=== PATIENT | female | born 1950 | race African-American/Black ===

== ENCOUNTER → 2017-03-08 | Outpatient (CLI) | payer MEDICARE, OTHER ==
[~2017-03-08] MED LIST: ACETAMINOP160 MG/54 ORAL; ACETAMINOPHEN-1 EAC1 ORAL; ASPIRIN81 MG ORAL; CATAPRES0.1 MG ORAL; CRESTOR10 M2 ORAL; FUROSEMIDE40 MG ORAL; METFORMIN HCL500 M1 ORAL; NORCO 10/3251 EA ORAL; NORVASC5 MG ORAL; POTASSIUM CHLO20 ME1 ORAL; SIMVASTATIN40 MG ORAL
[2017-03-08 11:57] LABS: KETONES,URINE NEGATIVE (NEGATIVE); LEUKOCYTE ESTERASE ,URINE NEGATIVE (NEGATIVE); NITRITE,URINE NEGATIVE (NEGATIVE); PH,URINE 5 (4.5-8.0); PROTEIN,URINE NEGATIVE (NEGATIVE); UROBILINOGEN,URINE 1 MG/DL (0.0-1.0)
[2017-03-08 11:58] LABS: APPEARANCE,URINE SLIGHTLY CLOUDY
[2017-03-08 12:00] LABS: LYMPHOCYTES % (AUTO) 30.2 % (20.0-45.0); MEAN CORPUSCULAR HEMOGLOBIN 26.2 PG (27.0-31.0); MEAN CORPUSCULAR HGB CONC 31.1 G/DL (32.0-36.0); MEAN CORPUSCULAR VOLUME 84 FL (80-99); MEAN PLATELET VOLUME 8.9 FL (6.5-10.1); MONOCYTES % (AUTO) 8.3 % (1.0-10.0); NEUTROPHILS % (AUTO) 57.4 % (45.0-75.0); PLATELET COUNT 220 K/UL (150-450); RED BLOOD COUNT 3.94 M/UL (4.20-5.40); RED CELL DISTRIBUTION WIDTH 17.8 % (11.6-14.8); WHITE BLOOD COUNT 5.4 K/UL (4.8-10.8)
[2017-03-08 12:12] LABS: HEMOGLOBIN A1C 5.8 % (< 6.0)
[2017-03-08 12:25] LABS: ALBUMIN/GLOBULIN RATIO 1.2 (1.0-2.7); CALCIUM 10.7 mg/dL (8.6-10.2); CHOLESTEROL/HDL RATIO 3.7 (3.3-4.4); CREATININE 1.1 mg/dL (0.5-0.9); GLOMERULAR FILTRATION RATE 59.9 mL/min (>60); POTASSIUM 3.9 mEQ/L (3.4-4.9); TOTAL PROTEIN 7.4 g/dL (6.6-8.7)
[2017-03-08 12:35] LABS: THYROID STIMULATING HORMONE 0.631 uIU/mL (0.300-4.500)
[2017-03-08 12:39] LABS: BACTERIA,URINE FEW /HPF; RBC,URINE 0-2 /HPF (0 - 2); SQUAMOUS EPITHELIAL CELL,UR MODERATE /LPF (NONE/OCC); WBC,URINE 0-2 /HPF (0 - 2)
== END | disposition home or self-care (01) ==
LOC: LAB 11:28
DX: I10 Essential (primary) hypertension (principal); E11.9 Type 2 diabetes mellitus without complications; I42.1 Obstructive hypertrophic cardiomyopathy
CPT/HCPCS: 36415; 80053; 80061; 81001; 83036; 84443; 85025

== ENCOUNTER 2017-09-06 11:39 | Outpatient (CLI) | payer MEDICARE, OTHER ==
[2017-09-06 11:57] LABS: APPEARANCE,URINE CLEAR; KETONES,URINE NEGATIVE (NEGATIVE); LEUKOCYTE ESTERASE ,URINE NEGATIVE (NEGATIVE); NITRITE,URINE NEGATIVE (NEGATIVE); PH,URINE 5 (4.5-8.0); PROTEIN,URINE NEGATIVE (NEGATIVE); UROBILINOGEN,URINE NORMAL MG/DL (0.0-1.0)
[2017-09-06 12:19] LABS: EOSINOPHILS % (AUTO) 3.5 % (0.0-3.0); LYMPHOCYTES % (AUTO) 19.9 % (20.0-45.0); MEAN CORPUSCULAR HEMOGLOBIN 26.8 PG (27.0-31.0); MEAN CORPUSCULAR HGB CONC 31.3 G/DL (32.0-36.0); MEAN CORPUSCULAR VOLUME 86 FL (80-99); MEAN PLATELET VOLUME 7.9 FL (6.5-10.1); MONOCYTES % (AUTO) 11.9 % (1.0-10.0); NEUTROPHILS % (AUTO) 62.6 % (45.0-75.0); PLATELET COUNT 240 K/UL (150-450); RED BLOOD COUNT 3.72 M/UL (4.20-5.40); RED CELL DISTRIBUTION WIDTH 16.3 % (11.6-14.8); WHITE BLOOD COUNT 5.1 K/UL (4.8-10.8)
[2017-09-06 12:25] LABS: BACTERIA,URINE OCCASIONAL /HPF; RBC,URINE 0-2 /HPF (0 - 2); SQUAMOUS EPITHELIAL CELL,UR OCCASIONAL /LPF (NONE/OCC); WBC,URINE 0-2 /HPF (0 - 2)
[2017-09-06 12:38] LABS: ALANINE AMINOTRANSFERASE 13 U/L (12-78); ALBUMIN/GLOBULIN RATIO 0.7 (1.0-2.7); ANION GAP 10 (5-15); ASPARTATE AMINO TRANSFERASE 15 U/L (15-37); CALCIUM 10.9 MG/DL (8.5-10.1); CARBON DIOXIDE 26 MMOL/L (21-32); CHLORIDE 102 MMOL/L (98-107); CHOLESTEROL 162 MG/DL (< 200); CHOLESTEROL/HDL RATIO 3.2 (3.3-4.4); CREATININE 1.5 MG/DL (0.55-1.30); GLOMERULAR FILTRATION RATE 41.7 mL/min (>60); POTASSIUM 3.9 MMOL/L (3.5-5.1); SODIUM 137 MMOL/L (136-145); TOTAL PROTEIN 8.2 G/DL (6.4-8.2)
== END 2017-09-06 13:39 | disposition home or self-care (01) ==
LOC: LAB 11:39
DX: I11.9 Hypertensive heart disease without heart failure (principal); M19.90 Unspecified osteoarthritis, unspecified site
CPT/HCPCS: 36415; 80053; 80061; 81001; 85025

== ENCOUNTER 2017-11-28 16:16 | Inpatient (IN) | payer MEDICARE, OTHER ==
[~2017-11-28] VITALS: Ht 162.6 cm; Wt 115.2 kg
--- NOTE | 2017-11-28 16:49 | Emergency Room Report ---
History of Present Illness General Source: Patient, EMS Present Illness HPI 67-year-old female with pmhx of hypertension, diabetes, pacemaker p/w syncopal episode. An abdominal pain nausea vomiting diarrhea Patient was at a restaurant, after finishing food, had a witnessed Syncopal episode occurred. no head trauma, +LOC for 2 min. Pt states feeling lightheadedness/nauseous before event. Denies sob, palpitations, or chest pain before event. There was no seizure like activity, tongue biting, urinary incontinence, blurry vision, or ALEXIS. Since after patient woke up she had severe nausea vomiting and diarrhea, abdominal pain. More than 10 episodes of nonbilious nonbloody vomiting Allergies: Coded Allergies: No Known Allergies (Unverified , 02/22/16) Patient History Past Medical History: see triage record Past Surgical History: none Pertinent Family History: none Reviewed Nursing Documentation: PMH: Agreed, PSxH: Agreed Nursing Documentation-PMH Hx Cardiac Problems: Yes - icd Hx Hypertension: Yes Hx Pacemaker: No Hx Asthma: No Hx COPD: No Hx Diabetes: Yes Hx Cancer: No Hx Gastrointestinal Problems: No Hx Dialysis: No Hx Neurological Problems: No Hx Cerebrovascular Accident: No Hx Seizures: No Review of Systems All Other Systems: negative except mentioned in HPI Physical Exam Sp02 EP Interpretation: reviewed, normal General Appearance: alert, moderate distress, other - diaphoretic nauseous female Head: normocephalic, atraumatic Eyes: bilateral eye normal inspection, bilateral eye PERRL, bilateral eye EOMI ENT: normal ENT inspection, normal pharynx, normal voice, moist mucus membranes Neck: normal inspection, full range of motion, supple Respiratory: normal inspection, lungs clear, normal breath sounds, no respiratory distress, no retraction, no wheezing, speaking full sentences, chest symmetrical Cardiovascular #1: normal inspection, regular rate, rhythm, normal capillary refill Cardiovascular #2: 2+ radial (R), 2+ radial (L) Gastrointestinal: soft, non-distended, no guarding, other - b/l lower abd tenderness. no guarding Musculoskeletal: normal inspection, back normal, normal range of motion, non- tender Neurologic: normal inspection, alert, oriented x3, responsive, cognos consultant III-XII nml as tested, motor strength/tone normal, sensory intact, speech normal Psychiatric: normal inspection, judgement/insight normal, memory normal Skin: normal inspection, normal color, no rash, warm/dry, well hydrated, normal turgor Medical Decision Making Diagnostic Impression: Primary Impression: Syncope Additional Impression: Nausea vomiting and diarrhea ER Course 67-year-old female with syncopal episode, nausea vomiting abdominal pain DDX: Vasovagal vs. orthostatic / hypovolemic/dehydration vs. cardiac arrhythmia (SVT , Afib) vs. cardiac (, ACS) vs. PE vs. metabolic (hypoglycemia, hypoxia), vs neuro (seizure, CVA, intracranial bleed) Abdominal pain: Gastritis, gastroenteritis, intra-abdominal pathology such as appendicitis, diverticulitis, UTI/Alexei Plan: bgm, cbc, bmp, ekg, cxr Zofran, IVF CT abdomen and pelvis ER course: Patient received IV fluids Feels much better leukocytosis likely 2/2 to vomiting, no signs of infection at this time Disposition: Patient requires admission to telemetry. Patient requires further workup of syncopal episode, further lab testing, serial troponins, cardiac monitoring D/W hospitalist Renata Please note that this Emergency Department Report was dictated using [employer] officer technology software, occasionally this can lead to erroneous entry secondary to interpretation by the dictation equipment EKG Diagnostic Results EP Interpretation: Yes Rate: normal Rhythm: V paced ST Segments: No acute changes+PVC ASA given to patient: No Rhythm Strip EP Interpretation: Yes Rate: 82 Rhythm: V paced, +PVCs Chest X-ray CXR: Ordered: Yes 1 view Indication: Syncope EP interpretation: Yes Interpretation: PPM noted, possible developing R sided infilrate Impression:possible R sided infiltrate Electronically signed by Glendy Wright MD Laboratory Tests Test 11/28/17 18:50 White Blood Count 17.5 K/UL (4.8-10.8) H Red Blood Count 4.57 M/UL (4.20-5.40) Hemoglobin 10.9 G/DL (12.0-16.0) L Hematocrit 37.4 % (37.0-47.0) Mean Corpuscular Volume 82 FL (80-99) Mean Corpuscular Hemoglobin 23.9 PG (27.0-31.0) L Mean Corpuscular Hemoglobin Concent 29.2 G/DL (32.0-36.0) L Red Cell Distribution Width 16.6 % (11.6-14.8) H Platelet Count 316 K/UL (150-450) Mean Platelet Volume 7.4 FL (6.5-10.1) Neutrophils (%) (Auto) 87.2 % (45.0-75.0) H Lymphocytes (%) (Auto) 8.9 % (20.0-45.0) L Monocytes (%) (Auto) 2.2 % (1.0-10.0) Eosinophils (%) (Auto) 0.7 % (0.0-3.0) Basophils (%) (Auto) 1.1 % (0.0-2.0) Sodium Level 140 MMOL/L (136-145) Potassium Level 3.5 MMOL/L (3.5-5.1) Chloride Level 104 MMOL/L (98-107) Carbon Dioxide Level 16 MMOL/L (21-32) L Anion Gap 20 mmol/L (5-15) H Blood Urea Nitrogen 104 mg/dL (7-18) H Creatinine 3.8 MG/DL (0.55-1.30) H Estimate Glomerular Filtration Rate 14.3 mL/min (>60) Glucose Level 149 MG/DL (74-106) H Calcium Level 8.7 MG/DL (8.5-10.1) Total Bilirubin 1.1 MG/DL (0.2-1.0) H Direct Bilirubin 0.1 MG/DL (0.0-0.3) Aspartate Amino Transferase (AST) 23 U/L (15-37) Alanine Aminotransferase (ALT) 9 U/L (12-78) L Alkaline Phosphatase 111 U/L (46-116) Troponin I 0.014 ng/mL (0.000-0.056) Total Protein 7.8 G/DL (6.4-8.2) Albumin 3.4 G/DL (3.4-5.0) Globulin 4.4 g/dL Albumin/Globulin Ratio 0.8 (1.0-2.7) L Lipase 236 U/L (73-393) Disposition: ADMITTED INPATIENT Condition: Glendy Reynoso M.D. Nov 28, 2017 16:49
[2017-11-28 18:55] VITALS: BP 78/42
[2017-11-28 19:01] LABS: HEMATOCRIT 37.4 % (37.0-47.0); HEMOGLOBIN 10.9 G/DL (12.0-16.0); MEAN CORPUSCULAR VOLUME 82 FL (80-99); PLATELET COUNT 316 K/UL (150-450); RED BLOOD COUNT 4.57 M/UL (4.20-5.40); RED CELL DISTRIBUTION WIDTH 16.6 % (11.6-14.8); WHITE BLOOD COUNT 17.5 K/UL (4.8-10.8)
[2017-11-28 19:02] LABS: EOSINOPHILS % (AUTO) 0.7 % (0.0-3.0); LYMPHOCYTES % (AUTO) 8.9 % (20.0-45.0); MONOCYTES % (AUTO) 2.2 % (1.0-10.0); NEUTROPHILS % (AUTO) 87.2 % (45.0-75.0)
[2017-11-28 19:03] LABS: BASOPHILS % (AUTO) 1.1 % (0.0-2.0)
[2017-11-28 19:13] LABS: ANION GAP 20 mmol/L (5-15); BLOOD UREA NITROGEN 104 mg/dL (7-18); CALCIUM 8.7 MG/DL (8.5-10.1); CARBON DIOXIDE 16 MMOL/L (21-32); CHLORIDE 104 MMOL/L (98-107); CREATININE 3.8 MG/DL (0.55-1.30); POTASSIUM 3.5 MMOL/L (3.5-5.1); SODIUM 140 MMOL/L (136-145)
[2017-11-28] MEDS ORDERED: BENAZEPRIL HCL20 MG ORAL (19:16)
[2017-11-28] MEDS ORDERED: HYDROCHLOROTHIA25 MG ORAL (19:16)
[2017-11-28] MEDS ORDERED: CATAPRES0.2 MG ORAL (19:16)
[2017-11-28] MEDS ORDERED: SIMVASTATIN40 MG ORAL (19:16)
[2017-11-28 19:25] LABS: ALANINE AMINOTRANSFERASE 9 U/L (12-78); ALBUMIN 3.4 G/DL (3.4-5.0); ALBUMIN/GLOBULIN RATIO 0.8 (1.0-2.7); ALKALINE PHOSPHATASE 111 U/L (46-116); ASPARTATE AMINO TRANSFERASE 23 U/L (15-37); BILIRUBIN,TOTAL 1.1 MG/DL (0.2-1.0)
[2017-11-28 19:30] VITALS: BP 100/60
[2017-11-28 19:38] LABS: BILIRUBIN,DIRECT 0.1 MG/DL (0.0-0.3)
[2017-11-28 20:30] VITALS: BP 106/53
[2017-11-28 21:30] VITALS: BP 91/59
[2017-11-28] MEDS: cloNIDine 0.2mg Tab ORAL SCH ×2 (22:00→23:03)
[2017-11-28 22:30] VITALS: BP 123/58
[2017-11-28] MEDS: Morphine Sulfate 4mg/ml Inj IVP PRN (23:02)
[2017-11-28 23:30] VITALS: BP 121/60
[2017-11-29] VITALS: BP 118/57
[2017-11-29 04:00] VITALS: BP 128/59
[2017-11-29] MEDS: Morphine Sulfate 4mg/ml Inj IVP PRN (04:09)
[2017-11-29] MEDS: cloNIDine 0.2mg Tab ORAL SCH ×3 (06:00→22:00)
[2017-11-29 08:00] VITALS: BP 114/95
[2017-11-29 08:28] LABS: ANION GAP 17 mmol/L (5-15); BLOOD UREA NITROGEN 101 mg/dL (7-18); CARBON DIOXIDE 19 MMOL/L (21-32); CHLORIDE 106 MMOL/L (98-107); CHOLESTEROL 101 MG/DL (< 200); CREATININE 3.8 MG/DL (0.55-1.30); HDL CHOLESTEROL 32 MG/DL (40-60); POTASSIUM 4.5 MMOL/L (3.5-5.1); SODIUM 142 MMOL/L (136-145); TRIGLYCERIDES 103 MG/DL (30-150)
[2017-11-29] MEDS: Aspirin Baby 81mg ORAL SCH (09:02)
[2017-11-29] MEDS: Pantoprazole Inj IV SCH (09:02)
--- NOTE | 2017-11-29 09:05 | Diagnostic Imaging Report ---
Indication: Reason For Exam: SOB Technique: One view of the chest Comparison: 05/11/2016 Findings: The heart is enlarged. There is mild interstitial edema bilaterally. No focal airspace consolidation. Pleural spaces are grossly clear, although the left hemidiaphragm is obscured by overlying soft tissue There is a left subclavian bifocal AICD Impression: Cardiomegaly with mild bilateral interstitial edema
[2017-11-29 09:13] LABS: HEMATOCRIT 31.5 % (37.0-47.0); HEMOGLOBIN 9.5 G/DL (12.0-16.0); MEAN CORPUSCULAR VOLUME 81 FL (80-99); PLATELET COUNT 285 K/UL (150-450); RED BLOOD COUNT 3.91 M/UL (4.20-5.40); RED CELL DISTRIBUTION WIDTH 16.4 % (11.6-14.8); WHITE BLOOD COUNT 18.5 K/UL (4.8-10.8)
[2017-11-29] MEDS: Morphine Sulfate 2mg/ml Inj IVP PRN ×3 (10:15→17:21)
--- NOTE | 2017-11-29 11:40 | History & Physical ---
History and Physical History & Physicial dictated [id number] JORDEN DEL CASTILLO Nov 29, 2017 11:40
[2017-11-29 12:00] VITALS: BP 127/67
[2017-11-29] MEDS: metroNIDAZOLE 500mg tab ORAL SCH ×2 (14:55→22:18)
--- NOTE | 2017-11-29 15:29 | Cardiology Progress Note ---
Assessment/Plan Assessment/Plan iv hydration echo icd interrogation urine anlaysis ? encephalopathy serial ezyme [id number] Objective Last 24 Hour Vital Signs Date Time Temp Pulse Resp B/P (MAP) Pulse Ox O2 Delivery O2 Flow Rate FiO2 11/29/17 14:00 116/55 11/29/17 12:00 97.5 70 18 127/67 96 Room Air 11/29/17 12:00 88 11/29/17 09:00 83 114/95 11/29/17 08:00 96.4 83 19 114/95 95 Room Air 11/29/17 08:00 95 11/29/17 06:00 115/73 11/29/17 04:00 94 11/29/17 04:00 97.7 103 20 128/59 95 11/29/17 00:12 80 11/29/17 00:00 97.2 84 18 118/57 99 11/29/17 00:00 97.2 80 18 118/57 99 11/29/17 00:00 97.2 84 18 118/57 99 Room Air 11/28/17 23:38 98.6 11/28/17 23:30 72 12 121/60 100 Room Air 11/28/17 22:30 80 17 123/58 99 Room Air 11/28/17 22:00 138/52 11/28/17 21:30 81 20 91/59 100 Room Air 11/28/17 20:30 68 18 106/53 99 Room Air 11/28/17 19:30 74 21 100/60 99 Room Air 11/28/17 18:55 98.4 67 21 78/42 100 Room Air 11/28/17 16:45 98.4 72 18 115/91 100 Room Air Intake and Output 11/28/17 11/29/17 19:00 07:00 Intake Total 525 ml Balance 525 ml Intake Oral 0 ml IV Total 525 ml # Voids 1 # Bowel Movements 3 Laboratory Tests Test 11/28/17 18:50 11/29/17 05:45 White Blood Count 17.5 K/UL (4.8-10.8) H 18.5 K/UL (4.8-10.8) H Red Blood Count 4.57 M/UL (4.20-5.40) 3.91 M/UL (4.20-5.40) L Hemoglobin 10.9 G/DL (12.0-16.0) L 9.5 G/DL (12.0-16.0) L Hematocrit 37.4 % (37.0-47.0) 31.5 % (37.0-47.0) L Mean Corpuscular Volume 82 FL (80-99) 81 FL (80-99) Mean Corpuscular Hemoglobin 23.9 PG (27.0-31.0) L 24.4 PG (27.0-31.0) L Mean Corpuscular Hemoglobin Concent 29.2 G/DL (32.0-36.0) L 30.3 G/DL (32.0-36.0) L Red Cell Distribution Width 16.6 % (11.6-14.8) H 16.4 % (11.6-14.8) H Platelet Count 316 K/UL (150-450) 285 K/UL (150-450) Mean Platelet Volume 7.4 FL (6.5-10.1) 7.1 FL (6.5-10.1) Neutrophils (%) (Auto) 87.2 % (45.0-75.0) H % (45.0-75.0) Lymphocytes (%) (Auto) 8.9 % (20.0-45.0) L % (20.0-45.0) Monocytes (%) (Auto) 2.2 % (1.0-10.0) % (1.0-10.0) Eosinophils (%) (Auto) 0.7 % (0.0-3.0) % (0.0-3.0) Basophils (%) (Auto) 1.1 % (0.0-2.0) % (0.0-2.0) Sodium Level 140 MMOL/L (136-145) 142 MMOL/L (136-145) Potassium Level 3.5 MMOL/L (3.5-5.1) 4.5 MMOL/L (3.5-5.1) Chloride Level 104 MMOL/L (98-107) 106 MMOL/L (98-107) Carbon Dioxide Level 16 MMOL/L (21-32) L 19 MMOL/L (21-32) L Anion Gap 20 mmol/L (5-15) H 17 mmol/L (5-15) H Blood Urea Nitrogen 104 mg/dL (7-18) H 101 mg/dL (7-18) H Creatinine 3.8 MG/DL (0.55-1.30) H 3.8 MG/DL (0.55-1.30) H Estimat Glomerular Filtration Rate 14.3 mL/min (>60) 14.3 mL/min (>60) Glucose Level 149 MG/DL (74-106) H 101 MG/DL (74-106) Calcium Level 8.7 MG/DL (8.5-10.1) 8.0 MG/DL (8.5-10.1) L Total Bilirubin 1.1 MG/DL (0.2-1.0) H Direct Bilirubin 0.1 MG/DL (0.0-0.3) Aspartate Amino Transf (AST/SGOT) 23 U/L (15-37) Alanine Aminotransferase (ALT/SGPT) 9 U/L (12-78) L Alkaline Phosphatase 111 U/L (46-116) Troponin I 0.014 ng/mL (0.000-0.056) 0.032 ng/mL (0.000-0.056) Total Protein 7.8 G/DL (6.4-8.2) Albumin 3.4 G/DL (3.4-5.0) Globulin 4.4 g/dL Albumin/Globulin Ratio 0.8 (1.0-2.7) L Lipase 236 U/L (73-393) Differential Total Cells Counted 100 Neutrophils % (Manual) 87 % (45-75) H Lymphocytes % (Manual) 9 % (20-45) L Monocytes % (Manual) 3 % (1-10) Eosinophils % (Manual) 0 % (0-3) Basophils % (Manual) 0 % (0-2) Band Neutrophils 1 % (0-8) Platelet Estimate Adequate Platelet Morphology Normal Hypochromasia 1+ Anisocytosis 1+ Hemoglobin A1c 6.2 % (4.3-6.0) H Magnesium Level 2.2 MG/DL (1.8-2.4) Triglycerides Level 103 MG/DL (30-150) Cholesterol Level 101 MG/DL (< 200) LDL Cholesterol 62 mg/dL (<100) HDL Cholesterol 32 MG/DL (40-60) L Cholesterol/HDL Ratio 3.2 (3.3-4.4) L HECTOR,NATE Nov 29, 2017 15:29
[2017-11-29 16:00] VITALS: BP 107/59
[2017-11-29 18:14] LABS: BILIRUBIN, URINE NEGATIVE (NEGATIVE); GLUCOSE, URINE (UA) NEGATIVE (NEGATIVE); KETONES,URINE 1+ (NEGATIVE); LEUKOCYTE ESTERASE ,URINE 1+ (NEGATIVE); NITRITE,URINE NEGATIVE (NEGATIVE); PH,URINE 6 (4.5-8.0); PROTEIN,URINE NEGATIVE (NEGATIVE); UROBILINOGEN,URINE NORMAL MG/DL (0.0-1.0)
[2017-11-29 18:15] LABS: APPEARANCE,URINE SLIGHTLY CLOUDY; COLOR,URINE YELLOW
[2017-11-29 20:00] VITALS: BP 114/93
--- NOTE | 2017-11-29 21:15 | Consultation ---
DATE OF CONSULTATION: 11/29/2017 CARDIOLOGY CONSULTATION CONSULTING PHYSICIAN: Vernon Darden M.D. REFERRING PHYSICIAN: Oliverio Yanez M.D. REASON FOR REFERRAL: Syncope. HISTORY OF PRESENT ILLNESS: This is an elderly female, who is known to me from prior evaluation and hospitalization here at 2016. The patient was brought in by paramedics. She is a very poor historian at the present time. She does not recall what happened to her and the upsetter helper run sheet is missing. Emergency room physician's notation indicate that the patient was apparently in a restaurant after finishing food had a syncopal episode that was witnessed. No head trauma was noted. There was loss of consciousness for approximately two minutes apparently lightheaded and nausea before that event that is what she told the emergency room physician but she denied any such symptoms to me. Apparently, no seizure activity, tongue biting, or urinary incontinence. No blurred vision or headaches are noted. After the patient woke up with severe nausea, vomiting, diarrhea and abdominal pain and apparently 10 episodes of nonbilious, nonbloody vomiting occurred as per the emergency room physician's notation. The patient herself denies any nausea or vomiting. She actually denies any chest pain or shortness of breath. No PND. No orthopnea. She uses two pillows to watch TV. No heart pounding or palpitation. Denies any dizziness or lightheadedness on standing. PAST MEDICAL HISTORY: She has had a history of chest pain, history of essential hypertension, and history of hyperlipidemia. She has had a history of cardiac defibrillator implantation number years ago, reported history of hypertrophic cardiomyopathy but no obstructive lesion, history of nonsustained ventricular tachycardia with the family history of sudden cardiac requiring intracardiac defibrillator placement, history of abnormal perfusion study with normal cardiac catheterization before, and history of hypercalcemia. ALLERGIES: She denies any allergies to medications. FAMILY HISTORY: Mother had cardiomyopathy, of lung cancer and was a smoker. SOCIAL HISTORY: She does not smoke or drink. She used to use crack cocaine sometime ago. She lives with her granddaughter. REVIEW OF SYSTEMS: GASTROINTESTINAL: She denies. GENITOURINARY: She denies. PULMONARY: She denies. NEUROLOGIC: She denies. CONSTITUTIONAL: She denies. PHYSICAL EXAMINATION: GENERAL: Shows to be obese female, in no respiratory distress. The patient is confused. She does know that she is at [facility]. Does not know the date. NECK: Supple. No jugular venous distention. LUNGS: Clear to auscultation and percussion. CARDIAC EXAMINATION: S1 is normal. S2 is normal. Regular rate and rhythm. Systolic ejection murmur is noted. ABDOMEN: Soft and obese. Positive bowel sounds. Nontender. EXTREMITIES: There is no clubbing, cyanosis, nor is there any edema. NEUROLOGICAL: She is awake, alert, and responsive, in no respiratory distress. LABORATORY AND DIAGNOSTIC DATA: White count of 18.5, hemoglobin 9.5, and platelet count of 285. Sodium is 142, potassium 4.5, chloride 106, bicarbonate 19, BUN of 101, creatinine of 3.8, and glucose of 101. A1c of 6.2. Calcium is 8.0 was 10.9 on prior occasions. Magnesium is 2.2. Two sets of cardiac enzymes are negative so far. Total cholesterol 101 with a LDL of 62 and HDL of 32. No urinalysis is performed. A chest x-ray was performed in the emergency room showed cardiomegaly, bilateral interstitial edema. There is atrial activity on subsequent EKGs that show atrial sensing and pacing and ventricular sensing and pacing as well. ASSESSMENT: 1. Syncopal episode. 2. Reported recurrent episodes of nausea, vomiting, and diarrhea prior to admission. 3. History of hypertrophic nonobstructive cardiomyopathy. 4. Family history of sudden cardiac . 5. History of intracardiac defibrillator implantation, [employer] device previously. 6. Obesity. 7. Abnormal perfusion with normal cardiac catheterization previously. 8. Hypercalcemia. 9. Alteration of mentation. 10. Azotemia. PLAN: Dr. Yanez, this patient was seen in cardiac consultation. The patient's syncopal episode may be suggestive of vasovagal episode especially in light of the fact that she has some hypertrophic cardiomyopathy and has had recurrent nausea and vomiting, probably multifactorial. She requires defibrillator interrogation to see if she has had any ICD discharges and/or arrhythmias that are cause of her syncopal episode. She will require orthostatic vitals to be checked. IV fluid has been administered. The patient is quite azotemic, may be even volume depleted previous to this episode, not clear to me. She will have an echocardiogram for evaluation of systolic function. Cardiac enzymes so far has been negative and her white count is elevated. Urinalysis should be performed to exclude the possibility of an underlying infection as well. I will follow the patient along with you. Vernon Darden M.D. DR: GUS JOB#: [id number] CC:
--- NOTE | 2017-11-29 22:00 | History and Physical Report ---
DATE OF ADMISSION: 11/28/2017 CHIEF COMPLAINT: The patient had [place] food, started to vomit, and then passed out. HISTORY OF PRESENT ILLNESS: This is a 67-year-old female with history of hypertension, diabetes, and pacemaker. The patient has hypertrophic cardiomyopathy. She was in a [place] restaurant yesterday and half an hour after she finished her food, she started vomiting and then she had a syncopal episode. She does not know how long she was out. There was no reported seizure activity, tongue biting, urinary incontinence, or blurry vision. In the emergency room, she was found to have acute renal failure with elevation of BUN and creatinine to 104 and 3.8. PAST MEDICAL HISTORY: As above. MEDICATIONS: Reviewed in the EMR. SOCIAL HISTORY: The patient lives at home and has very supportive family. No history of smoking or alcohol abuse. REVIEW OF SYSTEMS: Noncontributory. PHYSICAL EXAMINATION: GENERAL: The patient is an obese female, in no acute distress. VITAL SIGNS: Blood pressure 114/95, pulse 83, temperature 96.4, and respirations 19. HEENT: Somewhat pale conjunctivae. Anicteric sclerae. NECK: Supple. LUNGS: Clear to auscultation. HEART: S1, S2 without murmurs or rubs. ABDOMEN: Soft, nontender. EXTREMITIES: No cyanosis or edema. LABORATORY FINDINGS: The CBC as of today shows WBC of 18.5, hematocrit 31.5, hemoglobin 9.5, and platelets 285,000. Chemistry panel shows serum sodium of 142, potassium 4.5, chloride 106, CO2 19, BUN 101, and creatinine 3.8. ASSESSMENT: This is a 67-year-old female, who was admitted with what appears to be reaction to food. It is unclear why the patient had a syncopal episode, but she may have been very dehydrated that it might have affected. She has acute renal failure and so she may have been volume depleted. PLAN: The patient will be hydrated with IV fluid. Diet will be advanced as tolerated. She is going to be on antiemetics. I will ask polyethylene combiner to see the patient. Laboratories will be followed and further adjustment will be made in the patient's regimen. Oliverio Yanez M.D. DR: JAGDISH JOB#: [id number] CC:
--- NOTE | 2017-11-30 03:30 | Consultation ---
DATE OF CONSULTATION: 11/29/2017 INFECTIOUS DISEASES CONSULTATION REFERRING PHYSICIAN: Oliverio Yanez M.D. This consultation has been done on behalf of Dr. Julien Yanez. REASON FOR CONSULTATION: Possible pneumonia. HISTORY OF PRESENTING ILLNESS: This is a 67-year-old lady with a history of diabetes, hypertension, and pacemaker placement, who comes in with syncope. She was at a restaurant and she was finishing food and she did not have any head trauma, headaches, or seizures. She woke up and then she had nausea, vomiting, abdominal pain, and diarrhea. An Infectious Diseases consultation has been obtained for antibiotics. PAST MEDICAL HISTORY: 1. History of hypertension. 2. Status post pacemaker placement. 3. History of diabetes. 4. History of hypertension. MEDICATIONS: As an inpatient, she is on amlodipine, aspirin, Protonix, clonidine, morphine, and Zofran. ALLERGIES: To sulfa noted. SOCIAL HISTORY: Unknown. FAMILY HISTORY: Unknown. REVIEW OF SYSTEMS: Unable to obtain currently. PHYSICAL EXAMINATION: VITAL SIGNS: Temperature of 96.4, T-max of 98.4, pulse of 68, respiratory rate of 18, blood pressure 106/53, and O2 saturation of 99%. HEENT: Pupils equally reactive to light and accommodation. Mouth appears clean without thrush. NECK: Supple. No adenopathy. No JVD. CARDIOVASCULAR: Regular rate and rhythm. No murmurs. LUNGS: Clear to auscultation bilaterally. No crackles. No wheezes. ABDOMEN: Soft and nontender. No organomegaly. EXTREMITIES: No cyanosis, no clubbing, no edema. LABORATORY AND DIAGNOSTIC DATA: White count 18.5, hemoglobin 9.5, hematocrit 31.5, MCV 81, and platelet count of 285,000 with neutrophils of 87%. Sodium 142, potassium 4.5, chloride 106, bicarbonate 19, BUN 101, creatinine 3.8, glucose 101, and calcium 8. Total bilirubin yesterday 1.1. Direct bilirubin 0.1. AST 23, ALT 9, and alkaline phosphatase 111. Troponin 0.032. Total protein 7.8. Albumin 3.4. Chest x-ray showing cardiomegaly with mild interstitial edema. ASSESSMENT: 1. This is a 67-year-old lady with a history of diabetes and hypertension, status post pacemaker placement, who had syncope, nausea, vomiting, abdominal pain, and diarrhea after eating at a restaurant, would be concerned regarding possible gastroenteritis. 2. Syncope. 3. Diabetes. 4. Hypertension. PLAN: 1. We will order stool cultures. 2. We will order stool for C. difficile colitis. 3. We will start the patient on cefepime and Flagyl. 4. We will follow up cultures. 5. We will order urinalysis and urine culture. I would like to thank Dr. Yanez for this consultation. Brandon Tian M.D. DR: Sole JOB#: [id number] CC: Oliverio Yanez M.D.; Fax#: [phone]
[2017-11-30 06:00] VITALS: BP 111/62
[2017-11-30] MEDS: metroNIDAZOLE 500mg tab ORAL SCH ×3 (06:31→22:02)
[2017-11-30] MEDS: cloNIDine 0.2mg Tab ORAL SCH ×3 (06:31→22:16)
[2017-11-30 08:00] VITALS: BP 133/65
[2017-11-30] MEDS: Pantoprazole Inj IV SCH (08:38)
[2017-11-30] MEDS: Aspirin Baby 81mg ORAL SCH (08:39)
[2017-11-30 08:58] LABS: ALANINE AMINOTRANSFERASE 14 U/L (12-78); ALBUMIN 3.2 G/DL (3.4-5.0); ALBUMIN/GLOBULIN RATIO 0.7 (1.0-2.7); ALKALINE PHOSPHATASE 96 U/L (46-116); ANION GAP 18 mmol/L (5-15); ASPARTATE AMINO TRANSFERASE 19 U/L (15-37); BILIRUBIN,TOTAL 0.6 MG/DL (0.2-1.0); BLOOD UREA NITROGEN 103 mg/dL (7-18); CALCIUM 8.9 MG/DL (8.5-10.1); CARBON DIOXIDE 17 MMOL/L (21-32); CHLORIDE 103 MMOL/L (98-107); CREATINE KINASE 70 U/L (26-308); CREATININE 3.7 MG/DL (0.55-1.30); POTASSIUM 3.9 MMOL/L (3.5-5.1); SODIUM 138 MMOL/L (136-145)
--- NOTE | 2017-11-30 10:53 | Infectious Diseases Prog Note ---
Assessment/Plan Assessment/Plan A; Gastroenteritis, food allergy versus food poisoning Syncope Acute renal failure Obesity DM HPN P; Continue Flagyl & Cefepime will f/u cultures case was D/W PCP Subjective ROS Limited/Unobtainable: No Constitutional: Reports: no symptoms Respiratory: Reports: no symptoms Gastrointestinal/Abdominal: Reports: no symptoms Genitourinary: Reports: no symptoms Musculoskeletal: Reports: no symptoms Allergies: Coded Allergies: SULFA (SULFONAMIDE ANTIBIOTICS) (Verified Allergy, Unknown, 11/28/17) Pt states she is allergic to sulfa Objective Vital Signs Last 24 Hour Vital Signs Date Time Temp Pulse Resp B/P (MAP) Pulse Ox O2 Delivery O2 Flow Rate FiO2 11/30/17 08:39 104 133/65 11/30/17 06:31 111/62 11/30/17 06:00 97.2 103 18 111/62 100 11/30/17 04:00 114 11/30/17 00:00 106 11/29/17 22:00 101/69 11/29/17 22:00 101 116 11/29/17 20:00 97.0 107 20 114/93 97 11/29/17 20:00 100 11/29/17 16:00 98.1 94 18 107/59 98 Room Air 11/29/17 16:00 97 11/29/17 14:00 116/55 11/29/17 12:00 97.5 70 18 127/67 96 Room Air 11/29/17 12:00 88 Height (Feet): 5 Height (Inches): 4.00 Weight (Pounds): 280 General Appearance: no acute distress HEENT: mucous membranes moist Respiratory/Chest: lungs clear Cardiovascular: tachycardia, pacemaker/AICD Abdomen: soft, non tender Extremities: no edema Neurologic/Psychiatric: alert, oriented x 3, responsive Microbiology Date/Time Source Procedure Growth Status 11/29/17 17:30 Urine,Clean Catch Urine Culture - Preliminary NO GROWTH Resulted Laboratory Tests Test 11/29/17 17:30 11/29/17 21:34 11/30/17 05:30 Urine Color Yellow Urine Appearance Slightly cloudy Urine pH 6 (4.5-8.0) Urine Specific [place] 1.010 (1.005-1.035) Urine Protein Negative (NEGATIVE) Urine Glucose (UA) Negative (NEGATIVE) Urine Ketones 1+ (NEGATIVE) H Urine Occult Blood 2+ (NEGATIVE) H Urine Nitrite Negative (NEGATIVE) Urine Bilirubin Negative (NEGATIVE) Urine Urobilinogen Normal MG/DL (0.0-1.0) Urine Leukocyte Esterase 1+ (NEGATIVE) H Urine RBC 0-2 /HPF (0 - 2) Urine WBC 0-2 /HPF (0 - 2) Urine Squamous Epithelial Cells Few /LPF (NONE/OCC) Urine Bacteria Few /HPF (NONE) Troponin I 0.011 ng/mL (0.000-0.056) 0.006 ng/mL (0.000-0.056) Sodium Level 138 MMOL/L (136-145) Potassium Level 3.9 MMOL/L (3.5-5.1) Chloride Level 103 MMOL/L (98-107) Carbon Dioxide Level 17 MMOL/L (21-32) L Anion Gap 18 mmol/L (5-15) H Blood Urea Nitrogen 103 mg/dL (7-18) H Creatinine 3.7 MG/DL (0.55-1.30) H Estimat Glomerular Filtration Rate 14.8 mL/min (>60) Glucose Level 99 MG/DL (74-106) Calcium Level 8.9 MG/DL (8.5-10.1) Magnesium Level 1.9 MG/DL (1.8-2.4) Total Bilirubin 0.6 MG/DL (0.2-1.0) Aspartate Amino Transf (AST/SGOT) 19 U/L (15-37) Alanine Aminotransferase (ALT/SGPT) 14 U/L (12-78) Alkaline Phosphatase 96 U/L (46-116) Total Creatine Kinase 70 U/L (26-308) Pro-B-Type Natriuretic Peptide 609 pg/mL (0-125) H Total Protein 7.7 G/DL (6.4-8.2) Albumin 3.2 G/DL (3.4-5.0) L Globulin 4.5 g/dL Albumin/Globulin Ratio 0.7 (1.0-2.7) L Current Medications Medications (Trade) Dose Ordered Sig/Barrett Route PRN Reason Start Time Stop Time Status Last Admin Dose Admin Amlodipine Besylate (Norvasc) 5 mg DAILY ORAL 11/29/17 09:00 12/29/17 08:59 11/30/17 08:39 Aspirin (ASA) 81 mg DAILY ORAL 11/29/17 09:00 12/29/17 08:59 11/30/17 08:39 Cefepime HCl 1 gm/ Dextrose 50 ml @ 100 mls/hr DAILY IVPB 11/29/17 15:00 12/06/17 14:59 11/30/17 09:30 Clonidine HCl (Catapres) 0.2 mg Q8HR ORAL 11/28/17 22:00 12/28/17 21:59 Dextrose (Dextrose 50%) STAT PRN IV Hypoglycemia 11/28/17 22:00 12/28/17 21:59 Metronidazole (Flagyl) 500 mg EVERY 8 HOURS ORAL 11/29/17 14:00 12/06/17 13:59 11/30/17 06:31 Morphine Sulfate (Morphine Sulfate) 2 mg EVERY 3 HOURS PRN IVP Moderate Pain (Pain Scale 4-6) 11/28/17 22:00 12/05/17 21:59 11/29/17 17:21 Morphine Sulfate (Morphine Sulfate) 4 mg EVERY 3 HOURS PRN IVP Severe Pain (Pain Scale 7-10) 11/28/17 22:00 12/05/17 21:59 11/29/17 04:09 Ondansetron HCl (Zofran) 4 mg EVERY 4 HOURS PRN IVP Nausea & Vomiting 11/28/17 22:00 12/28/17 21:59 11/29/17 10:15 Pantoprazole (Protonix) 40 mg DAILY IV 11/29/17 09:00 12/29/17 08:59 11/30/17 08:38 Sodium Chloride 1,000 ml @ 75 mls/hr [id number] IV 11/28/17 22:57 12/28/17 22:56 11/30/17 02:24 LEONELA DEL CASTILLO Nov 30, 2017 10:53
--- NOTE | 2017-11-30 11:19 | General Progress Note ---
Assessment/Plan Problem List: (1) ARF (acute renal failure) ICD Codes: N17.9 - Acute kidney failure, unspecified SNOMED: 71402016 (2) Hypertrophic cardiomyopathy ICD Codes: I42.2 - Other hypertrophic cardiomyopathy SNOMED: 416205415 (3) HTN (hypertension) ICD Codes: I10 - Essential (primary) hypertension SNOMED: 85760595 (4) DM (diabetes mellitus) ICD Codes: E11.9 - Type 2 diabetes mellitus without complications SNOMED: 16492014 Qualifiers: Assessment/Plan DC IVF abxs Discussed with ID PT Subjective Allergies: Coded Allergies: SULFA (SULFONAMIDE ANTIBIOTICS) (Verified Allergy, Unknown, 11/28/17) Pt states she is allergic to sulfa Subjective wants to get up Objective Last 24 Hour Vital Signs Date Time Temp Pulse Resp B/P (MAP) Pulse Ox O2 Delivery O2 Flow Rate FiO2 11/30/17 08:39 104 133/65 11/30/17 06:31 111/62 11/30/17 06:00 97.2 103 18 111/62 100 11/30/17 04:00 114 11/30/17 00:00 106 11/29/17 22:00 101/69 11/29/17 22:00 101 116 11/29/17 20:00 97.0 107 20 114/93 97 11/29/17 20:00 100 11/29/17 16:00 98.1 94 18 107/59 98 Room Air 11/29/17 16:00 97 11/29/17 14:00 116/55 11/29/17 12:00 97.5 70 18 127/67 96 Room Air 11/29/17 12:00 88 Intake and Output 11/29/17 11/30/17 19:00 07:00 Intake Total 1446 ml 900 ml Balance 1446 ml 900 ml Intake Oral 476 ml IV Total 970 ml 900 ml # Voids 1 Laboratory Tests 11/29/17 17:30: Urine Color Yellow, Urine Appearance Slightly cloudy, Urine pH 6, Urine Specific [place] 1.010, Urine Protein Negative, Urine Glucose (UA) Negative, Urine Ketones 1+H, Urine Occult Blood 2+H, Urine Nitrite Negative, Urine Bilirubin Negative, Urine Urobilinogen Normal, Urine Leukocyte Esterase 1+H, Urine RBC 0-2, Urine WBC 0-2, Urine Squamous Epithelial Cells Few, Urine Bacteria Few 1/4/18 21:34: Troponin I 0.011 11/30/17 05:30: Troponin I 0.006, Sodium Level 138, Potassium Level 3.9, Chloride Level 103, Carbon Dioxide Level 17L, Anion Gap 18H, Blood Urea Nitrogen 103H, Creatinine 3.7H, Estimat Glomerular Filtration Rate 14.8, Glucose Level 99, Calcium Level 8.9, Magnesium Level 1.9, Total Bilirubin 0.6, Aspartate Amino Transf (AST/SGOT ) 19, Alanine Aminotransferase (ALT/SGPT) 14, Alkaline Phosphatase 96, Total Creatine Kinase 70, Pro-B-Type Natriuretic Peptide 609H, Total Protein 7.7, Albumin 3.2L, Globulin 4.5, Albumin/Globulin Ratio 0.7L Height (Feet): 5 Height (Inches): 4.00 Weight (Pounds): 280 Cardiovascular: normal rate Respiratory/Chest: lungs clear Edema: 1+ Generalized JORDEN DEL CASTILLO Nov 30, 2017 11:19
[2017-11-30 12:00] VITALS: BP 143/69
[2017-11-30 16:00] VITALS: BP 139/68
[2017-11-30] MEDS: Morphine Sulfate 2mg/ml Inj IVP PRN (16:52)
--- NOTE | 2017-11-30 18:01 | Cardiology Progress Note ---
Assessment/Plan Assessment/Plan 1. Syncopal episode. 2. Reported recurrent episodes of nausea, vomiting, and diarrhea prior to admission. 3. History of hypertrophic nonobstructive cardiomyopathy. 4. Family history of sudden cardiac . 5. History of intracardiac defibrillator implantation, [employer] device previously. 6. Obesity. 7. Abnormal perfusion with normal cardiac catheterization previously. 8. Hypercalcemia. 9. Alteration of mentation. 10. Azotemia 11. afib icd interrogated yest not sig event noted tele however showes afib with v pacing will need to consider anticoagulation for stroke prevention all trop neg tel noted echo pending Subjective Cardiovascular: Denies: chest pain, irregular heart rate, lightheadedness, palpitations Respiratory: Denies: shortness of breath Gastrointestinal/Abdominal: Denies: abdominal pain Genitourinary: Denies: burning Objective Last 24 Hour Vital Signs Date Time Temp Pulse Resp B/P (MAP) Pulse Ox O2 Delivery O2 Flow Rate FiO2 11/30/17 16:00 115 11/30/17 14:28 128/65 11/30/17 12:00 103 11/30/17 12:00 98.2 109 18 143/69 97 Room Air 11/30/17 08:39 104 133/65 11/30/17 08:00 96.6 104 18 133/65 96 Room Air 11/30/17 08:00 105 11/30/17 06:31 111/62 11/30/17 06:00 97.2 103 18 111/62 100 11/30/17 04:00 114 11/30/17 00:00 106 11/29/17 22:00 101/69 11/29/17 22:00 101 116 11/29/17 20:00 97.0 107 20 114/93 97 11/29/17 20:00 100 General Appearance: no apparent distress, alert Neck: non-tender Cardiovascular: irregularly irregular Respiratory/Chest: chest wall non-tender, lungs clear Abdomen: normal bowel sounds, non tender, soft Extremities: no swelling Intake and Output 11/29/17 11/30/17 19:00 07:00 Intake Total 1446 ml 900 ml Balance 1446 ml 900 ml Intake Oral 476 ml IV Total 970 ml 900 ml # Voids 1 Laboratory Tests Test 11/29/17 21:34 11/30/17 05:30 Troponin I 0.011 ng/mL (0.000-0.056) 0.006 ng/mL (0.000-0.056) Sodium Level 138 MMOL/L (136-145) Potassium Level 3.9 MMOL/L (3.5-5.1) Chloride Level 103 MMOL/L (98-107) Carbon Dioxide Level 17 MMOL/L (21-32) L Anion Gap 18 mmol/L (5-15) H Blood Urea Nitrogen 103 mg/dL (7-18) H Creatinine 3.7 MG/DL (0.55-1.30) H Estimat Glomerular Filtration Rate 14.8 mL/min (>60) Glucose Level 99 MG/DL (74-106) Calcium Level 8.9 MG/DL (8.5-10.1) Magnesium Level 1.9 MG/DL (1.8-2.4) Total Bilirubin 0.6 MG/DL (0.2-1.0) Aspartate Amino Transf (AST/SGOT) 19 U/L (15-37) Alanine Aminotransferase (ALT/SGPT) 14 U/L (12-78) Alkaline Phosphatase 96 U/L (46-116) Total Creatine Kinase 70 U/L (26-308) Pro-B-Type Natriuretic Peptide 609 pg/mL (0-125) H Total Protein 7.7 G/DL (6.4-8.2) Albumin 3.2 G/DL (3.4-5.0) L Globulin 4.5 g/dL Albumin/Globulin Ratio 0.7 (1.0-2.7) L Microbiology Date/Time Source Procedure Growth Status 11/29/17 17:30 Urine,Clean Catch Urine Culture - Preliminary NO GROWTH Resulted NATE YOUNG Nov 30, 2017 18:01
[2017-11-30 20:09] VITALS: BP 144/73
[2017-12-01 00:08] VITALS: BP 108/56
[2017-12-01 04:24] VITALS: BP 119/54
[2017-12-01] MEDS: cloNIDine 0.2mg Tab ORAL SCH ×3 (05:53→22:00)
[2017-12-01] MEDS: metroNIDAZOLE 500mg tab ORAL SCH ×3 (05:53→22:00)
[2017-12-01 07:43] LABS: BASOPHILS % (AUTO) 0.4 % (0.0-2.0); EOSINOPHILS % (AUTO) 0.9 % (0.0-3.0); HEMATOCRIT 26.6 % (37.0-47.0); HEMOGLOBIN 8.5 G/DL (12.0-16.0); LYMPHOCYTES % (AUTO) 11.2 % (20.0-45.0); MEAN CORPUSCULAR VOLUME 80 FL (80-99); MONOCYTES % (AUTO) 7.1 % (1.0-10.0); NEUTROPHILS % (AUTO) 80.4 % (45.0-75.0); PLATELET COUNT 194 K/UL (150-450); RED BLOOD COUNT 3.34 M/UL (4.20-5.40); RED CELL DISTRIBUTION WIDTH 16.7 % (11.6-14.8)
[2017-12-01 08:00] VITALS: BP 109/59
[2017-12-01 08:02] LABS: ANION GAP 15 mmol/L (5-15); BLOOD UREA NITROGEN 98 mg/dL (7-18); CALCIUM 9.3 MG/DL (8.5-10.1); CARBON DIOXIDE 19 MMOL/L (21-32); CHLORIDE 107 MMOL/L (98-107); POTASSIUM 3.9 MMOL/L (3.5-5.1); SODIUM 141 MMOL/L (136-145)
[2017-12-01] MEDS: Pantoprazole Inj IV SCH (09:40)
[2017-12-01] MEDS: Aspirin Baby 81mg ORAL SCH (09:41)
[2017-12-01 12:00] VITALS: BP 136/60
--- NOTE | 2017-12-01 12:01 | Nephrology Progress Note ---
Assessment/Plan Problem List: (1) ARF (acute renal failure) (2) Hypertrophic cardiomyopathy (3) HTN (hypertension) (4) DM (diabetes mellitus) Assessment ARF better Plan IVF follow BMP will discuss with Dr Darden Subjective Subjective feels ok Objective Objective Last 24 Hour Vital Signs Date Time Temp Pulse Resp B/P (MAP) Pulse Ox O2 Delivery O2 Flow Rate FiO2 12/01/17 09:41 82 109/59 12/01/17 08:00 98.0 82 19 109/59 98 Room Air 12/01/17 08:00 87 12/01/17 05:53 119/54 12/01/17 04:24 97.6 88 18 119/54 97 Room Air 12/01/17 04:16 86 86 12/01/17 04:00 83 12/01/17 00:08 96.7 90 19 108/56 95 Room Air 12/01/17 00:00 94 11/30/17 22:16 144/73 11/30/17 21:00 84 11/30/17 21:00 86 86 11/30/17 20:09 99.9 102 18 144/73 97 Room Air 11/30/17 20:00 103 11/30/17 16:00 98.0 109 18 139/68 96 Room Air 11/30/17 16:00 115 11/30/17 14:28 128/65 Intake and Output 11/30/17 12/01/17 19:00 07:00 Intake Total 1125 ml Output Total 700 ml 200 ml Balance 425 ml -200 ml Intake Oral 1050 ml IV Total 75 ml Output Urine Total 700 ml 200 ml # Voids 2 # Bowel Movements 1 Laboratory Tests 12/01/17 05:50: White Blood Count 9.0, Red Blood Count 3.34L, Hemoglobin 8.5L, Hematocrit 26.6L , Mean Corpuscular Volume 80, Mean Corpuscular Hemoglobin 25.4L, Mean Corpuscular Hemoglobin Concent 32.0, Red Cell Distribution Width 16.7H, Platelet Count 194, Mean Platelet Volume 8.6, Neutrophils (%) (Auto) 80.4H, Lymphocytes (%) (Auto) 11.2L, Monocytes (%) (Auto) 7.1, Eosinophils (%) (Auto) 0.9, Basophils (%) (Auto) 0.4, Sodium Level 141, Potassium Level 3.9, Chloride Level 107, Carbon Dioxide Level 19L, Anion Gap 15, Blood Urea Nitrogen 98H, Creatinine 3.0H, Estimat Glomerular Filtration Rate 18.8, Glucose Level 106, Calcium Level 9.3 Height (Feet): 5 Height (Inches): 4.00 Weight (Pounds): 280 Cardiovascular: normal rate Respiratory/Chest: rhonchi - bilaterally - mild JORDEN DEL CATSILLO Dec 01, 2017 12:01
[2017-12-01] MEDS: Morphine Sulfate 4mg/ml Inj IVP PRN ×4 (12:46→23:07)
--- NOTE | 2017-12-01 15:56 | Cardiology Progress Note ---
Assessment/Plan Assessment/Plan 1. Syncopal episode. 2. Reported recurrent episodes of nausea, vomiting, and diarrhea prior to admission. 3. History of hypertrophic nonobstructive cardiomyopathy. 4. Family history of sudden cardiac . 5. History of intracardiac defibrillator implantation, [employer] device previously. 6. Obesity. 7. Abnormal perfusion with normal cardiac catheterization previously. 8. Hypercalcemia. 9. Alteration of mentation. 10. Azotemia 11. afib icd interrogated yest not sig event noted tele however showes afib with v pacing now back to sinus will need to consider anticoagulation for stroke prevention all trop neg tel noted now back to sinus echo pending still will start amiod to maintian sinus may need neuro eval Subjective ROS Limited/Unobtainable: Yes Cardiovascular: Denies: chest pain, irregular heart rate Subjective drowsey Objective Last 24 Hour Vital Signs Date Time Temp Pulse Resp B/P (MAP) Pulse Ox O2 Delivery O2 Flow Rate FiO2 12/01/17 14:40 136/60 12/01/17 13:16 98.0 12/01/17 12:00 98.2 92 19 136/60 98 Room Air 12/01/17 09:41 82 109/59 12/01/17 08:00 98.0 82 19 109/59 98 Room Air 12/01/17 08:00 87 12/01/17 05:53 119/54 12/01/17 04:24 97.6 88 18 119/54 97 Room Air 12/01/17 04:16 86 86 12/01/17 04:00 83 12/01/17 00:08 96.7 90 19 108/56 95 Room Air 12/01/17 00:00 94 11/30/17 22:16 144/73 11/30/17 21:00 84 11/30/17 21:00 86 86 11/30/17 20:09 99.9 102 18 144/73 97 Room Air 11/30/17 20:00 103 11/30/17 16:00 98.0 109 18 139/68 96 Room Air 11/30/17 16:00 115 General Appearance: no apparent distress, other - drowsey Neck: supple Cardiovascular: normal rate, regular rhythm Respiratory/Chest: lungs clear, normal breath sounds Abdomen: normal bowel sounds, non tender, soft Extremities: no swelling Intake and Output 11/30/17 12/01/17 19:00 07:00 Intake Total 1125 ml Output Total 700 ml 200 ml Balance 425 ml -200 ml Intake Oral 1050 ml IV Total 75 ml Output Urine Total 700 ml 200 ml # Voids 2 # Bowel Movements 1 Laboratory Tests Test 12/01/17 05:50 White Blood Count 9.0 K/UL (4.8-10.8) Red Blood Count 3.34 M/UL (4.20-5.40) L Hemoglobin 8.5 G/DL (12.0-16.0) L Hematocrit 26.6 % (37.0-47.0) L Mean Corpuscular Volume 80 FL (80-99) Mean Corpuscular Hemoglobin 25.4 PG (27.0-31.0) L Mean Corpuscular Hemoglobin Concent 32.0 G/DL (32.0-36.0) Red Cell Distribution Width 16.7 % (11.6-14.8) H Platelet Count 194 K/UL (150-450) Mean Platelet Volume 8.6 FL (6.5-10.1) Neutrophils (%) (Auto) 80.4 % (45.0-75.0) H Lymphocytes (%) (Auto) 11.2 % (20.0-45.0) L Monocytes (%) (Auto) 7.1 % (1.0-10.0) Eosinophils (%) (Auto) 0.9 % (0.0-3.0) Basophils (%) (Auto) 0.4 % (0.0-2.0) Sodium Level 141 MMOL/L (136-145) Potassium Level 3.9 MMOL/L (3.5-5.1) Chloride Level 107 MMOL/L (98-107) Carbon Dioxide Level 19 MMOL/L (21-32) L Anion Gap 15 mmol/L (5-15) Blood Urea Nitrogen 98 mg/dL (7-18) H Creatinine 3.0 MG/DL (0.55-1.30) H Estimat Glomerular Filtration Rate 18.8 mL/min (>60) Glucose Level 106 MG/DL (74-106) Calcium Level 9.3 MG/DL (8.5-10.1) Microbiology Date/Time Source Procedure Growth Status 11/29/17 17:30 Urine,Clean Catch Urine Culture - Final Mixed Gram Positive Organism Complete NATE YOUNG Dec 01, 2017 15:55
[2017-12-01 16:00] VITALS: BP 90/60
[2017-12-01] MEDS: Amiodarone 200mg tab ORAL SCH ×2 (16:52→21:11)
[2017-12-01 20:00] VITALS: BP 108/59
[2017-12-01] MEDS ORDERED: Tubing IV Secondary IV ONE (22:33)
[2017-12-01] MEDS ORDERED: 1/2 NS 1000ml IV ONE (22:33)
[2017-12-01] MEDS ORDERED: NS 275ml ONE (22:33)
[2017-12-02] VITALS: BP 99/54
[2017-12-02] MEDS: Morphine Sulfate 4mg/ml Inj IVP PRN ×5 (00:13→20:25)
[2017-12-02 04:00] VITALS: BP 121/62
[2017-12-02] MEDS: metroNIDAZOLE 500mg tab ORAL SCH (06:02)
[2017-12-02] MEDS: cloNIDine 0.2mg Tab ORAL SCH ×3 (06:02→21:07)
[2017-12-02 08:00] VITALS: BP 113/53
[2017-12-02] MEDS: Aspirin Baby 81mg ORAL SCH (09:19)
[2017-12-02] MEDS: Pantoprazole Inj IV SCH (09:19)
[2017-12-02] MEDS: Amiodarone 200mg tab ORAL SCH ×2 (09:19→21:07)
--- NOTE | 2017-12-02 11:58 | Infectious Diseases Prog Note ---
Assessment/Plan Assessment/Plan A; Gastroenteritis, food allergy versus food poisoning Syncope Acute renal failure Obesity DM HPN P; discontinue Flagyl & Cefepime Subjective ROS Limited/Unobtainable: No Respiratory: Reports: no symptoms Cardiovascular: Reports: no symptoms Gastrointestinal/Abdominal: Reports: no symptoms Allergies: Coded Allergies: SULFA (SULFONAMIDE ANTIBIOTICS) (Verified Allergy, Unknown, 11/28/17) Pt states she is allergic to sulfa Objective Vital Signs Last 24 Hour Vital Signs Date Time Temp Pulse Resp B/P (MAP) Pulse Ox O2 Delivery O2 Flow Rate FiO2 12/02/17 09:18 77 113/53 12/02/17 08:00 77 12/02/17 08:00 97.8 76 19 113/53 96 Room Air 12/02/17 06:02 121/62 12/02/17 04:00 86 92 12/02/17 04:00 99.8 86 20 121/62 99 Room Air 12/02/17 00:00 98.8 84 20 99/54 99 Room Air 12/01/17 20:01 86 12/01/17 20:00 98.8 82 20 108/59 99 Room Air 12/01/17 18:54 98.0 12/01/17 16:00 98.2 92 19 90/60 98 Room Air 12/01/17 16:00 70 12/01/17 14:40 136/60 12/01/17 12:00 98.2 92 19 136/60 98 Room Air 12/01/17 12:00 86 Height (Feet): 5 Height (Inches): 4.00 Weight (Pounds): 280 General Appearance: no acute distress HEENT: mucous membranes moist Respiratory/Chest: lungs clear Cardiovascular: normal rate Abdomen: soft, non tender Extremities: no edema Neurologic/Psychiatric: alert, responsive Microbiology Date/Time Source Procedure Growth Status 11/29/17 17:30 Urine,Clean Catch Urine Culture - Final Mixed Gram Positive Organism Complete Current Medications Medications (Trade) Dose Ordered Sig/Barrett Route PRN Reason Start Time Stop Time Status Last Admin Dose Admin Amiodarone HCl (Cordarone) 200 mg EVERY 12 HOURS ORAL 12/01/17 16:15 12/31/17 16:14 12/02/17 09:19 Amlodipine Besylate (Norvasc) 5 mg DAILY ORAL 11/29/17 09:00 12/29/17 08:59 12/02/17 09:18 Aspirin (ASA) 81 mg DAILY ORAL 11/29/17 09:00 12/29/17 08:59 12/02/17 09:19 Cefepime HCl 1 gm/ Dextrose 50 ml @ 100 mls/hr DAILY IVPB 11/29/17 15:00 12/06/17 14:59 12/02/17 09:17 Clonidine HCl (Catapres) 0.2 mg Q8HR ORAL 11/28/17 22:00 12/28/17 21:59 12/02/17 06:02 Dextrose (Dextrose 50%) STAT PRN IV Hypoglycemia 11/28/17 22:00 12/28/17 21:59 Metronidazole (Flagyl) 500 mg EVERY 8 HOURS ORAL 11/29/17 14:00 12/06/17 13:59 12/02/17 06:02 Morphine Sulfate (Morphine Sulfate) 2 mg EVERY 3 HOURS PRN IVP Moderate Pain (Pain Scale 4-6) 11/28/17 22:00 12/05/17 21:59 11/30/17 16:52 Morphine Sulfate (Morphine Sulfate) 4 mg EVERY 3 HOURS PRN IVP Severe Pain (Pain Scale 7-10) 11/28/17 22:00 12/05/17 21:59 12/02/17 05:06 Ondansetron HCl (Zofran) 4 mg EVERY 4 HOURS PRN IVP Nausea & Vomiting 11/28/17 22:00 12/28/17 21:59 11/29/17 10:15 Pantoprazole (Protonix) 40 mg DAILY IV 11/29/17 09:00 12/29/17 08:59 12/02/17 09:19 LEONELA DEL CASTILLO Dec 02, 2017 11:58
[2017-12-02 12:00] VITALS: BP 109/56
--- NOTE | 2017-12-02 12:48 | General Progress Note ---
Assessment/Plan Problem List: (1) ARF (acute renal failure) ICD Codes: N17.9 - Acute kidney failure, unspecified SNOMED: 43915615 (2) Hypertrophic cardiomyopathy ICD Codes: I42.2 - Other hypertrophic cardiomyopathy SNOMED: 825511581 (3) HTN (hypertension) ICD Codes: I10 - Essential (primary) hypertension SNOMED: 25914139 (4) DM (diabetes mellitus) ICD Codes: E11.9 - Type 2 diabetes mellitus without complications SNOMED: 29175931 Qualifiers: Assessment/Plan advance diet follow labs PT will discuss with Dr Darden Subjective Allergies: Coded Allergies: SULFA (SULFONAMIDE ANTIBIOTICS) (Verified Allergy, Unknown, 11/28/17) Pt states she is allergic to sulfa Subjective feels ok Objective Last 24 Hour Vital Signs Date Time Temp Pulse Resp B/P (MAP) Pulse Ox O2 Delivery O2 Flow Rate FiO2 12/02/17 12:00 97.3 81 19 109/56 95 Room Air 12/02/17 09:18 77 113/53 12/02/17 08:00 77 12/02/17 08:00 97.8 76 19 113/53 96 Room Air 12/02/17 06:02 121/62 12/02/17 04:00 86 92 12/02/17 04:00 99.8 86 20 121/62 99 Room Air 12/02/17 00:00 98.8 84 20 99/54 99 Room Air 12/01/17 20:01 86 12/01/17 20:00 98.8 82 20 108/59 99 Room Air 12/01/17 18:54 98.0 12/01/17 16:00 98.2 92 19 90/60 98 Room Air 12/01/17 16:00 70 12/01/17 14:40 136/60 Intake and Output 12/01/17 12/02/17 19:00 07:00 Intake Total 522 ml 236 ml Output Total 300 ml 1000 ml Balance 222 ml -764 ml Intake Oral 472 ml 236 ml IV Total 50 ml Output Urine Total 300 ml 1000 ml # Bowel Movements 1 Height (Feet): 5 Height (Inches): 4.00 Weight (Pounds): 280 Cardiovascular: normal rate Respiratory/Chest: lungs clear Edema: no edema noted JORDEN Tang Dec 02, 2017 12:48
--- NOTE | 2017-12-02 14:27 | Cardiology Progress Note ---
Assessment/Plan Assessment/Plan 1. Syncopal episode. 2. Reported recurrent episodes of nausea, vomiting, and diarrhea prior to admission. 3. History of hypertrophic nonobstructive cardiomyopathy. 4. Family history of sudden cardiac . 5. History of intracardiac defibrillator implantation, [employer] device previously. 6. Obesity. 7. Abnormal perfusion with normal cardiac catheterization previously. 8. Hypercalcemia. 9. Alteration of mentation. 10. Azotemia 11. afib icd interrogated not sig event noted tele however showed afib with v pacing now back to sinus will need to consider anticoagulation for stroke prevention all trop neg echo pending still will start amiod to maintian sinus may need neuro eval Subjective Cardiovascular: Denies: chest pain Respiratory: Reports: shortness of breath Gastrointestinal/Abdominal: Denies: abdominal pain Genitourinary: Denies: burning Subjective drowsey Objective Last 24 Hour Vital Signs Date Time Temp Pulse Resp B/P (MAP) Pulse Ox O2 Delivery O2 Flow Rate FiO2 12/02/17 13:02 109/56 12/02/17 12:43 97.8 12/02/17 12:00 97.3 81 19 109/56 95 Room Air 12/02/17 12:00 72 12/02/17 09:18 77 113/53 12/02/17 08:00 77 12/02/17 08:00 97.8 76 19 113/53 96 Room Air 12/02/17 06:02 121/62 12/02/17 04:00 86 92 12/02/17 04:00 99.8 86 20 121/62 99 Room Air 12/02/17 00:00 98.8 84 20 99/54 99 Room Air 12/01/17 20:01 86 12/01/17 20:00 98.8 82 20 108/59 99 Room Air 12/01/17 16:00 98.2 92 19 90/60 98 Room Air 12/01/17 16:00 70 12/01/17 14:40 136/60 General Appearance: alert Neck: supple Cardiovascular: normal rate, regular rhythm Respiratory/Chest: lungs clear, normal breath sounds Abdomen: normal bowel sounds, non tender, soft Extremities: no swelling Intake and Output 12/01/17 12/02/17 19:00 07:00 Intake Total 522 ml 236 ml Output Total 300 ml 1000 ml Balance 222 ml -764 ml Intake Oral 472 ml 236 ml IV Total 50 ml Output Urine Total 300 ml 1000 ml # Bowel Movements 1 Microbiology Date/Time Source Procedure Growth Status 11/29/17 17:30 Urine,Clean Catch Urine Culture - Final Mixed Gram Positive Organism Complete NATE YOUNG Dec 02, 2017 14:27
[2017-12-02 16:00] VITALS: BP 143/65
[2017-12-02 20:00] VITALS: BP 103/71
[2017-12-03] VITALS: BP 101/48
[2017-12-03 04:00] VITALS: BP_SYST 113; BP_SYST 163; BP_DIAS 51; BP_DIAS 91
[2017-12-03] MEDS: cloNIDine 0.2mg Tab ORAL SCH ×3 (07:01→22:40)
[2017-12-03 07:38] LABS: ANION GAP 12 mmol/L (5-15); BLOOD UREA NITROGEN 82 mg/dL (7-18); CALCIUM 9.7 MG/DL (8.5-10.1); CARBON DIOXIDE 21 MMOL/L (21-32); CHLORIDE 111 MMOL/L (98-107); CREATININE 2.1 MG/DL (0.55-1.30); POTASSIUM 3.8 MMOL/L (3.5-5.1); SODIUM 144 MMOL/L (136-145)
[2017-12-03 07:43] LABS: BASOPHILS % (AUTO) 1.4 % (0.0-2.0); EOSINOPHILS % (AUTO) 0.1 % (0.0-3.0); HEMATOCRIT 28.3 % (37.0-47.0); HEMOGLOBIN 8.9 G/DL (12.0-16.0); LYMPHOCYTES % (AUTO) 7.3 % (20.0-45.0); MEAN CORPUSCULAR VOLUME 80 FL (80-99); MONOCYTES % (AUTO) 14.1 % (1.0-10.0); NEUTROPHILS % (AUTO) 77.3 % (45.0-75.0); PLATELET COUNT 230 K/UL (150-450); RED BLOOD COUNT 3.52 M/UL (4.20-5.40); RED CELL DISTRIBUTION WIDTH 16.9 % (11.6-14.8); WHITE BLOOD COUNT 8.6 K/UL (4.8-10.8)
[2017-12-03 08:00] VITALS: BP 129/68
[2017-12-03] MEDS: Morphine Sulfate 4mg/ml Inj IVP PRN ×2 (08:18→15:35)
[2017-12-03] MEDS: Amiodarone 200mg tab ORAL SCH ×2 (08:24→21:29)
[2017-12-03] MEDS: Pantoprazole Inj IV SCH (08:24)
[2017-12-03] MEDS: Aspirin Baby 81mg ORAL SCH (08:25)
[2017-12-03] MEDS ORDERED: HYDROcodone/Acetamin 10/325 tab ORAL PRN ×2 (10:15→14:15)
--- NOTE | 2017-12-03 10:45 | Nephrology Progress Note ---
Assessment/Plan Problem List: (1) ARF (acute renal failure) Assessment: better (2) Hypertrophic cardiomyopathy (3) HTN (hypertension) (4) DM (diabetes mellitus) (5) Afib Assessment ARF better Plan out of bed pain meds Discussed with dr Adelso PEÑALOZA in AM if stable Subjective Subjective C/O back pain Objective Objective Last 24 Hour Vital Signs Date Time Temp Pulse Resp B/P (MAP) Pulse Ox O2 Delivery O2 Flow Rate FiO2 12/03/17 08:48 98.4 12/03/17 08:25 89 129/68 12/03/17 08:00 98.4 89 18 129/68 99 Room Air 12/03/17 07:01 162/56 12/03/17 04:00 97.5 100 25 163/91 96 Room Air 12/03/17 04:00 97.5 100 25 113/51 96 Room Air 12/03/17 04:00 77 12/03/17 00:00 97.5 85 26 101/48 96 Room Air 12/03/17 00:00 86 12/02/17 21:07 110/52 12/02/17 21:00 80 89 86 12/02/17 20:00 82 12/02/17 20:00 99.7 101 25 103/71 98 Room Air 12/02/17 16:00 77 12/02/17 16:00 97.7 100 18 143/65 99 Room Air 12/02/17 13:02 109/56 12/02/17 12:00 97.3 81 19 109/56 95 Room Air 12/02/17 12:00 72 Intake and Output 12/02/17 12/03/17 19:00 07:00 Intake Total 286 ml Output Total 600 ml Balance -314 ml Intake Oral 236 ml IV Total 50 ml Output Urine Total 600 ml # Voids 2 Laboratory Tests 12/03/17 06:40: White Blood Count 8.6, Red Blood Count 3.52L, Hemoglobin 8.9L, Hematocrit 28.3L , Mean Corpuscular Volume 80, Mean Corpuscular Hemoglobin 25.3L, Mean Corpuscular Hemoglobin Concent 31.4L, Red Cell Distribution Width 16.9H, Platelet Count 230, Mean Platelet Volume 9.1, Neutrophils (%) (Auto) 77.3H, Lymphocytes (%) (Auto) 7.3L, Monocytes (%) (Auto) 14.1H, Eosinophils (%) (Auto) 0.1, Basophils (%) (Auto) 1.4, Sodium Level 144, Potassium Level 3.8, Chloride Level 111H, Carbon Dioxide Level 21, Anion Gap 12, Blood Urea Nitrogen 82H, Creatinine 2.1H, Estimat Glomerular Filtration Rate 28.4, Glucose Level 118H, Calcium Level 9.7 Height (Feet): 5 Height (Inches): 4.00 Weight (Pounds): 280 Cardiovascular: normal rate Respiratory/Chest: lungs clear Extremities: other - no edema JORDEN DEL CASTILLO Dec 03, 2017 10:45
[2017-12-03 12:00] VITALS: BP 117/66
[2017-12-03 16:00] VITALS: BP 132/73
[2017-12-03 20:00] VITALS: BP 118/63
--- NOTE | 2017-12-03 20:25 | Cardiology Progress Note ---
Assessment/Plan Assessment/Plan 1. Syncopal episode. 2. Reported recurrent episodes of nausea, vomiting, and diarrhea prior to admission. 3. History of hypertrophic nonobstructive cardiomyopathy. 4. Family history of sudden cardiac . 5. History of intracardiac defibrillator implantation, [employer] device previously. 6. Obesity. 7. Abnormal perfusion with normal cardiac catheterization previously. 8. Hypercalcemia. 9. Alteration of mentation. 10. Azotemia 11. afib icd interrogated not sig event noted tele however showed afib with v pacing now back to sinus no recurrence of afib will need to consider anticoagulation for stroke prevention all trop neg echo pending still amio 200 mg bid for 10 raoul then 200 mg dialy need outpt fuw ith me in office in 1 mon Subjective Cardiovascular: Denies: chest pain, lightheadedness, palpitations Respiratory: Denies: shortness of breath Gastrointestinal/Abdominal: Denies: abdominal pain Genitourinary: Denies: burning Objective Last 24 Hour Vital Signs Date Time Temp Pulse Resp B/P (MAP) Pulse Ox O2 Delivery O2 Flow Rate FiO2 12/03/17 16:05 97.1 12/03/17 16:00 84 12/03/17 16:00 97.1 88 18 132/73 100 Room Air 12/03/17 13:02 117/66 12/03/17 12:00 98.1 86 18 117/66 98 Room Air 12/03/17 12:00 76 12/03/17 08:25 89 129/68 12/03/17 08:00 98.4 89 18 129/68 99 Room Air 12/03/17 08:00 87 12/03/17 07:01 162/56 12/03/17 04:00 97.5 100 25 163/91 96 Room Air 12/03/17 04:00 97.5 100 25 113/51 96 Room Air 12/03/17 04:00 77 12/03/17 00:00 97.5 85 26 101/48 96 Room Air 12/03/17 00:00 86 12/02/17 21:07 110/52 12/02/17 21:00 80 89 86 General Appearance: no apparent distress, alert Neck: supple Cardiovascular: normal rate, regular rhythm Respiratory/Chest: lungs clear - ant Abdomen: normal bowel sounds, non tender, soft Extremities: no swelling Intake and Output 12/02/17 12/03/17 19:00 07:00 Intake Total 286 ml Output Total 600 ml Balance -314 ml Intake Oral 236 ml IV Total 50 ml Output Urine Total 600 ml # Voids 2 Laboratory Tests Test 12/03/17 06:40 White Blood Count 8.6 K/UL (4.8-10.8) Red Blood Count 3.52 M/UL (4.20-5.40) L Hemoglobin 8.9 G/DL (12.0-16.0) L Hematocrit 28.3 % (37.0-47.0) L Mean Corpuscular Volume 80 FL (80-99) Mean Corpuscular Hemoglobin 25.3 PG (27.0-31.0) L Mean Corpuscular Hemoglobin Concent 31.4 G/DL (32.0-36.0) L Red Cell Distribution Width 16.9 % (11.6-14.8) H Platelet Count 230 K/UL (150-450) Mean Platelet Volume 9.1 FL (6.5-10.1) Neutrophils (%) (Auto) 77.3 % (45.0-75.0) H Lymphocytes (%) (Auto) 7.3 % (20.0-45.0) L Monocytes (%) (Auto) 14.1 % (1.0-10.0) H Eosinophils (%) (Auto) 0.1 % (0.0-3.0) Basophils (%) (Auto) 1.4 % (0.0-2.0) Sodium Level 144 MMOL/L (136-145) Potassium Level 3.8 MMOL/L (3.5-5.1) Chloride Level 111 MMOL/L (98-107) H Carbon Dioxide Level 21 MMOL/L (21-32) Anion Gap 12 mmol/L (5-15) Blood Urea Nitrogen 82 mg/dL (7-18) H Creatinine 2.1 MG/DL (0.55-1.30) H Estimat Glomerular Filtration Rate 28.4 mL/min (>60) Glucose Level 118 MG/DL (74-106) H Calcium Level 9.7 MG/DL (8.5-10.1) NATE YOUNG Dec 03, 2017 20:25
[2017-12-04] VITALS: BP 104/57
[2017-12-04 04:40] VITALS: BP_SYST 105; BP_SYST 142; BP_DIAS 56; BP_DIAS 87
[2017-12-04] MEDS: cloNIDine 0.2mg Tab ORAL SCH ×3 (06:50→22:18)
[2017-12-04 08:00] VITALS: BP 107/66
[2017-12-04] MEDS: Aspirin Baby 81mg ORAL SCH (08:41)
[2017-12-04] MEDS: Amiodarone 200mg tab ORAL SCH ×2 (08:41→22:18)
[2017-12-04] MEDS: Pantoprazole Inj IV SCH (08:41)
--- NOTE | 2017-12-04 09:47 | Wound Nurse Progress Note ---
Wound RN Progress Note Wound Consult skin assessment done carl score of 12 , skin remains intact at this time no s/ s of skin changes at this time, at risk for skin breakdown, continue to reposition , offload heels , assess skin and notify MD and follow up accordingly if any changes are noted. due to risk of skin breakdown , will benefit from low air loss SPR mattress for skin management and prevention. HERMES BARONE Dec 04, 2017 09:47
[2017-12-04] MEDS: HYDROcodone/Acetamin 10/325 tab ORAL PRN (11:44)
[2017-12-04 12:00] VITALS: BP 135/57
--- NOTE | 2017-12-04 12:56 | Infectious Diseases Prog Note ---
Assessment/Plan Assessment/Plan A; Gastroenteritis, food allergy versus food poisoning resolved Syncope Acute renal failure improving Obesity DM HPN P; observe off antibiotic Subjective ROS Limited/Unobtainable: Yes Allergies: Coded Allergies: SULFA (SULFONAMIDE ANTIBIOTICS) (Verified Allergy, Unknown, 11/28/17) Pt states she is allergic to sulfa Objective Vital Signs Last 24 Hour Vital Signs Date Time Temp Pulse Resp B/P (MAP) Pulse Ox O2 Delivery O2 Flow Rate FiO2 12/04/17 12:00 98.1 77 18 135/57 100 Room Air 12/04/17 08:42 94 107/66 12/04/17 08:00 97.3 94 18 107/66 100 Room Air 12/04/17 06:50 153/72 12/04/17 04:40 97.7 95 20 142/87 95 Room Air 12/04/17 04:40 97.9 96 20 105/56 100 Room Air 12/04/17 04:00 91 12/04/17 04:00 95 114 12/04/17 00:00 97.7 95 20 104/57 95 Room Air 12/04/17 00:00 91 12/03/17 22:40 104/61 12/03/17 20:00 98.2 95 20 118/63 97 Room Air 12/03/17 20:00 97 12/03/17 16:05 97.1 12/03/17 16:00 84 12/03/17 16:00 97.1 88 18 132/73 100 Room Air 12/03/17 13:02 117/66 Height (Feet): 5 Height (Inches): 4.00 Weight (Pounds): 280 General Appearance: no acute distress HEENT: mucous membranes moist Respiratory/Chest: lungs clear Cardiovascular: normal rate Abdomen: soft, non tender Extremities: no edema Neurologic/Psychiatric: alert, responsive Current Medications Medications (Trade) Dose Ordered Sig/Barrett Route PRN Reason Start Time Stop Time Status Last Admin Dose Admin Acetaminophen/ Hydrocodone Bitart ([place] 10/325) 1 ea Q4H PRN ORAL Moderate Pain (Pain Scale 4-6) 12/03/17 14:15 12/10/17 14:14 12/04/17 11:44 Amiodarone HCl (Cordarone) 200 mg EVERY 12 HOURS ORAL 12/01/17 16:15 12/31/17 16:14 12/04/17 08:41 Amlodipine Besylate (Norvasc) 5 mg DAILY ORAL 11/29/17 09:00 12/29/17 08:59 12/04/17 08:42 Aspirin (ASA) 81 mg DAILY ORAL 11/29/17 09:00 12/29/17 08:59 12/04/17 08:41 Clonidine HCl (Catapres) 0.2 mg Q8HR ORAL 11/28/17 22:00 12/28/17 21:59 12/04/17 06:50 Dextrose (Dextrose 50%) STAT PRN IV Hypoglycemia 11/28/17 22:00 12/28/17 21:59 Morphine Sulfate (Morphine Sulfate) 4 mg EVERY 3 HOURS PRN IVP Severe Pain (Pain Scale 7-10) 11/28/17 22:00 12/05/17 21:59 12/03/17 15:35 Ondansetron HCl (Zofran) 4 mg EVERY 4 HOURS PRN IVP Nausea & Vomiting 11/28/17 22:00 12/28/17 21:59 11/29/17 10:15 Pantoprazole (Protonix) 40 mg DAILY IV 11/29/17 09:00 12/29/17 08:59 12/04/17 08:41 LEONELA DEL CASTILLO Dec 04, 2017 12:56
--- NOTE | 2017-12-04 13:23 | General Progress Note ---
Assessment/Plan Problem List: (1) ARF (acute renal failure) Assessment & Plan: better ICD Codes: N17.9 - Acute kidney failure, unspecified SNOMED: 43527866 (2) Hypertrophic cardiomyopathy ICD Codes: I42.2 - Other hypertrophic cardiomyopathy SNOMED: 021436788 (3) HTN (hypertension) ICD Codes: I10 - Essential (primary) hypertension SNOMED: 20050319 (4) DM (diabetes mellitus) ICD Codes: E11.9 - Type 2 diabetes mellitus without complications SNOMED: 88038033 Qualifiers: (5) Afib ICD Codes: I48.91 - Unspecified atrial fibrillation SNOMED: 47054045 Assessment/Plan cont amiodorone follow labs PT will discuss with Dr Adelso PEÑALOZA to SNF or home tomorrow Subjective Allergies: Coded Allergies: SULFA (SULFONAMIDE ANTIBIOTICS) (Verified Allergy, Unknown, 11/28/17) Pt states she is allergic to sulfa Subjective weak Objective Last 24 Hour Vital Signs Date Time Temp Pulse Resp B/P (MAP) Pulse Ox O2 Delivery O2 Flow Rate FiO2 12/04/17 12:00 98.1 77 18 135/57 100 Room Air 12/04/17 08:42 94 107/66 12/04/17 08:00 97.3 94 18 107/66 100 Room Air 12/04/17 06:50 153/72 12/04/17 04:40 97.7 95 20 142/87 95 Room Air 12/04/17 04:40 97.9 96 20 105/56 100 Room Air 12/04/17 04:00 91 12/04/17 04:00 95 114 12/04/17 00:00 97.7 95 20 104/57 95 Room Air 12/04/17 00:00 91 12/03/17 22:40 104/61 12/03/17 20:00 98.2 95 20 118/63 97 Room Air 12/03/17 20:00 97 12/03/17 16:05 97.1 12/03/17 16:00 84 12/03/17 16:00 97.1 88 18 132/73 100 Room Air Intake and Output 12/03/17 12/04/17 19:00 07:00 Intake Total 220 ml Output Total 500 ml 600 ml Balance -280 ml -600 ml Intake Oral 220 ml Output Urine Total 500 ml 600 ml # Voids 2 Height (Feet): 5 Height (Inches): 4.00 Weight (Pounds): 280 Cardiovascular: normal rate Respiratory/Chest: lungs clear JORDEN DEL CASTILLO Dec 04, 2017 13:23
--- NOTE | 2017-12-04 13:49 | Diagnostic Imaging Report ---
Indication: Syncope Technique: Continuous helical CT scanning of the head was performed utilizing automated exposure control without intravenous contrast material. Axial and coronal reconstructions were obtained. Comparison: None CT dose: Total DLP 1467 mGycm; CTDI vol 70.4 mGy Findings: There is no acute intracranial hemorrhage, mass effect or cortical edema. The ventricles, cisterns and sulci are prominent consistent with atrophy. Periventricular hypoattenuation is seen, a nonspecific finding. The posterior fossa and fourth ventricle are unremarkable. Sellar and suprasellar regions are grossly unremarkable. Mild left posterior ethmoid and sphenoid sinus disease are noted. No focal lesions of the bony calvarium or soft tissues of the scalp are seen. Impression: No evidence of acute intracranial hemorrhage, mass effect or cortical edema. MRI may be obtained for more sensitive evaluation as clinically indicated. Atrophy and mild nonspecific periventricular hypoattenuation suggestive of chronic ischemic microvascular changes. The CT scanner at [facility] is accredited by the [employer] [employer] and the scans are performed using protocols designed to limit radiation exposure to as low as reasonably achievable to attain images of sufficient resolution adequate for diagnostic evaluation.
--- NOTE | 2017-12-04 15:31 | Cardiology Progress Note ---
Assessment/Plan Assessment/Plan 1. Syncopal episode. 2. Reported recurrent episodes of nausea, vomiting, and diarrhea prior to admission. 3. History of hypertrophic nonobstructive cardiomyopathy. 4. Family history of sudden cardiac . 5. History of intracardiac defibrillator implantation, [employer] device previously. 6. Obesity. 7. Abnormal perfusion with normal cardiac catheterization previously. 8. Hypercalcemia. 9. Alteration of mentation. 10. Azotemia 11. afib icd interrogated not sig event noted tele however showed afib with v pacing now back to sinus no recurrence of afib will need to consider anticoagulation for stroke prevention all trop neg echo pending still amio 200 mg bid for 10 raoul then 200 mg dialy need outpt fu with me in office in 1 mon Subjective Cardiovascular: Denies: chest pain, lightheadedness, palpitations Respiratory: Denies: shortness of breath Gastrointestinal/Abdominal: Denies: abdominal pain Genitourinary: Denies: burning Objective Last 24 Hour Vital Signs Date Time Temp Pulse Resp B/P (MAP) Pulse Ox O2 Delivery O2 Flow Rate FiO2 12/04/17 15:01 135/57 12/04/17 12:43 98.1 12/04/17 12:00 98.1 77 18 135/57 100 Room Air 12/04/17 12:00 90 12/04/17 08:42 94 107/66 12/04/17 08:00 84 12/04/17 08:00 97.3 94 18 107/66 100 Room Air 12/04/17 06:50 153/72 12/04/17 04:40 97.7 95 20 142/87 95 Room Air 12/04/17 04:40 97.9 96 20 105/56 100 Room Air 12/04/17 04:00 91 12/04/17 04:00 95 114 12/04/17 00:00 97.7 95 20 104/57 95 Room Air 12/04/17 00:00 91 12/03/17 22:40 104/61 12/03/17 20:00 98.2 95 20 118/63 97 Room Air 12/03/17 20:00 97 12/03/17 16:05 97.1 12/03/17 16:00 84 12/03/17 16:00 97.1 88 18 132/73 100 Room Air General Appearance: no apparent distress, alert Neck: supple Cardiovascular: normal rate, regular rhythm Respiratory/Chest: lungs clear, normal breath sounds Abdomen: normal bowel sounds, non tender, soft Extremities: no swelling Intake and Output 12/03/17 12/04/17 19:00 07:00 Intake Total 220 ml Output Total 500 ml 600 ml Balance -280 ml -600 ml Intake Oral 220 ml Output Urine Total 500 ml 600 ml # Voids 2 NATE YOUNG Dec 04, 2017 15:31
[2017-12-04 16:00] VITALS: BP 128/62
[2017-12-04] MEDS: Morphine Sulfate 4mg/ml Inj IVP PRN ×2 (17:31→22:19)
[2017-12-04 20:34] VITALS: BP 128/74
[2017-12-05 00:44] VITALS: BP 123/61
[2017-12-05 04:20] VITALS: BP 122/72
[2017-12-05] MEDS: cloNIDine 0.2mg Tab ORAL SCH ×3 (06:20→21:41)
[2017-12-05 08:00] VITALS: BP 121/69
[2017-12-05] MEDS: Amiodarone 200mg tab ORAL SCH ×2 (08:42→21:38)
[2017-12-05] MEDS: Pantoprazole Inj IV SCH (08:42)
[2017-12-05] MEDS: Aspirin Baby 81mg ORAL SCH (08:42)
[2017-12-05] MEDS: HYDROcodone/Acetamin 10/325 tab ORAL PRN ×2 (08:43→23:23)
[2017-12-05] MEDS ORDERED: Miralax 17gm pkt ORAL PRN (10:30)
--- NOTE | 2017-12-05 10:31 | Infectious Diseases Prog Note ---
Assessment/Plan Assessment/Plan A; Gastroenteritis, food allergy versus food poisoning resolved Syncope Acute renal failure improving Obesity DM HPN P; observe off antibiotic Subjective ROS Limited/Unobtainable: No Constitutional: Reports: no symptoms Respiratory: Reports: no symptoms Cardiovascular: Reports: no symptoms Gastrointestinal/Abdominal: Reports: no symptoms Genitourinary: Reports: no symptoms Allergies: Coded Allergies: SULFA (SULFONAMIDE ANTIBIOTICS) (Verified Allergy, Unknown, 11/28/17) Pt states she is allergic to sulfa Objective Vital Signs Last 24 Hour Vital Signs Date Time Temp Pulse Resp B/P (MAP) Pulse Ox O2 Delivery O2 Flow Rate FiO2 12/05/17 09:42 96.3 12/05/17 08:42 67 121/69 12/05/17 08:00 96.3 67 18 121/69 100 Room Air 12/05/17 06:20 122/72 12/05/17 04:30 64 66 12/05/17 04:20 97.3 68 21 122/72 100 Room Air 12/05/17 04:00 78 12/05/17 00:44 97.3 70 20 123/61 100 Room Air 12/05/17 00:00 65 12/04/17 22:18 128/74 12/04/17 20:34 97.7 72 22 128/74 100 Room Air 12/04/17 20:00 77 12/04/17 18:01 97.3 12/04/17 16:00 97.3 90 18 128/62 96 Room Air 12/04/17 16:00 65 12/04/17 15:01 135/57 12/04/17 12:00 98.1 77 18 135/57 100 Room Air 12/04/17 12:00 90 Height (Feet): 5 Height (Inches): 4.00 Weight (Pounds): 280 General Appearance: no acute distress HEENT: mucous membranes moist Respiratory/Chest: lungs clear Cardiovascular: normal rate Abdomen: soft, non tender Extremities: other - minimal edema of legs Neurologic/Psychiatric: alert, responsive Current Medications Medications (Trade) Dose Ordered Sig/Barrett Route PRN Reason Start Time Stop Time Status Last Admin Dose Admin Acetaminophen/ Hydrocodone Bitart ([place] 10/325) 1 ea Q4H PRN ORAL Moderate Pain (Pain Scale 4-6) 12/03/17 14:15 12/10/17 14:14 12/05/17 08:43 Amiodarone HCl (Cordarone) 200 mg EVERY 12 HOURS ORAL 12/01/17 16:15 12/31/17 16:14 12/05/17 08:42 Amlodipine Besylate (Norvasc) 5 mg DAILY ORAL 11/29/17 09:00 12/29/17 08:59 12/05/17 08:42 Aspirin (ASA) 81 mg DAILY ORAL 11/29/17 09:00 12/29/17 08:59 12/05/17 08:42 Clonidine HCl (Catapres tab) 0.2 mg Q8HR ORAL 11/28/17 22:00 12/28/17 21:59 12/05/17 06:20 Dextrose (Dextrose 50%) STAT PRN IV Hypoglycemia 11/28/17 22:00 12/28/17 21:59 Morphine Sulfate (Morphine Sulfate) 4 mg EVERY 3 HOURS PRN IVP Severe Pain (Pain Scale 7-10) 11/28/17 22:00 12/05/17 21:59 12/04/17 22:19 Ondansetron HCl (Zofran) 4 mg EVERY 4 HOURS PRN IVP Nausea & Vomiting 11/28/17 22:00 12/28/17 21:59 11/29/17 10:15 Pantoprazole (Protonix) 40 mg DAILY IV 11/29/17 09:00 12/29/17 08:59 12/05/17 08:42 Polyethylene Glycol (Miralax) 17 gm TID PRN ORAL Constipation 12/05/17 10:30 01/04/18 10:29 LEONELA SR Dec 05, 2017 10:31
--- NOTE | 2017-12-05 11:28 | General Progress Note ---
Assessment/Plan Problem List: (1) ARF (acute renal failure) Assessment & Plan: better ICD Codes: N17.9 - Acute kidney failure, unspecified SNOMED: 63461979 (2) Hypertrophic cardiomyopathy ICD Codes: I42.2 - Other hypertrophic cardiomyopathy SNOMED: 415447621 (3) HTN (hypertension) ICD Codes: I10 - Essential (primary) hypertension SNOMED: 64776677 (4) DM (diabetes mellitus) ICD Codes: E11.9 - Type 2 diabetes mellitus without complications SNOMED: 21282869 Qualifiers: (5) Afib ICD Codes: I48.91 - Unspecified atrial fibrillation SNOMED: 67847277 Assessment/Plan cont amiodorone follow labs PT DC to SNF when bed available Subjective Allergies: Coded Allergies: SULFA (SULFONAMIDE ANTIBIOTICS) (Verified Allergy, Unknown, 11/28/17) Pt states she is allergic to sulfa Subjective weak Objective Last 24 Hour Vital Signs Date Time Temp Pulse Resp B/P (MAP) Pulse Ox O2 Delivery O2 Flow Rate FiO2 12/05/17 09:42 96.3 12/05/17 08:42 67 121/69 12/05/17 08:00 70 12/05/17 08:00 96.3 67 18 121/69 100 Room Air 12/05/17 06:20 122/72 12/05/17 04:30 64 66 12/05/17 04:20 97.3 68 21 122/72 100 Room Air 12/05/17 04:00 78 12/05/17 00:44 97.3 70 20 123/61 100 Room Air 12/05/17 00:00 65 12/04/17 22:18 128/74 12/04/17 20:34 97.7 72 22 128/74 100 Room Air 12/04/17 20:00 77 12/04/17 18:01 97.3 12/04/17 16:00 97.3 90 18 128/62 96 Room Air 12/04/17 16:00 65 12/04/17 15:01 135/57 12/04/17 12:00 98.1 77 18 135/57 100 Room Air 12/04/17 12:00 90 Intake and Output 12/04/17 12/05/17 19:00 07:00 Intake Total 120 ml Output Total 350 ml 600 ml Balance -230 ml -600 ml Intake Oral 120 ml Output Urine Total 350 ml 600 ml Height (Feet): 5 Height (Inches): 4.00 Weight (Pounds): 280 Cardiovascular: normal rate Respiratory/Chest: lungs clear Edema: no edema noted Generalized JORDEN DEL CASTILLO Dec 05, 2017 11:28
[2017-12-05 12:00] VITALS: BP 124/71
[2017-12-05 16:00] VITALS: BP 118/72
[2017-12-05] MEDS: Morphine Sulfate 4mg/ml Inj IVP PRN (17:13)
[2017-12-05 20:00] VITALS: BP 128/69
--- NOTE | 2017-12-05 20:05 | Cardiology Progress Note ---
Assessment/Plan Assessment/Plan 1. Syncopal episode. 2. Reported recurrent episodes of nausea, vomiting, and diarrhea prior to admission. 3. History of hypertrophic nonobstructive cardiomyopathy. 4. Family history of sudden cardiac . 5. History of intracardiac defibrillator implantation, [employer] device previously. 6. Obesity. 7. Abnormal perfusion with normal cardiac catheterization previously. 8. Hypercalcemia. 9. Alteration of mentation. 10. Azotemia 11. afib icd interrogated not sig event noted tele on day 2 showed afib with v pacing now back to sinus no recurrence of afib will need to consider anticoagulation for stroke prevention if recurrence o afib will consider ziopatch as out pt all trop neg echo pending still amio 200 mg bid for 10 raoul then 200 mg dialy need outpt fu with me in office in 1 mon Subjective Cardiovascular: Denies: chest pain, irregular heart rate, lightheadedness Respiratory: Denies: shortness of breath Gastrointestinal/Abdominal: Denies: abdominal pain Genitourinary: Denies: burning Objective Last 24 Hour Vital Signs Date Time Temp Pulse Resp B/P (MAP) Pulse Ox O2 Delivery O2 Flow Rate FiO2 12/05/17 17:43 96.3 12/05/17 14:38 121/69 12/05/17 09:42 96.3 12/05/17 08:42 67 121/69 12/05/17 08:00 70 12/05/17 08:00 96.3 67 18 121/69 100 Room Air 12/05/17 06:20 122/72 12/05/17 04:30 64 66 12/05/17 04:20 97.3 68 21 122/72 100 Room Air 12/05/17 04:00 78 12/05/17 00:44 97.3 70 20 123/61 100 Room Air 12/05/17 00:00 65 12/04/17 22:18 128/74 12/04/17 20:34 97.7 72 22 128/74 100 Room Air General Appearance: alert Cardiovascular: normal rate, regular rhythm Respiratory/Chest: lungs clear - ant Abdomen: normal bowel sounds, non tender, soft Extremities: no swelling Intake and Output 12/04/17 12/05/17 19:00 07:00 Intake Total 120 ml Output Total 350 ml 600 ml Balance -230 ml -600 ml Intake Oral 120 ml Output Urine Total 350 ml 600 ml DANESHRAD,NATE Dec 05, 2017 20:05
[2017-12-06] VITALS: BP 114/68
[2017-12-06 04:00] VITALS: BP 117/58
[2017-12-06] MEDS: cloNIDine 0.2mg Tab ORAL SCH ×2 (06:20→14:27)
[2017-12-06 08:00] VITALS: BP 125/59
[2017-12-06] MEDS: Aspirin Baby 81mg ORAL SCH (08:25)
[2017-12-06] MEDS: Pantoprazole Inj IV SCH (08:25)
[2017-12-06] MEDS: Amiodarone 200mg tab ORAL SCH (08:25)
[2017-12-06] MEDS: HYDROcodone/Acetamin 10/325 tab ORAL PRN ×2 (11:20→15:22)
[2017-12-06 11:38] LABS: BASOPHILS % (AUTO) 0.6 % (0.0-2.0); EOSINOPHILS % (AUTO) 1.1 % (0.0-3.0); HEMATOCRIT 31.4 % (37.0-47.0); HEMOGLOBIN 9.6 G/DL (12.0-16.0); LYMPHOCYTES % (AUTO) 13.7 % (20.0-45.0); MEAN CORPUSCULAR VOLUME 81 FL (80-99); MONOCYTES % (AUTO) 6.6 % (1.0-10.0); PLATELET COUNT 249 K/UL (150-450); RED BLOOD COUNT 3.85 M/UL (4.20-5.40); RED CELL DISTRIBUTION WIDTH 17.5 % (11.6-14.8); WHITE BLOOD COUNT 6.9 K/UL (4.8-10.8)
[2017-12-06 12:00] VITALS: BP 117/60
[2017-12-06 12:03] LABS: ANION GAP 13 mmol/L (5-15); BLOOD UREA NITROGEN 66 mg/dL (7-18); CALCIUM 11.9 MG/DL (8.5-10.1); CARBON DIOXIDE 23 MMOL/L (21-32); CHLORIDE 114 MMOL/L (98-107); CREATININE 1.5 MG/DL (0.55-1.30); POTASSIUM 4.7 MMOL/L (3.5-5.1); SODIUM 149 MMOL/L (136-145)
--- NOTE | 2017-12-06 12:42 | General Progress Note ---
Assessment/Plan Problem List: (1) ARF (acute renal failure) Assessment & Plan: better ICD Codes: N17.9 - Acute kidney failure, unspecified SNOMED: 36504509 (2) Hypertrophic cardiomyopathy ICD Codes: I42.2 - Other hypertrophic cardiomyopathy SNOMED: 315147231 (3) HTN (hypertension) ICD Codes: I10 - Essential (primary) hypertension SNOMED: 61220464 (4) DM (diabetes mellitus) ICD Codes: E11.9 - Type 2 diabetes mellitus without complications SNOMED: 45261964 Qualifiers: (5) Afib ICD Codes: I48.91 - Unspecified atrial fibrillation SNOMED: 19926521 (6) Syncope ICD Codes: R55 - Syncope and collapse SNOMED: 329120988 (7) Hypernatremia ICD Codes: E87.0 - Hyperosmolality and hypernatremia SNOMED: 20359126 Assessment/Plan cont amiodarone advised to take more fluids follow labs PT DC to SNF when bed available Subjective Allergies: Coded Allergies: SULFA (SULFONAMIDE ANTIBIOTICS) (Verified Allergy, Unknown, 11/28/17) Pt states she is allergic to sulfa Subjective weak Objective Last 24 Hour Vital Signs Date Time Temp Pulse Resp B/P (MAP) Pulse Ox O2 Delivery O2 Flow Rate FiO2 12/06/17 08:25 79 125/59 12/06/17 08:00 74 12/06/17 08:00 97.8 79 19 125/59 95 12/06/17 06:20 121/68 12/06/17 04:31 82 73 12/06/17 04:00 97.7 73 18 117/58 100 12/06/17 04:00 68 12/06/17 00:00 79 12/06/17 00:00 97.0 73 20 114/68 100 12/05/17 21:41 123/65 12/05/17 20:00 98.1 82 20 128/69 100 12/05/17 20:00 82 12/05/17 17:43 96.3 12/05/17 16:00 97.3 72 18 118/72 96 Room Air 12/05/17 16:00 76 12/05/17 14:38 121/69 Intake and Output 12/05/17 12/06/17 19:00 07:00 Intake Total 960 ml Output Total 700 ml 500 ml Balance 260 ml -500 ml Intake Oral 960 ml Output Urine Total 700 ml 500 ml Laboratory Tests 12/06/17 11:00: White Blood Count 6.9, Red Blood Count 3.85L, Hemoglobin 9.6L, Hematocrit 31.4L , Mean Corpuscular Volume 81, Mean Corpuscular Hemoglobin 25.0L, Mean Corpuscular Hemoglobin Concent 30.7L, Red Cell Distribution Width 17.5H, Platelet Count 249, Mean Platelet Volume 9.1, Neutrophils (%) (Auto) 78.0H, Lymphocytes (%) (Auto) 13.7L, Monocytes (%) (Auto) 6.6, Eosinophils (%) (Auto) 1.1, Basophils (%) (Auto) 0.6, Sodium Level 149H, Potassium Level 4.7, Chloride Level 114H, Carbon Dioxide Level 23, Anion Gap 13, Blood Urea Nitrogen 66H, Creatinine 1.5H, Estimat Glomerular Filtration Rate 41.7, Glucose Level 120H, Calcium Level 11.9H Height (Feet): 5 Height (Inches): 4.00 Weight (Pounds): 254 Cardiovascular: normal rate Respiratory/Chest: lungs clear JORDEN DEL CASTILLO Dec 06, 2017 12:41
[2017-12-06 14:27] VITALS: BP 148/78
--- NOTE | 2017-12-08 16:18 | Cardiology Report ---
APPROVED REPORT EKG Measurement Heart [id number] [id number] AV sequential pacing with episodes of atrial fibrillation and demand ventricular pacing Abnormal ECG
--- NOTE | 2017-12-13 17:06 | Discharge Summary ---
Discharge Summary Hospital Course Date of Admission Nov 28, 2017 at 19:37 Date of Discharge Dec 06, 2017 at 16:03 Admitting Diagnosis syncope HPI Rafael Allen is a 67 year old female who was admitted on Nov 28, 2017 at 19: 37 for Syncope Hospital Course [id number] Discharge Discharge Disposition Patient was discharged to SNF/Subacute Facility(03) Discharge Diagnoses: April Braun NP Dec 13, 2017 17:06
--- NOTE | 2017-12-13 19:00 | Discharge Summary 2 SIG ---
DATE OF ADMISSION: 11/28/2017 DATE OF DISCHARGE: 12/06/2017 CONSULTANTS: 1. Vernon Darden M.D. 2. Julien Yanez M.D. BRIEF HOSPITAL COURSE: The patient is a 67-year-old female with history of hypertension, diabetes mellitus, and pacemaker with hypertrophic cardiomyopathy. She was at a [employer] restaurant and an hour and half after she started vomiting and had a syncopal episode. There was no reported seizure activity. No tongue biting or urinary incontinence. In emergency room, she was found to have acute renal failure with elevation of BUN and creatinine to 104 and 3.8. She was given IV hydration and Zofran. Head CT showed no evidence of acute intracranial hemorrhage, mass effect, or cortical edema. Chest x-ray showed cardiomegaly with bilateral interstitial edema. She was then admitted to telemetry for syncopal episode. She was given IV hydration and was given antiemetics. She was initially started empirically on cefepime and Flagyl by Infectious Disease specialist. Cultures were ordered. EKG at ED showed atrial and ventricular sensing and pacing. She was admitted to telemetry and cardiac rhythm were monitored. Troponin was negative. She had ICD interrogation and no significant events were noted. Telemetry showed atrial fibrillation with V pacing. The patient was started on amiodarone to maintain sinus rhythm. Urine culture showed growth of mixed gram-positive organisms. Antibiotic was discontinued. Renal function improved. She was given PT and OT and was eventually discharged to skilled nursing. FINAL DIAGNOSES: 1. Acute renal failure. 2. Hypertrophic cardiomyopathy. 3. Hypertension. 4. Diabetes mellitus. 5. Atrial fibrillation. 6. Hypernatremia. 7. Syncopal episode, possibly vasovagal. 8. Hypertrophic nonobstructive cardiomyopathy. 9. History of intracardiac defibrillator implantation, [employer], interrogation showed normal function. 10. Obesity. 11. Hypercalcemia. 12. Azotemia. 13. Alteration of mentation/encephalopathy. 14. Atrial fibrillation. DISCHARGE INSTRUCTIONS: The patient to continue with amiodarone 200 mg for 10 days, then 200 mg once p.o. daily. Need to follow up with Dr. Darden office in a month to consider anticoagulation for stroke prevention/consider Zio patch as outpatient. Oliverio Yanez M.D. I have been assigned to dictate discharge summary on this account and I was not involved in the patient's management. April Braun N.P. DR: RUFINA JOB#: [id number] CC: SALVADOR
== END 2017-12-06 16:03 | DRG 682 ==
LOC: EDBD 16:16 → EMR 16:30 → 2E 19:37 → EDBEDREQ 22:28 → 2E 23:51
DX: N17.9 Acute kidney failure, unspecified (principal); G93.40 Encephalopathy, unspecified; I48.91 Unspecified atrial fibrillation; Z68.41 Body mass index [BMI] 40.0-44.9, adult; I42.2 Other hypertrophic cardiomyopathy; E83.52 Hypercalcemia; E86.0 Dehydration; I10 Essential (primary) hypertension; E11.9 Type 2 diabetes mellitus without complications; E66.9 Obesity, unspecified; K52.9 Noninfective gastroenteritis and colitis, unspecified; Z95.810 Presence of automatic (implantable) cardiac defibrillator; Z82.41 Family history of sudden cardiac death; Z88.2 Allergy status to sulfonamides
CPT/HCPCS: 36415; 70450; 71045; 80048; 80053; 80061; 81001; 82248; 82550; 83036; 83690; 83735; 83880; 84484; 85007; 85025; 87086; 93005; 93306; 99285; J2405

== ENCOUNTER 2018-10-13 13:48 | Inpatient (IN) | payer MEDICARE, OTHER ==
[~2018-10-13] VITALS: Ht 177.8 cm; Wt 115.2 kg
[~2018-10-13 13:48] MED LIST changes: +BENAZEPRIL HCL20 MG ORAL; +CATAPRES0.2 MG ORAL; +HYDROCHLOROTHIA25 MG ORAL
[2018-10-13] MEDS ORDERED: ALBUTEROL SULF8.5 GM INH (13:53)
[2018-10-13] MEDS ORDERED: METOPROLOL SUCC25 MG ORAL (13:53)
[2018-10-13 14:28] LABS: BASOPHILS % (AUTO) 0.8 % (0.0-2.0); EOSINOPHILS % (AUTO) 1.7 % (0.0-3.0); LYMPHOCYTES % (AUTO) 15.5 % (20.0-45.0); MEAN CORPUSCULAR VOLUME 83 FL (80-99); MONOCYTES % (AUTO) 7.7 % (1.0-10.0); NEUTROPHILS % (AUTO) 74.3 % (45.0-75.0); PLATELET COUNT 194 K/UL (150-450); RED BLOOD COUNT 3.73 M/UL (4.20-5.40); RED CELL DISTRIBUTION WIDTH 14.4 % (11.6-14.8); WHITE BLOOD COUNT 6.8 K/UL (4.8-10.8)
[2018-10-13 15:02] LABS: ANION GAP 18 mmol/L (5-15); BLOOD UREA NITROGEN 124 mg/dL (7-18); CALCIUM 10.7 MG/DL (8.5-10.1); CARBON DIOXIDE 19 MMOL/L (21-32); CHLORIDE 101 MMOL/L (98-107); CREATININE 2.9 MG/DL (0.55-1.30); SODIUM 138 MMOL/L (136-145)
[2018-10-13 15:03] LABS: APPEARANCE,URINE CLOUDY; BILIRUBIN, URINE NEGATIVE (NEGATIVE); GLUCOSE, URINE (UA) NEGATIVE (NEGATIVE); KETONES,URINE NEGATIVE (NEGATIVE); LEUKOCYTE ESTERASE ,URINE 3+ (NEGATIVE); NITRITE,URINE POSITIVE (NEGATIVE); PH,URINE 5 (4.5-8.0); PROTEIN,URINE 3+ (NEGATIVE); UROBILINOGEN,URINE NORMAL MG/DL (0.0-1.0)
[2018-10-13 15:06] LABS: COLOR,URINE PALE YELLOW
[2018-10-13 15:15] LABS: ALANINE AMINOTRANSFERASE 41 U/L (12-78); ALBUMIN 3.1 G/DL (3.4-5.0); ALBUMIN/GLOBULIN RATIO 0.5 (1.0-2.7); ALKALINE PHOSPHATASE 71 U/L (46-116); ASPARTATE AMINO TRANSFERASE 22 U/L (15-37); BILIRUBIN,TOTAL 0.4 MG/DL (0.2-1.0); CKMB < 0.5 NG/ML (0.0-3.6); CREATINE KINASE 62 U/L (26-308)
[2018-10-13] MEDS ORDERED: cefTRIAXone 1 GM in NS 55 ML IVPB ONE (15:30)
[2018-10-13 15:34] VITALS: BP 113/49
[2018-10-13] MEDS ORDERED: Miralax 17gm pkt ORAL PRN (15:45)
[2018-10-13] MEDS: Heparin 5000 units/ml inj SUBQ SCH ×2 (15:45→20:38)
[2018-10-13] MEDS ORDERED: Zolpidem 5mg tab ORAL PRN (15:45)
[2018-10-13 16:10] VITALS: BP 110/72
[2018-10-13] MEDS: Zosyn 3.375gm q8h **Extended infusion IVPB SCH ×2 (16:34)
--- NOTE | 2018-10-13 16:35 | Emergency Room Report ---
History of Present Illness General Chief Complaint: Altered Mental Status Source: EMS Present Illness HPI 68-year-old female presents ED for evaluation. Patient brought in by EMS for altered level of consciousness. Patient was apparently normal this morning with her family but became suddenly more altered and lethargic. Vital stable. Patient is talking but appears confused. Denies chest pain or shortness of breath. Denies fevers or chills. Family states that patient has frequent history of UTI. No other aggravating relieving factors. Denies any other associated symptoms Allergies: Coded Allergies: SULFA (SULFONAMIDE ANTIBIOTICS) (Verified Allergy, Unknown, 11/28/17) Pt states she is allergic to sulfa Patient History Past Medical History: DM, HTN, other - ICD Past Surgical History: none Pertinent Family History: none Social History: Denies: smoking, alcohol use, drug use Now: No Immunizations: UTD Reviewed Nursing Documentation: PMH: Agreed; PSxH: Agreed Nursing Documentation-PMH Past Medical History: No History, Except For Hx Cardiac Problems: Yes - ICD Hx Hypertension: Yes Hx Pacemaker: Yes - Left Chest Hx Asthma: No Hx COPD: No Hx Diabetes: Yes Hx Cancer: No Hx Gastrointestinal Problems: No Hx Dialysis: No Hx Neurological Problems: No Hx Cerebrovascular Accident: No Hx Seizures: No Review of Systems All Other Systems: negative except mentioned in HPI Physical Exam Vital Signs Date Time Temp Pulse Resp B/P (MAP) Pulse Ox O2 Delivery O2 Flow Rate FiO2 10/13/18 13:43 98.4 93 18 119/77 100 Nasal Cannula 2.0 Sp02 EP Interpretation: reviewed, normal General Appearance: no apparent distress, GCS 15, non-toxic, lethargic, obese Head: normocephalic Eyes: bilateral eye normal inspection, bilateral eye PERRL ENT: normal ENT inspection Neck: normal inspection Respiratory: chest non-tender, lungs clear, normal breath sounds, speaking full sentences Cardiovascular #1: regular rate, rhythm, no edema Gastrointestinal: normal inspection Rectal: deferred Genitourinary: no CVA tenderness Musculoskeletal: normal inspection Neurologic: other - lethargic Psychiatric: other - lethargic Skin: normal inspection Lymphatic: normal inspection Medical Decision Making Diagnostic Impression: Primary Impression: UTI (urinary tract infection) Qualified Codes: N39.0 - Urinary tract infection, site not specified Additional Impressions: ARF (acute renal failure) Qualified Codes: N17.9 - Acute kidney failure, unspecified Pacemaker ER Course Hospital Course 68 yo F presents with ALOC x 1 day Differential diagnoses include: Pneumonia, UTI, sepsis, dehydration, CVA Clinical course Patient placed on stretcher. On rn cardiac with stable vitals are ED course. After initial history and physical, I ordered labs, IV fluids, EKG, chest x-ray, blood cultures, UA. Labs - BUN/Cr markedly elevated, no leukocytosis, troponins negative, UA grossly positive for UTI EKG - undetermined rhythm, no acute ischemic changes interpreted by me CXR - cardiomegaly, no acute process CT head - no acute process Abx given. IVFs given. Case discussed with Dr Yanez and they agreed to admit patient to their service for further care and support I feel this is a highly complex case requiring extensive working including EKG/ Rhythm strip, Xray/CT/US, Blood/urine lab work, repeat exams while in ED, and administration of strong opiates/narcotics for pain control, admission to hospital or close patient follow up. Diagnosis - UTI, ARF, pacemaker Patient admitted to telemetry in serious condition Labs Test 10/13/18 14:20 10/13/18 14:50 White Blood Count 6.8 K/UL (4.8-10.8) Red Blood Count 3.73 M/UL (4.20-5.40) Hemoglobin 10.0 G/DL (12.0-16.0) Hematocrit 31.0 % (37.0-47.0) Mean Corpuscular Volume 83 FL (80-99) Mean Corpuscular Hemoglobin 26.7 PG (27.0-31.0) Mean Corpuscular Hemoglobin Concent 32.1 G/DL (32.0-36.0) Red Cell Distribution Width 14.4 % (11.6-14.8) Platelet Count 194 K/UL (150-450) Mean Platelet Volume 8.2 FL (6.5-10.1) Neutrophils (%) (Auto) 74.3 % (45.0-75.0) Lymphocytes (%) (Auto) 15.5 % (20.0-45.0) Monocytes (%) (Auto) 7.7 % (1.0-10.0) Eosinophils (%) (Auto) 1.7 % (0.0-3.0) Basophils (%) (Auto) 0.8 % (0.0-2.0) Sodium Level 138 MMOL/L (136-145) Potassium Level 5.0 MMOL/L (3.5-5.1) Chloride Level 101 MMOL/L (98-107) Carbon Dioxide Level 19 MMOL/L (21-32) Anion Gap 18 mmol/L (5-15) Blood Urea Nitrogen 124 mg/dL (7-18) Creatinine 2.9 MG/DL (0.55-1.30) Estimat Glomerular Filtration Rate 19.4 mL/min (>60) Glucose Level 122 MG/DL (74-106) Calcium Level 10.7 MG/DL (8.5-10.1) Total Bilirubin 0.4 MG/DL (0.2-1.0) Aspartate Amino Transf (AST/SGOT) 22 U/L (15-37) Alanine Aminotransferase (ALT/SGPT) 41 U/L (12-78) Alkaline Phosphatase 71 U/L (46-116) Total Creatine Kinase 62 U/L (26-308) Creatine Kinase MB < 0.5 NG/ML (0.0-3.6) Creatine Kinase MB Relative Index 0.8 Troponin I 0.000 ng/mL (0.000-0.056) Pro-B-Type Natriuretic Peptide 252 pg/mL (0-125) Total Protein 9.5 G/DL (6.4-8.2) Albumin 3.1 G/DL (3.4-5.0) Globulin 6.4 g/dL Albumin/Globulin Ratio 0.5 (1.0-2.7) Urine Color Pale yellow Urine Appearance Cloudy Urine pH 5 (4.5-8.0) Urine Specific [place] 1.015 (1.005-1.035) Urine Protein 3+ (NEGATIVE) Urine Glucose (UA) Negative (NEGATIVE) Urine Ketones Negative (NEGATIVE) Urine Blood 5+ (NEGATIVE) Urine Nitrite Positive (NEGATIVE) Urine Bilirubin Negative (NEGATIVE) Urine Urobilinogen Normal MG/DL (0.0-1.0) Urine Leukocyte Esterase 3+ (NEGATIVE) Urine RBC 2-4 /HPF (0 - 2) Urine WBC Tntc /HPF (0 - 2) Urine Squamous Epithelial Cells Few /LPF (NONE/OCC) Urine Bacteria Moderate /HPF (NONE) EKG Diagnostic Results Rate: normal Rhythm: other - undetermined rhythm ST Segments: no acute changes ASA given to the pt in ED: No Rhythm Strip Diag. Results EP Interpretation: yes Rhythm: no PVC's, no ectopy Chest X-Ray Diagnostic Results Chest X-Ray Diagnostic Results : Chest X-Ray Ordered: Yes # of Views/Limited/Complete: 1 View Indication: Other - AMS EP Interpretation: Yes Interpretation: no pneumothorax, no acute cardiopulmonary disease, other - bilateral pulmonary congestion. Impression: Other - chf Electronically Signed by: Electronically signed by Epi Stanton MD Last Vital Signs Date Time Temp Pulse Resp B/P (MAP) Pulse Ox O2 Delivery O2 Flow Rate FiO2 10/13/18 15:34 98.4 85 18 113/49 100 Nasal Cannula 2.0 Status: improved Disposition: ADMITTED INPATIENT Condition: Serious Referrals: Oliverio Yanez MD (PCP) Epi Stanton MD Oct 13, 2018 16:35
[2018-10-13] MEDS ORDERED: Piperacillin/Tazobactam 3.375 GM in NS 55 ML IVPB SCH ×4 (17:00)
[2018-10-13 20:00] VITALS: BP 125/73
[2018-10-13] MEDS ORDERED: Piperacillin/Tazobactam 2.25 GM in D5W 55 ML IV SCH (22:00)
[2018-10-13] MEDS: Morphine Sulfate 2mg/ml Inj IVP PRN (22:34)
[2018-10-14] VITALS: BP 143/82
[2018-10-14] MEDS: Zosyn 3.375gm q8h **Extended infusion IVPB SCH ×8 (00:55→21:49)
[2018-10-14] MEDS: Morphine Sulfate 4mg/ml Inj (IV/IM USE ONLY) IVP PRN ×2 (03:11→10:35)
[2018-10-14 04:00] VITALS: BP 137/59
[2018-10-14 08:00] VITALS: BP 154/73
[2018-10-14] MEDS: Aspirin Baby 81mg ORAL SCH (08:07)
[2018-10-14] MEDS: Metoprolol Succinate XL 25mg tab ORAL SCH (08:08)
[2018-10-14] MEDS: Heparin 5000 units/ml inj SUBQ SCH ×2 (08:09→21:48)
[2018-10-14 08:35] LABS: ANION GAP 17 mmol/L (5-15); BLOOD UREA NITROGEN 113 mg/dL (7-18); CALCIUM 10.6 MG/DL (8.5-10.1); CARBON DIOXIDE 21 MMOL/L (21-32); CHLORIDE 103 MMOL/L (98-107); CHOLESTEROL 115 MG/DL (< 200); CREATININE 2.4 MG/DL (0.55-1.30); HDL CHOLESTEROL 48 MG/DL (40-60); POTASSIUM 4.4 MMOL/L (3.5-5.1); SODIUM 141 MMOL/L (136-145); TRIGLYCERIDES 97 MG/DL (30-150)
--- NOTE | 2018-10-14 10:12 | Diagnostic Imaging Report ---
Indications: Altered level of consciousness Technique: Spiral acquisitions obtained through the brain. Angled axial and coronal 5 x 5 mm slices were reconstructed. Total dose length product 1428.24 mGycm. CTDI vol(s) 70.38 mGy. Dose reduction achieved using automated exposure control Comparison: 12/01/2017 Findings: There is age-related enlargement of the ventricles and extra axial CSF spaces. There is minimal periventricular deep white matter low-attenuation, consistent with chronic ischemic change. Otherwise normal cardenas-white differentiation. No acute intracranial hemorrhage nor edema. No mass effect nor midline shift. Intact calvarium. Visualized orbits are unremarkable. The mastoids are clear. There is ethmoid sinus disease on the left. No significant interim change Impression: Age-related volume loss Negative for acute intracranial bleed or mass effect Sinus disease This agrees with the preliminary interpretation provided overnight by [facility] telerad[facility] service. The CT scanner at [facility] is accredited by the [employer] and the scans are performed using protocols designed to limit radiation exposure to as low as reasonably achievable to attain images of sufficient resolution adequate for diagnostic evaluation.
[2018-10-14] MEDS ORDERED: 1/2 NS 1000ml IV ONE (10:31)
[2018-10-14] MEDS ORDERED: Tubing IV Secondary IV ONE (10:31)
--- NOTE | 2018-10-14 10:38 | Diagnostic Imaging Report ---
Indication: Shortness of breath Technique: One view of the chest Comparison: 11/28/2017 Findings: There is a left chest bifocal AICD. There is mild bilateral interstitial congestion. The heart is mildly enlarged. The pleural spaces are clear. No focal airspace consolidation Impression: Cardiomegaly with mild interstitial edema Other findings as noted
[2018-10-14 12:00] VITALS: BP 156/73
--- NOTE | 2018-10-14 12:30 | Nephrology Progress Note ---
Assessment/Plan Problem List: (1) Altered mental status (2) DM (diabetes mellitus) (3) HTN (hypertension) (4) ARF (acute renal failure) Assessment: better (5) Hypertrophic cardiomyopathy (6) Encephalopathy (7) UTI (urinary tract infection) Plan IVF Abxs follow labs ID consult Neuro consult cardio consult Discussed with daughter at length Subjective Subjective confused Objective Objective Last 24 Hour Vital Signs Date Time Temp Pulse Resp B/P (MAP) Pulse Ox O2 Delivery O2 Flow Rate FiO2 10/14/18 09:00 Nasal Cannula 3.0 10/14/18 08:08 114 154/74 10/14/18 08:08 114 154/74 10/14/18 08:00 111 10/14/18 08:00 97.5 98 21 154/73 (100) 98 10/14/18 04:00 111 10/14/18 04:00 97.3 104 22 137/59 (85) 98 10/14/18 00:00 97.2 88 20 143/82 (102) 98 10/14/18 00:00 92 10/13/18 23:04 98.1 10/13/18 22:48 Nasal Cannula 3.0 10/13/18 20:00 98.1 88 18 125/73 (90) 100 10/13/18 20:00 94 10/13/18 16:45 Nasal Cannula 3.0 10/13/18 16:37 90 10/13/18 16:25 98.5 67 16 151/66 99 Nasal Cannula 2.0 10/13/18 16:10 98.1 70 20 110/72 (85) 93 10/13/18 15:34 98.4 85 18 113/49 100 Nasal Cannula 2.0 10/13/18 15:32 85 16 Nasal Cannula 2.0 10/13/18 13:43 98.4 93 18 119/77 100 Nasal Cannula 2.0 Intake and Output 10/13/18 10/14/18 19:00 07:00 Intake Total 100 ml 900 ml Output Total 250 ml 750 ml Balance -150 ml 150 ml Intake IV Total 100 ml 900 ml Output Urine Total 250 ml 750 ml Laboratory Tests 10/13/18 14:20: White Blood Count 6.8, Red Blood Count 3.73L, Hemoglobin 10.0L, Hematocrit 31.0L , Mean Corpuscular Volume 83, Mean Corpuscular Hemoglobin 26.7L, Mean Corpuscular Hemoglobin Concent 32.1, Red Cell Distribution Width 14.4, Platelet Count 194, Mean Platelet Volume 8.2, Neutrophils (%) (Auto) 74.3, Lymphocytes (% ) (Auto) 15.5L, Monocytes (%) (Auto) 7.7, Eosinophils (%) (Auto) 1.7, Basophils (%) (Auto) 0.8, Sodium Level 138, Potassium Level 5.0, Chloride Level 101, Carbon Dioxide Level 19L, Anion Gap 18H, Blood Urea Nitrogen 124H, Creatinine 2.9H, Estimat Glomerular Filtration Rate 19.4, Glucose Level 122H, Calcium Level 10.7H, Total Bilirubin 0.4, Aspartate Amino Transf (AST/SGOT) 22, Alanine Aminotransferase (ALT/SGPT) 41, Alkaline Phosphatase 71, Total Creatine Kinase 62, Creatine Kinase MB < 0.5, Creatine Kinase MB Relative Index 0.8, Troponin I 0.000, Pro-B-Type Natriuretic Peptide 252H, Total Protein 9.5H, Albumin 3.1L, Globulin 6.4, Albumin/Globulin Ratio 0.5L 10/13/18 14:50: Urine Color Pale yellow, Urine Appearance Cloudy, Urine pH 5, Urine Specific [place] 1.015, Urine Protein 3+H, Urine Glucose (UA) Negative, Urine Ketones Negative, Urine Blood 5+H, Urine Nitrite PositiveH, Urine Bilirubin Negative, Urine Urobilinogen Normal, Urine Leukocyte Esterase 3+H, Urine RBC 2-4H, Urine WBC TntcH, Urine Squamous Epithelial Cells Few, Urine Bacteria ModerateH 10/13/18 17:50: Lactic Acid Level 1.60 10/14/18 06:40: Sodium Level 141, Potassium Level 4.4, Chloride Level 103, Carbon Dioxide Level 21, Anion Gap 17H, Blood Urea Nitrogen 113H, Creatinine 2.4H, Estimat Glomerular Filtration Rate 24.2, Glucose Level 115H, Calcium Level 10.6H, Hemoglobin A1c 6.1H, Triglycerides Level 97, Cholesterol Level 115, LDL Cholesterol 52, HDL Cholesterol 48, Cholesterol/HDL Ratio 2.4L, Thyroid Stimulating Hormone (TSH) 0.466 Height (Feet): 5 Height (Inches): 10.00 Weight (Pounds): 246 Cardiovascular: normal rate Respiratory/Chest: lungs clear Extremities: other - no edema Oliverio Yanez MD Oct 14, 2018 12:30
--- NOTE | 2018-10-14 12:48 | Consultation ---
Consult Note Assessment/Plan Renal consult dictated # [id number] Oliverio Yanez MD Oct 14, 2018 12:47
[2018-10-14 16:00] VITALS: BP 157/81
[2018-10-14 20:00] VITALS: BP 134/66
--- NOTE | 2018-10-14 20:05 | Cardiology Progress Note ---
Assessment/Plan Assessment/Plan looks quite dehydrated awiat neuro input not seem to be moving either ext very much agree with hydration and neuro imaging Objective Last 24 Hour Vital Signs Date Time Temp Pulse Resp B/P (MAP) Pulse Ox O2 Delivery O2 Flow Rate FiO2 10/14/18 16:00 97.2 96 21 157/81 (106) 99 10/14/18 16:00 88 10/14/18 12:00 98.1 98 21 156/73 (100) 99 10/14/18 12:00 101 10/14/18 09:00 Nasal Cannula 3.0 10/14/18 08:08 114 154/74 10/14/18 08:08 114 154/74 10/14/18 08:00 111 10/14/18 08:00 97.5 98 21 154/73 (100) 98 10/14/18 04:00 111 10/14/18 04:00 97.3 104 22 137/59 (85) 98 10/14/18 00:00 97.2 88 20 143/82 (102) 98 10/14/18 00:00 92 10/13/18 23:04 98.1 10/13/18 22:48 Nasal Cannula 3.0 Intake and Output 10/13/18 10/14/18 19:00 07:00 Intake Total 100 ml 900 ml Output Total 250 ml 750 ml Balance -150 ml 150 ml Intake IV Total 100 ml 900 ml Output Urine Total 250 ml 750 ml Laboratory Tests Test 10/14/18 06:40 Sodium Level 141 MMOL/L (136-145) Potassium Level 4.4 MMOL/L (3.5-5.1) Chloride Level 103 MMOL/L (98-107) Carbon Dioxide Level 21 MMOL/L (21-32) Anion Gap 17 mmol/L (5-15) H Blood Urea Nitrogen 113 mg/dL (7-18) H Creatinine 2.4 MG/DL (0.55-1.30) H Estimat Glomerular Filtration Rate 24.2 mL/min (>60) Glucose Level 115 MG/DL (74-106) H Hemoglobin A1c 6.1 % (4.3-6.0) H Calcium Level 10.6 MG/DL (8.5-10.1) H Triglycerides Level 97 MG/DL (30-150) Cholesterol Level 115 MG/DL (< 200) LDL Cholesterol 52 mg/dL (<100) HDL Cholesterol 48 MG/DL (40-60) Cholesterol/HDL Ratio 2.4 (3.3-4.4) L Thyroid Stimulating Hormone (TSH) 0.466 uiU/mL (0.358-3.740) Microbiology Date/Time Source Procedure Growth Status 10/13/18 14:30 Blood Blood Culture - Preliminary Resulted 10/13/18 14:50 Urine,Clean Catch Urine Culture - Preliminary Gram Negative Bacillus 1 Resulted Vernon Darden MD Oct 14, 2018 20:05
--- NOTE | 2018-10-14 20:30 | Consultation ---
DATE OF CONSULTATION: 10/13/2018 NEPHROLOGY CONSULTATION CONSULTING PHYSICIAN: Oliverio Yanez M.D. REASON FOR CONSULTATION: Acute renal failure. HISTORY OF PRESENT ILLNESS: This is a 68-year-old, female, who is known to me from outpatient followup and hospital visit. The patient was brought into the emergency room by paramedics for change in mental status. I was asked to see her for acute renal failure. Her BUN and creatinine were 124 and 2.9. The patient is unable to provide any history. History was obtained from the chart and talking to the daughter. PAST MEDICAL HISTORY: Include history of diabetes mellitus, hypertension, hypertrophic cardiomyopathy, history of acute renal failures in the past, and morbid obesity. MEDICATIONS: Reviewed in the EMR. SOCIAL HISTORY: No history of smoking or alcohol abuse. The patient lives at home with family. ALLERGIES: No known drug allergies. REVIEW OF SYSTEMS: Unobtainable. PHYSICAL EXAMINATION: GENERAL: The patient is a morbidly obese female. She talks a few words. She knows me. However, she did not recognize the nephew by name. VITAL SIGNS: Blood pressure 154/74, pulse 114, temperature 97.5, and respiratory rate is 21. HEENT: Pale conjunctivae. Anicteric sclerae. NECK: Supple. LUNGS: Clear to auscultation. HEART: S1 and S2 without murmurs or rubs. ABDOMEN: Soft and nontender. EXTREMITIES: No cyanosis or edema. LABORATORY FINDINGS: Chemistry panel shows serum sodium 138, potassium 5, chloride 101, CO2 19, BUN is 124, creatinine 2.9, glucose is 122, and calcium is 10.7. The CBC shows a WBC of 6.8, hematocrit is 31, hemoglobin is 10, and platelets are 194,000. UA shows too numerous to count wbc's per high-power field and 3+ protein. ASSESSMENT: This is a 68-year-old female with history of diabetes, hypertension, and hypertrophic cardiomyopathy, who presents now with encephalopathy. She has acute renal failure, which is likely from prerenal azotemia. She has urinary tract infection, possibility of sepsis. PLAN: The patient will be on IV antibiotics. Intravenous fluids. ID consultation will be obtained as well as Neurology consultation. Labs will be followed and adjustment will be made in the patient's regimen. Thank you very much. Oliverio Yanez M.D. DR: MALA JOB#: [id number] CC:
--- NOTE | 2018-10-14 20:40 | Consultation ---
Consult Note Consult Note NEUROLOGY CONSULTATION: Full note dictated #[id number] 68 y/o, RH, BF with PH of HTN, DM, renal failure, who was hospitalized for a change in MS. Was noted to have a UTI ON EXAM: Oriented to self only. Moves all extremities but generally weak. Asterixis. CT of brain with atrophy and DWM changes but no acute path. IMPRESSION: Encephalopathy toxic/metabolic. REC: Rx of UTI. Labs for AMS EEG If pacemaker is MRI safe - get MRI of brain without contrast. Observe Gume Bassett M.D., M.S.P.H. Gume Bassett MD Oct 14, 2018 20:40
--- NOTE | 2018-10-14 23:00 | Consultation ---
DATE OF CONSULTATION: 10/14/2018 NEUROLOGY CONSULTATION CONSULTING PHYSICIAN: Gume Bassett M.D. REQUESTING PHYSICIANS: Oliverio Yanez M.D. & Mario Alberto Aparicio M.D. HISTORY: Ms Rafael Allen is a 68-year-old, right-handed, black lady, who does have a past history of hypertension, diabetes mellitus, renal failure, and cardiac arrhythmia - for which she has a pacemaker implanted, who apparently lives at home with family and was noted to have a change in mental state. The exact details of this change are unknown to us. She was brought into the [facility] emergency room where she was noted to have a urinary tract infection. She has continued to have a significant alteration in her mental state and thus this consultation was requested. The patient herself was unable to give me any history. PAST MEDICAL HISTORY: Significant for hypertension, diabetes mellitus, and renal dysfunction. FAMILY HISTORY: Unavailable. PERSONAL HISTORY: Home: She lives at home with family. Work: She says she is retired. Habits: Unknown. PRESENT MEDICATIONS: Amlodipine, aspirin, metoprolol, Zosyn, heparin for DVT prophylaxis, Tylenol, morphine, MiraLAX, Zofran, and Ambien. PHYSICAL EXAMINATION: GENERAL: She is a well-developed, well-nourished, obese, black lady, lying in bed, in no acute distress. VITAL SIGNS: Pulse 96/minute, blood pressure 157/81 mmHg, respirations 21/minute, and temperature 97.3 degrees Fahrenheit. HEAD: Normocephalic and atraumatic. EENT: Examination benign. NECK: No neck rigidity was observed. NEUROLOGICAL EXAMINATION: MENTAL STATUS EXAMINATION: She was awake, but not alert. She was oriented to self only. She had no idea of where she was or what the date was. She was unable to cooperate for further mental status testing. SPEECH: She had a moderate dysarthria. LANGUAGE: She had problems with comprehension, repetition, naming, and expression of language. CRANIAL NERVE EXAMINATION: II: She did blink to threat. She was unable to cooperate for confrontation testing. III, IV & : The external ocular movements were present, but she did have dysconjugate gaze. The pupils were 3 mm in diameter, equal, round, regular, and reactive sluggishly to light. V & VII: The corneal reflexes were equally brisk. VIII: She did respond to sounds and had no nystagmus. IX & X: The gag reflex was present. XI: The sternocleidomastoids and trapezii did function. XII: The tongue was in the midline without any fasciculations or atrophy. MOTOR SYSTEM: The tone was normal in all four extremities. Examination of muscle mass revealed no focal wasting. Examination of power was impossible to perform because she was unable to cooperate. However, she did move all four extremities on applying deep painful stimuli and gave me fair hand flatbed driver bilaterally. SENSORY EXAMINATION: She responded appropriately to deep pain. Other sensory modalities could not be tested. REFLEXES: Zero at the biceps, triceps, brachioradialis, knees, and ankles. The plantar responses were flexor bilaterally. COORDINATION, STANCE & GAIT: Could not be tested. ABNORMAL MOVEMENTS: She exhibited asterixis in both upper extremities. DIAGNOSTIC IMPRESSION: 1. Ms Rafael Allen is a 68-year-old, right-handed, black lady, with a past history of hypertension, diabetes mellitus, renal failure, and cardiac arrhythmia - for which she has a pacemaker implanted, who was hospitalized for a change in mental state and was found to have urinary tract infection. 2. On neurological examination, at this time, she is oriented to self only. She has significant problems with recent and remote memory and is unable to cooperate for her mental status exam. She also exhibits a dysarthria and aphasia, quadriparesis, globally absent deep tendon reflexes, and asterixis in both upper extremities. 3. The CT scan of the brain without contrast reveals atrophy and deep white matter changes, but no acute pathology. 4. Laboratory data obtained thus far have revealed that she is anemic with a hemoglobin of 10 G. Her chemistry panel reveals that her BUN is elevated to 124, her creatinine is elevated at 2.9, her hemoglobin A1c is elevated at 6.1%, her calcium is elevated at 10.7, her proBNP is elevated at 252, her albumin is low at 3.1, and her TSH is normal at 0.46. Her Urinalysis reveals 3+ leukocyte esterase, 2-4 red blood cells, and too numerous to count white blood cells per high-power field. 5. The patient's history, neurological examination, and laboratory data are most compatible with an acute encephalopathic process of the toxic metabolic nature. The offending factors at this point in time include a urinary tract infection, and in addition renal failure. RECOMMENDATIONS: 1. Agree with management thus far. 2. The patient should be worked up thoroughly for other treatable causes of altered mental state. 3. An EEG should be performed to evaluate the patient for the degree and type of cerebral dysfunction. 4. If her pacemaker is MRI safe then an MRI of the brain without contrast should be obtained. 5. The patient will be observed closely and depending on how she fares over the next day or so, further recommendations will be given. Thank you for entrusting me with the care of this patient. I shall follow her with you. Gume Bassett M.D., M.S.P.H. DR: DARSHANA JOB#: [id number] [place]
--- NOTE | 2018-10-14 23:15 | Consultation ---
DATE OF CONSULTATION: 10/14/2018 INFECTIOUS DISEASE CONSULTATION CONSULTING PHYSICIAN: Julien Yanez M.D. PRIMARY ATTENDING PHYSICIAN: Oliverio Yanez M.D. REASON FOR CONSULT: Urinary tract infection. HISTORY OF PRESENT ILLNESS: This 68-year-old female admitted yesterday with altered mental status. According to the family she was difficult to wake up and does not remember the place. According to family, she had a subjective fever yesterday. PAST MEDICAL HISTORY: Significant for diabetes mellitus, hypertension, obesity, and had history of syncope in the past. The patient is bedbound. ALLERGIES: Sulfa drugs. MEDICATIONS: Amlodipine, aspirin, metoprolol, Zosyn, gets also a dose of ceftriaxone in the ER, sodium chloride, Tylenol, morphine, Zofran, and MiraLAX. SOCIAL HISTORY: No history of alcohol, drug abuse, or smoking. Lives at home. Very supportive family. REVIEW OF SYSTEMS: No coughing. No shortness of breath. No abdominal pain. Has back pain. The patient is incontinent, wears diaper at home.. PHYSICAL EXAMINATION: VITAL SIGNS: Temperature 97.5, pulse 114, and blood pressure 154/74. GENERAL APPEARANCE: Seems to be awake, alert, and responsive. HEAD AND NECK: Ubly conjunctivae. HEART: S1 and S2. Regular. LUNGS: Clear. ABDOMEN: Soft, obese, and nontender. EXTREMITIES: Has no edema. SKIN: Developing early ulceration and erythema in the lower back. LABORATORY AND DIAGNOSTIC DATA: WBC 6.8, hemoglobin 10, hematocrit 31, and platelets are 194,000. Sodium 141, potassium 4.4, chloride 103, bicarbonate 21, BUN 113, creatinine 2.4, and glucose 115. CT scan of the head showed age-related volume loss and sinus disease. Chest x-ray showed cardiomegaly and mild interstitial edema. UA showed WBC too numerous to count, leukocyte esterase 2+, and nitrite positive. IMPRESSION: 1. Urinary tract infection. 2. Altered mental status. 3. Acute renal failure. 4. Diabetes mellitus. 5. Hypertension. 6. Obesity. 7. Pressure ulcer. RECOMMENDATION: We will continue Zosyn. We will follow up the cultures. At the end of my exam, I thank Dr. Oliverio Yanez, for involving me in the care of this patient. Julien Yanez M.D. DR: EPHRAIM JOB#: [id number] CC: SALVADOR
--- NOTE | 2018-10-14 23:15 | History and Physical Report ---
DATE OF ADMISSION: 10/13/2018 HISTORY OF PRESENT ILLNESS: The patient is a 68-year-old female, who was brought into the emergency room here by paramedics secondary to lethargy, alteration of mental status, and confused. There is no chest pain or shortness of breath. No fevers or chills. The patient was noted to have urinary tract infection. Apparently, she has had multiple UTIs in the past. PAST MEDICAL HISTORY: History of hypertension and history of diabetes. She does have an ICD, history of cardiomyopathy, and history of recurrent UTIs. SOCIAL HISTORY: She does not smoke. Does not drink any alcohol. Does not use any drugs. REVIEW OF SYSTEMS: Unable to obtain secondary to the lethargy. PHYSICAL EXAMINATION: GENERAL: She is well developed and well nourished. Currently, in no apparent distress. VITAL SIGNS: Blood pressure 119/77, respirations 18, pulse 93, and temperature 98.4. HEENT: Head, normocephalic and atraumatic. Pupils are equal and reactive to light. Extraocular muscles are intact. Eyes are anicteric. Conjunctivae, pale. Throat, mucous membranes on the . NECK: Supple. LUNGS: Clear. HEART: Regular rate and rhythm. ABDOMEN: Soft. Positive bowel sounds. EXTREMITIES: No clubbing, cyanosis, or edema. NEURO: She does move all her extremities. LABORATORY DATA: White count 6.8, hemoglobin 10, hematocrit 31, and platelet count 194,000. Sodium 141, potassium 4.4, BUN of 113, creatinine 3.4, and glucose 115. TSH is 0.4. Urinalysis reveals too numerous to count wbc's, 3+ leukocyte esterase, and 2 to 4 rbc's. Chest x-ray reveals cardiomegaly with mild interstitial edema. Head CT is negative for any acute intracranial bleed or mass effect. EKG noted. ASSESSMENT/PLAN: The patient is an unfortunate 68-year-old female with multiple medical problems, presents with lethargy, urinary tract infection, rule out urosepsis with treatment workup initiated. She is started on antibiotics. She appears also to be quite dehydrated. We will give her intravenous fluids. She does have cardiomyopathy and an ICD. She will be seen also by her fig bar machine operator, Dr. Darden and her structural steel worker apprentice, Dr. Yanez. Consider neuro evaluation as well. The patient should be on DVT and ulcer prophylaxis. Mario Alberto Aparicio M.D. DR: JO-ANN JOB#: [id number] CC:
[2018-10-15] VITALS: BP 118/52
[2018-10-15 04:00] VITALS: BP 149/88
[2018-10-15 08:00] VITALS: BP 147/85
--- NOTE | 2018-10-15 08:50 | Cardiology Report ---
APPROVED REPORT EKG Measurement Heart [id number] Sinus with V-paced rhythm Left axis deviation Inferior infarct, age undetermined Abnormal ECG
[2018-10-15] MEDS: Metoprolol Succinate XL 25mg tab ORAL SCH (09:25)
[2018-10-15] MEDS: Aspirin Baby 81mg ORAL SCH (09:25)
[2018-10-15] MEDS: Heparin 5000 units/ml inj SUBQ SCH ×2 (09:28→21:00)
[2018-10-15] MEDS: Zosyn 3.375gm q8h **Extended infusion IVPB SCH ×2 (09:29)
[2018-10-15 12:00] VITALS: BP 147/83
--- NOTE | 2018-10-15 12:20 | Nephrology Progress Note ---
Assessment/Plan Problem List: (1) Altered mental status (2) DM (diabetes mellitus) (3) HTN (hypertension) (4) ARF (acute renal failure) Assessment: better (5) Hypertrophic cardiomyopathy (6) Encephalopathy (7) UTI (urinary tract infection) Plan IVF Abxs follow labs start diet Discussed with RN Subjective Subjective more alert Objective Objective Last 24 Hour Vital Signs Date Time Temp Pulse Resp B/P (MAP) Pulse Ox O2 Delivery O2 Flow Rate FiO2 10/15/18 09:26 91 146/86 10/15/18 09:25 91 146/86 10/15/18 09:00 Nasal Cannula 2.0 10/15/18 08:00 81 10/15/18 08:00 97.9 90 18 147/85 (105) 99 10/15/18 04:00 98.1 83 18 149/88 (108) 99 10/15/18 03:20 81 10/15/18 00:00 98.6 105 20 118/52 (74) 98 10/14/18 23:27 103 10/14/18 21:00 Nasal Cannula 2.0 10/14/18 20:00 99.8 110 20 134/66 (88) 97 10/14/18 19:03 100 10/14/18 16:00 97.2 96 21 157/81 (106) 99 10/14/18 16:00 88 Intake and Output 10/14/18 10/15/18 18:59 06:59 Intake Total 0 ml Output Total 900 ml 903 ml Balance -900 ml -903 ml Intake Oral 0 ml Output Urine Total 900 ml 900 ml Stool Total 3 ml # Bowel Movements 2 Laboratory Tests 10/14/18 20:40: Arterial Blood pH 7.341L, Arterial Blood Partial Pressure CO2 38.8, Arterial Blood Partial Pressure O2 106.3H, Arterial Blood HCO3 20.5L, Arterial Blood Oxygen Saturation 97.5, Arterial Blood Base Excess -4.8L, Johnie Test Positive 10/14/18 21:26: Erythrocyte Sedimentation Rate 41H, Ammonia 16, Vitamin B12 Level 1030H, Vitamin D 25-Hydroxy [Pending], 25-Hydroxy Vitamin D2 [Pending], 25-Hydroxy Vitamin D3 [Pending], Folate 46.1, Rapid Plasma Reagin [Pending] 10/15/18 07:30: Troponin I 0.039, Pro-B-Type Natriuretic Peptide 2002H Height (Feet): 5 Height (Inches): 10.00 Weight (Pounds): 246 Cardiovascular: normal rate Respiratory/Chest: lungs clear Extremities: other - no edema Oliverio Yanez MD Oct 15, 2018 12:20
--- NOTE | 2018-10-15 13:36 | Infectious Diseases Prog Note ---
Assessment/Plan Assessment/Plan A; 1. Urinary tract infection with E.coli 2. Altered mental status. 3. Acute renal failure. 4. Diabetes mellitus. 5. Hypertension. 6. Obesity. 7. Pressure ulcer. 8. Positive blood culture likely contamination P; Change Zosyn to Ceftriaxone Subjective ROS Limited/Unobtainable: Yes Constitutional: Reports: no symptoms Allergies: Coded Allergies: SULFA (SULFONAMIDE ANTIBIOTICS) (Verified Allergy, Unknown, 11/28/17) Pt states she is allergic to sulfa Objective Vital Signs Last 24 Hour Vital Signs Date Time Temp Pulse Resp B/P (MAP) Pulse Ox O2 Delivery O2 Flow Rate FiO2 10/15/18 12:00 88 10/15/18 12:00 98.4 92 21 147/83 (104) 97 10/15/18 09:26 91 146/86 10/15/18 09:25 91 146/86 10/15/18 09:00 Nasal Cannula 2.0 10/15/18 08:00 81 10/15/18 08:00 97.9 90 18 147/85 (105) 99 10/15/18 04:00 98.1 83 18 149/88 (108) 99 10/15/18 03:20 81 10/15/18 00:00 98.6 105 20 118/52 (74) 98 10/14/18 23:27 103 10/14/18 21:00 Nasal Cannula 2.0 10/14/18 20:00 99.8 110 20 134/66 (88) 97 10/14/18 19:03 100 10/14/18 16:00 97.2 96 21 157/81 (106) 99 10/14/18 16:00 88 Height (Feet): 5 Height (Inches): 10.00 Weight (Pounds): 246 General Appearance: no acute distress HEENT: mucous membranes moist Respiratory/Chest: lungs clear Cardiovascular: normal rate Extremities: no edema Neurologic/Psychiatric: other - sleeping Microbiology Date/Time Source Procedure Growth Status 10/13/18 14:45 Blood Blood Culture - Preliminary NO GROWTH AFTER 24 HOURS Resulted 10/13/18 14:30 Blood Blood Culture - Preliminary Staphylococcus Sp Coag Neg Resulted 10/13/18 14:50 Urine,Clean Catch Urine Culture - Final Escherichia Coli Complete Laboratory Tests Test 10/14/18 20:40 10/14/18 21:26 10/15/18 07:30 Arterial Blood pH 7.341 (7.350-7.450) Arterial Blood Partial Pressure CO2 38.8 mmHg (35.0-45.0) Arterial Blood Partial Pressure O2 106.3 mmHg (75.0-100.0) H Arterial Blood HCO3 20.5 mmol/L (22.0-26.0) L Arterial Blood Oxygen Saturation 97.5 % (95-100) Arterial Blood Base Excess -4.8 (-2-2) L Johnie Test Positive Erythrocyte Sedimentation Rate 41 MM/HR (0-30) H Ammonia 16 umol/L (11-32) Vitamin B12 Level 1030 PG/ML (193-986) H Vitamin D 25-Hydroxy Pending 25-Hydroxy Vitamin D2 Pending 25-Hydroxy Vitamin D3 Pending Folate 46.1 NG/ML (8.6-58.9) Rapid Plasma Reagin Pending Troponin I 0.039 ng/mL (0.000-0.056) Pro-B-Type Natriuretic Peptide 2002 pg/mL (0-125) H Current Medications Medications (Trade) Dose Ordered Sig/Barrett Route PRN Reason Start Time Stop Time Status Last Admin Dose Admin Acetaminophen (Tylenol) 650 mg Q4H PRN ORAL Mild Pain (Pain Scale 1-3) 10/13/18 15:45 11/12/18 15:44 10/14/18 21:54 Amlodipine Besylate (Norvasc) 5 mg DAILY ORAL 10/14/18 09:00 11/13/18 08:59 10/15/18 09:26 Aspirin (ASA) 81 mg DAILY ORAL 10/14/18 09:00 11/13/18 08:59 10/15/18 09:25 Dextrose (Dextrose 50%) 25 ml Q30M PRN IV Hypoglycemia 10/13/18 15:45 11/12/18 15:44 Dextrose (Dextrose 50%) 50 ml Q30M PRN IV Hypoglycemia 10/13/18 15:45 11/12/18 15:44 Heparin Sodium (Porcine) (Heparin 5000 units/ml) 5,000 units EVERY 12 HOURS SUBQ 10/13/18 15:45 11/12/18 15:44 10/15/18 09:28 Metoprolol Succinate (Toprol XL) 25 mg DAILY ORAL 10/14/18 09:00 11/13/18 08:59 10/15/18 09:25 Morphine Sulfate (Morphine Sulfate) 2 mg EVERY 3 HOURS PRN IVP Moderate Pain (Pain Scale 4-6) 10/13/18 15:45 10/20/18 15:44 10/13/18 22:34 Morphine Sulfate (Morphine Sulfate) 4 mg EVERY 3 HOURS PRN IVP Severe Pain (Pain Scale 7-10) 10/13/18 15:45 10/20/18 15:44 10/14/18 10:35 Ondansetron HCl (Zofran) 4 mg Q6H PRN IVP Nausea & Vomiting 10/13/18 15:45 11/12/18 15:44 Piperacillin Sod/ Tazobactam Sod 3.375 gm/Sodium Chloride 110 ml @ 27.5 mls/hr Q8H IVPB 10/13/18 17:00 10/20/18 16:59 10/15/18 09:29 Polyethylene Glycol (Miralax) 17 gm DAILYPRN PRN ORAL Constipation 10/13/18 15:45 11/12/18 15:44 Sodium Chloride 1,000 ml @ 100 mls/hr Q10H IV 10/13/18 16:00 11/12/18 15:59 10/15/18 08:00 Zolpidem Tartrate (Ambien) 5 mg DAILYPRN PRN ORAL Insomnia 10/13/18 15:45 10/20/18 15:44 10/14/18 00:55 Julien Yanez MD Oct 15, 2018 13:36
[2018-10-15] MEDS: cefTRIAXone 1 GM in D5W 55 ML IVPB SCH (15:35)
[2018-10-15 16:00] VITALS: BP 132/76
--- NOTE | 2018-10-15 19:54 | Cardiology Progress Note ---
Assessment/Plan Assessment/Plan 1.dehydration 2. Toxic metabolic encephlopathy . 3. History of hypertrophic nonobstructive cardiomyopathy. 4. Family history of sudden cardiac . 5. History of intracardiac defibrillator implantation, [place] device previously. 6. acute renal failure 7. Abnormal perfusion with normal cardiac catheterization previously. 8. Hypercalcemia. 9. Alteration of mentation. 10. Azotemia 11. afib hx 12. bactermia ? contaminent 13. UTI tele sinus vpaced icd older model unlikely mri compatible she is more awake but not moving her ext much neuro input noted continue hydration eeg planned labs noted repeat renal panel in am iv hydration tele observation abx for uti id following Subjective Cardiovascular: Denies: chest pain, lightheadedness Respiratory: Denies: SOB with excertion Gastrointestinal/Abdominal: Denies: abdominal pain Genitourinary: Denies: burning Objective Last 24 Hour Vital Signs Date Time Temp Pulse Resp B/P (MAP) Pulse Ox O2 Delivery O2 Flow Rate FiO2 10/15/18 16:00 87 10/15/18 16:00 98.2 88 20 132/76 (94) 100 10/15/18 12:00 88 10/15/18 12:00 98.4 92 21 147/83 (104) 97 10/15/18 09:26 91 146/86 10/15/18 09:25 91 146/86 10/15/18 09:00 Nasal Cannula 2.0 10/15/18 08:00 81 10/15/18 08:00 97.9 90 18 147/85 (105) 99 10/15/18 04:00 98.1 83 18 149/88 (108) 99 10/15/18 03:20 81 10/15/18 00:00 98.6 105 20 118/52 (74) 98 10/14/18 23:27 103 10/14/18 21:00 Nasal Cannula 2.0 10/14/18 20:00 99.8 110 20 134/66 (88) 97 General Appearance: alert Cardiovascular: normal rate, systolic murmur Respiratory/Chest: lungs clear Abdomen: normal bowel sounds, non tender, soft Extremities: non-tender Intake and Output 10/14/18 10/15/18 19:00 07:00 Intake Total 0 ml Output Total 900 ml 903 ml Balance -900 ml -903 ml Intake Oral 0 ml Output Urine Total 900 ml 900 ml Stool Total 3 ml # Bowel Movements 2 Laboratory Tests Test 10/14/18 20:40 10/14/18 21:26 10/15/18 07:30 Arterial Blood pH 7.341 (7.350-7.450) Arterial Blood Partial Pressure CO2 38.8 mmHg (35.0-45.0) Arterial Blood Partial Pressure O2 106.3 mmHg (75.0-100.0) H Arterial Blood HCO3 20.5 mmol/L (22.0-26.0) L Arterial Blood Oxygen Saturation 97.5 % (95-100) Arterial Blood Base Excess -4.8 (-2-2) L Johnie Test Positive Erythrocyte Sedimentation Rate 41 MM/HR (0-30) H Ammonia 16 umol/L (11-32) Vitamin B12 Level 1030 PG/ML (193-986) H Vitamin D 25-Hydroxy Pending 25-Hydroxy Vitamin D2 Pending 25-Hydroxy Vitamin D3 Pending Folate 46.1 NG/ML (8.6-58.9) Rapid Plasma Reagin Pending Troponin I 0.039 ng/mL (0.000-0.056) Pro-B-Type Natriuretic Peptide 2002 pg/mL (0-125) H Microbiology Date/Time Source Procedure Growth Status 10/13/18 14:45 Blood Blood Culture - Preliminary NO GROWTH AFTER 24 HOURS Resulted 10/13/18 14:30 Blood Blood Culture - Preliminary Staphylococcus Sp Coag Neg Resulted 10/13/18 14:50 Urine,Clean Catch Urine Culture - Final Escherichia Coli Complete Vernon Darden MD Oct 15, 2018 19:54
[2018-10-15 20:00] VITALS: BP 122/82
--- NOTE | 2018-10-15 21:07 | Neurology Progress Note ---
Interim History Interim History Interim History Ms. Allen feels better. She was much more alert and responsive today. She continues to be cognitively impoverished. She continues to be generally weak. She is oblivious of what brought her to the hospital. Review of Systems Neuro Review of Systems Benign. Objective Physical Exam Last Vital Signs Date Time Temp Pulse Resp B/P (MAP) Pulse Ox O2 Delivery O2 Flow Rate FiO2 10/15/18 16:00 87 10/15/18 16:00 98.2 20 132/76 (94) 100 10/15/18 09:00 Nasal Cannula 2.0 Laboratory Tests Test 10/14/18 21:26 10/15/18 07:30 Erythrocyte Sedimentation Rate 41 MM/HR (0-30) H Ammonia 16 umol/L (11-32) Vitamin B12 Level 1030 PG/ML (193-986) H Vitamin D 25-Hydroxy Pending 25-Hydroxy Vitamin D2 Pending 25-Hydroxy Vitamin D3 Pending Folate 46.1 NG/ML (8.6-58.9) Rapid Plasma Reagin Pending Troponin I 0.039 ng/mL (0.000-0.056) Pro-B-Type Natriuretic Peptide 2002 pg/mL (0-125) H Neurologic Exam Objective PHYSICAL EXAMINATION: GENERAL: She is a well-developed, well-nourished, obese, black lady, lying in bed, in no acute distress. HEAD: Normocephalic and atraumatic. EENT: Examination benign. NECK: No neck rigidity was observed. NEUROLOGICAL EXAMINATION: MENTAL STATUS EXAMINATION: She was awake and alert. She was oriented to self only. She had no idea of where she was or what the date was. She was unable to cooperate for further mental status testing. SPEECH: She had a mild dysarthria. LANGUAGE: She had a mild anomia. CRANIAL NERVE EXAMINATION: II: She was able to count fingers. III, IV & : The external ocular movements were full but she did have a dysconjugate gaze. The pupils were 3 mm in diameter, equal, round, regular, and reactive sluggishly to light. V & VII: The corneal reflexes were equally brisk. VIII: She did respond to sounds and had no nystagmus. IX & X: The gag reflex was not tested XI: The sternocleidomastoids and trapezii did function. XII: The tongue was in the midline without any fasciculations or atrophy. MOTOR SYSTEM: The tone was normal in all four extremities. Examination of muscle mass revealed no focal wasting. Examination of power was impossible to perform because the effort was poor. She was generally weak. SENSORY EXAMINATION: She responded appropriately to light touch. Other sensory modalities could not be tested. REFLEXES: Zero at the biceps, triceps, brachioradialis, knees, and ankles. The plantar responses were flexor bilaterally. COORDINATION, STANCE & GAIT: Could not be tested. ABNORMAL MOVEMENTS: No asterixis was noted. Impression/Recommendations Diagnostic Impression 1. Ms Rafael Allen is a 68-year-old, right-handed, black lady, with a past history of hypertension, diabetes mellitus, renal failure, and cardiac arrhythmia - for which she has a pacemaker implanted, who was hospitalized for a change in mental state and was found to have urinary tract infection. 2. She feels better. She is much more alert and responsive today. She continues to be cognitively impoverished. She continues to be generally weak. She is oblivious of what brought her to the hospital. 3. On neurological examination, at this time, she is oriented to self only. She has significant problems with recent and remote memory. She also exhibits a mild dysarthria and an anomia, a quadriparesis, and globally absent deep tendon reflexes. 4. The CT scan of the brain without contrast reveals atrophy and deep white matter changes, but no acute pathology. 5. Laboratory data on my initial evaluation revealed that she was anemic with a hemoglobin of 10 G. Her chemistry panel revealed that her BUN was elevated to 124, her creatinine was elevated at 2.9, her hemoglobin A1c was elevated at 6.1% , her calcium was elevated at 10.7, her proBNP was elevated at 252, her albumin was low at 3.1, and her TSH was normal at 0.46. Her Urinalysis revealed 3+ leukocyte esterase, 2-4 red blood cells, and too numerous to count white blood cells per high-power field. 6. Further laboratory tests revealed a normal B12, Folate, ESR. 7. The patient's history, neurological examination, and laboratory data are most compatible with an acute encephalopathic process of the toxic metabolic nature. The offending factors were a urinary tract infection, and in addition renal failure. Recommendations 1. Continue present management. 2. Await EEG to evaluate the degree and type of cerebral dysfunction. 3. Observe closely. Gume Bassett M.D., M.S.P.H. Gume Bassett MD Oct 15, 2018 21:07
--- NOTE | 2018-10-15 22:41 | General Progress Note ---
Assessment/Plan Assessment/Plan uti encephalopathy imprved dehydration abx fluids improved encephalopathy PT oob dvt and ulcer prohylaxis Subjective Allergies: Coded Allergies: SULFA (SULFONAMIDE ANTIBIOTICS) (Verified Allergy, Unknown, 11/28/17) Pt states she is allergic to sulfa Subjective more alert today no chest painor sob Objective Last 24 Hour Vital Signs Date Time Temp Pulse Resp B/P (MAP) Pulse Ox O2 Delivery O2 Flow Rate FiO2 10/15/18 16:00 87 10/15/18 16:00 98.2 88 20 132/76 (94) 100 10/15/18 12:00 88 10/15/18 12:00 98.4 92 21 147/83 (104) 97 10/15/18 09:26 91 146/86 10/15/18 09:25 91 146/86 10/15/18 09:00 Nasal Cannula 2.0 10/15/18 08:00 81 10/15/18 08:00 97.9 90 18 147/85 (105) 99 10/15/18 04:00 98.1 83 18 149/88 (108) 99 10/15/18 03:20 81 10/15/18 00:00 98.6 105 20 118/52 (74) 98 10/14/18 23:27 103 Intake and Output 10/14/18 10/15/18 19:00 07:00 Intake Total 0 ml Output Total 900 ml 903 ml Balance -900 ml -903 ml Intake Oral 0 ml Output Urine Total 900 ml 900 ml Stool Total 3 ml # Bowel Movements 2 Laboratory Tests 10/15/18 07:30: Troponin I 0.039, Pro-B-Type Natriuretic Peptide Height (Feet): 5 Height (Inches): 10.00 Weight (Pounds): 246 General Appearance: WD/WN, alert Cardiovascular: normal rate Respiratory/Chest: lungs clear Abdomen: soft Mario Alberto Aparicio MD Oct 15, 2018 22:41
[2018-10-16] VITALS: BP 120/92
[2018-10-16 04:00] VITALS: BP 113/56
[2018-10-16 07:47] LABS: ANION GAP 19 mmol/L (5-15); BLOOD UREA NITROGEN 69 mg/dL (7-18); CALCIUM 11.7 MG/DL (8.5-10.1); CARBON DIOXIDE 23 MMOL/L (21-32); CHLORIDE 112 MMOL/L (98-107); CREATININE 1.4 MG/DL (0.55-1.30); SODIUM 153 MMOL/L (136-145)
[2018-10-16 07:48] LABS: POTASSIUM 2.5 MMOL/L (3.5-5.1)
[2018-10-16 08:00] VITALS: BP 156/86
[2018-10-16] MEDS: Metoprolol Succinate XL 25mg tab ORAL SCH (09:09)
[2018-10-16] MEDS: Aspirin Baby 81mg ORAL SCH (09:09)
[2018-10-16] MEDS: Heparin 5000 units/ml inj SUBQ SCH ×2 (09:11→21:15)
--- NOTE | 2018-10-16 11:11 | Nephrology Progress Note ---
Assessment/Plan Problem List: (1) Altered mental status (2) DM (diabetes mellitus) (3) HTN (hypertension) (4) ARF (acute renal failure) Assessment: better (5) Hypertrophic cardiomyopathy (6) Encephalopathy (7) UTI (urinary tract infection) (8) Hypokalemia (9) Hypernatremia Plan change IVF to D5W Abxs follow labs Replete K Discussed with RN Subjective Subjective more alert Objective Objective Last 24 Hour Vital Signs Date Time Temp Pulse Resp B/P (MAP) Pulse Ox O2 Delivery O2 Flow Rate FiO2 10/16/18 09:09 101 156/86 10/16/18 09:09 101 156/86 10/16/18 09:00 Nasal Cannula 2.0 10/16/18 08:00 98.3 101 18 156/86 (109) 97 10/16/18 07:53 90 10/16/18 04:00 99 10/16/18 04:00 98.9 67 18 113/56 (75) 97 10/16/18 00:00 112 10/16/18 00:00 98.9 67 18 120/92 (101) 97 10/15/18 21:00 Nasal Cannula 2.0 10/15/18 20:00 102 10/15/18 20:00 98.9 57 18 122/82 (95) 95 10/15/18 16:00 87 10/15/18 16:00 98.2 88 20 132/76 (94) 100 10/15/18 12:00 88 10/15/18 12:00 98.4 92 21 147/83 (104) 97 Intake and Output 10/15/18 10/16/18 18:59 06:59 Intake Total 430 ml Output Total 1300 ml 1800 ml Balance -870 ml -1800 ml Intake Oral 120 ml IV Total 310 ml Output Urine Total 1300 ml 1800 ml # Bowel Movements 3 Laboratory Tests 10/16/18 07:25: Sodium Level 153H, Potassium Level 2.5*L, Chloride Level 112H, Carbon Dioxide Level 23, Anion Gap 19H, Blood Urea Nitrogen 69H, Creatinine 1.4H, Estimat Glomerular Filtration Rate 45.1, Glucose Level 98, Calcium Level 11.7H Height (Feet): 5 Height (Inches): 10.00 Weight (Pounds): 251 Cardiovascular: normal rate Respiratory/Chest: lungs clear Extremities: other - no edema Rahban,Oliverio MD Oct 16, 2018 11:11
[2018-10-16 12:00] VITALS: BP 160/91
--- NOTE | 2018-10-16 12:05 | Infectious Diseases Prog Note ---
Assessment/Plan Assessment/Plan antibiotics : ceftriaxone A 1. e.coli UTI 2. + blood cultures with coag neg staph likely contaminated 3. renal failure 4. diabetes mellitus 5. hypertension P 1. continue ceftriaxone 2. will follow up cultures Subjective Constitutional: Denies: fever, chills Respiratory: Denies: shortness of breath, dry cough Gastrointestinal/Abdominal: Denies: nausea, vomiting, diarrhea Musculoskeletal: Reports: pain Allergies: Coded Allergies: SULFA (SULFONAMIDE ANTIBIOTICS) (Verified Allergy, Unknown, 11/28/17) Pt states she is allergic to sulfa Objective Vital Signs Last 24 Hour Vital Signs Date Time Temp Pulse Resp B/P (MAP) Pulse Ox O2 Delivery O2 Flow Rate FiO2 10/16/18 09:09 101 156/86 10/16/18 09:09 101 156/86 10/16/18 09:00 Nasal Cannula 2.0 10/16/18 08:00 98.3 101 18 156/86 (109) 97 10/16/18 07:53 90 10/16/18 04:00 99 10/16/18 04:00 98.9 67 18 113/56 (75) 97 10/16/18 00:00 112 10/16/18 00:00 98.9 67 18 120/92 (101) 97 10/15/18 21:00 Nasal Cannula 2.0 10/15/18 20:00 102 10/15/18 20:00 98.9 57 18 122/82 (95) 95 10/15/18 16:00 87 10/15/18 16:00 98.2 88 20 132/76 (94) 100 Height (Feet): 5 Height (Inches): 10.00 Weight (Pounds): 251 Respiratory/Chest: lungs clear Cardiovascular: normal rate, regular rhythm, no gallop/murmur Abdomen: soft, non tender Extremities: other - + edema Microbiology Date/Time Source Procedure Growth Status 10/13/18 14:45 Blood Blood Culture - Preliminary NO GROWTH AFTER 48 HOURS Resulted 10/13/18 14:30 Blood Blood Culture - Final Staphylococcus Sp Coag Neg Complete 10/13/18 14:50 Urine,Clean Catch Urine Culture - Final Escherichia Coli Complete Laboratory Tests Test 10/16/18 07:25 Sodium Level 153 MMOL/L (136-145) H Potassium Level 2.5 MMOL/L (3.5-5.1) *L Chloride Level 112 MMOL/L (98-107) H Carbon Dioxide Level 23 MMOL/L (21-32) Anion Gap 19 mmol/L (5-15) H Blood Urea Nitrogen 69 mg/dL (7-18) H Creatinine 1.4 MG/DL (0.55-1.30) H Estimat Glomerular Filtration Rate 45.1 mL/min (>60) Glucose Level 98 MG/DL (74-106) Calcium Level 11.7 MG/DL (8.5-10.1) H Current Medications Medications (Trade) Dose Ordered Sig/Barrett Route PRN Reason Start Time Stop Time Status Last Admin Dose Admin Acetaminophen (Tylenol) 650 mg Q4H PRN ORAL Mild Pain (Pain Scale 1-3) 10/13/18 15:45 11/12/18 15:44 10/14/18 21:54 Amlodipine Besylate (Norvasc) 5 mg DAILY ORAL 10/14/18 09:00 11/13/18 08:59 10/16/18 09:09 Aspirin (ASA) 81 mg DAILY ORAL 10/14/18 09:00 11/13/18 08:59 10/16/18 09:09 Ceftriaxone Sodium 1 gm/ Dextrose 55 ml @ 110 mls/hr Q24H IVPB 10/15/18 15:00 10/22/18 14:59 10/15/18 15:35 Dextrose 1,000 ml @ 75 mls/hr [id number] IV 10/16/18 11:30 11/15/18 11:29 Dextrose (Dextrose 50%) 25 ml Q30M PRN IV Hypoglycemia 10/13/18 15:45 11/12/18 15:44 Dextrose (Dextrose 50%) 50 ml Q30M PRN IV Hypoglycemia 10/13/18 15:45 11/12/18 15:44 Heparin Sodium (Porcine) (Heparin 5000 units/ml) 5,000 units EVERY 12 HOURS SUBQ 10/13/18 15:45 11/12/18 15:44 10/16/18 09:11 Metoprolol Succinate (Toprol XL) 25 mg DAILY ORAL 10/14/18 09:00 11/13/18 08:59 10/16/18 09:09 Morphine Sulfate (Morphine Sulfate) 2 mg EVERY 3 HOURS PRN IVP Moderate Pain (Pain Scale 4-6) 10/13/18 15:45 10/20/18 15:44 10/13/18 22:34 Morphine Sulfate (Morphine Sulfate) 4 mg EVERY 3 HOURS PRN IVP Severe Pain (Pain Scale 7-10) 10/13/18 15:45 10/20/18 15:44 10/14/18 10:35 Ondansetron HCl (Zofran) 4 mg Q6H PRN IVP Nausea & Vomiting 10/13/18 15:45 11/12/18 15:44 Polyethylene Glycol (Miralax) 17 gm DAILYPRN PRN ORAL Constipation 10/13/18 15:45 11/12/18 15:44 Potassium Chloride (K-Dur) 40 meq ONCE ORAL 10/16/18 13:00 10/16/18 14:00 Zolpidem Tartrate (Ambien) 5 mg DAILYPRN PRN ORAL Insomnia 10/13/18 15:45 10/20/18 15:44 10/14/18 00:55 Brandon Tian MD Oct 16, 2018 12:05
[2018-10-16] MEDS: Morphine Sulfate 2mg/ml Inj IVP PRN (14:20)
[2018-10-16 16:00] VITALS: BP 142/81
--- NOTE | 2018-10-16 16:27 | Cardiology Progress Note ---
Assessment/Plan Assessment/Plan 1.dehydration 2. Toxic metabolic encephlopathy . 3. History of hypertrophic nonobstructive cardiomyopathy. 4. Family history of sudden cardiac . 5. History of intracardiac defibrillator implantation, [place] [employer] device previously. 6. acute renal failure 7. Abnormal perfusion with normal cardiac catheterization previously. 8. Hypercalcemia. 9. Alteration of mentation. 10. Azotemia 11. afib hx 12. bactermia ? contaminent 13. UTI tele sinus vpaced icd older model unlikely mri compatible she is more awake eeg planned labs noted repeat renal panel in am iv hydration tele observation abx for uti id following Subjective Cardiovascular: Denies: chest pain, lightheadedness, palpitations Respiratory: Denies: shortness of breath Gastrointestinal/Abdominal: Denies: abdominal pain Genitourinary: Denies: burning Objective Last 24 Hour Vital Signs Date Time Temp Pulse Resp B/P (MAP) Pulse Ox O2 Delivery O2 Flow Rate FiO2 10/16/18 12:00 98.7 94 18 160/91 (114) 97 10/16/18 11:53 100 10/16/18 09:09 101 156/86 10/16/18 09:09 101 156/86 10/16/18 09:00 Nasal Cannula 2.0 10/16/18 08:00 98.3 101 18 156/86 (109) 97 10/16/18 07:53 90 10/16/18 04:00 99 10/16/18 04:00 98.9 67 18 113/56 (75) 97 10/16/18 00:00 112 10/16/18 00:00 98.9 67 18 120/92 (101) 97 10/15/18 21:00 Nasal Cannula 2.0 10/15/18 20:00 102 10/15/18 20:00 98.9 57 18 122/82 (95) 95 General Appearance: alert Neck: supple Cardiovascular: normal rate Respiratory/Chest: lungs clear Abdomen: normal bowel sounds, non tender, soft Extremities: no swelling Intake and Output 10/15/18 10/16/18 18:59 06:59 Intake Total 430 ml Output Total 1300 ml 1800 ml Balance -870 ml -1800 ml Intake Oral 120 ml IV Total 310 ml Output Urine Total 1300 ml 1800 ml # Bowel Movements 3 Laboratory Tests Test 10/16/18 07:25 Sodium Level 153 MMOL/L (136-145) H Potassium Level 2.5 MMOL/L (3.5-5.1) *L Chloride Level 112 MMOL/L (98-107) H Carbon Dioxide Level 23 MMOL/L (21-32) Anion Gap 19 mmol/L (5-15) H Blood Urea Nitrogen 69 mg/dL (7-18) H Creatinine 1.4 MG/DL (0.55-1.30) H Estimat Glomerular Filtration Rate 45.1 mL/min (>60) Glucose Level 98 MG/DL (74-106) Calcium Level 11.7 MG/DL (8.5-10.1) H Vernon Darden MD Oct 16, 2018 16:27
[2018-10-16] MEDS: cefTRIAXone 1 GM in D5W 55 ML IVPB SCH (16:35)
--- NOTE | 2018-10-16 19:14 | Neurology Progress Note ---
Interim History Interim History Interim History Ms. Allen feels better. She is much more alert and responsive. She continues to be cognitively impoverished. Her memory is poor. She continues to be generally weak. She is oblivious of what brought her to the hospital. Review of Systems Neuro Review of Systems Benign. Objective Physical Exam Last Vital Signs Date Time Temp Pulse Resp B/P (MAP) Pulse Ox O2 Delivery O2 Flow Rate FiO2 10/16/18 16:00 99.1 91 18 142/81 (101) 96 10/16/18 09:00 Nasal Cannula 2.0 Laboratory Tests Test 10/16/18 07:25 Sodium Level 153 MMOL/L (136-145) H Potassium Level 2.5 MMOL/L (3.5-5.1) *L Chloride Level 112 MMOL/L (98-107) H Carbon Dioxide Level 23 MMOL/L (21-32) Anion Gap 19 mmol/L (5-15) H Blood Urea Nitrogen 69 mg/dL (7-18) H Creatinine 1.4 MG/DL (0.55-1.30) H Estimat Glomerular Filtration Rate 45.1 mL/min (>60) Glucose Level 98 MG/DL (74-106) Calcium Level 11.7 MG/DL (8.5-10.1) H Neurologic Exam Objective PHYSICAL EXAMINATION: GENERAL: She is a well-developed, well-nourished, obese, black lady, lying in bed, in no acute distress. HEAD: Normocephalic and atraumatic. EENT: Examination benign. NECK: No neck rigidity was observed. NEUROLOGICAL EXAMINATION: MENTAL STATUS EXAMINATION: She was awake and alert. She was oriented to self only. She had no idea of where she was or what the date was. She was unable to cooperate for further mental status testing. SPEECH: She had a mild dysarthria. LANGUAGE: She had a mild anomia. CRANIAL NERVE EXAMINATION: II: She was able to count fingers. III, IV & : The external ocular movements were full but she did have a dysconjugate gaze. The pupils were 3 mm in diameter, equal, round, regular, and reactive sluggishly to light. V & VII: The corneal reflexes were equally brisk. VIII: She did respond to sounds and had no nystagmus. IX & X: The gag reflex was not tested XI: The sternocleidomastoids and trapezii did function. XII: The tongue was in the midline without any fasciculations or atrophy. MOTOR SYSTEM: The tone was normal in all four extremities. Examination of muscle mass revealed no focal wasting. Examination of power was impossible to perform because the effort was poor. She was generally weak - more so in the lower than upper extremities. SENSORY EXAMINATION: She responded appropriately to light touch. Other sensory modalities could not be tested. REFLEXES: Zero at the biceps, triceps, brachioradialis, knees, and ankles. The plantar responses were flexor bilaterally. COORDINATION, STANCE & GAIT: Could not be tested. ABNORMAL MOVEMENTS: No asterixis was noted. Impression/Recommendations Diagnostic Impression 1. Ms Rafael Allen is a 68-year-old, right-handed, black lady, with a past history of hypertension, diabetes mellitus, renal failure, and cardiac arrhythmia - for which she has a pacemaker implanted, who was hospitalized for a change in mental state and was found to have urinary tract infection. 2. She feels better. She is much more alert and responsive today. She continues to be cognitively impoverished. She continues to be generally weak. She is oblivious of what brought her to the hospital. 3. On neurological examination, at this time, she is oriented to self only. She has significant problems with recent and remote memory. She also exhibits a mild dysarthria and an anomia, a quadriparesis - involving the lower extremities more than the upper extremities, and globally absent deep tendon reflexes. 4. The CT scan of the brain without contrast reveals atrophy and deep white matter changes, but no acute pathology. 5. Laboratory data on my initial evaluation revealed that she was anemic with a hemoglobin of 10 G. Her chemistry panel revealed that her BUN was elevated to 124, her creatinine was elevated at 2.9, her hemoglobin A1c was elevated at 6.1% , her calcium was elevated at 10.7, her proBNP was elevated at 252, her albumin was low at 3.1, and her TSH was normal at 0.46. Her Urinalysis revealed 3+ leukocyte esterase, 2-4 red blood cells, and too numerous to count white blood cells per high-power field. 6. Further laboratory tests revealed a normal B12, Folate, ESR. 7. The EEG done on 10/15/18 revealed moderate generalized cerebral dysfunction and left > right cerebral dysfunction. 8. The patient's history, neurological examination, and laboratory data are most compatible with an acute encephalopathic process of the toxic metabolic nature. The offending factors were a urinary tract infection, and in addition renal failure. In addition the patient does also have structural brain disease. Recommendations 1. Continue present management. 2. Increase activity as tolerated. 3. Observe. Gume Bassett M.D., M.S.P.H. Gume Bassett MD Oct 16, 2018 19:14
[2018-10-16 20:00] VITALS: BP 148/75
--- NOTE | 2018-10-16 21:00 | Electroencephalogram ---
DATE OF PROCEDURE: 10/15/2018 REQUESTING PHYSICIAN: Oliverio Yanez M.D. EEG REPORT: HISTORY: This EEG was performed on a 68-year-old lady with a history of multiple medical problems who was hospitalized with an altered mental state. The purpose of this EEG was to evaluate the patient for the degree and type of cerebral dysfunction. TECHNICAL NOTE: This EEG was performed on a [employer] Digital [employer] Unit with electrodes placed on the scalp according to the International 10-20 system. [id number] and [id number] montages were used. The EEG was technically satisfactory and was performed in the awake and drowsy states. OBSERVATIONS: In the best awake state, the background activity consisted of 5-6 Hz theta over the left hemisphere; and 6-7 Hz theta with some intermixed alpha frequencies over the right hemisphere. Drowsiness was characterized by slowing of the background in the 4-5 Hz theta range with moderate amount of intermixed 1.5-2 Hz delta activity. No definite epileptiform discharges were seen. IMPRESSION: This is an abnormal EEG characterized by: 1. Slowing of the background in the 5-6 Hz theta range over the left hemisphere. 2. Slowing of the background in the 6-7 hertz theta range with some intermixed alpha frequencies over the right hemisphere. 3. An excessive amount of high-amplitude 1.5-2 Hz delta activity seen during drowsiness. COMMENT: This study is consistent with: 1. Generalized cerebral dysfunction of a moderate degree. 2. Left greater than hemispheric dysfunction. Gume Bassett M.D., M.S.P.H. DR: DARRIUS JOB#: [id number] SAL[place]OR
--- NOTE | 2018-10-16 23:21 | General Progress Note ---
Assessment/Plan Assessment/Plan uti encephalopathy imprved dehydration diabete htn obesity abx fluids improved encephalopathy monitor accuchecks PT oob dvt and ulcer prohylaxis Subjective Allergies: Coded Allergies: SULFA (SULFONAMIDE ANTIBIOTICS) (Verified Allergy, Unknown, 11/28/17) Pt states she is allergic to sulfa Subjective more alert today no chest pain or sob Objective Last 24 Hour Vital Signs Date Time Temp Pulse Resp B/P (MAP) Pulse Ox O2 Delivery O2 Flow Rate FiO2 10/16/18 21:00 Nasal Cannula 2.0 10/16/18 20:00 91 10/16/18 20:00 97.7 91 18 148/75 (99) 96 10/16/18 16:00 99.1 91 18 142/81 (101) 96 10/16/18 15:20 89 10/16/18 12:00 98.7 94 18 160/91 (114) 97 10/16/18 11:53 100 10/16/18 09:09 101 156/86 10/16/18 09:09 101 156/86 10/16/18 09:00 Nasal Cannula 2.0 10/16/18 08:00 98.3 101 18 156/86 (109) 97 10/16/18 07:53 90 10/16/18 04:00 99 10/16/18 04:00 98.9 67 18 113/56 (75) 97 10/16/18 00:00 112 10/16/18 00:00 98.9 67 18 120/92 (101) 97 Intake and Output 10/15/18 10/16/18 19:00 07:00 Intake Total 430 ml Output Total 1300 ml 1800 ml Balance -870 ml -1800 ml Intake Oral 120 ml IV Total 310 ml Output Urine Total 1300 ml 1800 ml # Bowel Movements 3 Laboratory Tests 10/16/18 07:25: Sodium Level 153H, Potassium Level 2.5*L, Chloride Level 112H, Carbon Dioxide Level 23, Anion Gap 19H, Blood Urea Nitrogen 69H, Creatinine 1.4H, Estimat Glomerular Filtration Rate 45.1, Glucose Level 98, Calcium Level 11.7H Height (Feet): 5 Height (Inches): 10.00 Weight (Pounds): 251 General Appearance: WD/WN Cardiovascular: normal rate Respiratory/Chest: lungs clear Abdomen: soft Extremities: non-tender Neurologic: alert Mario Alberto Aparicio MD Oct 16, 2018 23:21
[2018-10-17] VITALS: BP 124/58
[2018-10-17 04:00] VITALS: BP 130/68
[2018-10-17 07:11] LABS: BASOPHILS % (AUTO) 0.5 % (0.0-2.0); EOSINOPHILS % (AUTO) 0.5 % (0.0-3.0); HEMATOCRIT 30.9 % (37.0-47.0); HEMOGLOBIN 10.1 G/DL (12.0-16.0); LYMPHOCYTES % (AUTO) 16.1 % (20.0-45.0); MEAN CORPUSCULAR VOLUME 84 FL (80-99); MONOCYTES % (AUTO) 6.1 % (1.0-10.0); NEUTROPHILS % (AUTO) 76.8 % (45.0-75.0); PLATELET COUNT 251 K/UL (150-450); RED CELL DISTRIBUTION WIDTH 14.5 % (11.6-14.8); WHITE BLOOD COUNT 6.9 K/UL (4.8-10.8)
[2018-10-17 07:29] LABS: PHOSPHORUS 2.2 MG/DL (2.5-4.9)
[2018-10-17 07:32] LABS: ALANINE AMINOTRANSFERASE 30 U/L (12-78); ALBUMIN 2.6 G/DL (3.4-5.0); ALBUMIN/GLOBULIN RATIO 0.4 (1.0-2.7); ALKALINE PHOSPHATASE 61 U/L (46-116); ANION GAP 14 mmol/L (5-15); ASPARTATE AMINO TRANSFERASE 21 U/L (15-37); BILIRUBIN,TOTAL 0.3 MG/DL (0.2-1.0); BLOOD UREA NITROGEN 60 mg/dL (7-18); CARBON DIOXIDE 25 MMOL/L (21-32); CHLORIDE 115 MMOL/L (98-107); CREATININE 1.2 MG/DL (0.55-1.30); POTASSIUM 3.1 MMOL/L (3.5-5.1); SODIUM 154 MMOL/L (136-145)
[2018-10-17 08:00] VITALS: BP 136/56
[2018-10-17] MEDS ORDERED: Pamidronate Disodium Inj 60 MG in Sodium Chloride 500ML 550 ML IVPB ONE (08:45)
--- NOTE | 2018-10-17 08:50 | Nephrology Progress Note ---
Assessment/Plan Assessment/Plan A/P 1) JANE- due to hypercalcemia and vo,lume depletion - improving, Cr down to 1.2 - continue IVFs and treatment for hypercalcemia 2) Hypokalemia- will replace IV today 3) Hypercalcemia- at this time the following have been ordered to rule out secondary etiologies - SPEP/UPEP (MM), PTH ( hyperpara), Vit D (toxicity) - IVFs and 30mg of pamidronate ordered Subjective Date patient seen: Oct 17, 2018 Time patient seen: 08:47 ROS Limited/Unobtainable: No Allergies: Coded Allergies: SULFA (SULFONAMIDE ANTIBIOTICS) (Verified Allergy, Unknown, 11/28/17) Pt states she is allergic to sulfa All Systems: reviewed and negative except above Subjective Patient little confused but in no distress Objective Last 24 Hour Vital Signs Date Time Temp Pulse Resp B/P (MAP) Pulse Ox O2 Delivery O2 Flow Rate FiO2 10/17/18 04:00 94 10/17/18 04:00 97.8 96 18 130/68 (88) 100 10/17/18 00:00 89 10/17/18 00:00 98.0 86 18 124/58 (80) 98 10/16/18 21:00 Nasal Cannula 2.0 10/16/18 20:00 91 10/16/18 20:00 97.7 91 18 148/75 (99) 96 10/16/18 16:00 99.1 91 18 142/81 (101) 96 10/16/18 15:20 89 10/16/18 12:00 98.7 94 18 160/91 (114) 97 10/16/18 11:53 100 10/16/18 09:09 101 156/86 10/16/18 09:09 101 156/86 10/16/18 09:00 Nasal Cannula 2.0 Intake and Output 10/16/18 10/17/18 19:00 07:00 Intake Total 420 ml Output Total 450 ml Balance -30 ml Intake Oral 420 ml Output Urine Total 450 ml # Voids 4 # Bowel Movements 1 Laboratory Tests 10/17/18 05:35: White Blood Count 6.9, Red Blood Count 3.70L, Hemoglobin 10.1L, Hematocrit 30.9L , Mean Corpuscular Volume 84, Mean Corpuscular Hemoglobin 27.3, Mean Corpuscular Hemoglobin Concent 32.6, Red Cell Distribution Width 14.5, Platelet Count 251, Mean Platelet Volume 7.5, Neutrophils (%) (Auto) 76.8H, Lymphocytes ( %) (Auto) 16.1L, Monocytes (%) (Auto) 6.1, Eosinophils (%) (Auto) 0.5, Basophils (%) (Auto) 0.5, Sodium Level 154H, Potassium Level 3.1L, Chloride Level 115H, Carbon Dioxide Level 25, Anion Gap 14, Blood Urea Nitrogen 60H, Creatinine 1.2, Estimat Glomerular Filtration Rate 53.8, Glucose Level 120H, Hemoglobin A1c 5.9, Calcium Level 12.0H, Ionized Calcium (Measured) [Pending], Phosphorus Level 2.2L, Magnesium Level 2.0, Total Bilirubin 0.3, Aspartate Amino Transf (AST/SGOT) 21, Alanine Aminotransferase (ALT/SGPT) 30, Alkaline Phosphatase 61, Pro-B-Type Natriuretic Peptide 4140H, Total Protein 8.9H, Albumin 2.6L, Globulin 6.3, Albumin/Globulin Ratio 0.4L, Thyroid Stimulating Hormone (TSH) 0.912 Height (Feet): 5 Height (Inches): 10.00 Weight (Pounds): 251 General Appearance: no apparent distress, confused EENT: normal ENT inspection Neck: normal alignment, supple Cardiovascular: normal rate, regular rhythm Respiratory/Chest: lungs clear, normal breath sounds Abdomen: non tender, soft Edema: no edema noted Arm (L), no edema noted Arm (R), no edema noted Leg (L), no edema noted Leg (R), no edema noted Pedal (L), no edema noted Pedal (R), no edema noted Generalized Mauro Wade MD Oct 17, 2018 08:50
[2018-10-17] MEDS ORDERED: 1/2 NS 1000ml IV ONE (09:16)
[2018-10-17] MEDS: Aspirin Baby 81mg ORAL SCH (09:35)
[2018-10-17] MEDS: Metoprolol Succinate XL 25mg tab ORAL SCH (09:36)
[2018-10-17] MEDS ORDERED: Heparin 25,000u/D5W 500ml 500 ML IV SCH ×3 (10:00→11:30)
[2018-10-17] MEDS ORDERED: SODIUM CHLORIDE IVPB ONE (10:00)
[2018-10-17] MEDS ORDERED: PAMIDRONATE DISODIUM IVPB ONE (10:00)
--- NOTE | 2018-10-17 10:51 | Diagnostic Imaging Report ---
EXAM: US Duplex Bilateral Lower Extremity Veins CLINICAL HISTORY: DVT TECHNIQUE: Real-time duplex ultrasound scan of the bilateral lower extremity veins integrating B-mode two-dimensional vascular structure, Doppler spectral analysis, color flow Doppler imaging and compression. COMPARISON: No relevant prior studies available. FINDINGS: Right deep veins: Non-compressible distal superficial femoral vein with echogenic material suggesting DVT. No DVT in the right common femoral, or proximal portions of the superficial femoral veins. Patient ended exam before blast furnace helper was able to evaluate any distal veins. . Left deep veins: Patient ended exam before the blast furnace helper was able to evaluate the left lower extremity veins. Soft tissues: Visualized soft tissues in the proximal right lower extremity appeared unremarkable. IMPRESSION: 1. DVT seen in the right superficial femoral vein distally. 2. Patient ended the exam before the blast furnace helper was able to evaluate distal right venous segments or any of the left lower extremity veins. [employer] 10/17/18 10:58 Call Doctor Regarding Acute DVT, called SEGUDNO Rodriguez in [facility] on 10/17 10:58 (-08:00)
[2018-10-17 12:00] VITALS: BP 136/103
--- NOTE | 2018-10-17 12:44 | Cardiology Progress Note ---
Assessment/Plan Assessment/Plan 1.dehydration 2. Toxic metabolic encephlopathy . 3. History of hypertrophic nonobstructive cardiomyopathy. 4. Family history of sudden cardiac . 5. History of intracardiac defibrillator implantation, [employer] device previously. 6. acute renal failure 7. Abnormal perfusion with normal cardiac catheterization previously. 8. Hypercalcemia. 9. Alteration of mentation. 10. Azotemia 11. afib hx 12. bactermia ? contaminent 13. UTI tele sinus vpaced icd older model unlikely mri compatible she is more awake eeg planned d/w tiffany rahban yest regardi hypercalcemia iv hydration tele observation abx for uti id following noted pamidronate Subjective Cardiovascular: Denies: chest pain, lightheadedness, palpitations Respiratory: Denies: SOB with excertion Gastrointestinal/Abdominal: Denies: abdominal pain Genitourinary: Denies: burning Objective Last 24 Hour Vital Signs Date Time Temp Pulse Resp B/P (MAP) Pulse Ox O2 Delivery O2 Flow Rate FiO2 10/17/18 12:00 98.1 103 20 136/103 (114) 99 103 10/17/18 09:36 95 136/56 10/17/18 09:36 95 136/56 10/17/18 09:00 Nasal Cannula 2.0 10/17/18 08:00 98.0 95 21 136/56 (82) 97 95 10/17/18 04:00 94 10/17/18 04:00 97.8 96 18 130/68 (88) 100 10/17/18 00:00 89 10/17/18 00:00 98.0 86 18 124/58 (80) 98 10/16/18 21:00 Nasal Cannula 2.0 10/16/18 20:00 91 10/16/18 20:00 97.7 91 18 148/75 (99) 96 10/16/18 16:00 99.1 91 18 142/81 (101) 96 10/16/18 15:20 89 General Appearance: alert Neck: no JVD Cardiovascular: normal rate, regular rhythm Respiratory/Chest: lungs clear Abdomen: normal bowel sounds, non tender, soft Extremities: no swelling Intake and Output 10/16/18 10/17/18 19:00 07:00 Intake Total 420 ml Output Total 450 ml Balance -30 ml Intake Oral 420 ml Output Urine Total 450 ml # Voids 4 # Bowel Movements 1 Laboratory Tests Test 10/17/18 05:35 10/17/18 09:30 White Blood Count 6.9 K/UL (4.8-10.8) Red Blood Count 3.70 M/UL (4.20-5.40) L Hemoglobin 10.1 G/DL (12.0-16.0) L Hematocrit 30.9 % (37.0-47.0) L Mean Corpuscular Volume 84 FL (80-99) Mean Corpuscular Hemoglobin 27.3 PG (27.0-31.0) Mean Corpuscular Hemoglobin Concent 32.6 G/DL (32.0-36.0) Red Cell Distribution Width 14.5 % (11.6-14.8) Platelet Count 251 K/UL (150-450) Mean Platelet Volume 7.5 FL (6.5-10.1) Neutrophils (%) (Auto) 76.8 % (45.0-75.0) H Lymphocytes (%) (Auto) 16.1 % (20.0-45.0) L Monocytes (%) (Auto) 6.1 % (1.0-10.0) Eosinophils (%) (Auto) 0.5 % (0.0-3.0) Basophils (%) (Auto) 0.5 % (0.0-2.0) Sodium Level 154 MMOL/L (136-145) H Potassium Level 3.1 MMOL/L (3.5-5.1) L Chloride Level 115 MMOL/L (98-107) H Carbon Dioxide Level 25 MMOL/L (21-32) Anion Gap 14 mmol/L (5-15) Blood Urea Nitrogen 60 mg/dL (7-18) H Creatinine 1.2 MG/DL (0.55-1.30) Estimat Glomerular Filtration Rate 53.8 mL/min (>60) Glucose Level 120 MG/DL (74-106) H Hemoglobin A1c 5.9 % (4.3-6.0) Calcium Level 12.0 MG/DL (8.5-10.1) H Ionized Calcium (Measured) 1.47 mmol/L (1.10-1.35) H Phosphorus Level 2.2 MG/DL (2.5-4.9) L Magnesium Level 2.0 MG/DL (1.8-2.4) Total Bilirubin 0.3 MG/DL (0.2-1.0) Aspartate Amino Transf (AST/SGOT) 21 U/L (15-37) Alanine Aminotransferase (ALT/SGPT) 30 U/L (12-78) Alkaline Phosphatase 61 U/L (46-116) Pro-B-Type Natriuretic Peptide 4140 pg/mL (0-125) H Total Protein 8.9 G/DL (6.4-8.2) H Albumin 2.6 G/DL (3.4-5.0) L Globulin 6.3 g/dL Albumin/Globulin Ratio 0.4 (1.0-2.7) L Pending Thyroid Stimulating Hormone (TSH) 0.912 uiU/mL (0.358-3.740) Activated Partial Thromboplast Time 26 SEC (23-33) Calcium (Send out) Pending Total Protein (PEP) Pending Albumin (PEP) Pending Globulin (PEP) Pending Gdoat-1-Bkeoulvwa Pending Jdepp-6-Vokhmaujy Pending Beta Globulins Pending Beta Gamma Globulin Pending PEP Abnormal Protein Bands Pending Protein Electrophoresis Interpret Pending Parathyroid Hormone (Intact) Pending Immunoglobulin G Pending Immunoglobulin A Pending Immunoglobulin M Pending Immunofixation Screen Pending Vernon Darden MD Oct 17, 2018 12:44
--- NOTE | 2018-10-17 13:29 | Infectious Diseases Prog Note ---
Assessment/Plan Assessment/Plan A; 1. Urinary tract infection with E.coli 2. Altered mental status. 3. Acute renal failure. improving 4. Diabetes mellitus. 5. Hypertension. 6. Obesity. 7. Pressure ulcer. 8. Positive blood culture likely contamination 9.Hypernatremia 10. Hypokalemia P; Continue Ceftriaxone Subjective ROS Limited/Unobtainable: No Constitutional: Reports: no symptoms Respiratory: Reports: no symptoms Cardiovascular: Reports: no symptoms Gastrointestinal/Abdominal: Reports: no symptoms Genitourinary: Reports: no symptoms Musculoskeletal: Reports: pain Allergies: Coded Allergies: SULFA (SULFONAMIDE ANTIBIOTICS) (Verified Allergy, Unknown, 11/28/17) Pt states she is allergic to sulfa Objective Vital Signs Last 24 Hour Vital Signs Date Time Temp Pulse Resp B/P (MAP) Pulse Ox O2 Delivery O2 Flow Rate FiO2 10/17/18 12:00 98.1 103 20 136/103 (114) 99 103 10/17/18 09:36 95 136/56 10/17/18 09:36 95 136/56 10/17/18 09:00 Nasal Cannula 2.0 10/17/18 08:00 98.0 95 21 136/56 (82) 97 95 10/17/18 07:50 106 10/17/18 04:00 94 10/17/18 04:00 97.8 96 18 130/68 (88) 100 10/17/18 00:00 89 10/17/18 00:00 98.0 86 18 124/58 (80) 98 10/16/18 21:00 Nasal Cannula 2.0 10/16/18 20:00 91 10/16/18 20:00 97.7 91 18 148/75 (99) 96 10/16/18 16:00 99.1 91 18 142/81 (101) 96 10/16/18 15:20 89 Height (Feet): 5 Height (Inches): 10.00 Weight (Pounds): 251 General Appearance: no acute distress HEENT: mucous membranes moist Respiratory/Chest: lungs clear Cardiovascular: tachycardia Abdomen: soft, non tender Extremities: no edema Neurologic/Psychiatric: alert, responsive Laboratory Tests Test 10/17/18 05:35 10/17/18 09:30 White Blood Count 6.9 K/UL (4.8-10.8) Red Blood Count 3.70 M/UL (4.20-5.40) L Hemoglobin 10.1 G/DL (12.0-16.0) L Hematocrit 30.9 % (37.0-47.0) L Mean Corpuscular Volume 84 FL (80-99) Mean Corpuscular Hemoglobin 27.3 PG (27.0-31.0) Mean Corpuscular Hemoglobin Concent 32.6 G/DL (32.0-36.0) Red Cell Distribution Width 14.5 % (11.6-14.8) Platelet Count 251 K/UL (150-450) Mean Platelet Volume 7.5 FL (6.5-10.1) Neutrophils (%) (Auto) 76.8 % (45.0-75.0) H Lymphocytes (%) (Auto) 16.1 % (20.0-45.0) L Monocytes (%) (Auto) 6.1 % (1.0-10.0) Eosinophils (%) (Auto) 0.5 % (0.0-3.0) Basophils (%) (Auto) 0.5 % (0.0-2.0) Sodium Level 154 MMOL/L (136-145) H Potassium Level 3.1 MMOL/L (3.5-5.1) L Chloride Level 115 MMOL/L (98-107) H Carbon Dioxide Level 25 MMOL/L (21-32) Anion Gap 14 mmol/L (5-15) Blood Urea Nitrogen 60 mg/dL (7-18) H Creatinine 1.2 MG/DL (0.55-1.30) Estimat Glomerular Filtration Rate 53.8 mL/min (>60) Glucose Level 120 MG/DL (74-106) H Hemoglobin A1c 5.9 % (4.3-6.0) Calcium Level 12.0 MG/DL (8.5-10.1) H Ionized Calcium (Measured) 1.47 mmol/L (1.10-1.35) H Phosphorus Level 2.2 MG/DL (2.5-4.9) L Magnesium Level 2.0 MG/DL (1.8-2.4) Total Bilirubin 0.3 MG/DL (0.2-1.0) Aspartate Amino Transf (AST/SGOT) 21 U/L (15-37) Alanine Aminotransferase (ALT/SGPT) 30 U/L (12-78) Alkaline Phosphatase 61 U/L (46-116) Pro-B-Type Natriuretic Peptide 4140 pg/mL (0-125) H Total Protein 8.9 G/DL (6.4-8.2) H Albumin 2.6 G/DL (3.4-5.0) L Globulin 6.3 g/dL Albumin/Globulin Ratio 0.4 (1.0-2.7) L Pending Thyroid Stimulating Hormone (TSH) 0.912 uiU/mL (0.358-3.740) Activated Partial Thromboplast Time 26 SEC (23-33) Calcium (Send out) Pending Total Protein (PEP) Pending Albumin (PEP) Pending Globulin (PEP) Pending Laqaj-7-Jfsswefiw Pending Iiirw-5-Fczpzybmc Pending Beta Globulins Pending Beta Gamma Globulin Pending PEP Abnormal Protein Bands Pending Protein Electrophoresis Interpret Pending Parathyroid Hormone (Intact) Pending Immunoglobulin G Pending Immunoglobulin A Pending Immunoglobulin M Pending Immunofixation Screen Pending Current Medications Medications (Trade) Dose Ordered Sig/Barrett Route PRN Reason Start Time Stop Time Status Last Admin Dose Admin Acetaminophen (Tylenol) 650 mg Q4H PRN ORAL Mild Pain (Pain Scale 1-3) 10/13/18 15:45 11/12/18 15:44 10/14/18 21:54 Amlodipine Besylate (Norvasc) 5 mg DAILY ORAL 10/14/18 09:00 11/13/18 08:59 10/17/18 09:36 Aspirin (ASA) 81 mg DAILY ORAL 10/14/18 09:00 11/13/18 08:59 10/17/18 09:35 Ceftriaxone Sodium 1 gm/ Dextrose 55 ml @ 110 mls/hr Q24H IVPB 10/15/18 15:00 10/22/18 14:59 10/16/18 16:35 Dextrose 1,000 ml @ 75 mls/hr [id number] IV 10/16/18 11:30 11/15/18 11:29 10/17/18 05:13 Dextrose (Dextrose 50%) 25 ml Q30M PRN IV Hypoglycemia 10/13/18 15:45 11/12/18 15:44 Dextrose (Dextrose 50%) 50 ml Q30M PRN IV Hypoglycemia 10/13/18 15:45 11/12/18 15:44 Heparin Sodium/ Dextrose 500 ml @ 40.987 mls/ hr ADJUST PER PROTOCOL IV 10/17/18 11:00 11/16/18 10:59 10/17/18 11:11 Metoprolol Succinate (Toprol XL) 25 mg DAILY ORAL 10/14/18 09:00 11/13/18 08:59 10/17/18 09:36 Morphine Sulfate (Morphine Sulfate) 2 mg EVERY 3 HOURS PRN IVP Moderate Pain (Pain Scale 4-6) 10/13/18 15:45 10/20/18 15:44 10/16/18 14:20 Morphine Sulfate (Morphine Sulfate) 4 mg EVERY 3 HOURS PRN IVP Severe Pain (Pain Scale 7-10) 10/13/18 15:45 10/20/18 15:44 10/14/18 10:35 Ondansetron HCl (Zofran) 4 mg Q6H PRN IVP Nausea & Vomiting 10/13/18 15:45 11/12/18 15:44 Pamidronate Disodium 30 mg/ Sodium Chloride 550 ml @ 137.5 mls/ hr ONCE ONCE IVPB 10/17/18 10:00 10/17/18 13:59 10/17/18 12:38 Polyethylene Glycol (Miralax) 17 gm DAILYPRN PRN ORAL Constipation 10/13/18 15:45 11/12/18 15:44 Zolpidem Tartrate (Ambien) 5 mg DAILYPRN PRN ORAL Insomnia 10/13/18 15:45 10/20/18 15:44 10/14/18 00:55 Julien Yanez MD Oct 17, 2018 13:29
--- NOTE | 2018-10-17 14:32 | Neurology Progress Note ---
Interim History Interim History ROS Limited/Unobtainable: No Interim History Ms. Allen feels well. She continues to be alert and responsive. She continues to be cognitively impoverished. She is still disoriented. Her memory is poor. She continues to be generally weak. She is oblivious as to why she has been hospitalized. She denies any new neurologic symptoms. Review of Systems Neuro Review of Systems Benign. Objective Physical Exam Last Vital Signs Date Time Temp Pulse Resp B/P (MAP) Pulse Ox O2 Delivery O2 Flow Rate FiO2 10/17/18 12:00 98.1 103 20 136/103 (114) 99 103 10/17/18 09:00 Nasal Cannula 2.0 Laboratory Tests Test 10/17/18 05:35 10/17/18 09:30 White Blood Count 6.9 K/UL (4.8-10.8) Red Blood Count 3.70 M/UL (4.20-5.40) L Hemoglobin 10.1 G/DL (12.0-16.0) L Hematocrit 30.9 % (37.0-47.0) L Mean Corpuscular Volume 84 FL (80-99) Mean Corpuscular Hemoglobin 27.3 PG (27.0-31.0) Mean Corpuscular Hemoglobin Concent 32.6 G/DL (32.0-36.0) Red Cell Distribution Width 14.5 % (11.6-14.8) Platelet Count 251 K/UL (150-450) Mean Platelet Volume 7.5 FL (6.5-10.1) Neutrophils (%) (Auto) 76.8 % (45.0-75.0) H Lymphocytes (%) (Auto) 16.1 % (20.0-45.0) L Monocytes (%) (Auto) 6.1 % (1.0-10.0) Eosinophils (%) (Auto) 0.5 % (0.0-3.0) Basophils (%) (Auto) 0.5 % (0.0-2.0) Sodium Level 154 MMOL/L (136-145) H Potassium Level 3.1 MMOL/L (3.5-5.1) L Chloride Level 115 MMOL/L (98-107) H Carbon Dioxide Level 25 MMOL/L (21-32) Anion Gap 14 mmol/L (5-15) Blood Urea Nitrogen 60 mg/dL (7-18) H Creatinine 1.2 MG/DL (0.55-1.30) Estimat Glomerular Filtration Rate 53.8 mL/min (>60) Glucose Level 120 MG/DL (74-106) H Hemoglobin A1c 5.9 % (4.3-6.0) Calcium Level 12.0 MG/DL (8.5-10.1) H Ionized Calcium (Measured) 1.47 mmol/L (1.10-1.35) H Phosphorus Level 2.2 MG/DL (2.5-4.9) L Magnesium Level 2.0 MG/DL (1.8-2.4) Total Bilirubin 0.3 MG/DL (0.2-1.0) Aspartate Amino Transf (AST/SGOT) 21 U/L (15-37) Alanine Aminotransferase (ALT/SGPT) 30 U/L (12-78) Alkaline Phosphatase 61 U/L (46-116) Pro-B-Type Natriuretic Peptide 4140 pg/mL (0-125) H Total Protein 8.9 G/DL (6.4-8.2) H Albumin 2.6 G/DL (3.4-5.0) L Globulin 6.3 g/dL Albumin/Globulin Ratio 0.4 (1.0-2.7) L Pending Thyroid Stimulating Hormone (TSH) 0.912 uiU/mL (0.358-3.740) Activated Partial Thromboplast Time 26 SEC (23-33) Calcium (Send out) Pending Total Protein (PEP) Pending Albumin (PEP) Pending Globulin (PEP) Pending Oslkc-8-Aqhjwydpc Pending Yfbty-7-Lpotmmocb Pending Beta Globulins Pending Beta Gamma Globulin Pending PEP Abnormal Protein Bands Pending Protein Electrophoresis Interpret Pending Parathyroid Hormone (Intact) Pending Immunoglobulin G Pending Immunoglobulin A Pending Immunoglobulin M Pending Immunofixation Screen Pending Neurologic Exam Objective PHYSICAL EXAMINATION: GENERAL: She is a well-developed, well-nourished, obese, black lady, lying in bed, in no acute distress. HEAD: Normocephalic and atraumatic. EENT: Examination benign. NECK: No neck rigidity was observed. NEUROLOGICAL EXAMINATION: MENTAL STATUS EXAMINATION: She was awake and alert. She was oriented to self only. She had no idea of where she was or what the date was. She was able to recall 3/3 words immediately but could not remember any of them in 1 and 3 minutes. She was unable to tell me who the present or prior Presidents are. She was unable to cooperate for further mental status testing. SPEECH: She had a mild dysarthria. LANGUAGE: She had a mild anomia. CRANIAL NERVE EXAMINATION: II: She was able to count fingers. III, IV & : The external ocular movements were full but she did have a dysconjugate gaze. The pupils were 3 mm in diameter, equal, round, regular, and reactive sluggishly to light. V & VII: The corneal reflexes were equally brisk. VIII: She did respond to sounds and had no nystagmus. IX & X: The gag reflex was not tested XI: The sternocleidomastoids and trapezii did function. XII: The tongue was in the midline without any fasciculations or atrophy. MOTOR SYSTEM: The tone was normal in all four extremities. Examination of muscle mass revealed no focal wasting. Examination of power was impossible to perform because the effort was poor. She was generally weak - more so in the lower than upper extremities. SENSORY EXAMINATION: She responded appropriately to light touch. Other sensory modalities could not be tested. REFLEXES: Zero at the biceps, triceps, brachioradialis, knees, and ankles. The plantar responses were flexor bilaterally. COORDINATION, STANCE & GAIT: Could not be tested. Impression/Recommendations Diagnostic Impression 1. Ms Rafael Allen is a 68-year-old, right-handed, black lady, with a past history of hypertension, diabetes mellitus, renal failure, and cardiac arrhythmia - for which she has a pacemaker implanted, who was hospitalized for a change in mental state and was found to have urinary tract infection. 2. She feels well. She continues to be alert and responsive. She continues to be cognitively impoverished. She is still disoriented. Her memory is poor. She continues to be generally weak. She is oblivious as to why she has been hospitalized. She denies any new neurologic symptoms. 3. On neurological examination, at this time, she is oriented to self only. She has significant problems with recent and remote memory. She also exhibits a mild dysarthria and an anomia, a quadriparesis - involving the lower extremities more than the upper extremities, and globally absent deep tendon reflexes. 4. The CT scan of the brain without contrast reveals atrophy and deep white matter changes, but no acute pathology. 5. Laboratory data on my initial evaluation revealed that she was anemic with a hemoglobin of 10 G. Her chemistry panel revealed that her BUN was elevated to 124, her creatinine was elevated at 2.9, her hemoglobin A1c was elevated at 6.1% , her calcium was elevated at 10.7, her proBNP was elevated at 252, her albumin was low at 3.1, and her TSH was normal at 0.46. Her Urinalysis revealed 3+ leukocyte esterase, 2-4 red blood cells, and too numerous to count white blood cells per high-power field. 6. Further laboratory tests revealed a normal B12, Folate, ESR. 7. The EEG done on 10/15/18 revealed moderate generalized cerebral dysfunction and left > right cerebral dysfunction. 8. The patient's history, neurological examination, and laboratory data are most compatible with an acute encephalopathic process of the toxic metabolic nature. The offending factors were a urinary tract infection, and in addition renal failure. In addition the patient does also have structural brain disease. Recommendations 1. Continue present management. 2. Increase activity as tolerated. 3. Observe. Gume Bassett M.D., M.S.P.H. Gume Bassett MD Oct 17, 2018 14:32
[2018-10-17] MEDS: cefTRIAXone 1 GM in D5W 55 ML IVPB SCH (15:44)
[2018-10-17 16:00] VITALS: BP 157/90
[2018-10-17 20:00] VITALS: BP 152/87
[2018-10-17] MEDS: Heparin 25,000u/D5W 500ml 500 ML IV SCH (20:38)
--- NOTE | 2018-10-17 20:53 | General Progress Note ---
Assessment/Plan Assessment/Plan uti encephalopathy imprved dehydration diabete htn obesity hypercalcemia hypokalemia acute femoral dvt abx fluids treatment of hypercaclemia hypokalemia per Dr Yanez start heprin ggt vq scan ordered improved encephalopathy monitor accuchecks PT oob dvt and ulcer prohylaxis Subjective Allergies: Coded Allergies: SULFA (SULFONAMIDE ANTIBIOTICS) (Verified Allergy, Unknown, 11/28/17) Pt states she is allergic to sulfa Subjective more alert today no chest pain or sob Objective Last 24 Hour Vital Signs Date Time Temp Pulse Resp B/P (MAP) Pulse Ox O2 Delivery O2 Flow Rate FiO2 10/17/18 20:00 101 10/17/18 20:00 98.9 101 20 152/87 (108) 98 10/17/18 16:00 97.7 97 18 157/90 (112) 99 97 10/17/18 15:26 87 10/17/18 12:02 99 10/17/18 12:00 98.1 103 20 136/103 (114) 99 103 10/17/18 09:36 95 136/56 10/17/18 09:36 95 136/56 10/17/18 09:00 Nasal Cannula 2.0 10/17/18 08:00 98.0 95 21 136/56 (82) 97 95 10/17/18 07:50 106 10/17/18 04:00 94 10/17/18 04:00 97.8 96 18 130/68 (88) 100 10/17/18 00:00 89 10/17/18 00:00 98.0 86 18 124/58 (80) 98 10/16/18 21:00 Nasal Cannula 2.0 Intake and Output 10/16/18 10/17/18 19:00 07:00 Intake Total 420 ml Output Total 450 ml Balance -30 ml Intake Oral 420 ml Output Urine Total 450 ml # Voids 4 # Bowel Movements 1 Laboratory Tests 10/17/18 05:35: White Blood Count 6.9, Red Blood Count 3.70L, Hemoglobin 10.1L, Hematocrit 30.9L , Mean Corpuscular Volume 84, Mean Corpuscular Hemoglobin 27.3, Mean Corpuscular Hemoglobin Concent 32.6, Red Cell Distribution Width 14.5, Platelet Count 251, Mean Platelet Volume 7.5, Neutrophils (%) (Auto) 76.8H, Lymphocytes ( %) (Auto) 16.1L, Monocytes (%) (Auto) 6.1, Eosinophils (%) (Auto) 0.5, Basophils (%) (Auto) 0.5, Sodium Level 154H, Potassium Level 3.1L, Chloride Level 115H, Carbon Dioxide Level 25, Anion Gap 14, Blood Urea Nitrogen 60H, Creatinine 1.2, Estimat Glomerular Filtration Rate 53.8, Glucose Level 120H, Hemoglobin A1c 5.9, Calcium Level 12.0H, Ionized Calcium (Measured) 1.47H, Phosphorus Level 2.2L, Magnesium Level 2.0, Total Bilirubin 0.3, Aspartate Amino Transf (AST/SGOT) 21, Alanine Aminotransferase (ALT/SGPT) 30, Alkaline Phosphatase 61, Pro-B-Type Natriuretic Peptide 4140H, Total Protein 8.9H, Albumin 2.6L, Globulin 6.3, Albumin/Globulin Ratio 0.4L, Thyroid Stimulating Hormone (TSH) 0.912 10/17/18 09:30: Albumin/Globulin Ratio [Pending], Activated Partial Thromboplast Time 26, Calcium (Send out) [Pending], Total Protein (PEP) [Pending], Albumin (PEP) [ Pending], Globulin (PEP) [Pending], Ygubu-1-Bowawzuay [Pending], Alpha-2- Globulins [Pending], Beta Globulins [Pending], Beta Gamma Globulin [Pending], PEP Abnormal Protein Bands [Pending], Protein Electrophoresis Interpret [Pending ], Parathyroid Hormone (Intact) [Pending], Immunoglobulin G [Pending], Immunoglobulin A [Pending], Immunoglobulin M [Pending], Immunofixation Screen [ Pending] 10/17/18 13:30: Urine Total Protein [Pending], Urine Albumin (%) [Pending], Urine Alpha-1- Globulins (%) [Pending], Urine Bwsst-5-Zgblasaaw (%) [Pending], Urine Beta- Globulin (%) [Pending], Urine Gamma Globulin (%) [Pending], Ur Protein Electrophoresis M-Jalen [Pending], Urine Protein Electrophoresis Intrp [Pending] 10/17/18 17:28: Activated Partial Thromboplast Time > 150*H Height (Feet): 5 Height (Inches): 10.00 Weight (Pounds): 251 General Appearance: WD/WN, no apparent distress Neck: supple Cardiovascular: normal rate Respiratory/Chest: lungs clear Abdomen: soft Mario Alberto Aparicio MD Oct 17, 2018 20:52
[2018-10-18] VITALS: BP 158/93
[2018-10-18] MEDS: Heparin 25,000u/D5W 500ml 500 ML IV SCH ×2 (02:27→11:00)
[2018-10-18] MEDS ORDERED: Heparin 25,000u/D5W 500ml 500 ML IV SCH (03:45)
[2018-10-18 04:00] VITALS: BP 158/95
[2018-10-18 05:05] LABS: BASOPHILS % (AUTO) 0.6 % (0.0-2.0); EOSINOPHILS % (AUTO) 1.2 % (0.0-3.0); HEMATOCRIT 28.6 % (37.0-47.0); HEMOGLOBIN 9.5 G/DL (12.0-16.0); LYMPHOCYTES % (AUTO) 16.8 % (20.0-45.0); MEAN CORPUSCULAR VOLUME 84 FL (80-99); NEUTROPHILS % (AUTO) 75.4 % (45.0-75.0); PLATELET COUNT 230 K/UL (150-450); RED BLOOD COUNT 3.42 M/UL (4.20-5.40); RED CELL DISTRIBUTION WIDTH 14.4 % (11.6-14.8); WHITE BLOOD COUNT 7.7 K/UL (4.8-10.8)
[2018-10-18 05:27] LABS: ANION GAP 10 mmol/L (5-15); BLOOD UREA NITROGEN 45 mg/dL (7-18); CALCIUM 11.6 MG/DL (8.5-10.1); CARBON DIOXIDE 27 MMOL/L (21-32); CHLORIDE 112 MMOL/L (98-107); CREATININE 1.1 MG/DL (0.55-1.30); POTASSIUM 2.9 MMOL/L (3.5-5.1); SODIUM 149 MMOL/L (136-145)
[2018-10-18 08:00] VITALS: BP 123/63
[2018-10-18] MEDS: Metoprolol Succinate XL 25mg tab ORAL SCH (08:56)
[2018-10-18] MEDS: Aspirin Baby 81mg ORAL SCH (08:56)
--- NOTE | 2018-10-18 09:08 | Nephrology Progress Note ---
Assessment/Plan Assessment/Plan A/P 1) JANE- due to hypercalcemia and volume depletion - resolved 2) Hypokalemia/phos- replaced with Kphos 3) Hypercalcemia- SPEP/UPEP (MM), PTH ( hyperpara), Vit D (toxicity) pending - IVFs, s/p pamidronate - monitor, may need calcitonin 4) Hypernatremia- on D5W and improved to 149 Subjective Date patient seen: Oct 18, 2018 Time patient seen: 09:02 ROS Limited/Unobtainable: No Allergies: Coded Allergies: SULFA (SULFONAMIDE ANTIBIOTICS) (Verified Allergy, Unknown, 11/28/17) Pt states she is allergic to sulfa All Systems: reviewed and negative except above Subjective Patient more awake and coherent Objective Last 24 Hour Vital Signs Date Time Temp Pulse Resp B/P (MAP) Pulse Ox O2 Delivery O2 Flow Rate FiO2 10/18/18 08:56 95 123/63 10/18/18 08:55 95 123/63 10/18/18 04:00 71 10/18/18 04:00 98.9 92 20 158/95 (116) 96 10/18/18 00:00 68 10/18/18 00:00 98.3 68 20 158/93 (114) 99 10/17/18 21:00 Nasal Cannula 2.0 10/17/18 20:00 101 10/17/18 20:00 98.9 101 20 152/87 (108) 98 10/17/18 16:00 97.7 97 18 157/90 (112) 99 97 10/17/18 15:26 87 10/17/18 12:02 99 10/17/18 12:00 98.1 103 20 136/103 (114) 99 103 10/17/18 09:36 95 136/56 10/17/18 09:36 95 136/56 Intake and Output 10/17/18 10/18/18 19:00 07:00 Intake Total 1020 ml Balance 1020 ml Intake Oral 720 ml IV Total 300 ml # Voids 3 # Bowel Movements 2 Laboratory Tests 10/17/18 09:30: Activated Partial Thromboplast Time 26, Calcium (Send out) [Pending], Total Protein (PEP) [Pending], Albumin (PEP) [Pending], Globulin (PEP) [Pending], Albumin/Globulin Ratio [Pending], Jxtnc-9-Uisrlfina [Pending], Alpha-2- Globulins [Pending], Beta Globulins [Pending], Beta Gamma Globulin [Pending], PEP Abnormal Protein Bands [Pending], Protein Electrophoresis Interpret [Pending ], Parathyroid Hormone (Intact) [Pending], Immunoglobulin G [Pending], Immunoglobulin A [Pending], Immunoglobulin M [Pending], Immunofixation Screen [ Pending] 10/17/18 13:30: Urine Total Protein [Pending], Urine Albumin (%) [Pending], Urine Alpha-1- Globulins (%) [Pending], Urine Pvemx-5-Hsxpajxiz (%) [Pending], Urine Beta- Globulin (%) [Pending], Urine Gamma Globulin (%) [Pending], Ur Protein Electrophoresis M-Jalen [Pending], Urine Protein Electrophoresis Intrp [Pending] 10/17/18 17:28: Activated Partial Thromboplast Time > 150*H 10/18/18 01:39: Activated Partial Thromboplast Time > 150*H 10/18/18 04:00: White Blood Count 7.7, Red Blood Count 3.42L, Hemoglobin 9.5L, Hematocrit 28.6L , Mean Corpuscular Volume 84, Mean Corpuscular Hemoglobin 27.8, Mean Corpuscular Hemoglobin Concent 33.1, Red Cell Distribution Width 14.4, Platelet Count 230, Mean Platelet Volume 6.1L, Neutrophils (%) (Auto) 75.4H, Lymphocytes (%) (Auto) 16.8L, Monocytes (%) (Auto) 6.0, Eosinophils (%) (Auto) 1.2, Basophils (%) (Auto) 0.6, Sodium Level 149H, Potassium Level 2.9L, Chloride Level 112H, Carbon Dioxide Level 27, Anion Gap 10, Blood Urea Nitrogen 45H, Creatinine 1.1, Estimat Glomerular Filtration Rate 59.5, Glucose Level 140H, Calcium Level 11.6H Height (Feet): 5 Height (Inches): 10.00 Weight (Pounds): 251 General Appearance: no apparent distress EENT: normal ENT inspection Neck: normal alignment, supple Cardiovascular: normal rate, regular rhythm Respiratory/Chest: normal breath sounds Abdomen: non tender, soft Edema: no edema noted Arm (L), no edema noted Arm (R), no edema noted Leg (L), no edema noted Leg (R), no edema noted Pedal (L), no edema noted Pedal (R), no edema noted Generalized Mauro Wade MD Oct 18, 2018 09:08
[2018-10-18] MEDS ORDERED: Potassium Phosphate 30 MM in NS 275 ML IV SCH (10:00)
--- NOTE | 2018-10-18 10:25 | Neurology Progress Note ---
Interim History Interim History Interim History Ms. Allen feels well. She continues to be alert and responsive. She continues to be cognitively impoverished. She is still significantly disoriented. Her memory is poor. She continues to be generally weak. She is oblivious as to why she has been hospitalized. She denies any new neurologic symptoms. Review of Systems Neuro Review of Systems Benign. Objective Physical Exam Last Vital Signs Date Time Temp Pulse Resp B/P (MAP) Pulse Ox O2 Delivery O2 Flow Rate FiO2 10/18/18 09:00 Nasal Cannula 2.0 10/18/18 08:56 95 123/63 10/18/18 08:00 98.1 16 99 Laboratory Tests Test 10/17/18 13:30 10/17/18 17:28 10/18/18 01:39 10/18/18 04:00 Urine Total Protein Pending Urine Albumin (%) Pending Urine Dweba-0-Ghyrtlnwp (%) Pending Urine Virgk-3-Wcqqykiwe (%) Pending Urine Beta-Globulin (%) Pending Urine Gamma Globulin (%) Pending Ur Protein Electrophoresis M-Jalen Pending Urine Protein Electrophoresis Intrp Pending Activated Partial Thromboplast Time > 150 SEC (23-33) *H > 150 SEC (23-33) *H White Blood Count 7.7 K/UL (4.8-10.8) Red Blood Count 3.42 M/UL (4.20-5.40) L Hemoglobin 9.5 G/DL (12.0-16.0) L Hematocrit 28.6 % (37.0-47.0) L Mean Corpuscular Volume 84 FL (80-99) Mean Corpuscular Hemoglobin 27.8 PG (27.0-31.0) Mean Corpuscular Hemoglobin Concent 33.1 G/DL (32.0-36.0) Red Cell Distribution Width 14.4 % (11.6-14.8) Platelet Count 230 K/UL (150-450) Mean Platelet Volume 6.1 FL (6.5-10.1) L Neutrophils (%) (Auto) 75.4 % (45.0-75.0) H Lymphocytes (%) (Auto) 16.8 % (20.0-45.0) L Monocytes (%) (Auto) 6.0 % (1.0-10.0) Eosinophils (%) (Auto) 1.2 % (0.0-3.0) Basophils (%) (Auto) 0.6 % (0.0-2.0) Sodium Level 149 MMOL/L (136-145) H Potassium Level 2.9 MMOL/L (3.5-5.1) L Chloride Level 112 MMOL/L (98-107) H Carbon Dioxide Level 27 MMOL/L (21-32) Anion Gap 10 mmol/L (5-15) Blood Urea Nitrogen 45 mg/dL (7-18) H Creatinine 1.1 MG/DL (0.55-1.30) Estimat Glomerular Filtration Rate 59.5 mL/min (>60) Glucose Level 140 MG/DL (74-106) H Calcium Level 11.6 MG/DL (8.5-10.1) H Test 10/18/18 09:42 Activated Partial Thromboplast Time Pending Neurologic Exam Objective PHYSICAL EXAMINATION: GENERAL: She is a well-developed, well-nourished, obese, black lady, lying in bed, in no acute distress. HEAD: Normocephalic and atraumatic. EENT: Examination benign. NECK: No neck rigidity was observed. NEUROLOGICAL EXAMINATION: MENTAL STATUS EXAMINATION: She was awake and alert. She was oriented to self only. She had no idea of where she was or what the date was. She was able to recall 3/3 words immediately but could not remember any of them in 1 and 3 minutes. She was unable to tell me who the present or prior Presidents are. She was unable to cooperate for further mental status testing. SPEECH: She had a mild dysarthria. LANGUAGE: She had a mild anomia. CRANIAL NERVE EXAMINATION: II: She was able to count fingers. III, IV & : The external ocular movements were full but she did have a dysconjugate gaze. The pupils were 3 mm in diameter, equal, round, regular, and reactive sluggishly to light. V & VII: The corneal reflexes were equally brisk. VIII: She did respond to sounds and had no nystagmus. IX & X: The gag reflex was not tested XI: The sternocleidomastoids and trapezii did function. XII: The tongue was in the midline without any fasciculations or atrophy. MOTOR SYSTEM: The tone was normal in all four extremities. Examination of muscle mass revealed no focal wasting. Examination of power was impossible to perform because the effort was poor. She was generally weak - more so in the lower than upper extremities. SENSORY EXAMINATION: She responded appropriately to light touch. Other sensory modalities could not be tested. REFLEXES: Zero at the biceps, triceps, brachioradialis, knees, and ankles. The plantar responses were flexor bilaterally. COORDINATION, STANCE & GAIT: Could not be tested. Impression/Recommendations Diagnostic Impression 1. Ms Rafael Allen is a 68-year-old, right-handed, black lady, with a past history of hypertension, diabetes mellitus, renal failure, and cardiac arrhythmia - for which she has a pacemaker implanted, who was hospitalized for a change in mental state and was found to have urinary tract infection. 2. She feels well. She continues to be alert and responsive. She continues to be cognitively impoverished. She is still significantly disoriented. Her memory is poor. She continues to be generally weak. She is oblivious as to why she has been hospitalized. She denies any new neurologic symptoms. 3. On neurological examination, at this time, she is oriented to self only. She has significant problems with recent and remote memory. She also exhibits a mild dysarthria and an anomia, a quadriparesis - involving the lower extremities more than the upper extremities, and globally absent deep tendon reflexes. 4. The CT scan of the brain without contrast reveals atrophy and deep white matter changes, but no acute pathology. 5. Laboratory data on my initial evaluation revealed that she was anemic with a hemoglobin of 10 G. Her chemistry panel revealed that her BUN was elevated to 124, her creatinine was elevated at 2.9, her hemoglobin A1c was elevated at 6.1% , her calcium was elevated at 10.7, her proBNP was elevated at 252, her albumin was low at 3.1, and her TSH was normal at 0.46. Her Urinalysis revealed 3+ leukocyte esterase, 2-4 red blood cells, and too numerous to count white blood cells per high-power field. 6. Further laboratory tests revealed a normal B12, Folate, ESR. 7. The EEG done on 10/15/18 revealed moderate generalized cerebral dysfunction and left > right cerebral dysfunction. 8. The patient's history, neurological examination, and laboratory data are most compatible with an acute encephalopathic process of the toxic metabolic nature. The offending factors were a urinary tract infection, and in addition renal failure. In addition the patient does also have structural brain disease. Recommendations 1. Continue present management. 2. Increase activity as tolerated. 3. Observe. Gume Bassett M.D., M.S.P.H. Gume Bassett MD Oct 18, 2018 10:25
--- NOTE | 2018-10-18 12:07 | Infectious Diseases Prog Note ---
Assessment/Plan Assessment/Plan A; 1. Urinary tract infection with E.coli 2. Altered mental status. 3. Acute renal failure. improving 4. Diabetes mellitus. 5. Hypertension. 6. Obesity. 7. Pressure ulcer. 8. Positive blood culture likely contamination 9.Hypernatremia 10. Hypokalemia P; Continue Ceftriaxone until tomorrow Subjective ROS Limited/Unobtainable: No Constitutional: Reports: no symptoms Gastrointestinal/Abdominal: Reports: no symptoms Genitourinary: Reports: no symptoms Neurologic: Reports: no symptoms Allergies: Coded Allergies: SULFA (SULFONAMIDE ANTIBIOTICS) (Verified Allergy, Unknown, 11/28/17) Pt states she is allergic to sulfa Objective Vital Signs Last 24 Hour Vital Signs Date Time Temp Pulse Resp B/P (MAP) Pulse Ox O2 Delivery O2 Flow Rate FiO2 10/18/18 09:00 Nasal Cannula 2.0 10/18/18 08:56 95 123/63 10/18/18 08:55 95 123/63 10/18/18 08:00 98.1 95 16 123/63 (83) 99 10/18/18 07:44 89 10/18/18 04:00 71 10/18/18 04:00 98.9 92 20 158/95 (116) 96 10/18/18 00:00 68 10/18/18 00:00 98.3 68 20 158/93 (114) 99 10/17/18 21:00 Nasal Cannula 2.0 10/17/18 20:00 101 10/17/18 20:00 98.9 101 20 152/87 (108) 98 10/17/18 16:00 97.7 97 18 157/90 (112) 99 97 10/17/18 15:26 87 Height (Feet): 5 Height (Inches): 10.00 Weight (Pounds): 251 General Appearance: other - obese HEENT: mucous membranes moist Respiratory/Chest: lungs clear Cardiovascular: normal rate Abdomen: soft, non tender Extremities: no edema Neurologic/Psychiatric: alert, responsive Laboratory Tests Test 10/17/18 13:30 10/17/18 17:28 10/18/18 01:39 10/18/18 04:00 Urine Total Protein Pending Urine Albumin (%) Pending Urine Tbaut-1-Ebqasamok (%) Pending Urine Fcedz-8-Nwywkeiyb (%) Pending Urine Beta-Globulin (%) Pending Urine Gamma Globulin (%) Pending Ur Protein Electrophoresis M-Jalen Pending Urine Protein Electrophoresis Intrp Pending Activated Partial Thromboplast Time > 150 SEC (23-33) *H > 150 SEC (23-33) *H White Blood Count 7.7 K/UL (4.8-10.8) Red Blood Count 3.42 M/UL (4.20-5.40) L Hemoglobin 9.5 G/DL (12.0-16.0) L Hematocrit 28.6 % (37.0-47.0) L Mean Corpuscular Volume 84 FL (80-99) Mean Corpuscular Hemoglobin 27.8 PG (27.0-31.0) Mean Corpuscular Hemoglobin Concent 33.1 G/DL (32.0-36.0) Red Cell Distribution Width 14.4 % (11.6-14.8) Platelet Count 230 K/UL (150-450) Mean Platelet Volume 6.1 FL (6.5-10.1) L Neutrophils (%) (Auto) 75.4 % (45.0-75.0) H Lymphocytes (%) (Auto) 16.8 % (20.0-45.0) L Monocytes (%) (Auto) 6.0 % (1.0-10.0) Eosinophils (%) (Auto) 1.2 % (0.0-3.0) Basophils (%) (Auto) 0.6 % (0.0-2.0) Sodium Level 149 MMOL/L (136-145) H Potassium Level 2.9 MMOL/L (3.5-5.1) L Chloride Level 112 MMOL/L (98-107) H Carbon Dioxide Level 27 MMOL/L (21-32) Anion Gap 10 mmol/L (5-15) Blood Urea Nitrogen 45 mg/dL (7-18) H Creatinine 1.1 MG/DL (0.55-1.30) Estimat Glomerular Filtration Rate 59.5 mL/min (>60) Glucose Level 140 MG/DL (74-106) H Calcium Level 11.6 MG/DL (8.5-10.1) H Test 10/18/18 09:42 Activated Partial Thromboplast Time 108 SEC (23-33) H Current Medications Medications (Trade) Dose Ordered Sig/Barrett Route PRN Reason Start Time Stop Time Status Last Admin Dose Admin Acetaminophen (Tylenol) 650 mg Q4H PRN ORAL Mild Pain (Pain Scale 1-3) 10/13/18 15:45 11/12/18 15:44 10/14/18 21:54 Amlodipine Besylate (Norvasc) 5 mg DAILY ORAL 10/14/18 09:00 11/13/18 08:59 10/18/18 08:55 Aspirin (ASA) 81 mg DAILY ORAL 10/14/18 09:00 11/13/18 08:59 10/18/18 08:56 Ceftriaxone Sodium 1 gm/ Dextrose 55 ml @ 110 mls/hr Q24H IVPB 10/15/18 15:00 10/22/18 14:59 10/17/18 15:44 Dextrose 1,000 ml @ 75 mls/hr [id number] IV 10/16/18 11:30 11/15/18 11:29 10/18/18 02:32 Dextrose (Dextrose 50%) 25 ml Q30M PRN IV Hypoglycemia 10/13/18 15:45 11/12/18 15:44 Dextrose (Dextrose 50%) 50 ml Q30M PRN IV Hypoglycemia 10/13/18 15:45 11/12/18 15:44 Heparin Sodium/ Dextrose 500 ml @ 18.216 mls/ hr ADJUST PER PROTOCOL IV 10/18/18 11:00 11/17/18 10:59 Metoprolol Succinate (Toprol XL) 25 mg DAILY ORAL 10/14/18 09:00 11/13/18 08:59 10/18/18 08:56 Morphine Sulfate (Morphine Sulfate) 2 mg EVERY 3 HOURS PRN IVP Moderate Pain (Pain Scale 4-6) 10/13/18 15:45 10/20/18 15:44 10/16/18 14:20 Morphine Sulfate (Morphine Sulfate) 4 mg EVERY 3 HOURS PRN IVP Severe Pain (Pain Scale 7-10) 10/13/18 15:45 10/20/18 15:44 10/14/18 10:35 Ondansetron HCl (Zofran) 4 mg Q6H PRN IVP Nausea & Vomiting 10/13/18 15:45 11/12/18 15:44 Polyethylene Glycol (Miralax) 17 gm DAILYPRN PRN ORAL Constipation 10/13/18 15:45 12/18/18 15:44 Potassium Phosphate 30 mm/ Sodium Chloride 285 ml @ 47.5 mls/hr ONCE IV 10/18/18 10:00 10/18/18 16:00 10/18/18 10:33 Zolpidem Tartrate (Ambien) 5 mg DAILYPRN PRN ORAL Insomnia 10/13/18 15:45 10/20/18 15:44 10/14/18 00:55 Julien Yanez MD Oct 18, 2018 12:07
--- NOTE | 2018-10-18 12:31 | Cardiology Progress Note ---
Assessment/Plan Assessment/Plan 1.dehydration 2. Toxic metabolic encephlopathy . 3. History of hypertrophic nonobstructive cardiomyopathy. 4. Family history of sudden cardiac . 5. History of intracardiac defibrillator implantation, [employer] device previously. 6. acute renal failure 7. Abnormal perfusion with normal cardiac catheterization previously. 8. Hypercalcemia. 9. Alteration of mentation. 10. Azotemia 11. afib hx 12. bactermia ? contaminent 13. UTI tele sinus vpaced icd older model unlikely mri compatible she is more awake iv hydration tele observation abx for uti id following noted pamidronate joyce afib to day will check ekg may need to treat with NOACS if persitent afib d/w dt r ca lower Subjective Cardiovascular: Denies: chest pain, lightheadedness Respiratory: Denies: shortness of breath Gastrointestinal/Abdominal: Denies: abdominal pain Genitourinary: Denies: burning Objective Last 24 Hour Vital Signs Date Time Temp Pulse Resp B/P (MAP) Pulse Ox O2 Delivery O2 Flow Rate FiO2 10/18/18 09:00 Nasal Cannula 2.0 10/18/18 08:56 95 123/63 10/18/18 08:55 95 123/63 10/18/18 08:00 98.1 95 16 123/63 (83) 99 10/18/18 07:44 89 10/18/18 04:00 71 10/18/18 04:00 98.9 92 20 158/95 (116) 96 10/18/18 00:00 68 10/18/18 00:00 98.3 68 20 158/93 (114) 99 10/17/18 21:00 Nasal Cannula 2.0 10/17/18 20:00 101 10/17/18 20:00 98.9 101 20 152/87 (108) 98 10/17/18 16:00 97.7 97 18 157/90 (112) 99 97 10/17/18 15:26 87 General Appearance: no apparent distress, alert Neck: supple Cardiovascular: normal rate Respiratory/Chest: lungs clear, crackles/rales - left base Abdomen: normal bowel sounds, non tender, soft Extremities: trace edema Intake and Output 10/17/18 10/18/18 19:00 07:00 Intake Total 1020 ml Balance 1020 ml Intake Oral 720 ml IV Total 300 ml # Voids 3 # Bowel Movements 2 Laboratory Tests Test 10/17/18 13:30 10/17/18 17:28 10/18/18 01:39 10/18/18 04:00 Urine Total Protein Pending Urine Albumin (%) Pending Urine Lejxb-6-Qgesgnppf (%) Pending Urine Tmzbb-7-Lczinfdjv (%) Pending Urine Beta-Globulin (%) Pending Urine Gamma Globulin (%) Pending Ur Protein Electrophoresis M-Jalen Pending Urine Protein Electrophoresis Intrp Pending Activated Partial Thromboplast Time > 150 SEC (23-33) *H > 150 SEC (23-33) *H White Blood Count 7.7 K/UL (4.8-10.8) Red Blood Count 3.42 M/UL (4.20-5.40) L Hemoglobin 9.5 G/DL (12.0-16.0) L Hematocrit 28.6 % (37.0-47.0) L Mean Corpuscular Volume 84 FL (80-99) Mean Corpuscular Hemoglobin 27.8 PG (27.0-31.0) Mean Corpuscular Hemoglobin Concent 33.1 G/DL (32.0-36.0) Red Cell Distribution Width 14.4 % (11.6-14.8) Platelet Count 230 K/UL (150-450) Mean Platelet Volume 6.1 FL (6.5-10.1) L Neutrophils (%) (Auto) 75.4 % (45.0-75.0) H Lymphocytes (%) (Auto) 16.8 % (20.0-45.0) L Monocytes (%) (Auto) 6.0 % (1.0-10.0) Eosinophils (%) (Auto) 1.2 % (0.0-3.0) Basophils (%) (Auto) 0.6 % (0.0-2.0) Sodium Level 149 MMOL/L (136-145) H Potassium Level 2.9 MMOL/L (3.5-5.1) L Chloride Level 112 MMOL/L (98-107) H Carbon Dioxide Level 27 MMOL/L (21-32) Anion Gap 10 mmol/L (5-15) Blood Urea Nitrogen 45 mg/dL (7-18) H Creatinine 1.1 MG/DL (0.55-1.30) Estimat Glomerular Filtration Rate 59.5 mL/min (>60) Glucose Level 140 MG/DL (74-106) H Calcium Level 11.6 MG/DL (8.5-10.1) H Test 10/18/18 09:42 Activated Partial Thromboplast Time 108 SEC (23-33) H Vernon Darden MD Oct 18, 2018 12:31
--- NOTE | 2018-10-18 13:59 | Diagnostic Imaging Report ---
Indications: The venous thrombosis, shortness of breath Technique: IV administration 5.5 mCi 99m technetium macroaggregated albumin. Images obtained over the lungs in multiple projections. Previously, patient inhaled 40 mCi aerosolized 99M technetium DTPA. Images obtained over the lungs in multiple projections Comparison: Reference made to 10/13/2018 chest radiograph Findings: Decreased perfusion and aerosol activity is seen at the left lung base, presumably due to the enlarged heart. Otherwise, slightly heterogeneous tracer distribution is noted, with no definite large segmental or subsegmental perfusion defects and no evidence of aerosol perfusion mismatch. Impression: Findings are deemed low probability for pulmonary embolus
[2018-10-18] MEDS: cefTRIAXone 1 GM in D5W 55 ML IVPB SCH (15:36)
[2018-10-18] MEDS: Morphine Sulfate 2mg/ml Inj IVP PRN ×2 (15:37→20:16)
[2018-10-18 16:00] VITALS: BP 129/71
--- NOTE | 2018-10-18 19:46 | General Progress Note ---
Assessment/Plan Assessment/Plan uti encephalopathy imprved dehydration diabete htn obesity hypercalcemia hypokalemia acute femoral dvt abx fluids treatment of hypercaclemia hypokalemia per Dr Yanez start heprin ggt, will start NOAC close to discharge vq scan negative improved encephalopathy monitor accuchecks PT oob dvt and ulcer prohylaxis Subjective Allergies: Coded Allergies: SULFA (SULFONAMIDE ANTIBIOTICS) (Verified Allergy, Unknown, 11/28/17) Pt states she is allergic to sulfa Subjective above noted no sob no cp Objective Last 24 Hour Vital Signs Date Time Temp Pulse Resp B/P (MAP) Pulse Ox O2 Delivery O2 Flow Rate FiO2 10/18/18 16:00 99.0 103 16 129/71 (90) 100 10/18/18 15:41 96 10/18/18 11:45 88 10/18/18 09:00 Nasal Cannula 2.0 10/18/18 08:56 95 123/63 10/18/18 08:55 95 123/63 10/18/18 08:00 98.1 95 16 123/63 (83) 99 10/18/18 07:44 89 10/18/18 04:00 71 10/18/18 04:00 98.9 92 20 158/95 (116) 96 10/18/18 00:00 68 10/18/18 00:00 98.3 68 20 158/93 (114) 99 10/17/18 21:00 Nasal Cannula 2.0 10/17/18 20:00 101 10/17/18 20:00 98.9 101 20 152/87 (108) 98 Intake and Output 10/17/18 10/18/18 18:59 06:59 Intake Total 780 ml 240 ml Balance 780 ml 240 ml Intake Oral 480 ml 240 ml IV Total 300 ml # Voids 3 # Bowel Movements 2 Laboratory Tests 10/18/18 01:39: Activated Partial Thromboplast Time > 150*H 10/18/18 04:00: White Blood Count 7.7, Red Blood Count 3.42L, Hemoglobin 9.5L, Hematocrit 28.6L , Mean Corpuscular Volume 84, Mean Corpuscular Hemoglobin 27.8, Mean Corpuscular Hemoglobin Concent 33.1, Red Cell Distribution Width 14.4, Platelet Count 230, Mean Platelet Volume 6.1L, Neutrophils (%) (Auto) 75.4H, Lymphocytes (%) (Auto) 16.8L, Monocytes (%) (Auto) 6.0, Eosinophils (%) (Auto) 1.2, Basophils (%) (Auto) 0.6, Sodium Level 149H, Potassium Level 2.9L, Chloride Level 112H, Carbon Dioxide Level 27, Anion Gap 10, Blood Urea Nitrogen 45H, Creatinine 1.1, Estimat Glomerular Filtration Rate 59.5, Glucose Level 140H, Calcium Level 11.6H 10/18/18 09:42: Activated Partial Thromboplast Time 108H 10/18/18 17:23: Activated Partial Thromboplast Time 73H Height (Feet): 5 Height (Inches): 10.00 Weight (Pounds): 251 General Appearance: WD/WN Neck: supple Cardiovascular: normal rate Respiratory/Chest: lungs clear Abdomen: soft Mario Alberto Aparicio MD Oct 18, 2018 19:46
[2018-10-18 20:00] VITALS: BP 158/89
[2018-10-19] VITALS (29 sets, daily range): BP systolic 40–149; BP diastolic 21–98
[2018-10-19] MEDS: Heparin 25,000u/D5W 500ml 500 ML IV SCH (01:12)
[2018-10-19] MEDS: Metoprolol Succinate XL 25mg tab ORAL SCH (08:18)
[2018-10-19] MEDS: Aspirin Baby 81mg ORAL SCH (08:18)
[2018-10-19] MEDS: Morphine Sulfate 2mg/ml Inj IVP PRN (08:19)
--- NOTE | 2018-10-19 08:30 | Nephrology Progress Note ---
Assessment/Plan Assessment/Plan A/P 1) JANE- due to hypercalcemia and volume depletion - resolved - AM labs pending 2) Hypokalemia/phos- AM labs pending 3) Hypercalcemia- SPEP/UPEP (MM), PTH ( hyperpara), Vit D (toxicity) still pending - IVFs, s/p pamidronate - monitor, may need calcitonin - AM labs pending 4) Hypernatremia- on D5W. AM labs pending Subjective Date patient seen: Oct 19, 2018 Time patient seen: 08:28 ROS Limited/Unobtainable: No Allergies: Coded Allergies: SULFA (SULFONAMIDE ANTIBIOTICS) (Verified Allergy, Unknown, 11/28/17) Pt states she is allergic to sulfa All Systems: reviewed and negative except above Subjective Patient feels better and clear minded Objective Last 24 Hour Vital Signs Date Time Temp Pulse Resp B/P (MAP) Pulse Ox O2 Delivery O2 Flow Rate FiO2 10/19/18 08:19 93 149/98 10/19/18 08:18 93 149/98 10/19/18 04:00 96 10/19/18 04:00 98.0 96 18 134/81 (98) 96 10/19/18 00:00 97.7 94 18 142/76 (98) 96 10/19/18 00:00 94 10/18/18 21:00 Nasal Cannula 2.0 10/18/18 20:00 97.0 91 18 158/89 (112) 98 10/18/18 20:00 91 10/18/18 16:00 99.0 103 16 129/71 (90) 100 10/18/18 15:41 96 10/18/18 11:45 88 10/18/18 09:00 Nasal Cannula 2.0 10/18/18 08:56 95 123/63 10/18/18 08:55 95 123/63 Intake and Output 10/18/18 10/19/18 19:00 07:00 Intake Total 453.216 ml 1029.126 ml Balance 453.216 ml 1029.126 ml Intake Oral 360 ml IV Total 93.216 ml 1029.126 ml # Voids 2 2 # Bowel Movements 1 Laboratory Tests 10/18/18 09:42: Activated Partial Thromboplast Time 108H 10/18/18 17:23: Activated Partial Thromboplast Time 73H 10/19/18 07:40: Activated Partial Thromboplast Time 57H, Sodium Level [Pending], Potassium Level [Pending], Chloride Level [Pending], Carbon Dioxide Level [Pending], Blood Urea Nitrogen [Pending], Creatinine [Pending], Estimat Glomerular Filtration Rate [Pending], Glucose Level [Pending], Calcium Level [Pending], Phosphorus Level [Pending], Magnesium Level [Pending] Height (Feet): 5 Height (Inches): 10.00 Weight (Pounds): 251 General Appearance: no apparent distress, alert EENT: normal ENT inspection Neck: normal alignment, supple Cardiovascular: normal rate, regular rhythm Respiratory/Chest: lungs clear, normal breath sounds Abdomen: non tender, soft Edema: no edema noted Arm (L), no edema noted Arm (R), no edema noted Leg (L), no edema noted Leg (R), no edema noted Pedal (L), no edema noted Pedal (R), no edema noted Generalized Mauro Wade MD Oct 19, 2018 08:30
[2018-10-19 08:36] LABS: ANION GAP 12 mmol/L (5-15); BLOOD UREA NITROGEN 26 mg/dL (7-18); CALCIUM 10.1 MG/DL (8.5-10.1); CARBON DIOXIDE 24 MMOL/L (21-32); CHLORIDE 108 MMOL/L (98-107); CREATININE 0.9 MG/DL (0.55-1.30); PHOSPHORUS 2.7 MG/DL (2.5-4.9); POTASSIUM 3.5 MMOL/L (3.5-5.1); SODIUM 144 MMOL/L (136-145)
[2018-10-19] MEDS ORDERED: Heparin 25,000u/D5W 500ml 500 ML IV SCH (09:00)
[2018-10-19] MEDS ORDERED: Heparin 5000 units/ml inj IV SCH (09:00)
[2018-10-19 12:49] LABS: HEMATOCRIT 24.4 % (37.0-47.0); HEMOGLOBIN 7.9 G/DL (12.0-16.0); MEAN CORPUSCULAR VOLUME 86 FL (80-99); PLATELET COUNT 309 K/UL (150-450); RED BLOOD COUNT 2.84 M/UL (4.20-5.40); RED CELL DISTRIBUTION WIDTH 14.9 % (11.6-14.8); WHITE BLOOD COUNT 10.2 K/UL (4.8-10.8)
[2018-10-19 12:53] LABS: ANION GAP 13 mmol/L (5-15); BLOOD UREA NITROGEN 28 mg/dL (7-18); CALCIUM 10.1 MG/DL (8.5-10.1); CARBON DIOXIDE 19 MMOL/L (21-32); CHLORIDE 107 MMOL/L (98-107); CREATININE 1.2 MG/DL (0.55-1.30); SODIUM 139 MMOL/L (136-145)
[2018-10-19 12:58] LABS: ALANINE AMINOTRANSFERASE 28 U/L (12-78); ALBUMIN 2.1 G/DL (3.4-5.0); ALBUMIN/GLOBULIN RATIO 0.4 (1.0-2.7); ALKALINE PHOSPHATASE 52 U/L (46-116); ASPARTATE AMINO TRANSFERASE 20 U/L (15-37); BILIRUBIN,TOTAL 0.2 MG/DL (0.2-1.0)
--- NOTE | 2018-10-19 13:51 | Neurology Progress Note ---
Interim History Interim History Interim History Ms. Allen feels well. She continues to be alert and responsive. She continues to be cognitively impoverished. She is still significantly disoriented. Her memory is poor. She continues to be generally weak. She is still oblivious as to why she has been hospitalized. She denies any new neurologic symptoms. Review of Systems Neuro Review of Systems Benign. Objective Physical Exam Last Vital Signs Date Time Temp Pulse Resp B/P (MAP) Pulse Ox O2 Delivery O2 Flow Rate FiO2 10/19/18 09:00 Nasal Cannula 2.0 10/19/18 08:19 93 149/98 10/19/18 08:00 98.2 20 99 Laboratory Tests Test 10/18/18 17:23 10/19/18 07:40 10/19/18 12:30 Activated Partial Thromboplast Time 73 SEC (23-33) H 57 SEC (23-33) H Sodium Level 144 MMOL/L (136-145) 139 MMOL/L (136-145) Potassium Level 3.5 MMOL/L (3.5-5.1) 4.0 MMOL/L (3.5-5.1) Chloride Level 108 MMOL/L (98-107) H 107 MMOL/L (98-107) Carbon Dioxide Level 24 MMOL/L (21-32) 19 MMOL/L (21-32) L Anion Gap 12 mmol/L (5-15) 13 mmol/L (5-15) Blood Urea Nitrogen 26 mg/dL (7-18) H 28 mg/dL (7-18) H Creatinine 0.9 MG/DL (0.55-1.30) 1.2 MG/DL (0.55-1.30) Estimat Glomerular Filtration Rate > 60 mL/min (>60) 53.8 mL/min (>60) Glucose Level 125 MG/DL (74-106) H 232 MG/DL (74-106) #H Calcium Level 10.1 MG/DL (8.5-10.1) 10.1 MG/DL (8.5-10.1) Phosphorus Level 2.7 MG/DL (2.5-4.9) Magnesium Level 1.4 MG/DL (1.8-2.4) L White Blood Count 10.2 K/UL (4.8-10.8) Red Blood Count 2.84 M/UL (4.20-5.40) L Hemoglobin 7.9 G/DL (12.0-16.0) L Hematocrit 24.4 % (37.0-47.0) L Mean Corpuscular Volume 86 FL (80-99) Mean Corpuscular Hemoglobin 27.7 PG (27.0-31.0) Mean Corpuscular Hemoglobin Concent 32.2 G/DL (32.0-36.0) Red Cell Distribution Width 14.9 % (11.6-14.8) H Platelet Count 309 K/UL (150-450) Mean Platelet Volume 7.6 FL (6.5-10.1) Neutrophils (%) (Auto) % (45.0-75.0) Lymphocytes (%) (Auto) % (20.0-45.0) Monocytes (%) (Auto) % (1.0-10.0) Eosinophils (%) (Auto) % (0.0-3.0) Basophils (%) (Auto) % (0.0-2.0) Differential Total Cells Counted 100 Neutrophils % (Manual) 63 % (45-75) Lymphocytes % (Manual) 23 % (20-45) Monocytes % (Manual) 12 % (1-10) H Eosinophils % (Manual) 1 % (0-3) Basophils % (Manual) 1 % (0-2) Band Neutrophils 0 % (0-8) Platelet Estimate Adequate Platelet Morphology Normal Hypochromasia 3+ Anisocytosis 1+ Total Bilirubin 0.2 MG/DL (0.2-1.0) Aspartate Amino Transf (AST/SGOT) 20 U/L (15-37) Alanine Aminotransferase (ALT/SGPT) 28 U/L (12-78) Alkaline Phosphatase 52 U/L (46-116) Troponin I 0.029 ng/mL (0.000-0.056) Total Protein 7.0 G/DL (6.4-8.2) Albumin 2.1 G/DL (3.4-5.0) L Globulin 4.9 g/dL Albumin/Globulin Ratio 0.4 (1.0-2.7) L Neurologic Exam Objective PHYSICAL EXAMINATION: GENERAL: She is a well-developed, well-nourished, obese, black lady, lying in bed, in no acute distress. HEAD: Normocephalic and atraumatic. EENT: Examination benign. NECK: No neck rigidity was observed. NEUROLOGICAL EXAMINATION: MENTAL STATUS EXAMINATION: She was awake and alert. She was oriented to self only. She had no idea of where she was or what the date was. She was able to recall 3/3 words immediately but could not remember any of them in 1 and 3 minutes. She was unable to tell me who the present or prior Presidents are. She was unable to cooperate for further mental status testing. SPEECH: She had a mild dysarthria. LANGUAGE: She had a mild anomia. CRANIAL NERVE EXAMINATION: II: She was able to count fingers. III, IV & : The external ocular movements were full but she did have a dysconjugate gaze. The pupils were 3 mm in diameter, equal, round, regular, and reactive sluggishly to light. V & VII: The corneal reflexes were equally brisk. VIII: She did respond to sounds and had no nystagmus. IX & X: The gag reflex was not tested XI: The sternocleidomastoids and trapezii did function. XII: The tongue was in the midline without any fasciculations or atrophy. MOTOR SYSTEM: The tone was normal in all four extremities. Examination of muscle mass revealed no focal wasting. Examination of power was impossible to perform because the effort was poor. She was generally weak - more so in the lower than upper extremities. SENSORY EXAMINATION: She responded appropriately to light touch. Other sensory modalities could not be tested. REFLEXES: Zero at the biceps, triceps, brachioradialis, knees, and ankles. The plantar responses were flexor bilaterally. COORDINATION, STANCE & GAIT: Could not be tested. Impression/Recommendations Diagnostic Impression 1. Ms Rafael Allen is a 68-year-old, right-handed, black lady, with a past history of hypertension, diabetes mellitus, renal failure, and cardiac arrhythmia - for which she has a pacemaker implanted, who was hospitalized for a change in mental state and was found to have urinary tract infection. 2. She feels well. She continues to be alert and responsive. She continues to be cognitively impoverished. She is still significantly disoriented. Her memory is poor. She continues to be generally weak. She is oblivious as to why she has been hospitalized. She denies any new neurologic symptoms. 3. On neurological examination, at this time, she is oriented to self only. She has significant problems with recent and remote memory. She also exhibits a mild dysarthria and an anomia, a quadriparesis - involving the lower extremities more than the upper extremities, and globally absent deep tendon reflexes. 4. The CT scan of the brain without contrast reveals atrophy and deep white matter changes, but no acute pathology. 5. Laboratory data on my initial evaluation revealed that she was anemic with a hemoglobin of 10 G. Her chemistry panel revealed that her BUN was elevated to 124, her creatinine was elevated at 2.9, her hemoglobin A1c was elevated at 6.1% , her calcium was elevated at 10.7, her proBNP was elevated at 252, her albumin was low at 3.1, and her TSH was normal at 0.46. Her Urinalysis revealed 3+ leukocyte esterase, 2-4 red blood cells, and too numerous to count white blood cells per high-power field. 6. Further laboratory tests revealed a normal B12, Folate, ESR. 7. The EEG done on 10/15/18 revealed moderate generalized cerebral dysfunction and left > right cerebral dysfunction. 8. The patient's history, neurological examination, and laboratory data are most compatible with an acute encephalopathic process of the toxic metabolic nature. The offending factors were a urinary tract infection, and in addition renal failure. In addition the patient does also have structural brain disease. Recommendations 1. Continue present management. 2. Increase activity as tolerated. 3. Observe. Gume Bassett M.D., M.S.P.H. Gume Bassett MD Oct 19, 2018 13:51
--- NOTE | 2018-10-19 14:03 | Cardiology Progress Note ---
Assessment/Plan Assessment/Plan 1.dehydration 2. Toxic metabolic encephlopathy . 3. History of hypertrophic nonobstructive cardiomyopathy. 4. Family history of sudden cardiac . 5. History of intracardiac defibrillator implantation, [employer] device previously. 6. acute renal failure 7. Abnormal perfusion with normal cardiac catheterization previously. 8. Hypercalcemia. 9. Alteration of mentation. 10. Azotemia 11. afib hx 12. bactermia ? contaminent 13. UTI 14. DVT 15. hypotenison 16. anemia dc heparin ivf bolus need prbc type adn crossed may need transfusion icu transfer tele sinus vpaced icd older model unlikely mri compatible iv hydration central line abx for uti id following noted pamidronate joyce afib to day await d/w dtr if not avaialbe may need emergency transfusion d/w surgery all staff aware of critical nature icu transfer staff have not been able to contact dtr critically ill at risk Subjective ROS Limited/Unobtainable: Yes Subjective confused diaphretic over thje past 1 hour getting ivf is on heparin Objective Last 24 Hour Vital Signs Date Time Temp Pulse Resp B/P (MAP) Pulse Ox O2 Delivery O2 Flow Rate FiO2 10/19/18 09:00 Nasal Cannula 2.0 10/19/18 08:19 93 149/98 10/19/18 08:18 93 149/98 10/19/18 08:00 98.2 93 20 149/98 (115) 99 10/19/18 07:53 95 10/19/18 04:00 96 10/19/18 04:00 98.0 96 18 134/81 (98) 96 10/19/18 00:00 97.7 94 18 142/76 (98) 96 10/19/18 00:00 94 10/18/18 21:00 Nasal Cannula 2.0 10/18/18 20:00 97.0 91 18 158/89 (112) 98 10/18/18 20:00 91 10/18/18 16:00 99.0 103 16 129/71 (90) 100 10/18/18 15:41 96 General Appearance: obese, other - diaphoretic Neck: supple Cardiovascular: normal rate Respiratory/Chest: lungs clear Abdomen: normal bowel sounds, non tender, soft Extremities: no swelling Intake and Output 10/18/18 10/19/18 19:00 07:00 Intake Total 453.216 ml 1029.126 ml Balance 453.216 ml 1029.126 ml Intake Oral 360 ml IV Total 93.216 ml 1029.126 ml # Voids 2 2 # Bowel Movements 1 Laboratory Tests Test 10/18/18 17:23 10/19/18 07:40 10/19/18 12:30 Activated Partial Thromboplast Time 73 SEC (23-33) H 57 SEC (23-33) H Sodium Level 144 MMOL/L (136-145) 139 MMOL/L (136-145) Potassium Level 3.5 MMOL/L (3.5-5.1) 4.0 MMOL/L (3.5-5.1) Chloride Level 108 MMOL/L (98-107) H 107 MMOL/L (98-107) Carbon Dioxide Level 24 MMOL/L (21-32) 19 MMOL/L (21-32) L Anion Gap 12 mmol/L (5-15) 13 mmol/L (5-15) Blood Urea Nitrogen 26 mg/dL (7-18) H 28 mg/dL (7-18) H Creatinine 0.9 MG/DL (0.55-1.30) 1.2 MG/DL (0.55-1.30) Estimat Glomerular Filtration Rate > 60 mL/min (>60) 53.8 mL/min (>60) Glucose Level 125 MG/DL (74-106) H 232 MG/DL (74-106) #H Calcium Level 10.1 MG/DL (8.5-10.1) 10.1 MG/DL (8.5-10.1) Phosphorus Level 2.7 MG/DL (2.5-4.9) Magnesium Level 1.4 MG/DL (1.8-2.4) L White Blood Count 10.2 K/UL (4.8-10.8) Red Blood Count 2.84 M/UL (4.20-5.40) L Hemoglobin 7.9 G/DL (12.0-16.0) L Hematocrit 24.4 % (37.0-47.0) L Mean Corpuscular Volume 86 FL (80-99) Mean Corpuscular Hemoglobin 27.7 PG (27.0-31.0) Mean Corpuscular Hemoglobin Concent 32.2 G/DL (32.0-36.0) Red Cell Distribution Width 14.9 % (11.6-14.8) H Platelet Count 309 K/UL (150-450) Mean Platelet Volume 7.6 FL (6.5-10.1) Neutrophils (%) (Auto) % (45.0-75.0) Lymphocytes (%) (Auto) % (20.0-45.0) Monocytes (%) (Auto) % (1.0-10.0) Eosinophils (%) (Auto) % (0.0-3.0) Basophils (%) (Auto) % (0.0-2.0) Differential Total Cells Counted 100 Neutrophils % (Manual) 63 % (45-75) Lymphocytes % (Manual) 23 % (20-45) Monocytes % (Manual) 12 % (1-10) H Eosinophils % (Manual) 1 % (0-3) Basophils % (Manual) 1 % (0-2) Band Neutrophils 0 % (0-8) Platelet Estimate Adequate Platelet Morphology Normal Hypochromasia 3+ Anisocytosis 1+ Total Bilirubin 0.2 MG/DL (0.2-1.0) Aspartate Amino Transf (AST/SGOT) 20 U/L (15-37) Alanine Aminotransferase (ALT/SGPT) 28 U/L (12-78) Alkaline Phosphatase 52 U/L (46-116) Troponin I 0.029 ng/mL (0.000-0.056) Total Protein 7.0 G/DL (6.4-8.2) Albumin 2.1 G/DL (3.4-5.0) L Globulin 4.9 g/dL Albumin/Globulin Ratio 0.4 (1.0-2.7) Vernon Lan MD Oct 19, 2018 14:03
[2018-10-19] MEDS: cefTRIAXone 1 GM in D5W 55 ML IVPB SCH (15:00)
[2018-10-19] MEDS ORDERED: DOPamine 400mg/250ml 250 ML IV SCH (15:18)
--- NOTE | 2018-10-19 15:52 | Consultation ---
History of Present Illness General Date patient seen: Oct 19, 2018 Chief Complaint: Altered Mental Status Reason for Consultation: hypotension, critical care, venous access Present Illness HPI 68 year old female with multiple medical comorbidities presented for medical care and management. Cardiac history under care of director of application development. Today noted to have anemia w/ drop in H/H. Hypotensive and states she does not feel well. Declining and requires ICU care. Poor venous access and unable to obtain peripheral line by staff. Surgery called to evaluate. patient seen, chart reviewed, patient examined. Allergies: Coded Allergies: SULFA (SULFONAMIDE ANTIBIOTICS) (Verified Allergy, Unknown, 11/28/17) Pt states she is allergic to sulfa Medication History Scheduled Albuterol Sulfate* (Albuterol Sulfate Mdi*), 2 PUFF INH Q3H, (Reported) Amlodipine Besylate (Norvasc), 5 MG ORAL DAILY Aspirin* (Aspirin*), 81 MG ORAL DAILY, (Reported) Benazepril Hcl* (Benazepril Hcl*), 20 MG ORAL EVERY 12 HOURS, (Reported) Clonidine Hcl* (Catapres*), 0.2 MG ORAL Q8HR, (Reported) Furosemide* (Lasix*), 40 MG ORAL EVERY 12 HOURS Hydrochlorothiazide* (Hydrochlorothiazide*), 25 MG ORAL DAILY, (Reported) Metformin Hcl* (Metformin Hcl*), 500 MG ORAL TWICE A DAY, (Reported) Metoprolol Succinate* (Metoprolol Succinate*), 25 MG ORAL DAILY, (Reported) Potassium Chloride* (K-Dur*), 40 MEQ ORAL DAILY Rosuvastatin Calcium* (Crestor*), 10 MG ORAL DAILY Simvastatin (Zocor), 40 MG ORAL BEDTIME, (Reported) Scheduled PRN Acetaminophen With Codeine (T#3) (Tylenol #3 Tab*), 1 TAB ORAL Q4H PRN for For Pain, (Reported) Acetaminophen* (Acetaminophen*), 650 MG ORAL Q6H PRN for Mild Pain/Temp > 100.5, (Reported) Patient History Limited by: medical condition History Provided By: Patient, Medical Record, PMD Healthcare decision maker Resuscitation status Full Code Advanced Directive on File No Past Medical/Surgical History Past Medical/Surgical History: (1) Altered mental status (2) UTI (urinary tract infection) (3) UTI (urinary tract infection) (4) JANE (acute kidney injury) (5) Hypernatremia (6) Abdominal pain (7) Acidosis, metabolic (8) Encephalopathy (9) Dyspnea (10) CHF exacerbation (11) Primary hyperparathyroidism (12) Hypercalcemia (13) Respiratory failure (14) Cardiomyopathy (15) Hypokalemia (16) Anemia (17) Pacemaker (18) Hypokalemia (19) Hypertrophic cardiomyopathy (20) ARF (acute renal failure) (21) HTN (hypertension) (22) DM (diabetes mellitus) (23) Syncope and collapse (24) Afib (25) Hypernatremia Review of Systems All Other Systems: negative except mentioned in HPI Physical Exam General Appearance: alert, mild distress Lines, tubes and drains: peripheral HEENT: normocephalic, atraumatic Neck: normal inspection Respiratory/Chest: no respiratory distress, no accessory muscle use Cardiovascular/Chest: other Abdomen: soft, no organomegaly, no mass Extremities: normal inspection Skin Exam: warm/dry Neurologic: alert, responsive Last 24 Hour Vital Signs Date Time Temp Pulse Resp B/P (MAP) Pulse Ox O2 Delivery O2 Flow Rate FiO2 10/19/18 15:41 80/20 10/19/18 12:00 100 10/19/18 12:00 98.3 105 20 142/82 (102) 100 10/19/18 09:00 Nasal Cannula 2.0 10/19/18 08:19 93 149/98 10/19/18 08:18 93 149/98 10/19/18 08:00 98.2 93 20 149/98 (115) 99 10/19/18 07:53 95 10/19/18 04:00 96 10/19/18 04:00 98.0 96 18 134/81 (98) 96 10/19/18 00:00 97.7 94 18 142/76 (98) 96 10/19/18 00:00 94 10/18/18 21:00 Nasal Cannula 2.0 10/18/18 20:00 97.0 91 18 158/89 (112) 98 10/18/18 20:00 91 10/18/18 16:00 99.0 103 16 129/71 (90) 100 Intake and Output 10/18/18 10/19/18 19:00 07:00 Intake Total 453.216 ml 1029.126 ml Balance 453.216 ml 1029.126 ml Intake Oral 360 ml IV Total 93.216 ml 1029.126 ml # Voids 2 2 # Bowel Movements 1 Laboratory Tests Test 10/18/18 17:23 10/19/18 07:40 10/19/18 12:30 Activated Partial Thromboplast Time 73 SEC (23-33) H 57 SEC (23-33) H Sodium Level 144 MMOL/L (136-145) 139 MMOL/L (136-145) Potassium Level 3.5 MMOL/L (3.5-5.1) 4.0 MMOL/L (3.5-5.1) Chloride Level 108 MMOL/L (98-107) H 107 MMOL/L (98-107) Carbon Dioxide Level 24 MMOL/L (21-32) 19 MMOL/L (21-32) L Anion Gap 12 mmol/L (5-15) 13 mmol/L (5-15) Blood Urea Nitrogen 26 mg/dL (7-18) H 28 mg/dL (7-18) H Creatinine 0.9 MG/DL (0.55-1.30) 1.2 MG/DL (0.55-1.30) Estimat Glomerular Filtration Rate > 60 mL/min (>60) 53.8 mL/min (>60) Glucose Level 125 MG/DL (74-106) H 232 MG/DL (74-106) #H Calcium Level 10.1 MG/DL (8.5-10.1) 10.1 MG/DL (8.5-10.1) Phosphorus Level 2.7 MG/DL (2.5-4.9) Magnesium Level 1.4 MG/DL (1.8-2.4) L White Blood Count 10.2 K/UL (4.8-10.8) Red Blood Count 2.84 M/UL (4.20-5.40) L Hemoglobin 7.9 G/DL (12.0-16.0) L Hematocrit 24.4 % (37.0-47.0) L Mean Corpuscular Volume 86 FL (80-99) Mean Corpuscular Hemoglobin 27.7 PG (27.0-31.0) Mean Corpuscular Hemoglobin Concent 32.2 G/DL (32.0-36.0) Red Cell Distribution Width 14.9 % (11.6-14.8) H Platelet Count 309 K/UL (150-450) Mean Platelet Volume 7.6 FL (6.5-10.1) Neutrophils (%) (Auto) % (45.0-75.0) Lymphocytes (%) (Auto) % (20.0-45.0) Monocytes (%) (Auto) % (1.0-10.0) Eosinophils (%) (Auto) % (0.0-3.0) Basophils (%) (Auto) % (0.0-2.0) Differential Total Cells Counted 100 Neutrophils % (Manual) 63 % (45-75) Lymphocytes % (Manual) 23 % (20-45) Monocytes % (Manual) 12 % (1-10) H Eosinophils % (Manual) 1 % (0-3) Basophils % (Manual) 1 % (0-2) Band Neutrophils 0 % (0-8) Platelet Estimate Adequate Platelet Morphology Normal Hypochromasia 3+ Anisocytosis 1+ Total Bilirubin 0.2 MG/DL (0.2-1.0) Aspartate Amino Transf (AST/SGOT) 20 U/L (15-37) Alanine Aminotransferase (ALT/SGPT) 28 U/L (12-78) Alkaline Phosphatase 52 U/L (46-116) Troponin I 0.029 ng/mL (0.000-0.056) Total Protein 7.0 G/DL (6.4-8.2) Albumin 2.1 G/DL (3.4-5.0) L Globulin 4.9 g/dL Albumin/Globulin Ratio 0.4 (1.0-2.7) L Height (Feet): 5 Height (Inches): 10.00 Weight (Pounds): 251 Medications Current Medications Medications (Trade) Dose Ordered Sig/Barrett Route PRN Reason Start Time Stop Time Status Last Admin Dose Admin Acetaminophen (Tylenol) 650 mg Q4H PRN ORAL Mild Pain (Pain Scale 1-3) 10/13/18 15:45 11/12/18 15:44 10/14/18 21:54 Amlodipine Besylate (Norvasc) 5 mg DAILY ORAL 10/14/18 09:00 11/13/18 08:59 10/19/18 08:19 Aspirin (ASA) 81 mg DAILY ORAL 10/14/18 09:00 11/13/18 08:59 10/19/18 08:18 Ceftriaxone Sodium 1 gm/ Dextrose 55 ml @ 110 mls/hr Q24H IVPB 10/15/18 15:00 10/22/18 14:59 10/18/18 15:36 Dextrose 1,000 ml @ 75 mls/hr [id number] IV 10/16/18 11:30 11/15/18 11:29 10/19/18 01:09 Dextrose (Dextrose 50%) 25 ml Q30M PRN IV Hypoglycemia 10/19/18 12:30 11/18/18 12:29 Dextrose (Dextrose 50%) 50 ml Q30M PRN IV Hypoglycemia 10/19/18 12:30 11/18/18 12:29 Dopamine HCl/ Dextrose 250 ml @ 0 mls/hr Q24H IV 10/19/18 15:18 11/18/18 15:17 10/19/18 15:41 Heparin Sodium/ Dextrose 500 ml @ 22.77 mls/ hr ADJUST PER PROTOCOL IV 10/19/18 09:00 11/18/18 08:59 10/19/18 09:08 Insulin Aspart (NovoLOG) BEFORE MEALS AND HS SUBQ 10/19/18 16:30 11/18/18 16:29 Metoprolol Succinate (Toprol XL) 25 mg DAILY ORAL 10/14/18 09:00 11/13/18 08:59 10/19/18 08:18 Morphine Sulfate (Morphine Sulfate) 2 mg EVERY 3 HOURS PRN IVP Moderate Pain (Pain Scale 4-6) 10/13/18 15:45 10/20/18 15:44 10/19/18 08:19 Morphine Sulfate (Morphine Sulfate) 4 mg EVERY 3 HOURS PRN IVP Severe Pain (Pain Scale 7-10) 10/13/18 15:45 10/20/18 15:44 10/14/18 10:35 Ondansetron HCl (Zofran) 4 mg Q6H PRN IVP Nausea & Vomiting 10/13/18 15:45 11/12/18 15:44 Polyethylene Glycol (Miralax) 17 gm DAILYPRN PRN ORAL Constipation 10/13/18 15:45 11/12/18 15:44 Zolpidem Tartrate (Ambien) 5 mg DAILYPRN PRN ORAL Insomnia 10/13/18 15:45 10/20/18 15:44 10/14/18 00:55 Assessment/Plan Problem List: (1) Abdominal pain Assessment & Plan: will need to Order abdominal ultrasound to evaluate NPO IV fluids IV abx cannot obtain CT right now given medical condition ICD Codes: R10.9 - Unspecified abdominal pain SNOMED: 62581275 (2) Anemia Assessment & Plan: poor peripheral access needs PRBC sundeep central line indicated and recommended see procedure note transfuse prbc ICD Codes: D64.9 - Anemia, unspecified SNOMED: 933787062 Jared Obrien Oct 19, 2018 15:52
--- NOTE | 2018-10-19 15:58 | Operative Note - PDOC ---
Operative Note Operative Note Date of Operation/Procedure: Oct 19, 2018 Pre-op Diagnosis: sepsis, hypotension, anemia, critical care, poor peripheral access Procedure: right internal jugular central venous catheter insertion using ultrasound guidance Post-op Diagnosis: same as pre-op Surgeon: lyudmila Anesthesia: local Specimen: none Complications: none Condition: unstable Estimated Blood Loss: minimal Drains: none Implant(s) used?: Yes Indications for Procedure 68F with multiple medical comorbidities and hx of cardiac disease currently admitted for care and management was noted to acutely be anemic, hypotensive and declining. Requiring ICU care. Poor peripheral access but needs meds, pressors, and blood products right away. central venous access recommended and indicated. patient consented and procedure emergency at bedside performed. Description of Procedure Patient was made comfortable at bedside. In mild distress and needing IV access right away. femoral DVT and body habitus noted so internal jugular placement recommended. left IJ small on ultrasound. right IJ appropriate. Right neck prepped and draped in standard surgical fashion. ultrasound used and IJ identified. local infiltrated. finder needle used with ultrasound guidance to cannulate right IJ on first stick. guide wire placed over needle and needle removed. ultrasound identified guide wire in right IJ going towards SCV. small skin incision made and dilator used. catheter placed over wire without complication. wire discarded. all ports flushed and aspirated without difficulty. catheter sutured in place. dressings applied. cxr ordered. patient tolerated well. Jared Obrien Oct 19, 2018 15:58
--- NOTE | 2018-10-19 16:13 | General Progress Note ---
Assessment/Plan Assessment/Plan uti encephalopathy imprved dehydration diabete htn obesity hypercalcemia hypokalemia acute femoral dvt abx fluids treatment of hypercaclemia hypokalemia per Dr Yanez start heprin ggt, will start NOAC close to discharge vq scan negative improved encephalopathy monitor accuchecks PT oob dvt and ulcer prohylaxis Subjective Allergies: Coded Allergies: SULFA (SULFONAMIDE ANTIBIOTICS) (Verified Allergy, Unknown, 11/28/17) Pt states she is allergic to sulfa Subjective unable to reach family, on phone, attempted to call Cammy Castaneda [phone] left message. dw Dr Yanez patient primary, dw Dr Darden, dw with Dr Obrien patient needs emergent transfusion due to condition dw RN aware Objective Last 24 Hour Vital Signs Date Time Temp Pulse Resp B/P (MAP) Pulse Ox O2 Delivery O2 Flow Rate FiO2 10/19/18 15:41 80/20 10/19/18 12:00 100 10/19/18 12:00 98.3 105 20 142/82 (102) 100 10/19/18 09:00 Nasal Cannula 2.0 10/19/18 08:19 93 149/98 10/19/18 08:18 93 149/98 10/19/18 08:00 98.2 93 20 149/98 (115) 99 10/19/18 07:53 95 10/19/18 04:00 96 10/19/18 04:00 98.0 96 18 134/81 (98) 96 10/19/18 00:00 97.7 94 18 142/76 (98) 96 10/19/18 00:00 94 10/18/18 21:00 Nasal Cannula 2.0 10/18/18 20:00 97.0 91 18 158/89 (112) 98 10/18/18 20:00 91 Intake and Output 10/18/18 10/19/18 19:00 07:00 Intake Total 453.216 ml 1029.126 ml Balance 453.216 ml 1029.126 ml Intake Oral 360 ml IV Total 93.216 ml 1029.126 ml # Voids 2 2 # Bowel Movements 1 Laboratory Tests 10/18/18 17:23: Activated Partial Thromboplast Time 73H 10/19/18 07:40: Activated Partial Thromboplast Time 57H, Sodium Level 144, Potassium Level 3.5, Chloride Level 108H, Carbon Dioxide Level 24, Anion Gap 12, Blood Urea Nitrogen 26H, Creatinine 0.9, Estimat Glomerular Filtration Rate > 60, Glucose Level 125H , Calcium Level 10.1, Phosphorus Level 2.7, Magnesium Level 1.4L 10/19/18 12:30: Sodium Level 139, Potassium Level 4.0, Chloride Level 107, Carbon Dioxide Level 19L, Anion Gap 13, Blood Urea Nitrogen 28H, Creatinine 1.2, Estimat Glomerular Filtration Rate 53.8, Glucose Level 232#H, Calcium Level 10.1, White Blood Count 10.2, Red Blood Count 2.84L, Hemoglobin 7.9L, Hematocrit 24.4L, Mean Corpuscular Volume 86, Mean Corpuscular Hemoglobin 27.7, Mean Corpuscular Hemoglobin Concent 32.2, Red Cell Distribution Width 14.9H, Platelet Count 309, Mean Platelet Volume 7.6, Neutrophils (%) (Auto) , Lymphocytes (%) (Auto) , Monocytes (%) (Auto) , Eosinophils (%) (Auto) , Basophils (%) (Auto) , Differential Total Cells Counted 100, Neutrophils % (Manual) 63, Lymphocytes % ( Manual) 23, Monocytes % (Manual) 12H, Eosinophils % (Manual) 1, Basophils % ( Manual) 1, Band Neutrophils 0, Platelet Estimate Adequate, Platelet Morphology Normal, Hypochromasia 3+, Anisocytosis 1+, Total Bilirubin 0.2, Aspartate Amino Transf (AST/SGOT) 20, Alanine Aminotransferase (ALT/SGPT) 28, Alkaline Phosphatase 52, Troponin I 0.029, Total Protein 7.0, Albumin 2.1L, Globulin 4.9 , Albumin/Globulin Ratio 0.4L Height (Feet): 5 Height (Inches): 10.00 Weight (Pounds): 251 Mario Alberto Aparicio MD Oct 19, 2018 16:13
--- NOTE | 2018-10-19 16:21 | General Progress Note ---
Assessment/Plan Assessment/Plan hypotension anemia. ? 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 marissa Yanez patient primary, dw marissa Green with Dr Obrien patient needs emergent transfusion due to condition dw RN aware. patient transfered to ICU, secondary to hypotension, noted to have hgb 7.[address] Darden, hearin stopped marissa RN dw Dr Obrien, patient to be transfered to ICU, Objective Last 24 Hour Vital Signs Date Time Temp Pulse Resp B/P (MAP) Pulse Ox O2 Delivery O2 Flow Rate FiO2 10/19/18 15:41 80/20 10/19/18 12:00 100 10/19/18 12:00 98.3 105 20 142/82 (102) 100 10/19/18 09:00 Nasal Cannula 2.0 10/19/18 08:19 93 149/98 10/19/18 08:18 93 149/98 10/19/18 08:00 98.2 93 20 149/98 (115) 99 10/19/18 07:53 95 10/19/18 04:00 96 10/19/18 04:00 98.0 96 18 134/81 (98) 96 10/19/18 00:00 97.7 94 18 142/76 (98) 96 10/19/18 00:00 94 10/18/18 21:00 Nasal Cannula 2.0 10/18/18 20:00 97.0 91 18 158/89 (112) 98 10/18/18 20:00 91 Intake and Output 10/18/18 10/19/18 19:00 07:00 Intake Total 453.216 ml 1029.126 ml Balance 453.216 ml 1029.126 ml Intake Oral 360 ml IV Total 93.216 ml 1029.126 ml # Voids 2 2 # Bowel Movements 1 Laboratory Tests 10/18/18 17:23: Activated Partial Thromboplast Time 73H 10/19/18 07:40: Activated Partial Thromboplast Time 57H, Sodium Level 144, Potassium Level 3.5, Chloride Level 108H, Carbon Dioxide Level 24, Anion Gap 12, Blood Urea Nitrogen 26H, Creatinine 0.9, Estimat Glomerular Filtration Rate > 60, Glucose Level 125H , Calcium Level 10.1, Phosphorus Level 2.7, Magnesium Level 1.4L 10/19/18 12:30: Sodium Level 139, Potassium Level 4.0, Chloride Level 107, Carbon Dioxide Level 19L, Anion Gap 13, Blood Urea Nitrogen 28H, Creatinine 1.2, Estimat Glomerular Filtration Rate 53.8, Glucose Level 232#H, Calcium Level 10.1, White Blood Count 10.2, Red Blood Count 2.84L, Hemoglobin 7.9L, Hematocrit 24.4L, Mean Corpuscular Volume 86, Mean Corpuscular Hemoglobin 27.7, Mean Corpuscular Hemoglobin Concent 32.2, Red Cell Distribution Width 14.9H, Platelet Count 309, Mean Platelet Volume 7.6, Neutrophils (%) (Auto) , Lymphocytes (%) (Auto) , Monocytes (%) (Auto) , Eosinophils (%) (Auto) , Basophils (%) (Auto) , Differential Total Cells Counted 100, Neutrophils % (Manual) 63, Lymphocytes % ( Manual) 23, Monocytes % (Manual) 12H, Eosinophils % (Manual) 1, Basophils % ( Manual) 1, Band Neutrophils 0, Platelet Estimate Adequate, Platelet Morphology Normal, Hypochromasia 3+, Anisocytosis 1+, Total Bilirubin 0.2, Aspartate Amino Transf (AST/SGOT) 20, Alanine Aminotransferase (ALT/SGPT) 28, Alkaline Phosphatase 52, Troponin I 0.029, Total Protein 7.0, Albumin 2.1L, Globulin 4.9 , Albumin/Globulin Ratio 0.4L 10/19/18 15:39: Activated Partial Thromboplast Time [Pending] Height (Feet): 5 Height (Inches): 10.00 Weight (Pounds): 251 General Appearance: WD/WN Neck: supple Cardiovascular: normal rate Respiratory/Chest: lungs clear Abdomen: soft Objective trace edema left leg patient Mario Alberto Huggins MD Oct 19, 2018 16:21
[2018-10-19] MEDS ORDERED: NovoLOG Insulin Flexpen SUBQ SCH (16:30)
--- NOTE | 2018-10-19 16:36 | Diagnostic Imaging Report ---
EXAM: XR Chest, 1 View CLINICAL HISTORY: F/U TECHNIQUE: Frontal view of the chest. COMPARISON: No relevant prior studies available. FINDINGS: Lungs: Decreased lung volumes, likely related to shallow inspiration. Increased interstitial markings. Subsegmental atelectasis versus infiltrate in the left lung base. Pleural space: Unremarkable. The costophrenic angles are sharp. No visible pneumothorax. Heart: Cardiomegaly. Mediastinum: Unremarkable. Bones/joints: Unremarkable. Tubes, lines and devices: AICD in the left chest wall with lead tips in the right atrium and ventricle. EKG leads overlie the thorax. Right IJ approach central venous catheter with the tip in the region of the right atrium. IMPRESSION: 1. Decreased lung volumes, likely related to shallow inspiration. 2. Increased interstitial markings. This may be related to bronchovascular crowding from the low lung volumes, versus an interstitial pneumonitis. 3. Subsegmental atelectasis versus infiltrate in the left lung base.
[2018-10-19] MEDS ORDERED: Zolpidem 5mg tab ORAL PRN (16:37)
[2018-10-19] MEDS ORDERED: Morphine Sulfate 2mg/ml Inj IVP PRN (16:37)
[2018-10-19] MEDS ORDERED: Miralax 17gm pkt ORAL PRN (16:37)
[2018-10-19] MEDS ORDERED: cefTRIAXone 1 GM in D5W 55 ML IVPB SCH (17:00)
[2018-10-19] MEDS ORDERED: Sodium Chloride 500ML 500 ML IV STA (17:23)
[2018-10-19] MEDS ORDERED: DOPamine 400mg/250ml 250 ML IV ONE (18:41)
[2018-10-19] MEDS: DOPamine 400mg/250ml 250 ML IV SCH ×2 (18:43→21:54)
[2018-10-19] MEDS: Pantoprazole 80 MG in NS 250 ML IV SCH (19:06)
[2018-10-19] MEDS: Dyna-Hex 2% Top Sol 2oz TOPIC SCH (20:00)
[2018-10-19] MEDS: NovoLOG Insulin Flexpen SUBQ SCH (21:09)
--- NOTE | 2018-10-19 21:29 | Consultation ---
Consult Note Assessment/Plan #[id number] dvt R sFV negative vq NV abdominal pain DM HTN encephalopahty hypoxemia obeisty ? MARYA Yenni Brooks DO Oct 19, 2018 21:29
[2018-10-20] VITALS (30 sets, daily range): BP systolic 64–147; BP diastolic 39–124
[2018-10-20] MEDS: DOPamine 400mg/250ml 250 ML IV SCH ×3 (02:30→17:42)
--- NOTE | 2018-10-20 03:48 | Consultation ---
DATE OF CONSULTATION: 10/19/2018 PULMONARY/CRITICAL CARE CONSULTATION CONSULTING PHYSICIAN: Yenni Brooks D.O. REASON FOR CONSULTATION: Shortness of breath and hypotension. HISTORY OF PRESENT ILLNESS: The patient was admitted on 10/13/2018. She has progressive hypotension, anemia, and questionable GI bleed, being evaluated for retroperitoneal source. She has been encephalopathic, which has reportedly been improved. She has had some nausea and vomiting here in the ICU. She is a poor historian, it is obtained from the electronic medical record. PAST MEDICAL HISTORY: Includes hypertension, diabetes, obesity, suspected sleep apnea, and anemia. SOCIAL HISTORY: Noncontributory. MEDICATIONS: Prehospital medications reviewed, reconciled, and documented in electronic medical record by dose, frequency, and route. ALLERGIES: She has no known drug allergies. PAST SURGICAL HISTORY: None known. PHYSICAL EXAMINATION: GENERAL: At the time of my exam, she is arousable, follows some commands. She is currently in no acute respiratory distress. VITAL SIGNS: She is afebrile, her pulse is 90, blood pressure is 95/71, and she is 97%. HEENT: She is normocephalic and atraumatic. Oropharynx is moist. Nasal mucosa is moist. NECK: Supple without lymphadenopathy. LUNGS: Decreased at the bases with scattered rhonchi. HEART: Regular rhythm without murmur. ABDOMEN: Obese, soft, and nontender. Positive bowel sounds. EXTREMITIES: Positive edema. LABORATORY AND DIAGNOSTIC DATA: Her white count is 10.2, hemoglobin 7.8, and platelets are 309,000. Her sodium is 139, potassium 4, chloride 107, bicarbonate 19, BUN 28, creatinine 1.2, and glucose of 232. Troponin 0.029. LFTs essentially normal. Her urinalysis on 10/13/2018 was positive for leukocyte esterase. ABG on 10/14/2018 with 7.34, 38, and 106. Urine was positive for leukocyte esterase. One out of two blood cultures was positive for coag-negative staph. She did have a venous duplex on 10/17/2018, which showed a right superficial femoral vein DVT. A V/Q scan was deemed low probability for PE. The patient has been seeing multiple consultants. Records have been reviewed including surgery. She is evaluating her for worsening abdominal pain and an abdominal ultrasound is pending and placement of a triple-lumen catheter. ASSESSMENT: 1. Right superficial femoral vein DVT with negative sign for PE. 2. Anemia with declining hemoglobin, unable to anticoagulate the patient secondary to the anemia, obesity, diabetes, hypertension, abdominal pain, nausea, vomiting, hypercalcemia, renal insufficiency, and dehydration. PLAN: Plan for the patient, she is being followed by the gastroenterology service and will be followed with repeat lower extremity duplex and monitor serially. If the patient is unable to be anticoagulated, IVC filter would be placed. Aspiration precautions at all times. Followup chest x-ray, PRN ABGs, proton pump inhibitor and broad-spectrum antibiotics, and ID has seen the patient in the past and currently the patient is not on broad-spectrum antibiotics or needed or indicated, would initiate if she does develop a fever, white count, or others pending signs of sepsis. Greater than 35 minutes of critical care time was spent with the patient reviewing records, discussing with the nursing staff, and imaging studies reviewed and ordered. Thank you very much for this consultation. Yenni Brooks D.O. DR: MIGUELANGEL JOB#: [id number] CC:
[2018-10-20] MEDS: Pantoprazole 80 MG in NS 250 ML IV SCH ×2 (04:28→14:00)
[2018-10-20] MEDS: NovoLOG Insulin Flexpen SUBQ SCH ×4 (06:30→20:16)
[2018-10-20 06:31] LABS: HEMATOCRIT 31.4 % (37.0-47.0); HEMOGLOBIN 10.6 G/DL (12.0-16.0); MEAN CORPUSCULAR VOLUME 85 FL (80-99); PLATELET COUNT 192 K/UL (150-450); RED CELL DISTRIBUTION WIDTH 12.7 % (11.6-14.8); WHITE BLOOD COUNT 19.7 K/UL (4.8-10.8)
[2018-10-20 07:03] LABS: ALANINE AMINOTRANSFERASE 1091 U/L (12-78); ALBUMIN 2.2 G/DL (3.4-5.0); ALBUMIN/GLOBULIN RATIO 0.5 (1.0-2.7); ALKALINE PHOSPHATASE 54 U/L (46-116); ANION GAP 12 mmol/L (5-15); ASPARTATE AMINO TRANSFERASE 1397 U/L (15-37); BILIRUBIN,TOTAL 0.3 MG/DL (0.2-1.0); BLOOD UREA NITROGEN 36 mg/dL (7-18); CALCIUM 9.2 MG/DL (8.5-10.1); CARBON DIOXIDE 21 MMOL/L (21-32); CHLORIDE 107 MMOL/L (98-107); CREATININE 1.7 MG/DL (0.55-1.30); POTASSIUM 3.4 MMOL/L (3.5-5.1); SODIUM 140 MMOL/L (136-145)
--- NOTE | 2018-10-20 08:22 | Pulmonolgy Critical Care Note ---
Critical Care - Asmt/Plan Assessment/Plan: 1. Right superficial femoral vein DVT with negative sign for PE. 2. Anemia with declining hemoglobin, unable to anticoagulate the patient secondary to the anemia, 3. obesity, 4diabetes, 5 hypertension, 6abdominal pain, 7 nausea, vomiting, 8 hypercalcemia, 9 renal insufficiency and dehydration. 10 sepsis on pressors recheck duplex thsi am to assess DVT progression or resolution If still present, and unable to AC, may need IVC filter Fu cxr antiemitics Fu with GI recommendations titrate pressors for MAP greater than 65 mmhg nebs and suction NPO Respiratory: CXR, ABG Cardiac: continue pressors Renal: F/U I&O Gastrointestinal: hold feedings Endocrine: monitor blood sugar Prophylaxis: Protonix Time Spent (Minutes): 50 Critical Care - Objective Last 24 Hour Vital Signs Date Time Temp Pulse Resp B/P (MAP) Pulse Ox O2 Delivery O2 Flow Rate FiO2 10/20/18 07:00 79 19 109/63 (78) 100 10/20/18 07:00 109/63 10/20/18 06:00 107/75 10/20/18 06:00 80 22 111/71 (84) 100 10/20/18 05:30 76 19 107/72 (84) 100 10/20/18 05:00 94 22 84/57 (66) 100 10/20/18 05:00 84/57 10/20/18 04:30 88 22 110/75 (87) 100 10/20/18 04:00 97.9 82 19 107/71 (83) 100 10/20/18 04:00 88 10/20/18 04:00 107/71 10/20/18 04:00 3.0 10/20/18 03:30 83 21 108/64 (79) 100 10/20/18 03:00 82 19 105/60 (75) 100 10/20/18 03:00 105/60 10/20/18 02:30 89 21 112/70 (84) 100 10/20/18 02:30 105/62 10/20/18 02:00 123/79 10/20/18 02:00 82 22 111/77 (88) 100 10/20/18 01:30 102 22 104/81 (89) 100 10/20/18 01:00 97 21 110/70 (83) 100 10/20/18 01:00 101/81 10/20/18 00:00 98.3 101 19 137/124 (128) 100 10/20/18 00:00 93 10/20/18 00:00 137/124 10/20/18 00:00 3.0 10/19/18 23:30 100 21 92/60 (71) 100 10/19/18 23:00 101 18 122/67 (85) 100 10/19/18 23:00 122/67 10/19/18 22:30 87 18 113/76 (88) 100 10/19/18 22:00 102 19 106/65 (79) 100 10/19/18 22:00 113/68 10/19/18 21:54 100/43 10/19/18 21:54 104/40 10/19/18 21:30 96 16 98/59 (72) 100 10/19/18 21:08 79/39 10/19/18 21:00 99 19 107/47 (67) 100 10/19/18 20:30 87 18 100/59 (73) 99 10/19/18 20:00 3.0 10/19/18 20:00 96.5 90 23 95/71 (79) 97 10/19/18 20:00 90 10/19/18 20:00 89/56 10/19/18 19:00 105 20 104/69 (81) 98 10/19/18 18:43 88/22 10/19/18 18:00 78/30 10/19/18 17:30 94/76 10/19/18 17:04 108 22 41/21 (28) 93 10/19/18 17:02 108 24 49/25 (33) 99 10/19/18 17:00 108 28 99 10/19/18 17:00 38/24 10/19/18 16:45 109 24 92/73 (79) 99 10/19/18 16:39 110 23 72/56 (61) 99 10/19/18 16:30 107 26 70/52 (58) 99 10/19/18 16:30 70/52 10/19/18 16:15 110 24 74/50 (58) 97 10/19/18 16:13 115 24 74/56 (62) 97 10/19/18 16:00 87 10/19/18 16:00 73/38 10/19/18 16:00 96.1 101 19 73/38 (50) 97 10/19/18 15:54 93 23 70/47 (55) 92 10/19/18 15:49 93 26 65/47 (53) 92 10/19/18 15:45 95 27 65/54 (58) 92 10/19/18 15:41 64/38 10/19/18 15:41 80/20 10/19/18 15:41 95 26 64/38 (47) 92 10/19/18 15:30 97 28 99 10/19/18 15:15 96 23 73/49 (57) 99 10/19/18 15:05 94 27 50/35 (40) 99 10/19/18 15:00 95 27 40/27 (31) 99 10/19/18 14:36 96.2 84 20 101/68 (79) 99 10/19/18 12:00 100 10/19/18 12:00 98.3 105 20 142/82 (102) 100 10/19/18 09:00 Nasal Cannula 2.0 Status: somnolent Condition: critical Lungs: rhonchi Heart: HR/BP stable Abdomen: soft, non-tender Extremities: edema Accucheck: 99 Critical Care - Subjective ROS Limited/Unobtainable: Yes Condition: critical I&O: Intake and Output 10/19/18 10/20/18 19:00 07:00 Intake Total 200 ml 1463.567 ml Output Total 200 ml 900 ml Balance 0 ml 563.567 ml IV Total 200 ml 1463.567 ml Output Urine Total 200 ml 900 ml Subjective: lethargic this am no bleeding at thsi time episodes of vomiting x 2 no fever on o2 NPO at this time Labs: Current Medications Medications (Trade) Dose Ordered Sig/Barrett Route PRN Reason Start Time Stop Time Status Last Admin Dose Admin Acetaminophen (Tylenol) 650 mg Q4H PRN ORAL Mild Pain (Pain Scale 1-3) 10/19/18 16:36 11/12/18 16:35 Ceftriaxone Sodium 1 gm/ Dextrose 55 ml @ 110 mls/hr Q24H IVPB 10/19/18 17:00 10/26/18 16:59 10/19/18 17:00 Chlorhexidine Gluconate (Marely-Hex 2%) 1 applic DAILY@2000 TOPIC 10/19/18 20:00 11/18/18 19:59 10/19/18 20:00 Dextrose (Dextrose 50%) 25 ml Q30M PRN IV Hypoglycemia 10/19/18 17:00 11/18/18 12:29 Dextrose (Dextrose 50%) 50 ml Q30M PRN IV Hypoglycemia 10/19/18 16:36 11/18/18 16:35 Dopamine HCl/ Dextrose 250 ml @ 0 mls/hr Q24H IV 10/19/18 18:45 11/18/18 18:44 10/20/18 08:40 Insulin Aspart (NovoLOG) BEFORE MEALS AND HS SUBQ 10/19/18 21:00 11/18/18 16:29 10/19/18 21:09 Morphine Sulfate (Morphine Sulfate) 2 mg Q3H PRN IVP Moderate Pain (Pain Scale 4-6) 10/19/18 16:37 10/26/18 16:36 Morphine Sulfate (Morphine Sulfate) 4 mg Q3H PRN IVP SEVERE PAIN 10/19/18 17:54 10/26/18 17:53 Ondansetron HCl (Zofran) 4 mg Q6H PRN IVP Nausea & Vomiting 10/19/18 16:37 11/12/18 16:36 Pantoprazole 80 mg/Sodium Chloride 250 ml @ 25 mls/hr Q10H IV 10/19/18 18:00 11/18/18 17:59 10/20/18 04:28 Polyethylene Glycol (Miralax) 17 gm DAILYPRN PRN ORAL Constipation 10/19/18 16:37 11/18/18 16:36 Potassium Chloride 100 ml @ 50 mls/hr ONCE IVPB 10/20/18 09:00 10/20/18 11:00 Sodium Chloride 1,000 ml @ 100 mls/hr Q10H IV 10/20/18 08:45 11/19/18 08:44 Zolpidem Tartrate (Ambien) 5 mg DAILYPRN PRN ORAL Insomnia 10/19/18 16:37 10/26/18 16:36 Laboratory Tests Test 10/19/18 12:30 10/19/18 15:39 10/20/18 03:00 10/20/18 04:30 White Blood Count 10.2 K/UL (4.8-10.8) 19.7 K/UL (4.8-10.8) #H Red Blood Count 2.84 M/UL (4.20-5.40) L 3.70 M/UL (4.20-5.40) L Hemoglobin 7.9 G/DL (12.0-16.0) L 10.6 G/DL (12.0-16.0) #L Hematocrit 24.4 % (37.0-47.0) L 31.4 % (37.0-47.0) L Mean Corpuscular Volume 86 FL (80-99) 85 FL (80-99) Mean Corpuscular Hemoglobin 27.7 PG (27.0-31.0) 28.8 PG (27.0-31.0) Mean Corpuscular Hemoglobin Concent 32.2 G/DL (32.0-36.0) 33.8 G/DL (32.0-36.0) Red Cell Distribution Width 14.9 % (11.6-14.8) H 12.7 % (11.6-14.8) Platelet Count 309 K/UL (150-450) 192 K/UL (150-450) Mean Platelet Volume 7.6 FL (6.5-10.1) 8.4 FL (6.5-10.1) Neutrophils (%) (Auto) % (45.0-75.0) % (45.0-75.0) Lymphocytes (%) (Auto) % (20.0-45.0) % (20.0-45.0) Monocytes (%) (Auto) % (1.0-10.0) % (1.0-10.0) Eosinophils (%) (Auto) % (0.0-3.0) % (0.0-3.0) Basophils (%) (Auto) % (0.0-2.0) % (0.0-2.0) Differential Total Cells Counted 100 100 Neutrophils % (Manual) 63 % (45-75) 82 % (45-75) H Lymphocytes % (Manual) 23 % (20-45) 14 % (20-45) L Monocytes % (Manual) 12 % (1-10) H 4 % (1-10) Eosinophils % (Manual) 1 % (0-3) 0 % (0-3) Basophils % (Manual) 1 % (0-2) 0 % (0-2) Band Neutrophils 0 % (0-8) 0 % (0-8) Platelet Estimate Adequate Adequate Platelet Morphology Normal Normal Hypochromasia 3+ 1+ Anisocytosis 1+ Sodium Level 139 MMOL/L (136-145) 140 MMOL/L (136-145) Potassium Level 4.0 MMOL/L (3.5-5.1) 3.4 MMOL/L (3.5-5.1) L Chloride Level 107 MMOL/L (98-107) 107 MMOL/L (98-107) Carbon Dioxide Level 19 MMOL/L (21-32) L 21 MMOL/L (21-32) Anion Gap 13 mmol/L (5-15) 12 mmol/L (5-15) Blood Urea Nitrogen 28 mg/dL (7-18) H 36 mg/dL (7-18) H Creatinine 1.2 MG/DL (0.55-1.30) 1.7 MG/DL (0.55-1.30) H Estimat Glomerular Filtration Rate 53.8 mL/min (>60) 36.0 mL/min (>60) Glucose Level 232 MG/DL (74-106) #H 101 MG/DL (74-106) # Calcium Level 10.1 MG/DL (8.5-10.1) 9.2 MG/DL (8.5-10.1) Total Bilirubin 0.2 MG/DL (0.2-1.0) 0.3 MG/DL (0.2-1.0) Aspartate Amino Transf (AST/SGOT) 20 U/L (15-37) 1397 U/L (15-37) H Alanine Aminotransferase (ALT/SGPT) 28 U/L (12-78) 1091 U/L (12-78) H Alkaline Phosphatase 52 U/L (46-116) 54 U/L (46-116) Troponin I 0.029 ng/mL (0.000-0.056) Total Protein 7.0 G/DL (6.4-8.2) 6.8 G/DL (6.4-8.2) Albumin 2.1 G/DL (3.4-5.0) L 2.2 G/DL (3.4-5.0) L Globulin 4.9 g/dL 4.6 g/dL Albumin/Globulin Ratio 0.4 (1.0-2.7) L 0.5 (1.0-2.7) L Activated Partial Thromboplast Time 62 SEC (23-33) H Stool Occult Blood Pending Polychromasia 1+ Hemoglobin A1c 5.7 % (4.3-6.0) Yenni Brooks DO Oct 20, 2018 08:22
--- NOTE | 2018-10-20 08:34 | Nephrology Progress Note ---
Assessment/Plan Assessment/Plan A/P 1) JANE- Recurred due to hypotension - IV pressor is off now - Cr up to 1.7, restart IVFs 2) Hypokalemia/phos- replace prn 3) Hypercalcemia- SPEP/UPEP (MM), PTH-190, Vit D (toxicity) still pending - IVFs, s/p pamidronate - resolved 4) Hypotension- IV pressor and IVFs Subjective Date patient seen: Oct 20, 2018 Time patient seen: 08:24 ROS Limited/Unobtainable: No Constitutional: Reports: weakness Allergies: Coded Allergies: SULFA (SULFONAMIDE ANTIBIOTICS) (Verified Allergy, Unknown, 11/28/17) Pt states she is allergic to sulfa Subjective Patient transferred to ICU due to hypotension Objective Last 24 Hour Vital Signs Date Time Temp Pulse Resp B/P (MAP) Pulse Ox O2 Delivery O2 Flow Rate FiO2 10/20/18 07:00 79 19 109/63 (78) 100 10/20/18 07:00 109/63 10/20/18 06:00 107/75 10/20/18 06:00 80 22 111/71 (84) 100 10/20/18 05:30 76 19 107/72 (84) 100 10/20/18 05:00 94 22 84/57 (66) 100 10/20/18 05:00 84/57 10/20/18 04:30 88 22 110/75 (87) 100 10/20/18 04:00 97.9 82 19 107/71 (83) 100 10/20/18 04:00 88 10/20/18 04:00 107/71 10/20/18 04:00 3.0 10/20/18 03:30 83 21 108/64 (79) 100 10/20/18 03:00 82 19 105/60 (75) 100 10/20/18 03:00 105/60 10/20/18 02:30 89 21 112/70 (84) 100 10/20/18 02:30 105/62 10/20/18 02:00 123/79 10/20/18 02:00 82 22 111/77 (88) 100 10/20/18 01:30 102 22 104/81 (89) 100 10/20/18 01:00 97 21 110/70 (83) 100 10/20/18 01:00 101/81 10/20/18 00:00 98.3 101 19 137/124 (128) 100 10/20/18 00:00 93 10/20/18 00:00 137/124 10/20/18 00:00 3.0 10/19/18 23:30 100 21 92/60 (71) 100 10/19/18 23:00 101 18 122/67 (85) 100 10/19/18 23:00 122/67 10/19/18 22:30 87 18 113/76 (88) 100 10/19/18 22:00 102 19 106/65 (79) 100 10/19/18 22:00 113/68 10/19/18 21:54 100/43 10/19/18 21:54 104/40 10/19/18 21:30 96 16 98/59 (72) 100 10/19/18 21:08 79/39 10/19/18 21:00 99 19 107/47 (67) 100 10/19/18 20:30 87 18 100/59 (73) 99 10/19/18 20:00 3.0 10/19/18 20:00 96.5 90 23 95/71 (79) 97 10/19/18 20:00 90 10/19/18 20:00 89/56 10/19/18 19:00 105 20 104/69 (81) 98 10/19/18 18:43 88/22 10/19/18 18:00 78/30 10/19/18 17:30 94/76 10/19/18 17:04 108 22 41/21 (28) 93 10/19/18 17:02 108 24 49/25 (33) 99 10/19/18 17:00 108 28 99 10/19/18 17:00 38/24 10/19/18 16:45 109 24 92/73 (79) 99 10/19/18 16:39 110 23 72/56 (61) 99 10/19/18 16:30 107 26 70/52 (58) 99 18 16:30 70/52 10/19/18 16:15 110 24 74/50 (58) 97 10/19/18 16:13 115 24 74/56 (62) 97 10/19/18 16:00 87 10/19/18 16:00 73/38 11/24/18 16:00 96.1 101 19 73/38 (50) 97 10/19/18 15:54 93 23 70/47 (55) 92 10/19/18 15:49 93 26 65/47 (53) 92 10/19/18 15:45 95 27 65/54 (58) 92 10/19/18 15:41 64/38 10/19/18 15:41 80/20 10/19/18 15:41 95 26 64/38 (47) 92 10/19/18 15:30 97 28 99 10/19/18 15:15 96 23 73/49 (57) 99 10/19/18 15:05 94 27 50/35 (40) 99 10/19/18 15:00 95 27 40/27 (31) 99 10/19/18 14:36 96.2 84 20 101/68 (79) 99 10/19/18 12:00 100 10/19/18 12:00 98.3 105 20 142/82 (102) 100 10/19/18 09:00 Nasal Cannula 2.0 Intake and Output 10/19/18 10/20/18 19:00 07:00 Intake Total 200 ml 1463.567 ml Output Total 200 ml 900 ml Balance 0 ml 563.567 ml IV Total 200 ml 1463.567 ml Output Urine Total 200 ml 900 ml Laboratory Tests 10/19/18 12:30: White Blood Count 10.2, Red Blood Count 2.84L, Hemoglobin 7.9L, Hematocrit 24.4L , Mean Corpuscular Volume 86, Mean Corpuscular Hemoglobin 27.7, Mean Corpuscular Hemoglobin Concent 32.2, Red Cell Distribution Width 14.9H, Platelet Count 309, Mean Platelet Volume 7.6, Neutrophils (%) (Auto) , Lymphocytes (%) (Auto) , Monocytes (%) (Auto) , Eosinophils (%) (Auto) , Basophils (%) (Auto) , Differential Total Cells Counted 100, Neutrophils % ( Manual) 63, Lymphocytes % (Manual) 23, Monocytes % (Manual) 12H, Eosinophils % ( Manual) 1, Basophils % (Manual) 1, Band Neutrophils 0, Platelet Estimate Adequate, Platelet Morphology Normal, Hypochromasia 3+, Anisocytosis 1+, Sodium Level 139, Potassium Level 4.0, Chloride Level 107, Carbon Dioxide Level 19L, Anion Gap 13, Blood Urea Nitrogen 28H, Creatinine 1.2, Estimat Glomerular Filtration Rate 53.8, Glucose Level 232#H, Calcium Level 10.1, Total Bilirubin 0.2, Aspartate Amino Transf (AST/SGOT) 20, Alanine Aminotransferase (ALT/SGPT) 28, Alkaline Phosphatase 52, Troponin I 0.029, Total Protein 7.0, Albumin 2.1L, Globulin 4.9, Albumin/Globulin Ratio 0.4L 10/19/18 15:39: Activated Partial Thromboplast Time 62H 10/20/18 03:00: Stool Occult Blood [Pending] 10/20/18 04:30: White Blood Count 19.7#H, Red Blood Count 3.70L, Hemoglobin 10.6#L, Hematocrit 31.4L, Mean Corpuscular Volume 85, Mean Corpuscular Hemoglobin 28.8, Mean Corpuscular Hemoglobin Concent 33.8, Red Cell Distribution Width 12.7, Platelet Count 192, Mean Platelet Volume 8.4, Neutrophils (%) (Auto) , Lymphocytes (%) ( Auto) , Monocytes (%) (Auto) , Eosinophils (%) (Auto) , Basophils (%) (Auto) , Differential Total Cells Counted 100, Neutrophils % (Manual) 82H, Lymphocytes % (Manual) 14L, Monocytes % (Manual) 4, Eosinophils % (Manual) 0, Basophils % ( Manual) 0, Band Neutrophils 0, Platelet Estimate Adequate, Platelet Morphology Normal, Hypochromasia 1+, Sodium Level 140, Potassium Level 3.4L, Chloride Level 107, Carbon Dioxide Level 21, Anion Gap 12, Blood Urea Nitrogen 36H, Creatinine 1.7H, Estimat Glomerular Filtration Rate 36.0, Glucose Level 101#, Calcium Level 9.2, Total Bilirubin 0.3, Aspartate Amino Transf (AST/SGOT) 1397H , Alanine Aminotransferase (ALT/SGPT) 1091H, Alkaline Phosphatase 54, Total Protein 6.8, Albumin 2.2L, Globulin 4.6, Albumin/Globulin Ratio 0.5L, Polychromasia 1+, Hemoglobin A1c 5.7 Height (Feet): 5 Height (Inches): 10.00 Weight (Pounds): 251 General Appearance: no apparent distress, lethargic EENT: normal ENT inspection Neck: normal alignment, supple Cardiovascular: normal rate, regular rhythm Respiratory/Chest: normal breath sounds Abdomen: non tender, soft Edema: no edema noted Arm (L), no edema noted Arm (R), no edema noted Leg (L), no edema noted Leg (R), no edema noted Pedal (L), no edema noted Pedal (R), no edema noted Generalized Mauro Wade MD Oct 20, 2018 08:34
[2018-10-20] MEDS ORDERED: D5NS 1000ml IV ONE (09:41)
[2018-10-20] MEDS ORDERED: Tubing IV Blood Pump IV ONE (09:41)
[2018-10-20] MEDS ORDERED: NS 275ml ONE (09:41)
[2018-10-20] MEDS ORDERED: Tubing IV Secondary IV ONE (09:41)
--- NOTE | 2018-10-20 10:10 | Diagnostic Imaging Report ---
EXAM: US Abdomen Complete CLINICAL HISTORY: ABD PAIN TECHNIQUE: Real-time ultrasound of the abdomen (complete) with image documentation. COMPARISON: CT abdomen dated 02/22/16. Renal ultrasound dated 02/23/16. FINDINGS: Liver: Diffusely echogenic liver, suggesting fatty infiltration. Gallbladder: Gallbladder sludge. No gallbladder wall thickening or pericholecystic fluid. Common bile duct: Common bile duct diameter of 4.4 mm. No stones. No dilation. Pancreas: Unremarkable as visualized. Pancreatic body and tail are obscured by bowel gas. Kidneys: Right kidney length 8.5 cm. Left kidney length 8.7 cm. Normal cortical thickness. No visible parenchymal lesions. No visible stones. No hydronephrosis. Spleen: Spleen has maximum diameter of 9.65 cm, within normal limits. Aorta: Visualized portions of the aorta appear unremarkable. Inferior vena cava: Visualized portions of the IVC appear unremarkable. IMPRESSION: 1. Gallbladder sludge. No gallbladder wall thickening or pericholecystic fluid. Normal caliber common bile duct. 2. Diffusely echogenic liver, suggesting fatty infiltration.
--- NOTE | 2018-10-20 10:38 | Cardiology Progress Note ---
Assessment/Plan Assessment/Plan 1.dehydration 2. Toxic metabolic encephlopathy . 3. History of hypertrophic nonobstructive cardiomyopathy. 4. Family history of sudden cardiac . 5. History of intracardiac defibrillator implantation, [employer] device previously. 6. acute renal failure 7. Abnormal perfusion with normal cardiac catheterization previously. 8. Hypercalcemia. 9. Alteration of mentation. 10. Azotemia 11. afib hx 12. bactermia ? contaminent 13. UTI 14. DVT 15. hypotenison 16. anemia off heparin due to anemia now s/p 2 unit of prbc ivf already tele sinus vpaced pac pvc icd older model unlikely mri compatible iv hydration central line abx id following tele afib critically ill at risk but better than yest will eventually need ct of abd no external sourse of blood loss pressors as needed for bp uppor taer a feasible an safe watch for hemodynamic changes agin venous duplex ekg personally reviewed d/w rn repeat trop attempted unsuccessfully to review images Subjective Cardiovascular: Reports: lightheadedness, palpitations; Denies: chest pain Respiratory: Reports: shortness of breath Gastrointestinal/Abdominal: Denies: abdominal pain Genitourinary: Denies: burning Subjective in icu is on 6 mcg of da althoug h bp did improve littel lst ntei then dropped agian per rn Objective Last 24 Hour Vital Signs Date Time Temp Pulse Resp B/P (MAP) Pulse Ox O2 Delivery O2 Flow Rate FiO2 10/20/18 08:40 111/90 10/20/18 07:00 79 19 109/63 (78) 100 10/20/18 07:00 109/63 10/20/18 06:00 107/75 10/20/18 06:00 80 22 111/71 (84) 100 10/20/18 05:30 76 19 107/72 (84) 100 10/20/18 05:00 94 22 84/57 (66) 100 10/20/18 05:00 84/57 10/20/18 04:30 88 22 110/75 (87) 100 10/20/18 04:00 97.9 82 19 107/71 (83) 100 10/20/18 04:00 88 10/20/18 04:00 107/71 10/20/18 04:00 3.0 10/20/18 03:30 83 21 108/64 (79) 100 10/20/18 03:00 82 19 105/60 (75) 100 10/20/18 03:00 105/60 10/20/18 02:30 89 21 112/70 (84) 100 10/20/18 02:30 105/62 10/20/18 02:00 123/79 10/20/18 02:00 82 22 111/77 (88) 100 10/20/18 01:30 102 22 104/81 (89) 100 10/20/18 01:00 97 21 110/70 (83) 100 10/20/18 01:00 101/81 10/20/18 00:00 98.3 101 19 137/124 (128) 100 10/20/18 00:00 93 10/20/18 00:00 137/124 10/20/18 00:00 3.0 10/19/18 23:30 100 21 92/60 (71) 100 10/19/18 23:00 101 18 122/67 (85) 100 10/19/18 23:00 122/67 10/19/18 22:30 87 18 113/76 (88) 100 10/19/18 22:00 102 19 106/65 (79) 100 10/19/18 22:00 113/68 10/19/18 21:54 100/43 10/19/18 21:54 104/40 10/19/18 21:30 96 16 98/59 (72) 100 10/19/18 21:08 79/39 10/19/18 21:00 99 19 107/47 (67) 100 10/19/18 20:30 87 18 100/59 (73) 99 10/19/18 20:00 3.0 10/19/18 20:00 96.5 90 23 95/71 (79) 97 10/19/18 20:00 90 10/19/18 20:00 89/56 10/19/18 19:00 105 20 104/69 (81) 98 10/19/18 18:43 88/22 18 18:00 78/30 10/19/18 17:30 94/76 10/19/18 17:04 108 22 41/21 (28) 93 10/19/18 17:02 108 24 49/25 (33) 99 10/19/18 17:00 108 28 99 10/19/18 17:00 38/24 10/19/18 16:45 109 24 92/73 (79) 99 10/19/18 16:39 110 23 72/56 (61) 99 10/19/18 16:30 107 26 70/52 (58) 99 10/19/18 16:30 70/52 10/19/18 16:15 110 24 74/50 (58) 97 10/19/18 16:13 115 24 74/56 (62) 97 10/19/18 16:00 87 10/19/18 16:00 73/38 10/19/18 16:00 96.1 101 19 73/38 (50) 97 10/19/18 15:54 93 23 70/47 (55) 92 10/19/18 15:49 93 26 65/47 (53) 92 10/19/18 15:45 95 27 65/54 (58) 92 10/19/18 15:41 64/38 10/19/18 15:41 80/20 10/19/18 15:41 95 26 64/38 (47) 92 10/19/18 15:30 97 28 99 10/19/18 15:15 96 23 73/49 (57) 99 10/19/18 15:05 94 27 50/35 (40) 99 10/19/18 15:00 95 27 40/27 (31) 99 10/19/18 14:36 96.2 84 20 101/68 (79) 99 10/19/18 12:00 100 10/19/18 12:00 98.3 105 20 142/82 (102) 100 General Appearance: no apparent distress, alert Neck: supple Cardiovascular: normal rate, regular rhythm Respiratory/Chest: lungs clear Abdomen: normal bowel sounds, non tender, soft Extremities: no swelling Intake and Output 10/19/18 10/20/18 19:00 07:00 Intake Total 200 ml 1463.567 ml Output Total 200 ml 900 ml Balance 0 ml 563.567 ml IV Total 200 ml 1463.567 ml Output Urine Total 200 ml 900 ml Laboratory Tests Test 10/19/18 12:30 10/19/18 15:39 10/20/18 03:00 10/20/18 04:30 White Blood Count 10.2 K/UL (4.8-10.8) 19.7 K/UL (4.8-10.8) #H Red Blood Count 2.84 M/UL (4.20-5.40) L 3.70 M/UL (4.20-5.40) L Hemoglobin 7.9 G/DL (12.0-16.0) L 10.6 G/DL (12.0-16.0) #L Hematocrit 24.4 % (37.0-47.0) L 31.4 % (37.0-47.0) L Mean Corpuscular Volume 86 FL (80-99) 85 FL (80-99) Mean Corpuscular Hemoglobin 27.7 PG (27.0-31.0) 28.8 PG (27.0-31.0) Mean Corpuscular Hemoglobin Concent 32.2 G/DL (32.0-36.0) 33.8 G/DL (32.0-36.0) Red Cell Distribution Width 14.9 % (11.6-14.8) H 12.7 % (11.6-14.8) Platelet Count 309 K/UL (150-450) 192 K/UL (150-450) Mean Platelet Volume 7.6 FL (6.5-10.1) 8.4 FL (6.5-10.1) Neutrophils (%) (Auto) % (45.0-75.0) % (45.0-75.0) Lymphocytes (%) (Auto) % (20.0-45.0) % (20.0-45.0) Monocytes (%) (Auto) % (1.0-10.0) % (1.0-10.0) Eosinophils (%) (Auto) % (0.0-3.0) % (0.0-3.0) Basophils (%) (Auto) % (0.0-2.0) % (0.0-2.0) Differential Total Cells Counted 100 100 Neutrophils % (Manual) 63 % (45-75) 82 % (45-75) H Lymphocytes % (Manual) 23 % (20-45) 14 % (20-45) L Monocytes % (Manual) 12 % (1-10) H 4 % (1-10) Eosinophils % (Manual) 1 % (0-3) 0 % (0-3) Basophils % (Manual) 1 % (0-2) 0 % (0-2) Band Neutrophils 0 % (0-8) 0 % (0-8) Platelet Estimate Adequate Adequate Platelet Morphology Normal Normal Hypochromasia 3+ 1+ Anisocytosis 1+ Sodium Level 139 MMOL/L (136-145) 140 MMOL/L (136-145) Potassium Level 4.0 MMOL/L (3.5-5.1) 3.4 MMOL/L (3.5-5.1) L Chloride Level 107 MMOL/L (98-107) 107 MMOL/L (98-107) Carbon Dioxide Level 19 MMOL/L (21-32) L 21 MMOL/L (21-32) Anion Gap 13 mmol/L (5-15) 12 mmol/L (5-15) Blood Urea Nitrogen 28 mg/dL (7-18) H 36 mg/dL (7-18) H Creatinine 1.2 MG/DL (0.55-1.30) 1.7 MG/DL (0.55-1.30) H Estimat Glomerular Filtration Rate 53.8 mL/min (>60) 36.0 mL/min (>60) Glucose Level 232 MG/DL (74-106) #H 101 MG/DL (74-106) # Calcium Level 10.1 MG/DL (8.5-10.1) 9.2 MG/DL (8.5-10.1) Total Bilirubin 0.2 MG/DL (0.2-1.0) 0.3 MG/DL (0.2-1.0) Aspartate Amino Transf (AST/SGOT) 20 U/L (15-37) 1397 U/L (15-37) H Alanine Aminotransferase (ALT/SGPT) 28 U/L (12-78) 1091 U/L (12-78) H Alkaline Phosphatase 52 U/L (46-116) 54 U/L (46-116) Troponin I 0.029 ng/mL (0.000-0.056) Total Protein 7.0 G/DL (6.4-8.2) 6.8 G/DL (6.4-8.2) Albumin 2.1 G/DL (3.4-5.0) L 2.2 G/DL (3.4-5.0) L Globulin 4.9 g/dL 4.6 g/dL Albumin/Globulin Ratio 0.4 (1.0-2.7) L 0.5 (1.0-2.7) L Activated Partial Thromboplast Time 62 SEC (23-33) H Stool Occult Blood Pending Polychromasia 1+ Hemoglobin A1c 5.7 % (4.3-6.0) Vernon Darden MD Oct 20, 2018 10:38
[2018-10-20] MEDS ORDERED: Lidocaine 1% Plain 30 ml INJ PRN (11:30)
--- NOTE | 2018-10-20 12:13 | Diagnostic Imaging Report ---
EXAM: US Duplex Bilateral Lower Extremity Veins CLINICAL HISTORY: Known DVT in the right SFV. Prior lower extremity venous Doppler exam was incomplete due to patient factors. TECHNIQUE: Real-time duplex ultrasound scan of the bilateral lower extremity veins integrating B-mode two-dimensional vascular structure, Doppler spectral analysis, color flow Doppler imaging and compression. COMPARISON: Right lower extremity venous Doppler dated 10/17/18 FINDINGS: Right deep veins: Distal SFV is not compressible and has echogenic thrombus. No DVT in the right common femoral or popliteal veins, which demonstrate normal color flow, are normally compressible, with normal phasic flow and/or augmentation response. Right superficial veins: Unremarkable. No thrombus in the visualized right great saphenous vein. Left deep veins: Left common femoral and superficial femoral veins are incompletely compressible suggesting nonocclusive thrombus. No DVT in the left popliteal vein, which demonstrates normal color flow and is normally compressible, with normal phasic flow. Left superficial veins: Unremarkable. No thrombus in the visualized left great saphenous vein. Soft tissues: No popliteal cyst. IMPRESSION: 1. DVT in the right SFV. 2. Nonocclusive DVT in the left common femoral and superficial femoral veins.
--- NOTE | 2018-10-20 12:57 | Infectious Diseases Prog Note ---
Assessment/Plan Assessment/Plan A; 1. Urinary tract infection with E.coli 2. Altered mental status. 3. Acute renal failure. worsening 4. Diabetes mellitus. 5. Hypertension. 6. Obesity. 7. Pressure ulcer. 8. Positive blood culture likely contamination 9.DVT of legs 10. Hypokalemia 11. Atelectasis, pneumonia P; Change Ceftriaxone to Zosyn will have IVC filter Subjective ROS Limited/Unobtainable: Yes Cardiovascular: Reports: other - hypotensive transferred to ICU started on pressor Gastrointestinal/Abdominal: Reports: nausea, vomiting Allergies: Coded Allergies: SULFA (SULFONAMIDE ANTIBIOTICS) (Verified Allergy, Unknown, 11/28/17) Pt states she is allergic to sulfa Objective Vital Signs Last 24 Hour Vital Signs Date Time Temp Pulse Resp B/P (MAP) Pulse Ox O2 Delivery O2 Flow Rate FiO2 10/20/18 08:40 111/90 10/20/18 07:00 79 19 109/63 (78) 100 10/20/18 07:00 109/63 10/20/18 06:00 107/75 10/20/18 06:00 80 22 111/71 (84) 100 10/20/18 05:30 76 19 107/72 (84) 100 10/20/18 05:00 94 22 84/57 (66) 100 10/20/18 05:00 84/57 10/20/18 04:30 88 22 110/75 (87) 100 10/20/18 04:00 97.9 82 19 107/71 (83) 100 10/20/18 04:00 88 10/20/18 04:00 107/71 10/20/18 04:00 3.0 10/20/18 03:30 83 21 108/64 (79) 100 10/20/18 03:00 82 19 105/60 (75) 100 10/20/18 03:00 105/60 10/20/18 02:30 89 21 112/70 (84) 100 10/20/18 02:30 105/62 10/20/18 02:00 123/79 10/20/18 02:00 82 22 111/77 (88) 100 10/20/18 01:30 102 22 104/81 (89) 100 10/20/18 01:00 97 21 110/70 (83) 100 10/20/18 01:00 101/81 10/20/18 00:00 98.3 101 19 137/124 (128) 100 10/20/18 00:00 93 10/20/18 00:00 137/124 10/20/18 00:00 3.0 10/19/18 23:30 100 21 92/60 (71) 100 10/19/18 23:00 101 18 122/67 (85) 100 10/19/18 23:00 122/67 10/19/18 22:30 87 18 113/76 (88) 100 10/19/18 22:00 102 19 106/65 (79) 100 10/19/18 22:00 113/68 10/19/18 21:54 100/43 10/19/18 21:54 104/40 10/19/18 21:30 96 16 98/59 (72) 100 10/19/18 21:08 79/39 10/19/18 21:00 99 19 107/47 (67) 100 10/19/18 20:30 87 18 100/59 (73) 99 10/19/18 20:00 3.0 10/19/18 20:00 96.5 90 23 95/71 (79) 97 10/19/18 20:00 90 10/19/18 20:00 89/56 10/19/18 19:00 105 20 104/69 (81) 98 10/19/18 18:43 88/22 10/19/18 18:00 78/30 10/19/18 17:30 94/76 10/19/18 17:04 108 22 41/21 (28) 93 10/19/18 17:02 108 24 49/25 (33) 99 10/19/18 17:00 108 28 99 10/19/18 17:00 38/24 10/19/18 16:45 109 24 92/73 (79) 99 10/19/18 16:39 110 23 72/56 (61) 99 10/19/18 16:30 107 26 70/52 (58) 99 18 16:30 70/52 10/19/18 16:15 110 24 74/50 (58) 97 10/19/18 16:13 115 24 74/56 (62) 97 10/19/18 16:00 87 10/19/18 16:00 73/38 10/19/18 16:00 96.1 101 19 73/38 (50) 97 10/19/18 15:54 93 23 70/47 (55) 92 10/19/18 15:49 93 26 65/47 (53) 92 10/19/18 15:45 95 27 65/54 (58) 92 10/19/18 15:41 64/38 10/19/18 15:41 80/20 10/19/18 15:41 95 26 64/38 (47) 92 10/19/18 15:30 97 28 99 10/19/18 15:15 96 23 73/49 (57) 99 10/19/18 15:05 94 27 50/35 (40) 99 10/19/18 15:00 95 27 40/27 (31) 99 10/19/18 14:36 96.2 84 20 101/68 (79) 99 Height (Feet): 5 Height (Inches): 10.00 Weight (Pounds): 251 General Appearance: no acute distress HEENT: mucous membranes moist Respiratory/Chest: lungs clear Cardiovascular: normal rate Abdomen: soft, non tender Extremities: other - edema Neurologic/Psychiatric: other Microbiology Date/Time Source Procedure Growth Status 10/20/18 03:00 Stool Clostridium difficile Toxin Assay - Final Complete Laboratory Tests Test 10/19/18 15:39 10/20/18 03:00 10/20/18 04:30 Activated Partial Thromboplast Time 62 SEC (23-33) H Stool Occult Blood Positive (NEGATIVE) White Blood Count 19.7 K/UL (4.8-10.8) #H Red Blood Count 3.70 M/UL (4.20-5.40) L Hemoglobin 10.6 G/DL (12.0-16.0) #L Hematocrit 31.4 % (37.0-47.0) L Mean Corpuscular Volume 85 FL (80-99) Mean Corpuscular Hemoglobin 28.8 PG (27.0-31.0) Mean Corpuscular Hemoglobin Concent 33.8 G/DL (32.0-36.0) Red Cell Distribution Width 12.7 % (11.6-14.8) Platelet Count 192 K/UL (150-450) Mean Platelet Volume 8.4 FL (6.5-10.1) Neutrophils (%) (Auto) % (45.0-75.0) Lymphocytes (%) (Auto) % (20.0-45.0) Monocytes (%) (Auto) % (1.0-10.0) Eosinophils (%) (Auto) % (0.0-3.0) Basophils (%) (Auto) % (0.0-2.0) Differential Total Cells Counted 100 Neutrophils % (Manual) 82 % (45-75) H Lymphocytes % (Manual) 14 % (20-45) L Monocytes % (Manual) 4 % (1-10) Eosinophils % (Manual) 0 % (0-3) Basophils % (Manual) 0 % (0-2) Band Neutrophils 0 % (0-8) Platelet Estimate Adequate Platelet Morphology Normal Polychromasia 1+ Hypochromasia 1+ Sodium Level 140 MMOL/L (136-145) Potassium Level 3.4 MMOL/L (3.5-5.1) L Chloride Level 107 MMOL/L (98-107) Carbon Dioxide Level 21 MMOL/L (21-32) Anion Gap 12 mmol/L (5-15) Blood Urea Nitrogen 36 mg/dL (7-18) H Creatinine 1.7 MG/DL (0.55-1.30) H Estimat Glomerular Filtration Rate 36.0 mL/min (>60) Glucose Level 101 MG/DL (74-106) # Hemoglobin A1c 5.7 % (4.3-6.0) Calcium Level 9.2 MG/DL (8.5-10.1) Total Bilirubin 0.3 MG/DL (0.2-1.0) Aspartate Amino Transf (AST/SGOT) 1397 U/L (15-37) H Alanine Aminotransferase (ALT/SGPT) 1091 U/L (12-78) H Alkaline Phosphatase 54 U/L (46-116) Total Protein 6.8 G/DL (6.4-8.2) Albumin 2.2 G/DL (3.4-5.0) L Globulin 4.6 g/dL Albumin/Globulin Ratio 0.5 (1.0-2.7) L Current Medications Medications (Trade) Dose Ordered Sig/Barrett Route PRN Reason Start Time Stop Time Status Last Admin Dose Admin Acetaminophen (Tylenol) 650 mg Q4H PRN ORAL Mild Pain (Pain Scale 1-3) 10/19/18 16:36 12/18/18 16:35 Ceftriaxone Sodium 1 gm/ Dextrose 55 ml @ 110 mls/hr Q24H IVPB 10/19/18 17:00 10/26/18 16:59 10/19/18 17:00 Chlorhexidine Gluconate (Marely-Hex 2%) 1 applic DAILY@2000 TOPIC 10/19/18 20:00 11/18/18 19:59 10/19/18 20:00 Dextrose (Dextrose 50%) 25 ml Q30M PRN IV Hypoglycemia 10/19/18 17:00 11/18/18 12:29 Dextrose (Dextrose 50%) 50 ml Q30M PRN IV Hypoglycemia 10/19/18 16:36 11/18/18 16:35 Dopamine HCl/ Dextrose 250 ml @ 0 mls/hr Q24H IV 10/19/18 18:45 11/18/18 18:44 10/20/18 08:40 Insulin Aspart (NovoLOG) BEFORE MEALS AND HS SUBQ 10/19/18 21:00 11/18/18 16:29 10/19/18 21:09 Lidocaine HCl (Xylocaine 1% 30ml) 30 ml NOW PRN INJ Radiology Procedure 10/20/18 11:30 10/23/18 11:22 Morphine Sulfate (Morphine Sulfate) 2 mg Q3H PRN IVP Moderate Pain (Pain Scale 4-6) 10/19/18 16:37 10/26/18 16:36 Morphine Sulfate (Morphine Sulfate) 4 mg Q3H PRN IVP SEVERE PAIN 10/19/18 17:54 10/26/18 17:53 Ondansetron HCl (Zofran) 4 mg Q6H PRN IVP Nausea & Vomiting 10/19/18 16:37 11/12/18 16:36 10/20/18 09:57 Pantoprazole 80 mg/Sodium Chloride 250 ml @ 25 mls/hr Q10H IV 10/19/18 18:00 11/18/18 17:59 10/20/18 04:28 Polyethylene Glycol (Miralax) 17 gm DAILYPRN PRN ORAL Constipation 10/19/18 16:37 11/18/18 16:36 Sodium Chloride 1,000 ml @ 100 mls/hr Q10H IV 10/20/18 08:45 11/19/18 08:44 10/20/18 10:00 Zolpidem Tartrate (Ambien) 5 mg DAILYPRN PRN ORAL Insomnia 10/19/18 16:37 10/26/18 16:36 Julien Yanez MD Oct 20, 2018 12:57
[2018-10-20] MEDS: Piperacillin/Tazobactam 3.375 GM in D5W 110 ML IVPB SCH ×2 (14:00→20:16)
[2018-10-20] MEDS: Pantoprazole Inj IVP SCH (14:45)
--- NOTE | 2018-10-20 14:45 | General Progress Note ---
Assessment/Plan Assessment/Plan Assessment - OB (+) stool, but brown and pasty (not melena) - acute hypoention and drop in H&H - ? source - Sudden rise in LFT - suspect shocked liver - DVT - GB sludge on ultrasound - fatty liver, per U/S imaging Recommendations - Jodie with CT - follow labs - transfuse PRN - PPI - check hepatitis markers - Check CPK Subjective Allergies: Coded Allergies: SULFA (SULFONAMIDE ANTIBIOTICS) (Verified Allergy, Unknown, 11/28/17) Pt states she is allergic to sulfa Objective Last 24 Hour Vital Signs Date Time Temp Pulse Resp B/P (MAP) Pulse Ox O2 Delivery O2 Flow Rate FiO2 10/20/18 08:40 111/90 10/20/18 07:00 79 19 109/63 (78) 100 10/20/18 07:00 109/63 10/20/18 06:00 107/75 10/20/18 06:00 80 22 111/71 (84) 100 10/20/18 05:30 76 19 107/72 (84) 100 10/20/18 05:00 94 22 84/57 (66) 100 10/20/18 05:00 84/57 10/20/18 04:30 88 22 110/75 (87) 100 10/20/18 04:00 97.9 82 19 107/71 (83) 100 10/20/18 04:00 88 10/20/18 04:00 107/71 10/20/18 04:00 3.0 10/20/18 03:30 83 21 108/64 (79) 100 10/20/18 03:00 82 19 105/60 (75) 100 10/20/18 03:00 105/60 10/20/18 02:30 89 21 112/70 (84) 100 10/20/18 02:30 105/62 10/20/18 02:00 123/79 10/20/18 02:00 82 22 111/77 (88) 100 10/20/18 01:30 102 22 104/81 (89) 100 10/20/18 01:00 97 21 110/70 (83) 100 10/20/18 01:00 101/81 10/20/18 00:00 98.3 101 19 137/124 (128) 100 10/20/18 00:00 93 10/20/18 00:00 137/124 10/20/18 00:00 3.0 10/19/18 23:30 100 21 92/60 (71) 100 10/19/18 23:00 101 18 122/67 (85) 100 10/19/18 23:00 122/67 10/19/18 22:30 87 18 113/76 (88) 100 10/19/18 22:00 102 19 106/65 (79) 100 10/19/18 22:00 113/68 10/19/18 21:54 100/43 10/19/18 21:54 104/40 10/19/18 21:30 96 16 98/59 (72) 100 10/19/18 21:08 79/39 10/19/18 21:00 99 19 107/47 (67) 100 10/19/18 20:30 87 18 100/59 (73) 99 10/19/18 20:00 3.0 10/19/18 20:00 96.5 90 23 95/71 (79) 97 10/19/18 20:00 90 10/19/18 20:00 89/56 10/19/18 19:00 105 20 104/69 (81) 98 10/19/18 18:43 88/22 10/19/18 18:00 78/30 10/19/18 17:30 94/76 10/19/18 17:04 108 22 41/21 (28) 93 10/19/18 17:02 108 24 49/25 (33) 99 10/19/18 17:00 108 28 99 10/19/18 17:00 38/24 10/19/18 16:45 109 24 92/73 (79) 99 10/19/18 16:39 110 23 72/56 (61) 99 10/19/18 16:30 107 26 70/52 (58) 99 10/19/18 16:30 70/52 10/19/18 16:15 110 24 74/50 (58) 97 10/19/18 16:13 115 24 74/56 (62) 97 10/19/18 16:00 87 10/19/18 16:00 73/38 10/19/18 16:00 96.1 101 19 73/38 (50) 97 10/19/18 15:54 93 23 70/47 (55) 92 11/24/18 15:49 93 26 65/47 (53) 92 10/19/18 15:45 95 27 65/54 (58) 92 10/19/18 15:41 64/38 10/19/18 15:41 80/20 10/19/18 15:41 95 26 64/38 (47) 92 10/19/18 15:30 97 28 99 10/19/18 15:15 96 23 73/49 (57) 99 10/19/18 15:05 94 27 50/35 (40) 99 10/19/18 15:00 95 27 40/27 (31) 99 10/19/18 14:36 96.2 84 20 101/68 (79) 99 Intake and Output 10/19/18 10/20/18 19:00 07:00 Intake Total 200 ml 1463.567 ml Output Total 200 ml 900 ml Balance 0 ml 563.567 ml IV Total 200 ml 1463.567 ml Output Urine Total 200 ml 900 ml Laboratory Tests 10/19/18 15:39: Activated Partial Thromboplast Time 62H 10/20/18 03:00: Stool Occult Blood Positive 10/20/18 04:30: White Blood Count 19.7#H, Red Blood Count 3.70L, Hemoglobin 10.6#L, Hematocrit 31.4L, Mean Corpuscular Volume 85, Mean Corpuscular Hemoglobin 28.8, Mean Corpuscular Hemoglobin Concent 33.8, Red Cell Distribution Width 12.7, Platelet Count 192, Mean Platelet Volume 8.4, Neutrophils (%) (Auto) , Lymphocytes (%) ( Auto) , Monocytes (%) (Auto) , Eosinophils (%) (Auto) , Basophils (%) (Auto) , Differential Total Cells Counted 100, Neutrophils % (Manual) 82H, Lymphocytes % (Manual) 14L, Monocytes % (Manual) 4, Eosinophils % (Manual) 0, Basophils % ( Manual) 0, Band Neutrophils 0, Platelet Estimate Adequate, Platelet Morphology Normal, Polychromasia 1+, Hypochromasia 1+, Sodium Level 140, Potassium Level 3.4L, Chloride Level 107, Carbon Dioxide Level 21, Anion Gap 12, Blood Urea Nitrogen 36H, Creatinine 1.7H, Estimat Glomerular Filtration Rate 36.0, Glucose Level 101#, Hemoglobin A1c 5.7, Calcium Level 9.2, Total Bilirubin 0.3, Aspartate Amino Transf (AST/SGOT) 1397H, Alanine Aminotransferase (ALT/SGPT) 1091H, Alkaline Phosphatase 54, Total Protein 6.8, Albumin 2.2L, Globulin 4.6, Albumin/Globulin Ratio 0.5L Height (Feet): 5 Height (Inches): 10.00 Weight (Pounds): 251 Richard Schroeder MD Oct 20, 2018 14:45
[2018-10-20] MEDS ORDERED: DOPamine 400mg/250ml 250 ML IV SCH (15:18)
--- NOTE | 2018-10-20 15:45 | Consultation ---
DATE OF CONSULTATION: 10/20/2018 CONSULTING PHYSICIAN: Dejan Villagran M.D. REFERRING PHYSICIAN: Mario Alberto Aparicio M.D. REASON FOR CONSULTATION: Diabetes out of control. HISTORY OF PRESENT ILLNESS: The patient is a 68-year-old female with history of diabetes and hypertension, who was admitted to the hospital on October 13, 2018 with altered mental status, followed as an outpatient with Dr. Oliverio Yanez. On presentation, was noted to have a BUN of 124 and creatinine of 2.9. She was uremic and was stabilized, admitted to the floor and then yesterday she was transferred to the intensive care unit once her white count elevated from 10 to 19.7. She has been followed by Infectious Diseases service and she is covered with antibiotic. PTH is elevated at 190, calcium was elevated and normalized so far. PAST MEDICAL HISTORY: 1. Hypertension. 2. Diabetes. 3. Cardiomyopathy status post ICD. 4. Recurrent urinary tract infection. SOCIAL HISTORY: No smoking, alcohol, or drug use. REVIEW OF SYSTEMS: Unobtainable due to patient's altered mental status. ALLERGIES: Sulfa. MEDICATIONS: Reviewed and reconciled. For diabetes as an outpatient, she is taking metformin 500 mg b.i.d. which has been on hold since admission due to acute renal failure. PHYSICAL EXAMINATION: GENERAL: The patient's blood pressure is 111/90, pulse 79, respiratory 19, temperature 98. HEENT: Pupils are equal and reactive to light. Sclerae are anicteric. NECK: No JVD. HEART: Regular. LUNGS: Have decreased breath sounds. ABDOMEN: Positive bowel sounds. EXTREMITIES: Positive for edema. LABORATORY AND DIAGNOSTIC DATA: WBC 19, hemoglobin 10, hematocrit 31, platelets of 192. Sodium 140, potassium 3.4, chloride 107, bicarb 21, BUN 36, creatinine 1.7, glucose 101, A1c 5.7, AST 1397, calcium 9.2. DIAGNOSES: 1. Acute kidney injury. 2. Diabetes out of control. 3. Hypercalcemia due to primary hyperparathyroidism. 4. Elevated liver enzymes. 5. Encephalopathy. PLAN: 1. Continue with IV hydration. 2. Continue blood glucose monitoring and NovoLog insulin coverage. 3. No need for scheduled NovoLog or Levemir. 4. Continue to monitor serum calcium daily. The patient needs to have localization studies like thyroid ultrasound and parathyroid scan to identify parathyroid adenoma. I will follow the patient during the hospital stay. Thank you Dr. Aparicio for the courtesy of this consultation. Dejan Villagran M.D. DR: Rosa Isela JOB#: [id number] CC: [facility]
--- NOTE | 2018-10-20 16:02 | Diagnostic Imaging Report ---
EXAM: CT Abdomen and Pelvis Without Intravenous Contrast CLINICAL HISTORY: Abdominal distention TECHNIQUE: Axial computed tomography images of the abdomen and pelvis without intravenous contrast. CTDI is 50.81 mGy and DLP is 1949 mGy-cm. One or more of the following dose reduction techniques were used: automated exposure control, adjustment of the mA and/or kV according to patient size, use of iterative reconstruction technique. COMPARISON: CT abdomen and pelvis dated 02/22/16. FINDINGS: Lung bases: Patchy opacification in the left lung base with air bronchograms, which may represent atelectasis versus pneumonia. Mild dependent atelectasis in the right lung base. Heart: Cardiomegaly. ABDOMEN: Liver: Unremarkable. Gallbladder and bile ducts: Subtle layering hyperdensity in the gallbladder lumen may represent sludge versus tiny stones. No gallbladder wall thickening or ductal dilatation. Pancreas: Unremarkable. No ductal dilation. Spleen: Unremarkable. No splenomegaly. Adrenals: Unremarkable. No mass. Kidneys and ureters: Unremarkable. No obstructing stones. No hydronephrosis. Stomach and bowel: Colonic diverticulosis without wall thickening or adjacent inflammatory change. No obstruction. PELVIS: Appendix: No findings to suggest acute appendicitis. Bladder: Unremarkable. No stones. Reproductive: Unremarkable as visualized. ABDOMEN and PELVIS: Intraperitoneal space: Unremarkable. No free air. No significant fluid collection. Retroperitoneal space: 12.0 x 11.2 x 11.2 cm complex fluid collection in the left lower retroperitoneum concerning for a retroperitoneal hematoma. Bones/joints: Schmorl's node along the superior endplate of L4. Mild multilevel degenerative changes throughout the spine. No acute fracture. No dislocation. Soft tissues: Unremarkable. Vasculature: Unremarkable. No abdominal aortic aneurysm. Lymph nodes: Unremarkable. No enlarged lymph nodes. Tubes, lines and devices: Pacer lead tips in the right atrium and right ventricle. IMPRESSION: 1. 12.0 x 11.2 x 11.2 cm complex fluid collection in the left lower retroperitoneum concerning for a retroperitoneal hematoma. 2. Patchy opacification in the left lung base with air bronchograms, which may represent atelectasis versus pneumonia. 3. Colonic diverticulosis without wall thickening or adjacent inflammatory change. 4. Cardiomegaly. 5. Subtle layering hyperdensity in the gallbladder lumen may represent sludge versus tiny stones. No gallbladder wall thickening or ductal dilatation. [employer] 10/20/18 16:08 Call Doctor Regarding Above results, called Dr Aparicio on 10/20 16:08 (-08:00)
--- NOTE | 2018-10-20 16:13 | Neurology Progress Note ---
Interim History Interim History Interim History Ms. Allen feels unwell. She is unable to tell me why she feels that way. She was moved to the ICU for severe hypotension requiring pressors. She was sleeping when I went to see her but could be aroused. When aroused, she was awake but not alert. She continues to be cognitively impoverished. She is still significantly disoriented. Her memory is poor. She continues to be generally weak. She is still oblivious as to why she has been hospitalized. She denies any new neurologic symptoms. Review of Systems Neuro Review of Systems Benign. Objective Physical Exam Last Vital Signs Date Time Temp Pulse Resp B/P (MAP) Pulse Ox O2 Delivery O2 Flow Rate FiO2 10/20/18 08:40 111/90 10/20/18 07:00 79 19 100 10/20/18 04:00 97.9 10/20/18 04:00 3.0 10/19/18 09:00 Nasal Cannula Laboratory Tests Test 10/20/18 03:00 10/20/18 04:30 Stool Occult Blood Positive (NEGATIVE) White Blood Count 19.7 K/UL (4.8-10.8) #H Red Blood Count 3.70 M/UL (4.20-5.40) L Hemoglobin 10.6 G/DL (12.0-16.0) #L Hematocrit 31.4 % (37.0-47.0) L Mean Corpuscular Volume 85 FL (80-99) Mean Corpuscular Hemoglobin 28.8 PG (27.0-31.0) Mean Corpuscular Hemoglobin Concent 33.8 G/DL (32.0-36.0) Red Cell Distribution Width 12.7 % (11.6-14.8) Platelet Count 192 K/UL (150-450) Mean Platelet Volume 8.4 FL (6.5-10.1) Neutrophils (%) (Auto) % (45.0-75.0) Lymphocytes (%) (Auto) % (20.0-45.0) Monocytes (%) (Auto) % (1.0-10.0) Eosinophils (%) (Auto) % (0.0-3.0) Basophils (%) (Auto) % (0.0-2.0) Differential Total Cells Counted 100 Neutrophils % (Manual) 82 % (45-75) H Lymphocytes % (Manual) 14 % (20-45) L Monocytes % (Manual) 4 % (1-10) Eosinophils % (Manual) 0 % (0-3) Basophils % (Manual) 0 % (0-2) Band Neutrophils 0 % (0-8) Platelet Estimate Adequate Platelet Morphology Normal Polychromasia 1+ Hypochromasia 1+ Sodium Level 140 MMOL/L (136-145) Potassium Level 3.4 MMOL/L (3.5-5.1) L Chloride Level 107 MMOL/L (98-107) Carbon Dioxide Level 21 MMOL/L (21-32) Anion Gap 12 mmol/L (5-15) Blood Urea Nitrogen 36 mg/dL (7-18) H Creatinine 1.7 MG/DL (0.55-1.30) H Estimat Glomerular Filtration Rate 36.0 mL/min (>60) Glucose Level 101 MG/DL (74-106) # Hemoglobin A1c 5.7 % (4.3-6.0) Calcium Level 9.2 MG/DL (8.5-10.1) Total Bilirubin 0.3 MG/DL (0.2-1.0) Aspartate Amino Transf (AST/SGOT) 1397 U/L (15-37) H Alanine Aminotransferase (ALT/SGPT) 1091 U/L (12-78) H Alkaline Phosphatase 54 U/L (46-116) Total Protein 6.8 G/DL (6.4-8.2) Albumin 2.2 G/DL (3.4-5.0) L Globulin 4.6 g/dL Albumin/Globulin Ratio 0.5 (1.0-2.7) L Neurologic Exam Objective PHYSICAL EXAMINATION: GENERAL: She is a well-developed, well-nourished, obese, black lady, lying in bed, in no acute distress. HEAD: Normocephalic and atraumatic. EENT: Examination benign except for bilateral chemosis. NECK: No neck rigidity was observed. NEUROLOGICAL EXAMINATION: MENTAL STATUS EXAMINATION: She was awake but not alert. She was oriented to self only. She had no idea of where she was or what the date was. She was able to recall 3/3 words immediately but could only remember 1/3 in 1 and 3 minutes. She was unable to tell me who the present or prior Presidents are. She was unable to cooperate for further mental status testing. SPEECH: She had a mild dysarthria. LANGUAGE: She had a mild anomia. CRANIAL NERVE EXAMINATION: II: She was able to count fingers. III, IV & : The external ocular movements were full but she did have a dysconjugate gaze. The pupils were 3 mm in diameter, equal, round, regular, and reactive sluggishly to light. V & VII: The corneal reflexes were equally brisk. VIII: She did respond to sounds and had no nystagmus. IX & X: The gag reflex was not tested XI: The sternocleidomastoids and trapezii did function. XII: The tongue was in the midline without any fasciculations or atrophy. MOTOR SYSTEM: The tone was normal in all four extremities. Examination of muscle mass revealed no focal wasting. Examination of power was impossible to perform because the effort was poor. She was generally weak - more so in the lower than upper extremities. SENSORY EXAMINATION: She responded appropriately to light touch. Other sensory modalities could not be tested. REFLEXES: Zero at the biceps, triceps, brachioradialis, knees, and ankles. The plantar responses were flexor bilaterally. COORDINATION, STANCE & GAIT: Could not be tested. Impression/Recommendations Diagnostic Impression 1. Ms Rafael Allen is a 68-year-old, right-handed, black lady, with a past history of hypertension, diabetes mellitus, renal failure, and cardiac arrhythmia - for which she has a pacemaker implanted, who was hospitalized for a change in mental state and was found to have urinary tract infection. 2. She feels unwell. She is unable to tell me why she feels that way. She was moved to the ICU for severe hypotension requiring pressors. She was sleeping when I went to see her but could be aroused. When aroused, she was awake but not alert. She continues to be cognitively impoverished. She is still significantly disoriented. Her memory is poor. She continues to be generally weak. She is still oblivious as to why she has been hospitalized. She denies any new neurologic symptoms. 3. On neurological examination, at this time, she is oriented to self only. She has significant problems with recent and remote memory. She also exhibits a mild dysarthria and an anomia, a quadriparesis - involving the lower extremities more than the upper extremities, and globally absent deep tendon reflexes. 4. The CT scan of the brain without contrast reveals atrophy and deep white matter changes, but no acute pathology. 5. Laboratory data on my initial evaluation revealed that she was anemic with a hemoglobin of 10 G. Her chemistry panel revealed that her BUN was elevated to 124, her creatinine was elevated at 2.9, her hemoglobin A1c was elevated at 6.1% , her calcium was elevated at 10.7, her proBNP was elevated at 252, her albumin was low at 3.1, and her TSH was normal at 0.46. Her Urinalysis revealed 3+ leukocyte esterase, 2-4 red blood cells, and too numerous to count white blood cells per high-power field. 6. Further laboratory tests revealed a normal B12, Folate, ESR. 7. The EEG done on 10/15/18 revealed moderate generalized cerebral dysfunction and left > right cerebral dysfunction. 8. The patient's history, neurological examination, and laboratory data are most compatible with an acute encephalopathic process of the toxic metabolic nature. The offending factors were a urinary tract infection, and in addition renal failure. In addition the patient does also have structural brain disease. Recommendations 1. Continue present management. 2. Aggressive treatment of infectious process and hypotension. 3. Increase activity with frequent ROM exercises. 4. Observe closely. Gume Bassett M.D., M.S.P.H. Gume Bassett MD Oct 20, 2018 16:13
--- NOTE | 2018-10-20 18:03 | General Surgery Progress Note ---
General Surgery-Progress Note Subjective Procedure Performed right internal jugular central venous catheter insertion using ultrasound guidance Additional Comments still requiring pressors. transfused prbc and responded. labs noted. Ct noted. US noted. Objective Last 24 Hour Vital Signs Date Time Temp Pulse Resp B/P (MAP) Pulse Ox O2 Delivery O2 Flow Rate FiO2 10/20/18 17:42 102/66 10/20/18 08:40 111/90 10/20/18 07:00 79 19 109/63 (78) 100 10/20/18 07:00 109/63 10/20/18 06:00 107/75 10/20/18 06:00 80 22 111/71 (84) 100 10/20/18 05:30 76 19 107/72 (84) 100 10/20/18 05:00 94 22 84/57 (66) 100 10/20/18 05:00 84/57 10/20/18 04:30 88 22 110/75 (87) 100 10/20/18 04:00 97.9 82 19 107/71 (83) 100 10/20/18 04:00 88 10/20/18 04:00 107/71 10/20/18 04:00 3.0 10/20/18 03:30 83 21 108/64 (79) 100 10/20/18 03:00 82 19 105/60 (75) 100 10/20/18 03:00 105/60 10/20/18 02:30 89 21 112/70 (84) 100 10/20/18 02:30 105/62 10/20/18 02:00 123/79 10/20/18 02:00 82 22 111/77 (88) 100 10/20/18 01:30 102 22 104/81 (89) 100 10/20/18 01:00 97 21 110/70 (83) 100 10/20/18 01:00 101/81 10/20/18 00:00 98.3 101 19 137/124 (128) 100 10/20/18 00:00 93 10/20/18 00:00 137/124 10/20/18 00:00 3.0 10/19/18 23:30 100 21 92/60 (71) 100 10/19/18 23:00 101 18 122/67 (85) 100 10/19/18 23:00 122/67 10/19/18 22:30 87 18 113/76 (88) 100 10/19/18 22:00 102 19 106/65 (79) 100 10/19/18 22:00 113/68 10/19/18 21:54 100/43 10/19/18 21:54 104/40 10/19/18 21:30 96 16 98/59 (72) 100 10/19/18 21:08 79/39 10/19/18 21:00 99 19 107/47 (67) 100 10/19/18 20:30 87 18 100/59 (73) 99 10/19/18 20:00 3.0 10/19/18 20:00 96.5 90 23 95/71 (79) 97 10/19/18 20:00 90 10/19/18 20:00 89/56 10/19/18 19:00 105 20 104/69 (81) 98 10/19/18 18:43 88/22 I&O Intake and Output 10/19/18 10/20/18 19:00 07:00 Intake Total 200 ml 1463.567 ml Output Total 200 ml 900 ml Balance 0 ml 563.567 ml IV Total 200 ml 1463.567 ml Output Urine Total 200 ml 900 ml Dressing: other Wound: other Drains: other Cardiovascular: RSR Respiratory: decreased breath sounds Abdomen: soft, flat, non-tender, present bowel sounds Extremities: edema, no tenderness, no cyanosis Laboratory Tests Test 10/20/18 03:00 10/20/18 04:30 Stool Occult Blood Positive (NEGATIVE) White Blood Count 19.7 K/UL (4.8-10.8) #H Red Blood Count 3.70 M/UL (4.20-5.40) L Hemoglobin 10.6 G/DL (12.0-16.0) #L Hematocrit 31.4 % (37.0-47.0) L Mean Corpuscular Volume 85 FL (80-99) Mean Corpuscular Hemoglobin 28.8 PG (27.0-31.0) Mean Corpuscular Hemoglobin Concent 33.8 G/DL (32.0-36.0) Red Cell Distribution Width 12.7 % (11.6-14.8) Platelet Count 192 K/UL (150-450) Mean Platelet Volume 8.4 FL (6.5-10.1) Neutrophils (%) (Auto) % (45.0-75.0) Lymphocytes (%) (Auto) % (20.0-45.0) Monocytes (%) (Auto) % (1.0-10.0) Eosinophils (%) (Auto) % (0.0-3.0) Basophils (%) (Auto) % (0.0-2.0) Differential Total Cells Counted 100 Neutrophils % (Manual) 82 % (45-75) H Lymphocytes % (Manual) 14 % (20-45) L Monocytes % (Manual) 4 % (1-10) Eosinophils % (Manual) 0 % (0-3) Basophils % (Manual) 0 % (0-2) Band Neutrophils 0 % (0-8) Platelet Estimate Adequate Platelet Morphology Normal Polychromasia 1+ Hypochromasia 1+ Sodium Level 140 MMOL/L (136-145) Potassium Level 3.4 MMOL/L (3.5-5.1) L Chloride Level 107 MMOL/L (98-107) Carbon Dioxide Level 21 MMOL/L (21-32) Anion Gap 12 mmol/L (5-15) Blood Urea Nitrogen 36 mg/dL (7-18) H Creatinine 1.7 MG/DL (0.55-1.30) H Estimat Glomerular Filtration Rate 36.0 mL/min (>60) Glucose Level 101 MG/DL (74-106) # Hemoglobin A1c 5.7 % (4.3-6.0) Calcium Level 9.2 MG/DL (8.5-10.1) Total Bilirubin 0.3 MG/DL (0.2-1.0) Aspartate Amino Transf (AST/SGOT) 1397 U/L (15-37) H Alanine Aminotransferase (ALT/SGPT) 1091 U/L (12-78) H Alkaline Phosphatase 54 U/L (46-116) Total Protein 6.8 G/DL (6.4-8.2) Albumin 2.2 G/DL (3.4-5.0) L Globulin 4.6 g/dL Albumin/Globulin Ratio 0.5 (1.0-2.7) L Plan Problems: (1) Abdominal pain Assessment & Plan: US noted - cholelithiasis. no inflammation CT noted - likely retrop hematoma NPO IV fluids IV abx (2) Anemia Assessment & Plan: poor peripheral access central line inserted see procedure note transfuse prbc trend labs will monitor hematoma clinically Jared Obrien Oct 20, 2018 18:03
--- NOTE | 2018-10-20 19:41 | General Progress Note ---
Assessment/Plan Assessment/Plan hypotension anemia. ? gi bleed ?retroperitoneal bleed uti encephalopathy imprved dehydration diabete htn obesity hypercalcemia hypokalemia acute femoral dvt transfuion 2 unite prbc fluuids awaiting LE dopplers will need IVC filter dw Dr Brooks states ok for tomorrow ct scan abdomen pelvis today monitor labs sp central line placement abx fluids treatment of hypercaclemia hypokalemia per Dr Yanez, patient has hyper parathyroidism, endo seeing patient vq scan negative improved encephalopathy monitor accucheck left message with the family [phone] dvt and ulcer proplhylaxi Subjective Allergies: Coded Allergies: SULFA (SULFONAMIDE ANTIBIOTICS) (Verified Allergy, Unknown, 11/28/17) Pt states she is allergic to sulfa Subjective more alert denies pain dopamine requirements decreased, sp 2 units prbc Objective Last 24 Hour Vital Signs Date Time Temp Pulse Resp B/P (MAP) Pulse Ox O2 Delivery O2 Flow Rate FiO2 10/20/18 19:00 108 14 93/50 (64) 10/20/18 18:00 122/47 10/20/18 18:00 92 17 10/20/18 17:42 102/66 10/20/18 17:00 128/67 10/20/18 17:00 108 14 128/67 (87) 10/20/18 16:00 98.6 108 16 147/80 (102) 10/20/18 16:00 113 10/20/18 16:00 104/47 10/20/18 15:00 109/54 10/20/18 14:00 104 14 90/61 (71) 10/20/18 13:00 112 19 120/99 (106) 10/20/18 12:00 105 10/20/18 12:00 97.6 106 16 128/110 (116) 10/20/18 11:00 103 16 98/72 (81) 10/20/18 10:00 95 15 113/64 (80) 10/20/18 09:00 102 21 119/60 (79) 10/20/18 08:40 111/90 10/20/18 08:00 98.0 89 25 93/78 (83) 100 10/20/18 07:00 79 19 109/63 (78) 100 10/20/18 07:00 109/63 10/20/18 06:00 107/75 11/25/18 06:00 80 22 111/71 (84) 100 10/20/18 05:30 76 19 107/72 (84) 100 10/20/18 05:00 94 22 84/57 (66) 100 10/20/18 05:00 84/57 10/20/18 04:30 88 22 110/75 (87) 100 10/20/18 04:00 97.9 82 19 107/71 (83) 100 10/20/18 04:00 88 10/20/18 04:00 107/71 10/20/18 04:00 3.0 10/20/18 03:30 83 21 108/64 (79) 100 10/20/18 03:00 82 19 105/60 (75) 100 10/20/18 03:00 105/60 10/20/18 02:30 89 21 112/70 (84) 100 10/20/18 02:30 105/62 10/20/18 02:00 123/79 10/20/18 02:00 82 22 111/77 (88) 100 10/20/18 01:30 102 22 104/81 (89) 100 10/20/18 01:00 97 21 110/70 (83) 100 10/20/18 01:00 101/81 10/20/18 00:00 98.3 101 19 137/124 (128) 100 10/20/18 00:00 93 10/20/18 00:00 137/124 10/20/18 00:00 3.0 10/19/18 23:30 100 21 92/60 (71) 100 10/19/18 23:00 101 18 122/67 (85) 100 10/19/18 23:00 122/67 10/19/18 22:30 87 18 113/76 (88) 100 10/19/18 22:00 102 19 106/65 (79) 100 10/19/18 22:00 113/68 10/19/18 21:54 100/43 10/19/18 21:54 104/40 10/19/18 21:30 96 16 98/59 (72) 100 10/19/18 21:08 79/39 10/19/18 21:00 99 19 107/47 (67) 100 10/19/18 20:30 87 18 100/59 (73) 99 10/19/18 20:00 3.0 10/19/18 20:00 96.5 90 23 95/71 (79) 97 10/19/18 20:00 90 10/19/18 20:00 89/56 Intake and Output 10/19/18 10/20/18 19:00 07:00 Intake Total 200 ml 1463.567 ml Output Total 200 ml 900 ml Balance 0 ml 563.567 ml IV Total 200 ml 1463.567 ml Output Urine Total 200 ml 900 ml Laboratory Tests 10/20/18 03:00: Stool Occult Blood Positive 10/20/18 04:30: White Blood Count 19.7#H, Red Blood Count 3.70L, Hemoglobin 10.6#L, Hematocrit 31.4L, Mean Corpuscular Volume 85, Mean Corpuscular Hemoglobin 28.8, Mean Corpuscular Hemoglobin Concent 33.8, Red Cell Distribution Width 12.7, Platelet Count 192, Mean Platelet Volume 8.4, Neutrophils (%) (Auto) , Lymphocytes (%) ( Auto) , Monocytes (%) (Auto) , Eosinophils (%) (Auto) , Basophils (%) (Auto) , Differential Total Cells Counted 100, Neutrophils % (Manual) 82H, Lymphocytes % (Manual) 14L, Monocytes % (Manual) 4, Eosinophils % (Manual) 0, Basophils % ( Manual) 0, Band Neutrophils 0, Platelet Estimate Adequate, Platelet Morphology Normal, Polychromasia 1+, Hypochromasia 1+, Sodium Level 140, Potassium Level 3.4L, Chloride Level 107, Carbon Dioxide Level 21, Anion Gap 12, Blood Urea Nitrogen 36H, Creatinine 1.7H, Estimat Glomerular Filtration Rate 36.0, Glucose Level 101#, Hemoglobin A1c 5.7, Calcium Level 9.2, Total Bilirubin 0.3, Aspartate Amino Transf (AST/SGOT) 1397H, Alanine Aminotransferase (ALT/SGPT) 1091H, Alkaline Phosphatase 54, Total Protein 6.8, Albumin 2.2L, Globulin 4.6, Albumin/Globulin Ratio 0.5L Height (Feet): 5 Height (Inches): 10.00 Weight (Pounds): 251 General Appearance: WD/WN Neck: supple Cardiovascular: normal rate Respiratory/Chest: lungs clear Abdomen: soft Objective trace edema left leg Mario Alberto Aparicio MD Oct 20, 2018 19:41
[2018-10-20 19:59] LABS: HEMATOCRIT 26.9 % (37.0-47.0); MEAN CORPUSCULAR VOLUME 84 FL (80-99); PLATELET COUNT 186 K/UL (150-450); RED CELL DISTRIBUTION WIDTH 12.8 % (11.6-14.8); WHITE BLOOD COUNT 17.3 K/UL (4.8-10.8)
[2018-10-20 20:08] LABS: ANION GAP 14 mmol/L (5-15); BLOOD UREA NITROGEN 44 mg/dL (7-18); CARBON DIOXIDE 19 MMOL/L (21-32); CHLORIDE 106 MMOL/L (98-107); CREATININE 2.1 MG/DL (0.55-1.30); POTASSIUM 3.8 MMOL/L (3.5-5.1); SODIUM 139 MMOL/L (136-145)
[2018-10-20 20:14] LABS: INR 1.1 (0.9-1.1)
[2018-10-20] MEDS: Dyna-Hex 2% Top Sol 2oz TOPIC SCH (20:16)
[2018-10-21] VITALS (31 sets, daily range): BP systolic 86–154; BP diastolic 36–98
[2018-10-21] MEDS: Pantoprazole 80 MG in NS 250 ML IV SCH (00:18)
[2018-10-21] MEDS: DOPamine 400mg/250ml 250 ML IV SCH ×2 (02:46→09:45)
[2018-10-21 04:59] LABS: HEMATOCRIT 25.2 % (37.0-47.0); HEMOGLOBIN 8.6 G/DL (12.0-16.0); MEAN CORPUSCULAR VOLUME 85 FL (80-99); PLATELET COUNT 184 K/UL (150-450); RED BLOOD COUNT 2.98 M/UL (4.20-5.40)
[2018-10-21 05:16] LABS: CREATINE KINASE 123 U/L (26-308)
[2018-10-21 05:31] LABS: ALANINE AMINOTRANSFERASE 1070 U/L (12-78); ALBUMIN 2.3 G/DL (3.4-5.0); ALBUMIN/GLOBULIN RATIO 0.5 (1.0-2.7); ALKALINE PHOSPHATASE 58 U/L (46-116); ANION GAP 13 mmol/L (5-15); ASPARTATE AMINO TRANSFERASE 660 U/L (15-37); BILIRUBIN,TOTAL 0.4 MG/DL (0.2-1.0); BLOOD UREA NITROGEN 42 mg/dL (7-18); CARBON DIOXIDE 21 MMOL/L (21-32); CHLORIDE 105 MMOL/L (98-107); CREATININE 2.1 MG/DL (0.55-1.30); POTASSIUM 3.7 MMOL/L (3.5-5.1); SODIUM 139 MMOL/L (136-145)
[2018-10-21] MEDS: NovoLOG Insulin Flexpen SUBQ SCH ×4 (06:30→20:36)
[2018-10-21 08:48] LABS: HEMATOCRIT 23.6 % (37.0-47.0); HEMOGLOBIN 7.9 G/DL (12.0-16.0); MEAN CORPUSCULAR VOLUME 84 FL (80-99); PLATELET COUNT 174 K/UL (150-450); WHITE BLOOD COUNT 12.6 K/UL (4.8-10.8)
[2018-10-21] MEDS: Piperacillin/Tazobactam 3.375 GM in D5W 110 ML IVPB SCH ×2 (08:57→20:36)
[2018-10-21] MEDS: Pantoprazole Inj IVP SCH (08:58)
[2018-10-21 09:11] LABS: ANION GAP 13 mmol/L (5-15); BLOOD UREA NITROGEN 42 mg/dL (7-18); CALCIUM 8.9 MG/DL (8.5-10.1); CARBON DIOXIDE 19 MMOL/L (21-32); CHLORIDE 108 MMOL/L (98-107); POTASSIUM 3.5 MMOL/L (3.5-5.1); SODIUM 140 MMOL/L (136-145)
--- NOTE | 2018-10-21 10:37 | Infectious Diseases Prog Note ---
Assessment/Plan Assessment/Plan A; 1. Urinary tract infection with E.coli 2. Altered mental status. 3. Acute renal failure.CKD 4. Diabetes mellitus. 5. Hypertension. 6. Obesity. 7. Pressure ulcer. 8. Positive blood culture likely contamination 9.DVT of legs 10.Retroperitoneal bleeding 11. Atelectasis, pneumonia 12. Elevated transaminases P; Change Ceftriaxone to Zosyn will have IVC filter Subjective ROS Limited/Unobtainable: Yes Constitutional: Reports: no symptoms Respiratory: Reports: no symptoms Cardiovascular: Reports: other - on low dose Dopamin Musculoskeletal: Reports: pain, other - in right had Allergies: Coded Allergies: SULFA (SULFONAMIDE ANTIBIOTICS) (Verified Allergy, Unknown, 11/28/17) Pt states she is allergic to sulfa Objective Vital Signs Last 24 Hour Vital Signs Date Time Temp Pulse Resp B/P (MAP) Pulse Ox O2 Delivery O2 Flow Rate FiO2 10/21/18 09:45 128/83 10/21/18 09:00 92 15 95/60 (72) 100 10/21/18 08:00 98.6 79 15 102/87 (92) 100 10/21/18 07:00 92 18 123/65 (84) 100 10/21/18 07:00 123/65 10/21/18 06:30 88 14 112/68 (83) 100 10/21/18 06:00 94 14 121/70 (87) 100 10/21/18 06:00 121/70 10/21/18 05:30 98 16 135/75 (95) 100 10/21/18 05:00 82 19 126/66 (86) 100 10/21/18 05:00 126/66 10/21/18 04:30 99 21 110/58 (75) 100 10/21/18 04:00 99.2 79 21 126/79 (95) 100 10/21/18 04:00 3.0 10/21/18 04:00 136/86 10/21/18 04:00 101 10/21/18 03:30 101 21 136/68 (90) 100 10/21/18 03:00 111 17 112/98 (103) 100 10/21/18 03:00 112/98 10/21/18 02:46 94/55 10/21/18 02:30 98 16 119/98 (105) 100 10/21/18 02:00 100 14 93/50 (64) 100 10/21/18 02:00 60/36 10/21/18 01:30 100 20 98/40 (59) 100 10/21/18 01:00 100/50 10/21/18 01:00 98.5 98 16 100/50 (67) 100 10/21/18 00:30 89 20 96/45 (62) 100 10/21/18 00:00 86/36 10/21/18 00:00 3.0 10/21/18 00:00 102 18 86/36 (53) 100 10/20/18 23:30 100 14 104/60 (75) 100 10/20/18 23:00 100 14 118/78 (91) 100 10/20/18 23:00 117/76 10/20/18 22:30 94 14 84/49 (61) 100 10/20/18 22:00 60/34 10/20/18 22:00 90 14 64/39 (47) 100 10/20/18 21:30 94 14 125/61 (82) 100 10/20/18 21:00 117/56 10/20/18 21:00 92 20 96/58 (71) 100 10/20/18 20:00 99.2 84 18 100/51 (67) 100 10/20/18 20:00 100/51 10/20/18 20:00 3.0 10/20/18 20:00 88 10/20/18 19:00 108 14 93/50 (64) 10/20/18 19:00 110/50 10/20/18 18:00 122/47 10/20/18 18:00 92 17 10/20/18 17:42 102/66 10/20/18 17:00 128/67 10/20/18 17:00 108 14 128/67 (87) 10/20/18 16:00 98.6 108 16 147/80 (102) 10/20/18 16:00 113 10/20/18 16:00 104/47 10/20/18 15:00 109/54 10/20/18 14:00 104 14 90/61 (71) 10/20/18 13:00 112 19 120/99 (106) 10/20/18 12:00 105 11/25/18 12:00 97.6 106 16 128/110 (116) 10/20/18 11:00 103 16 98/72 (81) Height (Feet): 5 Height (Inches): 10.00 Weight (Pounds): 251 General Appearance: no acute distress HEENT: mucous membranes moist Respiratory/Chest: lungs clear Cardiovascular: normal rate Abdomen: soft, non tender Extremities: no edema Neurologic/Psychiatric: alert, responsive Microbiology Date/Time Source Procedure Growth Status 10/20/18 03:00 Stool Clostridium difficile Toxin Assay - Final Complete Laboratory Tests Test 10/20/18 19:30 10/21/18 03:40 10/21/18 08:00 10/21/18 09:25 White Blood Count 17.3 K/UL (4.8-10.8) H 16.0 K/UL (4.8-10.8) H 12.6 K/UL (4.8-10.8) H Red Blood Count 3.20 M/UL (4.20-5.40) L 2.98 M/UL (4.20-5.40) L 2.80 M/UL (4.20-5.40) L Hemoglobin 9.0 G/DL (12.0-16.0) L 8.6 G/DL (12.0-16.0) L 7.9 G/DL (12.0-16.0) L Hematocrit 26.9 % (37.0-47.0) L 25.2 % (37.0-47.0) L 23.6 % (37.0-47.0) L Mean Corpuscular Volume 84 FL (80-99) 85 FL (80-99) 84 FL (80-99) Mean Corpuscular Hemoglobin 28.2 PG (27.0-31.0) 28.9 PG (27.0-31.0) 28.2 PG (27.0-31.0) Mean Corpuscular Hemoglobin Concent 33.5 G/DL (32.0-36.0) 34.2 G/DL (32.0-36.0) 33.4 G/DL (32.0-36.0) Red Cell Distribution Width 12.8 % (11.6-14.8) 13.0 % (11.6-14.8) 13.0 % (11.6-14.8) Platelet Count 186 K/UL (150-450) 184 K/UL (150-450) 174 K/UL (150-450) Mean Platelet Volume 9.3 FL (6.5-10.1) 8.8 FL (6.5-10.1) 8.5 FL (6.5-10.1) Neutrophils (%) (Auto) % (45.0-75.0) % (45.0-75.0) % (45.0-75.0) Lymphocytes (%) (Auto) % (20.0-45.0) % (20.0-45.0) % (20.0-45.0) Monocytes (%) (Auto) % (1.0-10.0) % (1.0-10.0) % (1.0-10.0) Eosinophils (%) (Auto) % (0.0-3.0) % (0.0-3.0) % (0.0-3.0) Basophils (%) (Auto) % (0.0-2.0) % (0.0-2.0) % (0.0-2.0) Differential Total Cells Counted 100 100 100 Neutrophils % (Manual) 85 % (45-75) H 85 % (45-75) H 83 % (45-75) H Lymphocytes % (Manual) 10 % (20-45) L 9 % (20-45) L 11 % (20-45) L Monocytes % (Manual) 4 % (1-10) 5 % (1-10) 4 % (1-10) Eosinophils % (Manual) 1 % (0-3) 0 % (0-3) 1 % (0-3) Basophils % (Manual) 0 % (0-2) 0 % (0-2) 0 % (0-2) Band Neutrophils 0 % (0-8) 1 % (0-8) 1 % (0-8) Platelet Estimate Adequate Adequate Adequate Platelet Morphology Normal Normal Normal Red Blood Cell Morphology Normal Hypochromasia 1+ 1+ 1+ Prothrombin Time 11.4 SEC (9.30-11.50) Prothromb Time International Ratio 1.1 (0.9-1.1) Activated Partial Thromboplast Time 28 SEC (23-33) Sodium Level 139 MMOL/L (136-145) 139 MMOL/L (136-145) 140 MMOL/L (136-145) Potassium Level 3.8 MMOL/L (3.5-5.1) 3.7 MMOL/L (3.5-5.1) 3.5 MMOL/L (3.5-5.1) Chloride Level 106 MMOL/L (98-107) 105 MMOL/L (98-107) 108 MMOL/L (98-107) H Carbon Dioxide Level 19 MMOL/L (21-32) L 21 MMOL/L (21-32) 19 MMOL/L (21-32) L Anion Gap 14 mmol/L (5-15) 13 mmol/L (5-15) 13 mmol/L (5-15) Blood Urea Nitrogen 44 mg/dL (7-18) H 42 mg/dL (7-18) H 42 mg/dL (7-18) H Creatinine 2.1 MG/DL (0.55-1.30) H 2.1 MG/DL (0.55-1.30) H 2.0 MG/DL (0.55-1.30) H Estimat Glomerular Filtration Rate 28.2 mL/min (>60) 28.2 mL/min (>60) 29.8 mL/min (>60) Glucose Level 111 MG/DL (74-106) H 131 MG/DL (74-106) H 118 MG/DL (74-106) H Calcium Level 9.0 MG/DL (8.5-10.1) 9.0 MG/DL (8.5-10.1) 8.9 MG/DL (8.5-10.1) Total Bilirubin 0.4 MG/DL (0.2-1.0) Aspartate Amino Transf (AST/SGOT) 660 U/L (15-37) H Alanine Aminotransferase (ALT/SGPT) 1070 U/L (12-78) H Alkaline Phosphatase 58 U/L (46-116) Total Creatine Kinase 123 U/L (26-308) Total Protein 7.0 G/DL (6.4-8.2) Albumin 2.3 G/DL (3.4-5.0) L Globulin 4.7 g/dL Albumin/Globulin Ratio 0.5 (1.0-2.7) L Hepatitis A IgM Antibody Pending Hepatitis B Surface Antigen Pending Hepatitis B Core IgM Antibody Pending Hepatitis C Antibody Pending Magnesium Level 1.8 MG/DL (1.8-2.4) Lipase 64 U/L (73-393) L Arterial Blood pH 7.351 (7.350-7.450) Arterial Blood Partial Pressure CO2 32.3 mmHg (35.0-45.0) L Arterial Blood Partial Pressure O2 114.2 mmHg (75.0-100.0) H Arterial Blood HCO3 17.5 mmol/L (22.0-26.0) *L Arterial Blood Oxygen Saturation 97.6 % (95-100) Arterial Blood Base Excess -7.3 (-2-2) L Johnie Test Positive Current Medications Medications (Trade) Dose Ordered Sig/Barrett Route PRN Reason Start Time Stop Time Status Last Admin Dose Admin Acetaminophen (Tylenol) 650 mg Q4H PRN ORAL Mild Pain (Pain Scale 1-3) 10/19/18 16:36 11/12/18 16:35 Chlorhexidine Gluconate (Marely-Hex 2%) 1 applic DAILY@2000 TOPIC 10/19/18 20:00 11/18/18 19:59 10/20/18 20:16 Dextrose (Dextrose 50%) 25 ml Q30M PRN IV Hypoglycemia 10/19/18 17:00 11/18/18 12:29 Dextrose (Dextrose 50%) 50 ml Q30M PRN IV Hypoglycemia 10/19/18 16:36 11/18/18 16:35 Dopamine HCl/ Dextrose 250 ml @ 0 mls/hr Q24H IV 10/19/18 18:45 11/18/18 18:44 10/21/18 09:45 Insulin Aspart (NovoLOG) BEFORE MEALS AND HS SUBQ 10/19/18 21:00 11/18/18 16:29 10/19/18 21:09 Lidocaine HCl (Xylocaine 1% 30ml) 30 ml NOW PRN INJ Radiology Procedure 10/20/18 11:30 10/23/18 11:22 Morphine Sulfate (Morphine Sulfate) 2 mg Q3H PRN IVP Moderate Pain (Pain Scale 4-6) 10/19/18 16:37 10/26/18 16:36 10/20/18 20:18 Morphine Sulfate (Morphine Sulfate) 4 mg Q3H PRN IVP SEVERE PAIN 10/19/18 17:54 10/26/18 17:53 Ondansetron HCl (Zofran) 4 mg Q6H PRN IVP Nausea & Vomiting 10/19/18 16:37 11/12/18 16:36 10/20/18 20:18 Pantoprazole (Protonix) 40 mg DAILY IVP 10/20/18 14:45 11/19/18 14:44 10/21/18 08:58 Piperacillin Sod/ Tazobactam Sod 3.375 gm/Dextrose 110 ml @ 27.5 mls/hr EVERY 12 HOURS IVPB 10/20/18 14:00 10/25/18 13:59 10/21/18 08:57 Polyethylene Glycol (Miralax) 17 gm DAILYPRN PRN ORAL Constipation 10/19/18 16:37 11/18/18 16:36 Sodium Chloride 1,000 ml @ 100 mls/hr Q10H IV 10/20/18 08:45 11/19/18 08:44 10/21/18 05:00 Zolpidem Tartrate (Ambien) 5 mg DAILYPRN PRN ORAL Insomnia 10/19/18 16:37 10/26/18 16:36 Julien Yanez MD Oct 21, 2018 10:37
--- NOTE | 2018-10-21 11:15 | Consultation ---
DATE OF CONSULTATION: 10/20/2018 GASTROENTEROLOGY CONSULTATION CHIEF COMPLAINT: I was asked to see this patient by Dr. Mario Alberto Aparicio and Dr. Oliverio Yanez for evaluation of drop in hematocrit and elevated liver tests. HISTORY OF PRESENT ILLNESS: The patient is an unfortunate 68-year-old woman who came to the hospital due to progressive hypotension, anemia, and encephalopathy. The patient was noted to have acute deep venous thrombosis and therefore, heparin was ordered. Subsequently, however, she had hypotension and drop in hematocrit and heparin was therefore discontinued and she was then scheduled to have IVC filter placed. Source of the drop in hematocrit is unclear. GI bleed was complicated, but no angel melena has been seen. Her stools were brown and pasty per nurse's report, although they were heme-positive. CBC has been ordered to rule out retroperitoneal bleeding. In addition, the patient has been noted to have acute rise in liver tests today, in addition she was hypotensive, requiring pressors. The patient herself is somewhat confused and unable to provide any history. Most of the information is only available from the chart. PAST MEDICAL HISTORY: History of hypertension, diabetes, obesity, history of suspected obstructive sleep apnea, anemia, deep venous thrombosis, encephalopathy. FAMILY HISTORY: Unobtainable due to the patient's confusion. SOCIAL HISTORY: Unobtainable due to the patient's confusion. ALLERGIES: None reported. REVIEW OF SYSTEMS: Unobtainable due to the patient's confusion. MEDICATIONS: See the chart list for details. PHYSICAL EXAMINATION: GENERAL: The patient is an obese woman, seen in the ICU. HEENT: Normocephalic and atraumatic. Sclerae are anicteric. Oropharynx appeared to be clear. NECK: Supple. CHEST: Coarse breath sounds. CARDIOVASCULAR: Regular rate. ABDOMEN: Soft, obese with questionable tenderness to palpation in all quadrants. There is a right internal jugular catheter. EXTREMITIES: Revealed trace edema. LABORATORY AND DIAGNOSTIC DATA: Laboratory data and imaging studies were noted. ASSESSMENT: This patient presents with acute drop in hematocrit after anticoagulation has been given. There is no gross melena, although she is heme-positive on the stools. This will require workup at a later date. The patient states she had a colonoscopy before, although she is a bit sedate and she is unsure of the date. Acute drop in hematocrit, however, is likely the source. I agree with CT scan to rule out any retroperitoneal source of bleeding. In the meantime, I will support the patient conservatively with fluids and antibiotics. The patient does have possible acute rise in her liver tests, but this is following the episode of hypotension and likely due to shock liver. RECOMMENDATIONS: 1. We will follow liver tests for now. 2. Hepatitis markers. 3. Await CT scan. 4. Proton pump inhibitor. 5. Transfuse as needed 6. Possible GI workup at a later date. Thank you for asking me to participate in the care of this patient. Richard Schroeder M.D. DR: Luis Armando JOB#: [id number] CC: SALVADOR
--- NOTE | 2018-10-21 11:17 | General Surgery Progress Note ---
General Surgery-Progress Note Subjective Procedure Performed right internal jugular central venous catheter insertion using ultrasound guidance Additional Comments leukocytosis improving. labs noted. awake and more alert today. still on dopa Objective Last 24 Hour Vital Signs Date Time Temp Pulse Resp B/P (MAP) Pulse Ox O2 Delivery O2 Flow Rate FiO2 10/21/18 09:45 128/83 10/21/18 09:00 92 15 95/60 (72) 100 10/21/18 08:00 98.6 79 15 102/87 (92) 100 10/21/18 07:00 92 18 123/65 (84) 100 10/21/18 07:00 123/65 10/21/18 06:30 88 14 112/68 (83) 100 10/21/18 06:00 94 14 121/70 (87) 100 10/21/18 06:00 121/70 10/21/18 05:30 98 16 135/75 (95) 100 10/21/18 05:00 82 19 126/66 (86) 100 10/21/18 05:00 126/66 10/21/18 04:30 99 21 110/58 (75) 100 10/21/18 04:00 99.2 79 21 126/79 (95) 100 10/21/18 04:00 3.0 10/21/18 04:00 136/86 10/21/18 04:00 101 10/21/18 03:30 101 21 136/68 (90) 100 10/21/18 03:00 111 17 112/98 (103) 100 10/21/18 03:00 112/98 10/21/18 02:46 94/55 10/21/18 02:30 98 16 119/98 (105) 100 10/21/18 02:00 100 14 93/50 (64) 100 10/21/18 02:00 60/36 10/21/18 01:30 100 20 98/40 (59) 100 10/21/18 01:00 100/50 10/21/18 01:00 98.5 98 16 100/50 (67) 100 10/21/18 00:30 89 20 96/45 (62) 100 10/21/18 00:00 86/36 10/21/18 00:00 3.0 10/21/18 00:00 102 18 86/36 (53) 100 10/20/18 23:30 100 14 104/60 (75) 100 10/20/18 23:00 100 14 118/78 (91) 100 10/20/18 23:00 117/76 10/20/18 22:30 94 14 84/49 (61) 100 10/20/18 22:00 60/34 10/20/18 22:00 90 14 64/39 (47) 100 10/20/18 21:30 94 14 125/61 (82) 100 10/20/18 21:00 117/56 10/20/18 21:00 92 20 96/58 (71) 100 10/20/18 20:00 99.2 84 18 100/51 (67) 100 10/20/18 20:00 100/51 10/20/18 20:00 3.0 10/20/18 20:00 88 10/20/18 19:00 108 14 93/50 (64) 10/20/18 19:00 110/50 10/20/18 18:00 122/47 10/20/18 18:00 92 17 10/20/18 17:42 102/66 10/20/18 17:00 128/67 10/20/18 17:00 108 14 128/67 (87) 10/20/18 16:00 98.6 108 16 147/80 (102) 10/20/18 16:00 113 10/20/18 16:00 104/47 10/20/18 15:00 109/54 10/20/18 14:00 104 14 90/61 (71) 10/20/18 13:00 112 19 120/99 (106) 10/20/18 12:00 105 10/20/18 12:00 97.6 106 16 128/110 (116) I&O Intake and Output 10/20/18 10/21/18 19:00 07:00 Intake Total 888.702 ml 1936.949 ml Output Total 460 ml 400 ml Balance 428.702 ml 1536.949 ml IV Total 888.702 ml 1936.949 ml Output Urine Total 460 ml 400 ml # Bowel Movements 2 Drains: none Cardiovascular: RSR Respiratory: clear Abdomen: soft, flat, non-tender, present bowel sounds Extremities: no cyanosis Laboratory Tests Test 10/20/18 19:30 10/21/18 03:40 10/21/18 08:00 10/21/18 09:25 White Blood Count 17.3 K/UL (4.8-10.8) H 16.0 K/UL (4.8-10.8) H 12.6 K/UL (4.8-10.8) H Red Blood Count 3.20 M/UL (4.20-5.40) L 2.98 M/UL (4.20-5.40) L 2.80 M/UL (4.20-5.40) L Hemoglobin 9.0 G/DL (12.0-16.0) L 8.6 G/DL (12.0-16.0) L 7.9 G/DL (12.0-16.0) L Hematocrit 26.9 % (37.0-47.0) L 25.2 % (37.0-47.0) L 23.6 % (37.0-47.0) L Mean Corpuscular Volume 84 FL (80-99) 85 FL (80-99) 84 FL (80-99) Mean Corpuscular Hemoglobin 28.2 PG (27.0-31.0) 28.9 PG (27.0-31.0) 28.2 PG (27.0-31.0) Mean Corpuscular Hemoglobin Concent 33.5 G/DL (32.0-36.0) 34.2 G/DL (32.0-36.0) 33.4 G/DL (32.0-36.0) Red Cell Distribution Width 12.8 % (11.6-14.8) 13.0 % (11.6-14.8) 13.0 % (11.6-14.8) Platelet Count 186 K/UL (150-450) 184 K/UL (150-450) 174 K/UL (150-450) Mean Platelet Volume 9.3 FL (6.5-10.1) 8.8 FL (6.5-10.1) 8.5 FL (6.5-10.1) Neutrophils (%) (Auto) % (45.0-75.0) % (45.0-75.0) % (45.0-75.0) Lymphocytes (%) (Auto) % (20.0-45.0) % (20.0-45.0) % (20.0-45.0) Monocytes (%) (Auto) % (1.0-10.0) % (1.0-10.0) % (1.0-10.0) Eosinophils (%) (Auto) % (0.0-3.0) % (0.0-3.0) % (0.0-3.0) Basophils (%) (Auto) % (0.0-2.0) % (0.0-2.0) % (0.0-2.0) Differential Total Cells Counted 100 100 100 Neutrophils % (Manual) 85 % (45-75) H 85 % (45-75) H 83 % (45-75) H Lymphocytes % (Manual) 10 % (20-45) L 9 % (20-45) L 11 % (20-45) L Monocytes % (Manual) 4 % (1-10) 5 % (1-10) 4 % (1-10) Eosinophils % (Manual) 1 % (0-3) 0 % (0-3) 1 % (0-3) Basophils % (Manual) 0 % (0-2) 0 % (0-2) 0 % (0-2) Band Neutrophils 0 % (0-8) 1 % (0-8) 1 % (0-8) Platelet Estimate Adequate Adequate Adequate Platelet Morphology Normal Normal Normal Red Blood Cell Morphology Normal Hypochromasia 1+ 1+ 1+ Prothrombin Time 11.4 SEC (9.30-11.50) Prothromb Time International Ratio 1.1 (0.9-1.1) Activated Partial Thromboplast Time 28 SEC (23-33) Sodium Level 139 MMOL/L (136-145) 139 MMOL/L (136-145) 140 MMOL/L (136-145) Potassium Level 3.8 MMOL/L (3.5-5.1) 3.7 MMOL/L (3.5-5.1) 3.5 MMOL/L (3.5-5.1) Chloride Level 106 MMOL/L (98-107) 105 MMOL/L (98-107) 108 MMOL/L (98-107) H Carbon Dioxide Level 19 MMOL/L (21-32) L 21 MMOL/L (21-32) 19 MMOL/L (21-32) L Anion Gap 14 mmol/L (5-15) 13 mmol/L (5-15) 13 mmol/L (5-15) Blood Urea Nitrogen 44 mg/dL (7-18) H 42 mg/dL (7-18) H 42 mg/dL (7-18) H Creatinine 2.1 MG/DL (0.55-1.30) H 2.1 MG/DL (0.55-1.30) H 2.0 MG/DL (0.55-1.30) H Estimat Glomerular Filtration Rate 28.2 mL/min (>60) 28.2 mL/min (>60) 29.8 mL/min (>60) Glucose Level 111 MG/DL (74-106) H 131 MG/DL (74-106) H 118 MG/DL (74-106) H Calcium Level 9.0 MG/DL (8.5-10.1) 9.0 MG/DL (8.5-10.1) 8.9 MG/DL (8.5-10.1) Total Bilirubin 0.4 MG/DL (0.2-1.0) Aspartate Amino Transf (AST/SGOT) 660 U/L (15-37) H Alanine Aminotransferase (ALT/SGPT) 1070 U/L (12-78) H Alkaline Phosphatase 58 U/L (46-116) Total Creatine Kinase 123 U/L (26-308) Total Protein 7.0 G/DL (6.4-8.2) Albumin 2.3 G/DL (3.4-5.0) L Globulin 4.7 g/dL Albumin/Globulin Ratio 0.5 (1.0-2.7) L Hepatitis A IgM Antibody Pending Hepatitis B Surface Antigen Pending Hepatitis B Core IgM Antibody Pending Hepatitis C Antibody Pending Magnesium Level 1.8 MG/DL (1.8-2.4) Lipase 64 U/L (73-393) L Arterial Blood pH 7.351 (7.350-7.450) Arterial Blood Partial Pressure CO2 32.3 mmHg (35.0-45.0) L Arterial Blood Partial Pressure O2 114.2 mmHg (75.0-100.0) H Arterial Blood HCO3 17.5 mmol/L (22.0-26.0) *L Arterial Blood Oxygen Saturation 97.6 % (95-100) Arterial Blood Base Excess -7.3 (-2-2) L Johnie Test Positive Plan Problems: (1) Abdominal pain Assessment & Plan: US noted - cholelithiasis. no inflammation CT noted - likely retrop hematoma NPO IV fluids IV abx wean pressors as tolerated trend labs (2) Anemia Assessment & Plan: poor peripheral access central line inserted see procedure note transfuse prbc trend labs will monitor hematoma clinically Jared Obrien Oct 21, 2018 11:17
[2018-10-21] MEDS: LORazepam Inj 2mg/ml 1ml IV PRN (11:21)
--- NOTE | 2018-10-21 11:41 | Diagnostic Imaging Report ---
Indication: Reason For Exam: COUGH Technique: One view of the chest Comparison: 10/19/2018 Findings: Left chest AICD, right jugular central venous catheter remain. Left hemidiaphragm is obscured, consolidation or pleural fluid possible. There is mild interstitial congestion, may slightly worse than on the prior study. Impression: Obscured left hemidiaphragm, left basilar pleural and/or parenchymal disease possible Questionably slightly increased interstitial congestion, over 2 days
--- NOTE | 2018-10-21 12:04 | Nephrology Progress Note ---
Assessment/Plan Problem List: (1) Altered mental status (2) DM (diabetes mellitus) (3) HTN (hypertension) (4) ARF (acute renal failure) Assessment: stable (5) Hypertrophic cardiomyopathy (6) Encephalopathy (7) UTI (urinary tract infection) (8) Hypokalemia (9) Hypernatremia (10) DVT (deep venous thrombosis) (11) Retroperitoneal bleed Plan Transfuse PRN Abxs taper off pressors as tolerated follow labs Await IVC filter Discussed with RN and Dr Obrien Subjective Subjective all noted feels weak Objective Objective Last 24 Hour Vital Signs Date Time Temp Pulse Resp B/P (MAP) Pulse Ox O2 Delivery O2 Flow Rate FiO2 10/21/18 11:00 97 20 154/76 (102) 100 10/21/18 10:00 99 17 95/70 (78) 100 10/21/18 09:45 128/83 10/21/18 09:00 92 15 95/60 (72) 100 10/21/18 08:00 98.6 79 15 102/87 (92) 100 10/21/18 08:00 98 10/21/18 07:00 92 18 123/65 (84) 100 10/21/18 07:00 123/65 10/21/18 06:30 88 14 112/68 (83) 100 10/21/18 06:00 94 14 121/70 (87) 100 10/21/18 06:00 121/70 10/21/18 05:30 98 16 135/75 (95) 100 10/21/18 05:00 82 19 126/66 (86) 100 10/21/18 05:00 126/66 10/21/18 04:30 99 21 110/58 (75) 100 10/21/18 04:00 99.2 79 21 126/79 (95) 100 10/21/18 04:00 3.0 10/21/18 04:00 136/86 10/21/18 04:00 101 10/21/18 03:30 101 21 136/68 (90) 100 10/21/18 03:00 111 17 112/98 (103) 100 10/21/18 03:00 112/98 10/21/18 02:46 94/55 10/21/18 02:30 98 16 119/98 (105) 100 10/21/18 02:00 100 14 93/50 (64) 100 10/21/18 02:00 60/36 10/21/18 01:30 100 20 98/40 (59) 100 10/21/18 01:00 100/50 10/21/18 01:00 98.5 98 16 100/50 (67) 100 10/21/18 00:30 89 20 96/45 (62) 100 10/21/18 00:00 86/36 10/21/18 00:00 3.0 10/21/18 00:00 102 18 86/36 (53) 100 10/20/18 23:30 100 14 104/60 (75) 100 10/20/18 23:00 100 14 118/78 (91) 100 10/20/18 23:00 117/76 10/20/18 22:30 94 14 84/49 (61) 100 10/20/18 22:00 60/34 10/20/18 22:00 90 14 64/39 (47) 100 10/20/18 21:30 94 14 125/61 (82) 100 10/20/18 21:00 117/56 10/20/18 21:00 92 20 96/58 (71) 100 10/20/18 20:00 99.2 84 18 100/51 (67) 100 10/20/18 20:00 100/51 10/20/18 20:00 3.0 10/20/18 20:00 88 10/20/18 19:00 108 14 93/50 (64) 10/20/18 19:00 110/50 10/20/18 18:00 122/47 10/20/18 18:00 92 17 10/20/18 17:42 102/66 10/20/18 17:00 128/67 10/20/18 17:00 108 14 128/67 (87) 10/20/18 16:00 98.6 108 16 147/80 (102) 10/20/18 16:00 113 10/20/18 16:00 104/47 10/20/18 15:00 109/54 10/20/18 14:00 104 14 90/61 (71) 10/20/18 13:00 112 19 120/99 (106) Intake and Output 10/20/18 10/21/18 19:00 07:00 Intake Total 888.702 ml 1936.949 ml Output Total 460 ml 400 ml Balance 428.702 ml 1536.949 ml IV Total 888.702 ml 1936.949 ml Output Urine Total 460 ml 400 ml # Bowel Movements 2 Laboratory Tests 10/20/18 19:30: White Blood Count 17.3H, Red Blood Count 3.20L, Hemoglobin 9.0L, Hematocrit 26.9L, Mean Corpuscular Volume 84, Mean Corpuscular Hemoglobin 28.2, Mean Corpuscular Hemoglobin Concent 33.5, Red Cell Distribution Width 12.8, Platelet Count 186, Mean Platelet Volume 9.3, Neutrophils (%) (Auto) , Lymphocytes (%) ( Auto) , Monocytes (%) (Auto) , Eosinophils (%) (Auto) , Basophils (%) (Auto) , Differential Total Cells Counted 100, Neutrophils % (Manual) 85H, Lymphocytes % (Manual) 10L, Monocytes % (Manual) 4, Eosinophils % (Manual) 1, Basophils % ( Manual) 0, Band Neutrophils 0, Platelet Estimate Adequate, Platelet Morphology Normal, Red Blood Cell Morphology Normal, Hypochromasia 1+, Prothrombin Time 11.4, Prothromb Time International Ratio 1.1, Activated Partial Thromboplast Time 28, Sodium Level 139, Potassium Level 3.8, Chloride Level 106, Carbon Dioxide Level 19L, Anion Gap 14, Blood Urea Nitrogen 44H, Creatinine 2.1H, Estimat Glomerular Filtration Rate 28.2, Glucose Level 111H, Calcium Level 9.0 10/21/18 03:40: White Blood Count 16.0H, Red Blood Count 2.98L, Hemoglobin 8.6L, Hematocrit 25.2L, Mean Corpuscular Volume 85, Mean Corpuscular Hemoglobin 28.9, Mean Corpuscular Hemoglobin Concent 34.2, Red Cell Distribution Width 13.0, Platelet Count 184, Mean Platelet Volume 8.8, Neutrophils (%) (Auto) , Lymphocytes (%) ( Auto) , Monocytes (%) (Auto) , Eosinophils (%) (Auto) , Basophils (%) (Auto) , Differential Total Cells Counted 100, Neutrophils % (Manual) 85H, Lymphocytes % (Manual) 9L, Monocytes % (Manual) 5, Eosinophils % (Manual) 0, Basophils % ( Manual) 0, Band Neutrophils 1, Platelet Estimate Adequate, Platelet Morphology Normal, Hypochromasia 1+, Sodium Level 139, Potassium Level 3.7, Chloride Level 105, Carbon Dioxide Level 21, Anion Gap 13, Blood Urea Nitrogen 42H, Creatinine 2.1H, Estimat Glomerular Filtration Rate 28.2, Glucose Level 131H, Calcium Level 9.0, Total Bilirubin 0.4, Aspartate Amino Transf (AST/SGOT) 660H, Alanine Aminotransferase (ALT/SGPT) 1070H, Alkaline Phosphatase 58, Total Creatine Kinase 123, Total Protein 7.0, Albumin 2.3L, Globulin 4.7, Albumin/Globulin Ratio 0.5L, Hepatitis A IgM Antibody [Pending], Hepatitis B Surface Antigen [ Pending], Hepatitis B Core IgM Antibody [Pending], Hepatitis C Antibody [Pending ] 10/21/18 08:00: White Blood Count 12.6H, Red Blood Count 2.80L, Hemoglobin 7.9L, Hematocrit 23.6L, Mean Corpuscular Volume 84, Mean Corpuscular Hemoglobin 28.2, Mean Corpuscular Hemoglobin Concent 33.4, Red Cell Distribution Width 13.0, Platelet Count 174, Mean Platelet Volume 8.5, Neutrophils (%) (Auto) , Lymphocytes (%) ( Auto) , Monocytes (%) (Auto) , Eosinophils (%) (Auto) , Basophils (%) (Auto) , Differential Total Cells Counted 100, Neutrophils % (Manual) 83H, Lymphocytes % (Manual) 11L, Monocytes % (Manual) 4, Eosinophils % (Manual) 1, Basophils % ( Manual) 0, Band Neutrophils 1, Platelet Estimate Adequate, Platelet Morphology Normal, Hypochromasia 1+, Sodium Level 140, Potassium Level 3.5, Chloride Level 108H, Carbon Dioxide Level 19L, Anion Gap 13, Blood Urea Nitrogen 42H, Creatinine 2.0H, Estimat Glomerular Filtration Rate 29.8, Glucose Level 118H, Calcium Level 8.9, Magnesium Level 1.8, Lipase 64L 10/21/18 09:25: Arterial Blood pH 7.351, Arterial Blood Partial Pressure CO2 32.3L, Arterial Blood Partial Pressure O2 114.2H, Arterial Blood HCO3 17.5*L, Arterial Blood Oxygen Saturation 97.6, Arterial Blood Base Excess -7.3L, Johnie Test Positive Height (Feet): 5 Height (Inches): 10.00 Weight (Pounds): 251 Cardiovascular: normal rate Respiratory/Chest: lungs clear Extremities: trace edema Oliverio Yanez MD Oct 21, 2018 12:04
--- NOTE | 2018-10-21 14:44 | General Progress Note ---
Assessment/Plan Problem List: (1) Altered mental status ICD Codes: R41.82 - Altered mental status, unspecified SNOMED: 861068640 (2) Primary hyperparathyroidism ICD Codes: E21.0 - Primary hyperparathyroidism SNOMED: 63181408 (3) Cardiomyopathy ICD Codes: I42.9 - Cardiomyopathy, unspecified SNOMED: 07047278 (4) ARF (acute renal failure) ICD Codes: N17.9 - Acute kidney failure, unspecified SNOMED: 25297370 Qualifiers: Qualified Codes: N17.9 - Acute kidney failure, unspecified (5) DM (diabetes mellitus) ICD Codes: E11.9 - Type 2 diabetes mellitus without complications SNOMED: 11829157 (6) Encephalopathy ICD Codes: G93.40 - Encephalopathy, unspecified SNOMED: 10704761, 727738346 (7) UTI (urinary tract infection) ICD Codes: N39.0 - Urinary tract infection, site not specified SNOMED: 92816061 Assessment/Plan serum Ca remained stable BG values well controlled on SSI Subjective ROS Limited/Unobtainable: Yes Allergies: Coded Allergies: SULFA (SULFONAMIDE ANTIBIOTICS) (Verified Allergy, Unknown, 11/28/17) Pt states she is allergic to sulfa Subjective events noted Objective Last 24 Hour Vital Signs Date Time Temp Pulse Resp B/P (MAP) Pulse Ox O2 Delivery O2 Flow Rate FiO2 10/21/18 14:00 97 17 127/91 (103) 100 10/21/18 13:00 93 20 136/70 (92) 100 10/21/18 12:00 91 10/21/18 12:00 98.6 90 15 117/68 (84) 100 10/21/18 11:00 154/76 10/21/18 11:00 97 20 154/76 (102) 100 10/21/18 10:00 98/70 10/21/18 10:00 99 17 95/70 (78) 100 10/21/18 09:45 128/83 10/21/18 09:00 92 15 95/60 (72) 100 10/21/18 08:00 98.6 79 15 102/87 (92) 100 10/21/18 08:00 98 10/21/18 07:00 92 18 123/65 (84) 100 10/21/18 07:00 123/65 10/21/18 06:30 88 14 112/68 (83) 100 10/21/18 06:00 94 14 121/70 (87) 100 10/21/18 06:00 121/70 10/21/18 05:30 98 16 135/75 (95) 100 10/21/18 05:00 82 19 126/66 (86) 100 10/21/18 05:00 126/66 10/21/18 04:30 99 21 110/58 (75) 100 10/21/18 04:00 99.2 79 21 126/79 (95) 100 10/21/18 04:00 3.0 10/21/18 04:00 136/86 10/21/18 04:00 101 10/21/18 03:30 101 21 136/68 (90) 100 10/21/18 03:00 111 17 112/98 (103) 100 10/21/18 03:00 112/98 10/21/18 02:46 94/55 10/21/18 02:30 98 16 119/98 (105) 100 10/21/18 02:00 100 14 93/50 (64) 100 10/21/18 02:00 60/36 10/21/18 01:30 100 20 98/40 (59) 100 10/21/18 01:00 100/50 10/21/18 01:00 98.5 98 16 100/50 (67) 100 10/21/18 00:30 89 20 96/45 (62) 100 10/21/18 00:00 86/36 10/21/18 00:00 3.0 10/21/18 00:00 102 18 86/36 (53) 100 10/20/18 23:30 100 14 104/60 (75) 100 10/20/18 23:00 100 14 118/78 (91) 100 10/20/18 23:00 117/76 10/20/18 22:30 94 14 84/49 (61) 100 10/20/18 22:00 60/34 10/20/18 22:00 90 14 64/39 (47) 100 10/20/18 21:30 94 14 125/61 (82) 100 10/20/18 21:00 117/56 10/20/18 21:00 92 20 96/58 (71) 100 10/20/18 20:00 99.2 84 18 100/51 (67) 100 10/20/18 20:00 100/51 10/20/18 20:00 3.0 10/20/18 20:00 88 10/20/18 19:00 108 14 93/50 (64) 10/20/18 19:00 110/50 10/20/18 18:00 122/47 18 18:00 92 17 10/20/18 17:42 102/66 10/20/18 17:00 128/67 10/20/18 17:00 108 14 128/67 (87) 10/20/18 16:00 98.6 108 16 147/80 (102) 10/20/18 16:00 113 10/20/18 16:00 104/47 10/20/18 15:00 109/54 Intake and Output 10/20/18 10/21/18 19:00 07:00 Intake Total 888.702 ml 1936.949 ml Output Total 460 ml 400 ml Balance 428.702 ml 1536.949 ml IV Total 888.702 ml 1936.949 ml Output Urine Total 460 ml 400 ml # Bowel Movements 2 Laboratory Tests 10/20/18 19:30: White Blood Count 17.3H, Red Blood Count 3.20L, Hemoglobin 9.0L, Hematocrit 26.9L, Mean Corpuscular Volume 84, Mean Corpuscular Hemoglobin 28.2, Mean Corpuscular Hemoglobin Concent 33.5, Red Cell Distribution Width 12.8, Platelet Count 186, Mean Platelet Volume 9.3, Neutrophils (%) (Auto) , Lymphocytes (%) ( Auto) , Monocytes (%) (Auto) , Eosinophils (%) (Auto) , Basophils (%) (Auto) , Differential Total Cells Counted 100, Neutrophils % (Manual) 85H, Lymphocytes % (Manual) 10L, Monocytes % (Manual) 4, Eosinophils % (Manual) 1, Basophils % ( Manual) 0, Band Neutrophils 0, Platelet Estimate Adequate, Platelet Morphology Normal, Red Blood Cell Morphology Normal, Hypochromasia 1+, Prothrombin Time 11.4, Prothromb Time International Ratio 1.1, Activated Partial Thromboplast Time 28, Sodium Level 139, Potassium Level 3.8, Chloride Level 106, Carbon Dioxide Level 19L, Anion Gap 14, Blood Urea Nitrogen 44H, Creatinine 2.1H, Estimat Glomerular Filtration Rate 28.2, Glucose Level 111H, Calcium Level 9.0 10/21/18 03:40: White Blood Count 16.0H, Red Blood Count 2.98L, Hemoglobin 8.6L, Hematocrit 25.2L, Mean Corpuscular Volume 85, Mean Corpuscular Hemoglobin 28.9, Mean Corpuscular Hemoglobin Concent 34.2, Red Cell Distribution Width 13.0, Platelet Count 184, Mean Platelet Volume 8.8, Neutrophils (%) (Auto) , Lymphocytes (%) ( Auto) , Monocytes (%) (Auto) , Eosinophils (%) (Auto) , Basophils (%) (Auto) , Differential Total Cells Counted 100, Neutrophils % (Manual) 85H, Lymphocytes % (Manual) 9L, Monocytes % (Manual) 5, Eosinophils % (Manual) 0, Basophils % ( Manual) 0, Band Neutrophils 1, Platelet Estimate Adequate, Platelet Morphology Normal, Hypochromasia 1+, Sodium Level 139, Potassium Level 3.7, Chloride Level 105, Carbon Dioxide Level 21, Anion Gap 13, Blood Urea Nitrogen 42H, Creatinine 2.1H, Estimat Glomerular Filtration Rate 28.2, Glucose Level 131H, Calcium Level 9.0, Total Bilirubin 0.4, Aspartate Amino Transf (AST/SGOT) 660H, Alanine Aminotransferase (ALT/SGPT) 1070H, Alkaline Phosphatase 58, Total Creatine Kinase 123, Total Protein 7.0, Albumin 2.3L, Globulin 4.7, Albumin/Globulin Ratio 0.5L, Hepatitis A IgM Antibody [Pending], Hepatitis B Surface Antigen [ Pending], Hepatitis B Core IgM Antibody [Pending], Hepatitis C Antibody [Pending ] 10/21/18 08:00: White Blood Count 12.6H, Red Blood Count 2.80L, Hemoglobin 7.9L, Hematocrit 23.6L, Mean Corpuscular Volume 84, Mean Corpuscular Hemoglobin 28.2, Mean Corpuscular Hemoglobin Concent 33.4, Red Cell Distribution Width 13.0, Platelet Count 174, Mean Platelet Volume 8.5, Neutrophils (%) (Auto) , Lymphocytes (%) ( Auto) , Monocytes (%) (Auto) , Eosinophils (%) (Auto) , Basophils (%) (Auto) , Differential Total Cells Counted 100, Neutrophils % (Manual) 83H, Lymphocytes % (Manual) 11L, Monocytes % (Manual) 4, Eosinophils % (Manual) 1, Basophils % ( Manual) 0, Band Neutrophils 1, Platelet Estimate Adequate, Platelet Morphology Normal, Hypochromasia 1+, Sodium Level 140, Potassium Level 3.5, Chloride Level 108H, Carbon Dioxide Level 19L, Anion Gap 13, Blood Urea Nitrogen 42H, Creatinine 2.0H, Estimat Glomerular Filtration Rate 29.8, Glucose Level 118H, Calcium Level 8.9, Magnesium Level 1.8, Lipase 64L 10/21/18 09:25: Arterial Blood pH 7.351, Arterial Blood Partial Pressure CO2 32.3L, Arterial Blood Partial Pressure O2 114.2H, Arterial Blood HCO3 17.5*L, Arterial Blood Oxygen Saturation 97.6, Arterial Blood Base Excess -7.3L, Johnie Test Positive Height (Feet): 5 Height (Inches): 10.00 Weight (Pounds): 251 General Appearance: lethargic Neck: normal alignment Cardiovascular: normal rate Respiratory/Chest: lungs clear Abdomen: normal bowel sounds Pelvis: normal external exam Edema: 1+ Arm (L), 1+ Arm (R), 1+ Leg (L), 1+ Leg (R), 1+ Pedal (L), 1+ Pedal ( R), 1+ Generalized Objective Current Medications Medications (Trade) Dose Ordered Sig/Barrett Route PRN Reason Start Time Stop Time Status Last Admin Dose Admin Acetaminophen (Tylenol) 650 mg Q4H PRN ORAL Mild Pain (Pain Scale 1-3) 10/19/18 16:36 11/12/18 16:35 Chlorhexidine Gluconate (Marely-Hex 2%) 1 applic DAILY@1999 TOPIC 10/19/18 20:00 11/18/18 19:59 10/20/18 20:16 Dextrose (Dextrose 50%) 25 ml Q30M PRN IV Hypoglycemia 10/19/18 17:00 11/18/18 12:29 Dextrose (Dextrose 50%) 50 ml Q30M PRN IV Hypoglycemia 10/19/18 16:36 11/18/18 16:35 Dopamine HCl/ Dextrose 250 ml @ 0 mls/hr Q24H IV 10/19/18 18:45 11/18/18 18:44 10/21/18 09:45 Insulin Aspart (NovoLOG) BEFORE MEALS AND HS SUBQ 10/19/18 21:00 11/18/18 16:29 10/19/18 21:09 Lidocaine HCl (Xylocaine 1% 30ml) 30 ml NOW PRN INJ Radiology Procedure 10/20/18 11:30 10/23/18 11:22 Lorazepam (Ativan 2mg/ml 1ml) 0.25 mg BIDPRN PRN IV For Anxiety 10/21/18 11:00 10/28/18 10:59 10/21/18 11:21 Morphine Sulfate (Morphine Sulfate) 2 mg Q3H PRN IVP Moderate Pain (Pain Scale 4-6) 10/19/18 16:37 10/26/18 16:36 10/20/18 20:18 Morphine Sulfate (Morphine Sulfate) 4 mg Q3H PRN IVP SEVERE PAIN 10/19/18 17:54 10/26/18 17:53 Ondansetron HCl (Zofran) 4 mg Q6H PRN IVP Nausea & Vomiting 10/19/18 16:37 11/12/18 16:36 10/20/18 20:18 Pantoprazole (Protonix) 40 mg DAILY IVP 10/20/18 14:45 11/19/18 14:44 10/21/18 08:58 Piperacillin Sod/ Tazobactam Sod 3.375 gm/Dextrose 110 ml @ 27.5 mls/hr EVERY 12 HOURS IVPB 10/20/18 14:00 10/25/18 13:59 10/21/18 08:57 Polyethylene Glycol (Miralax) 17 gm DAILYPRN PRN ORAL Constipation 10/19/18 16:37 11/18/18 16:36 Sodium Chloride 1,000 ml @ 100 mls/hr Q10H IV 10/20/18 08:45 11/19/18 08:44 10/21/18 05:00 Zolpidem Tartrate (Ambien) 5 mg DAILYPRN PRN ORAL Insomnia 10/19/18 16:37 10/26/18 16:36 Item Value Date Time Bedside Blood Glucose 109 mg/dl 10/21/18 1130 Bedside Blood Glucose 108 mg/dl 10/21/18 0630 Bedside Blood Glucose 105 mg/dl 10/20/18 2100 Bedside Blood Glucose 99 mg/dl 10/20/18 1630 Bedside Blood Glucose 99 mg/dl 10/20/18 1130 Dejan Villagran MD Oct 21, 2018 14:44
--- NOTE | 2018-10-21 16:06 | Cardiology Progress Note ---
Assessment/Plan Assessment/Plan 1.dehydration 2. Toxic metabolic encephlopathy . 3. History of hypertrophic nonobstructive cardiomyopathy. 4. Family history of sudden cardiac . 5. History of intracardiac defibrillator implantation, [employer] device previously. 6. acute renal failure 7. Abnormal perfusion with normal cardiac catheterization previously. 8. Hypercalcemia. 9. Alteration of mentation. 10. Azotemia 11. afib hx 12. bactermia ? contaminent 13. UTI 14. DVT 15. hypotenison 16. anemia 17. shock liver 18. retroperitoneal bleeding off heparin due to anemia now s/p 4 unit of prbc ivf already tele sinus vpaced pac pvc icd older model unlikely mri compatible s/p iv hydration abx id following critically ill at risk but better than yest ct noted watch for hemodynamic changes agin venous duplex ekg personally reviewed d/w rn repeat trop going for ivc filter Subjective Cardiovascular: Denies: chest pain, lightheadedness Respiratory: Denies: shortness of breath Gastrointestinal/Abdominal: Denies: abdominal pain Genitourinary: Denies: no symptoms Objective Last 24 Hour Vital Signs Date Time Temp Pulse Resp B/P (MAP) Pulse Ox O2 Delivery O2 Flow Rate FiO2 10/21/18 14:00 97 17 127/91 (103) 100 10/21/18 13:00 93 20 136/70 (92) 100 10/21/18 12:00 91 10/21/18 12:00 98.6 90 15 117/68 (84) 100 10/21/18 11:00 154/76 10/21/18 11:00 97 20 154/76 (102) 100 10/21/18 10:00 98/70 10/21/18 10:00 99 17 95/70 (78) 100 10/21/18 09:45 128/83 10/21/18 09:00 92 15 95/60 (72) 100 10/21/18 08:00 98.6 79 15 102/87 (92) 100 10/21/18 08:00 98 10/21/18 07:00 92 18 123/65 (84) 100 10/21/18 07:00 123/65 10/21/18 06:30 88 14 112/68 (83) 100 10/21/18 06:00 94 14 121/70 (87) 100 10/21/18 06:00 121/70 10/21/18 05:30 98 16 135/75 (95) 100 10/21/18 05:00 82 19 126/66 (86) 100 10/21/18 05:00 126/66 10/21/18 04:30 99 21 110/58 (75) 100 10/21/18 04:00 99.2 79 21 126/79 (95) 100 10/21/18 04:00 3.0 10/21/18 04:00 136/86 10/21/18 04:00 101 10/21/18 03:30 101 21 136/68 (90) 100 10/21/18 03:00 111 17 112/98 (103) 100 10/21/18 03:00 112/98 10/21/18 02:46 94/55 10/21/18 02:30 98 16 119/98 (105) 100 10/21/18 02:00 100 14 93/50 (64) 100 10/21/18 02:00 60/36 10/21/18 01:30 100 20 98/40 (59) 100 10/21/18 01:00 100/50 10/21/18 01:00 98.5 98 16 100/50 (67) 100 10/21/18 00:30 89 20 96/45 (62) 100 10/21/18 00:00 86/36 10/21/18 00:00 3.0 10/21/18 00:00 102 18 86/36 (53) 100 10/20/18 23:30 100 14 104/60 (75) 100 10/20/18 23:00 100 14 118/78 (91) 100 10/20/18 23:00 117/76 10/20/18 22:30 94 14 84/49 (61) 100 10/20/18 22:00 60/34 10/20/18 22:00 90 14 64/39 (47) 100 10/20/18 21:30 94 14 125/61 (82) 100 10/20/18 21:00 117/56 10/20/18 21:00 92 20 96/58 (71) 100 10/20/18 20:00 99.2 84 18 100/51 (67) 100 10/20/18 20:00 100/51 10/20/18 20:00 3.0 10/20/18 20:00 88 10/20/18 19:00 108 14 93/50 (64) 10/20/18 19:00 110/50 10/20/18 18:00 122/47 10/20/18 18:00 92 17 10/20/18 17:42 102/66 10/20/18 17:00 128/67 10/20/18 17:00 108 14 128/67 (87) General Appearance: alert Neck: supple Cardiovascular: normal rate Respiratory/Chest: lungs clear, normal breath sounds Abdomen: normal bowel sounds, non tender, soft Extremities: moderate edema Intake and Output 10/20/18 10/21/18 19:00 07:00 Intake Total 888.702 ml 1936.949 ml Output Total 460 ml 400 ml Balance 428.702 ml 1536.949 ml IV Total 888.702 ml 1936.949 ml Output Urine Total 460 ml 400 ml # Bowel Movements 2 Laboratory Tests Test 10/20/18 19:30 10/21/18 03:40 10/21/18 08:00 10/21/18 09:25 White Blood Count 17.3 K/UL (4.8-10.8) H 16.0 K/UL (4.8-10.8) H 12.6 K/UL (4.8-10.8) H Red Blood Count 3.20 M/UL (4.20-5.40) L 2.98 M/UL (4.20-5.40) L 2.80 M/UL (4.20-5.40) L Hemoglobin 9.0 G/DL (12.0-16.0) L 8.6 G/DL (12.0-16.0) L 7.9 G/DL (12.0-16.0) L Hematocrit 26.9 % (37.0-47.0) L 25.2 % (37.0-47.0) L 23.6 % (37.0-47.0) L Mean Corpuscular Volume 84 FL (80-99) 85 FL (80-99) 84 FL (80-99) Mean Corpuscular Hemoglobin 28.2 PG (27.0-31.0) 28.9 PG (27.0-31.0) 28.2 PG (27.0-31.0) Mean Corpuscular Hemoglobin Concent 33.5 G/DL (32.0-36.0) 34.2 G/DL (32.0-36.0) 33.4 G/DL (32.0-36.0) Red Cell Distribution Width 12.8 % (11.6-14.8) 13.0 % (11.6-14.8) 13.0 % (11.6-14.8) Platelet Count 186 K/UL (150-450) 184 K/UL (150-450) 174 K/UL (150-450) Mean Platelet Volume 9.3 FL (6.5-10.1) 8.8 FL (6.5-10.1) 8.5 FL (6.5-10.1) Neutrophils (%) (Auto) % (45.0-75.0) % (45.0-75.0) % (45.0-75.0) Lymphocytes (%) (Auto) % (20.0-45.0) % (20.0-45.0) % (20.0-45.0) Monocytes (%) (Auto) % (1.0-10.0) % (1.0-10.0) % (1.0-10.0) Eosinophils (%) (Auto) % (0.0-3.0) % (0.0-3.0) % (0.0-3.0) Basophils (%) (Auto) % (0.0-2.0) % (0.0-2.0) % (0.0-2.0) Differential Total Cells Counted 100 100 100 Neutrophils % (Manual) 85 % (45-75) H 85 % (45-75) H 83 % (45-75) H Lymphocytes % (Manual) 10 % (20-45) L 9 % (20-45) L 11 % (20-45) L Monocytes % (Manual) 4 % (1-10) 5 % (1-10) 4 % (1-10) Eosinophils % (Manual) 1 % (0-3) 0 % (0-3) 1 % (0-3) Basophils % (Manual) 0 % (0-2) 0 % (0-2) 0 % (0-2) Band Neutrophils 0 % (0-8) 1 % (0-8) 1 % (0-8) Platelet Estimate Adequate Adequate Adequate Platelet Morphology Normal Normal Normal Red Blood Cell Morphology Normal Hypochromasia 1+ 1+ 1+ Prothrombin Time 11.4 SEC (9.30-11.50) Prothromb Time International Ratio 1.1 (0.9-1.1) Activated Partial Thromboplast Time 28 SEC (23-33) Sodium Level 139 MMOL/L (136-145) 139 MMOL/L (136-145) 140 MMOL/L (136-145) Potassium Level 3.8 MMOL/L (3.5-5.1) 3.7 MMOL/L (3.5-5.1) 3.5 MMOL/L (3.5-5.1) Chloride Level 106 MMOL/L (98-107) 105 MMOL/L (98-107) 108 MMOL/L (98-107) H Carbon Dioxide Level 19 MMOL/L (21-32) L 21 MMOL/L (21-32) 19 MMOL/L (21-32) L Anion Gap 14 mmol/L (5-15) 13 mmol/L (5-15) 13 mmol/L (5-15) Blood Urea Nitrogen 44 mg/dL (7-18) H 42 mg/dL (7-18) H 42 mg/dL (7-18) H Creatinine 2.1 MG/DL (0.55-1.30) H 2.1 MG/DL (0.55-1.30) H 2.0 MG/DL (0.55-1.30) H Estimat Glomerular Filtration Rate 28.2 mL/min (>60) 28.2 mL/min (>60) 29.8 mL/min (>60) Glucose Level 111 MG/DL (74-106) H 131 MG/DL (74-106) H 118 MG/DL (74-106) H Calcium Level 9.0 MG/DL (8.5-10.1) 9.0 MG/DL (8.5-10.1) 8.9 MG/DL (8.5-10.1) Total Bilirubin 0.4 MG/DL (0.2-1.0) Aspartate Amino Transf (AST/SGOT) 660 U/L (15-37) H Alanine Aminotransferase (ALT/SGPT) 1070 U/L (12-78) H Alkaline Phosphatase 58 U/L (46-116) Total Creatine Kinase 123 U/L (26-308) Total Protein 7.0 G/DL (6.4-8.2) Albumin 2.3 G/DL (3.4-5.0) L Globulin 4.7 g/dL Albumin/Globulin Ratio 0.5 (1.0-2.7) L Hepatitis A IgM Antibody Pending Hepatitis B Surface Antigen Pending Hepatitis B Core IgM Antibody Pending Hepatitis C Antibody Pending Magnesium Level 1.8 MG/DL (1.8-2.4) Lipase 64 U/L (73-393) L Arterial Blood pH 7.351 (7.350-7.450) Arterial Blood Partial Pressure CO2 32.3 mmHg (35.0-45.0) L Arterial Blood Partial Pressure O2 114.2 mmHg (75.0-100.0) H Arterial Blood HCO3 17.5 mmol/L (22.0-26.0) *L Arterial Blood Oxygen Saturation 97.6 % (95-100) Arterial Blood Base Excess -7.3 (-2-2) L Johnie Test Positive Microbiology Date/Time Source Procedure Growth Status 10/20/18 03:00 Stool Clostridium difficile Toxin Assay - Final Complete Vernon Darden MD Oct 21, 2018 16:06
--- NOTE | 2018-10-21 16:15 | Diagnostic Imaging Report ---
Clinical Indication:Right wrist pain Technique: 3 views of the right wrist Comparison: None Findings: There is ulnar minus variance. There is decreased distance between the proximal and distal carpal rows, possibly indicating chronic ligamentous instability. Bones are osteoporotic. No definite acute fractures. No dislocations. There are degenerative changes of the lateral intercarpal joint and first carpometacarpal joint. Impression: No definite acute bony trauma Fairly extensive degenerative changes, as described Osteoporosis
--- NOTE | 2018-10-21 16:56 | Diagnostic Imaging Report ---
Indication: Pain Technique: 3 views right hand Comparison: none Findings: The bones are osteoporotic. There is degenerative narrowing of the second third and fourth distal interphalangeal joints and of the third metacarpophalangeal joint. A sclerotic focus is seen in the head of the third middle phalanx. There are also degenerative changes of the wrist. There is ulnar minus variance. No definite acute fractures. No dislocations. Impression: Osteoporosis Degenerative changes, as described No definite acute bony trauma
[2018-10-21] MEDS: Dyna-Hex 2% Top Sol 2oz TOPIC SCH (20:00)
--- NOTE | 2018-10-21 20:00 | Neurology Progress Note ---
Interim History Interim History Interim History Ms. Allen feels better today. Her right wrist is painful. Her blood pressures are better. She is awake and more alert. She continues to be cognitively impoverished. She is still significantly disoriented. Her memory is still poor. She continues to be generally weak. She is still oblivious as to why she has been hospitalized. She denies any new neurologic symptoms. Review of Systems Neuro Review of Systems Benign. Objective Physical Exam Last Vital Signs Date Time Temp Pulse Resp B/P (MAP) Pulse Ox O2 Delivery O2 Flow Rate FiO2 10/21/18 19:00 116 21 141/78 (99) 99 10/21/18 16:00 98.2 10/21/18 09:00 Nasal Cannula 3.0 32 Laboratory Tests Test 10/21/18 03:40 10/21/18 08:00 10/21/18 09:25 White Blood Count 16.0 K/UL (4.8-10.8) H 12.6 K/UL (4.8-10.8) H Red Blood Count 2.98 M/UL (4.20-5.40) L 2.80 M/UL (4.20-5.40) L Hemoglobin 8.6 G/DL (12.0-16.0) L 7.9 G/DL (12.0-16.0) L Hematocrit 25.2 % (37.0-47.0) L 23.6 % (37.0-47.0) L Mean Corpuscular Volume 85 FL (80-99) 84 FL (80-99) Mean Corpuscular Hemoglobin 28.9 PG (27.0-31.0) 28.2 PG (27.0-31.0) Mean Corpuscular Hemoglobin Concent 34.2 G/DL (32.0-36.0) 33.4 G/DL (32.0-36.0) Red Cell Distribution Width 13.0 % (11.6-14.8) 13.0 % (11.6-14.8) Platelet Count 184 K/UL (150-450) 174 K/UL (150-450) Mean Platelet Volume 8.8 FL (6.5-10.1) 8.5 FL (6.5-10.1) Neutrophils (%) (Auto) % (45.0-75.0) % (45.0-75.0) Lymphocytes (%) (Auto) % (20.0-45.0) % (20.0-45.0) Monocytes (%) (Auto) % (1.0-10.0) % (1.0-10.0) Eosinophils (%) (Auto) % (0.0-3.0) % (0.0-3.0) Basophils (%) (Auto) % (0.0-2.0) % (0.0-2.0) Differential Total Cells Counted 100 100 Neutrophils % (Manual) 85 % (45-75) H 83 % (45-75) H Lymphocytes % (Manual) 9 % (20-45) L 11 % (20-45) L Monocytes % (Manual) 5 % (1-10) 4 % (1-10) Eosinophils % (Manual) 0 % (0-3) 1 % (0-3) Basophils % (Manual) 0 % (0-2) 0 % (0-2) Band Neutrophils 1 % (0-8) 1 % (0-8) Platelet Estimate Adequate Adequate Platelet Morphology Normal Normal Hypochromasia 1+ 1+ Sodium Level 139 MMOL/L (136-145) 140 MMOL/L (136-145) Potassium Level 3.7 MMOL/L (3.5-5.1) 3.5 MMOL/L (3.5-5.1) Chloride Level 105 MMOL/L (98-107) 108 MMOL/L (98-107) H Carbon Dioxide Level 21 MMOL/L (21-32) 19 MMOL/L (21-32) L Anion Gap 13 mmol/L (5-15) 13 mmol/L (5-15) Blood Urea Nitrogen 42 mg/dL (7-18) H 42 mg/dL (7-18) H Creatinine 2.1 MG/DL (0.55-1.30) H 2.0 MG/DL (0.55-1.30) H Estimat Glomerular Filtration Rate 28.2 mL/min (>60) 29.8 mL/min (>60) Glucose Level 131 MG/DL (74-106) H 118 MG/DL (74-106) H Calcium Level 9.0 MG/DL (8.5-10.1) 8.9 MG/DL (8.5-10.1) Total Bilirubin 0.4 MG/DL (0.2-1.0) Aspartate Amino Transf (AST/SGOT) 660 U/L (15-37) H Alanine Aminotransferase (ALT/SGPT) 1070 U/L (12-78) H Alkaline Phosphatase 58 U/L (46-116) Total Creatine Kinase 123 U/L (26-308) Total Protein 7.0 G/DL (6.4-8.2) Albumin 2.3 G/DL (3.4-5.0) L Globulin 4.7 g/dL Albumin/Globulin Ratio 0.5 (1.0-2.7) L Hepatitis A IgM Antibody Pending Hepatitis B Surface Antigen Pending Hepatitis B Core IgM Antibody Pending Hepatitis C Antibody Pending Magnesium Level 1.8 MG/DL (1.8-2.4) Lipase 64 U/L (73-393) L Arterial Blood pH 7.351 (7.350-7.450) Arterial Blood Partial Pressure CO2 32.3 mmHg (35.0-45.0) L Arterial Blood Partial Pressure O2 114.2 mmHg (75.0-100.0) H Arterial Blood HCO3 17.5 mmol/L (22.0-26.0) *L Arterial Blood Oxygen Saturation 97.6 % (95-100) Arterial Blood Base Excess -7.3 (-2-2) L Johnie Test Positive Neurologic Exam Objective PHYSICAL EXAMINATION: GENERAL: She is a well-developed, well-nourished, obese, black lady, lying in bed, in no acute distress. HEAD: Normocephalic and atraumatic. EENT: Examination benign except for bilateral chemosis. NECK: No neck rigidity was observed. NEUROLOGICAL EXAMINATION: MENTAL STATUS EXAMINATION: She was awake and more alert. She was oriented to self only. She had no idea of where she was or what the date was. She was able to recall 3/3 words immediately but could only remember 1/3 in 1 and 3 minutes. She was unable to tell me who the present or prior Presidents are. She was unable to cooperate for further mental status testing. SPEECH: She had a mild dysarthria. LANGUAGE: She had a mild anomia. CRANIAL NERVE EXAMINATION: II: She was able to count fingers. III, IV & : The external ocular movements were full but she did have a dysconjugate gaze. The pupils were 3 mm in diameter, equal, round, regular, and reactive sluggishly to light. V & VII: The corneal reflexes were equally brisk. VIII: She did respond to sounds and had no nystagmus. IX & X: The gag reflex was not tested XI: The sternocleidomastoids and trapezii did function. XII: The tongue was in the midline without any fasciculations or atrophy. MOTOR SYSTEM: The tone was normal in all four extremities. Examination of muscle mass revealed no focal wasting. Examination of power was impossible to perform because the effort was poor. She was generally weak - more so in the lower than upper extremities. In addition movements in the right wrist were limited by pain. SENSORY EXAMINATION: She responded appropriately to light touch. Other sensory modalities could not be tested. REFLEXES: 0 at the biceps, triceps, brachioradialis, knees, and ankles. The plantar responses were flexor bilaterally. COORDINATION, STANCE & GAIT: Could not be tested. Impression/Recommendations Diagnostic Impression 1. Ms Rafael Allen is a 68-year-old, right-handed, black lady, with a past history of hypertension, diabetes mellitus, renal failure, and cardiac arrhythmia - for which she has a pacemaker implanted, who was hospitalized for a change in mental state and was found to have urinary tract infection. 2. She feels better today. Her right wrist is painful. Her blood pressures are better. She is awake and more alert. She continues to be cognitively impoverished. She is still significantly disoriented. Her memory is still poor. She continues to be generally weak. She is still oblivious as to why she has been hospitalized. She denies any new neurologic symptoms. 3. On neurological examination, at this time, she is oriented to self only. She has significant problems with recent and remote memory. She also exhibits a mild dysarthria and an anomia, a quadriparesis - involving the lower extremities more than the upper extremities, and globally absent deep tendon reflexes. 4. The CT scan of the brain without contrast reveals atrophy and deep white matter changes, but no acute pathology. 5. Laboratory data on my initial evaluation revealed that she was anemic with a hemoglobin of 10 G. Her chemistry panel revealed that her BUN was elevated to 124, her creatinine was elevated at 2.9, her hemoglobin A1c was elevated at 6.1% , her calcium was elevated at 10.7, her proBNP was elevated at 252, her albumin was low at 3.1, and her TSH was normal at 0.46. Her Urinalysis revealed 3+ leukocyte esterase, 2-4 red blood cells, and too numerous to count white blood cells per high-power field. 6. Further laboratory tests revealed a normal B12, Folate, ESR. 7. The EEG done on 10/15/18 revealed moderate generalized cerebral dysfunction and left > right cerebral dysfunction. 8. The patient's history, neurological examination, and laboratory data are most compatible with an acute encephalopathic process of the toxic metabolic nature. The offending factors were a urinary tract infection, and in addition renal failure. In addition the patient does also have structural brain disease. Recommendations 1. Continue present management. 2. Aggressive treatment of infectious process and hypotension. 3. Increase activity with frequent ROM exercises. 4. Observe closely. Gume Bassett M.D., M.S.P.H. Gume Bassett MD Oct 21, 2018 20:00
--- NOTE | 2018-10-21 21:39 | General Progress Note ---
Assessment/Plan Assessment/Plan hypotension retroperitoneal bleed anemia secondary to bleed uti encephalopathy imprved dehydration renbal failure diabetes htn obesity hypercalcemia hypokalemia acute femoral dvt transfuse additional unit fluids LE dopplers dw Dr Alatorre to get IVC filter today ct scan noted monitor labs sp central line placement abx treatment of hypercaclemia hypokalemia per Dr Yanez, patient has hyper parathyroidism, endo seeing patient vq scan negative improved encephalopathy monitor accucheck decrease dopmine as tolerated dvt and ulcer proplhylaxi Subjective Allergies: Coded Allergies: SULFA (SULFONAMIDE ANTIBIOTICS) (Verified Allergy, Unknown, 11/28/17) Pt states she is allergic to sulfa Subjective more alert denies dopamin requirements decreased Objective Last 24 Hour Vital Signs Date Time Temp Pulse Resp B/P (MAP) Pulse Ox O2 Delivery O2 Flow Rate FiO2 10/21/18 20:00 98.7 101 24 128/68 (88) 99 10/21/18 20:00 92 10/21/18 19:00 116 21 141/78 (99) 99 10/21/18 18:00 101 18 117/79 (92) 99 10/21/18 17:00 97 18 133/76 (95) 99 10/21/18 16:00 103 10/21/18 16:00 98.2 90 16 127/77 (94) 100 10/21/18 15:00 98 11 127/91 (103) 98 10/21/18 14:00 97 17 127/91 (103) 100 10/21/18 13:00 93 20 136/70 (92) 100 10/21/18 12:00 91 10/21/18 12:00 98.6 90 15 117/68 (84) 100 10/21/18 11:00 154/76 10/21/18 11:00 97 20 154/76 (102) 100 10/21/18 10:00 98/70 10/21/18 10:00 99 17 95/70 (78) 100 10/21/18 09:45 128/83 10/21/18 09:00 100 Nasal Cannula 3.0 32 10/21/18 09:00 92 15 95/60 (72) 100 10/21/18 09:00 Nasal Cannula 3.0 32 10/21/18 08:00 98.6 79 15 102/87 (92) 100 10/21/18 08:00 98 10/21/18 07:00 92 18 123/65 (84) 100 10/21/18 07:00 123/65 10/21/18 06:30 88 14 112/68 (83) 100 10/21/18 06:00 94 14 121/70 (87) 100 10/21/18 06:00 121/70 10/21/18 05:30 98 16 135/75 (95) 100 10/21/18 05:00 82 19 126/66 (86) 100 10/21/18 05:00 126/66 10/21/18 04:30 99 21 110/58 (75) 100 10/21/18 04:00 99.2 79 21 126/79 (95) 100 10/21/18 04:00 3.0 10/21/18 04:00 136/86 10/21/18 04:00 101 10/21/18 03:30 101 21 136/68 (90) 100 10/21/18 03:00 111 17 112/98 (103) 100 10/21/18 03:00 112/98 10/21/18 02:46 94/55 10/21/18 02:30 98 16 119/98 (105) 100 10/21/18 02:00 100 14 93/50 (64) 100 10/21/18 02:00 60/36 10/21/18 01:30 100 20 98/40 (59) 100 10/21/18 01:00 100/50 10/21/18 01:00 98.5 98 16 100/50 (67) 100 10/21/18 00:30 89 20 96/45 (62) 100 10/21/18 00:00 86/36 10/21/18 00:00 3.0 10/21/18 00:00 102 18 86/36 (53) 100 10/20/18 23:30 100 14 104/60 (75) 100 10/20/18 23:00 100 14 118/78 (91) 100 10/20/18 23:00 117/76 10/20/18 22:30 94 14 84/49 (61) 100 10/20/18 22:00 60/34 10/20/18 22:00 90 14 64/39 (47) 100 Intake and Output 10/20/18 10/21/18 19:00 07:00 Intake Total 888.702 ml 1936.949 ml Output Total 460 ml 400 ml Balance 428.702 ml 1536.949 ml IV Total 888.702 ml 1936.949 ml Output Urine Total 460 ml 400 ml # Bowel Movements 2 Laboratory Tests 10/21/18 03:40: White Blood Count 16.0H, Red Blood Count 2.98L, Hemoglobin 8.6L, Hematocrit 25.2L, Mean Corpuscular Volume 85, Mean Corpuscular Hemoglobin 28.9, Mean Corpuscular Hemoglobin Concent 34.2, Red Cell Distribution Width 13.0, Platelet Count 184, Mean Platelet Volume 8.8, Neutrophils (%) (Auto) , Lymphocytes (%) ( Auto) , Monocytes (%) (Auto) , Eosinophils (%) (Auto) , Basophils (%) (Auto) , Differential Total Cells Counted 100, Neutrophils % (Manual) 85H, Lymphocytes % (Manual) 9L, Monocytes % (Manual) 5, Eosinophils % (Manual) 0, Basophils % ( Manual) 0, Band Neutrophils 1, Platelet Estimate Adequate, Platelet Morphology Normal, Hypochromasia 1+, Sodium Level 139, Potassium Level 3.7, Chloride Level 105, Carbon Dioxide Level 21, Anion Gap 13, Blood Urea Nitrogen 42H, Creatinine 2.1H, Estimat Glomerular Filtration Rate 28.2, Glucose Level 131H, Calcium Level 9.0, Total Bilirubin 0.4, Aspartate Amino Transf (AST/SGOT) 660H, Alanine Aminotransferase (ALT/SGPT) 1070H, Alkaline Phosphatase 58, Total Creatine Kinase 123, Total Protein 7.0, Albumin 2.3L, Globulin 4.7, Albumin/Globulin Ratio 0.5L, Hepatitis A IgM Antibody [Pending], Hepatitis B Surface Antigen [ Pending], Hepatitis B Core IgM Antibody [Pending], Hepatitis C Antibody [Pending ] 10/21/18 08:00: White Blood Count 12.6H, Red Blood Count 2.80L, Hemoglobin 7.9L, Hematocrit 23.6L, Mean Corpuscular Volume 84, Mean Corpuscular Hemoglobin 28.2, Mean Corpuscular Hemoglobin Concent 33.4, Red Cell Distribution Width 13.0, Platelet Count 174, Mean Platelet Volume 8.5, Neutrophils (%) (Auto) , Lymphocytes (%) ( Auto) , Monocytes (%) (Auto) , Eosinophils (%) (Auto) , Basophils (%) (Auto) , Differential Total Cells Counted 100, Neutrophils % (Manual) 83H, Lymphocytes % (Manual) 11L, Monocytes % (Manual) 4, Eosinophils % (Manual) 1, Basophils % ( Manual) 0, Band Neutrophils 1, Platelet Estimate Adequate, Platelet Morphology Normal, Hypochromasia 1+, Sodium Level 140, Potassium Level 3.5, Chloride Level 108H, Carbon Dioxide Level 19L, Anion Gap 13, Blood Urea Nitrogen 42H, Creatinine 2.0H, Estimat Glomerular Filtration Rate 29.8, Glucose Level 118H, Calcium Level 8.9, Magnesium Level 1.8, Lipase 64L 10/21/18 09:25: Arterial Blood pH 7.351, Arterial Blood Partial Pressure CO2 32.3L, Arterial Blood Partial Pressure O2 114.2H, Arterial Blood HCO3 17.5*L, Arterial Blood Oxygen Saturation 97.6, Arterial Blood Base Excess -7.3L, Johnie Test Positive Height (Feet): 5 Height (Inches): 10.00 Weight (Pounds): 251 General Appearance: WD/WN Neck: supple Cardiovascular: normal rate Respiratory/Chest: lungs clear Abdomen: soft Objective trace edema left leg Mario Alberto Aparicio MD Oct 21, 2018 21:39
--- NOTE | 2018-10-21 22:40 | General Progress Note ---
Assessment/Plan Assessment/Plan Assessment - OB (+) stool, but brown and pasty (not melena) - Retroperitoneal hematoma - acute hypoention and drop in H&H - Sudden rise in LFT - suspect shocked liver - DVT - anticoagulation - GB sludge on ultrasound - fatty liver, per U/S imaging Recommendations - Hold anticoagulation - follow labs - transfuse PRN - PPI - check hepatitis markers - pending - Check CPK --> normal Subjective Allergies: Coded Allergies: SULFA (SULFONAMIDE ANTIBIOTICS) (Verified Allergy, Unknown, 11/28/17) Pt states she is allergic to sulfa Subjective Above noted d/w DTR CT noted re RP hematoma Objective Last 24 Hour Vital Signs Date Time Temp Pulse Resp B/P (MAP) Pulse Ox O2 Delivery O2 Flow Rate FiO2 10/21/18 22:00 93 14 103/56 (72) 99 10/21/18 21:00 96 16 105/45 (65) 99 10/21/18 20:00 98.7 101 24 128/68 (88) 99 10/21/18 20:00 92 10/21/18 19:00 116 21 141/78 (99) 99 10/21/18 18:00 101 18 117/79 (92) 99 10/21/18 17:00 97 18 133/76 (95) 99 10/21/18 16:00 103 10/21/18 16:00 98.2 90 16 127/77 (94) 100 10/21/18 15:00 98 11 127/91 (103) 98 10/21/18 14:00 97 17 127/91 (103) 100 10/21/18 13:00 93 20 136/70 (92) 100 10/21/18 12:00 91 10/21/18 12:00 98.6 90 15 117/68 (84) 100 10/21/18 11:00 154/76 10/21/18 11:00 97 20 154/76 (102) 100 10/21/18 10:00 98/70 10/21/18 10:00 99 17 95/70 (78) 100 10/21/18 09:45 128/83 10/21/18 09:00 100 Nasal Cannula 3.0 32 10/21/18 09:00 92 15 95/60 (72) 100 10/21/18 09:00 Nasal Cannula 3.0 32 10/21/18 08:00 98.6 79 15 102/87 (92) 100 10/21/18 08:00 98 10/21/18 07:00 92 18 123/65 (84) 100 10/21/18 07:00 123/65 10/21/18 06:30 88 14 112/68 (83) 100 10/21/18 06:00 94 14 121/70 (87) 100 10/21/18 06:00 121/70 10/21/18 05:30 98 16 135/75 (95) 100 10/21/18 05:00 82 19 126/66 (86) 100 10/21/18 05:00 126/66 10/21/18 04:30 99 21 110/58 (75) 100 10/21/18 04:00 99.2 79 21 126/79 (95) 100 10/21/18 04:00 3.0 10/21/18 04:00 136/86 10/21/18 04:00 101 10/21/18 03:30 101 21 136/68 (90) 100 10/21/18 03:00 111 17 112/98 (103) 100 10/21/18 03:00 112/98 10/21/18 02:46 94/55 10/21/18 02:30 98 16 119/98 (105) 100 10/21/18 02:00 100 14 93/50 (64) 100 10/21/18 02:00 60/36 10/21/18 01:30 100 20 98/40 (59) 100 10/21/18 01:00 100/50 10/21/18 01:00 98.5 98 16 100/50 (67) 100 10/21/18 00:30 89 20 96/45 (62) 100 10/21/18 00:00 86/36 10/21/18 00:00 3.0 10/21/18 00:00 102 18 86/36 (53) 100 10/20/18 23:30 100 14 104/60 (75) 100 10/20/18 23:00 100 14 118/78 (91) 100 10/20/18 23:00 117/76 Intake and Output 10/20/18 10/21/18 19:00 07:00 Intake Total 888.702 ml 1936.949 ml Output Total 460 ml 400 ml Balance 428.702 ml 1536.949 ml IV Total 888.702 ml 1936.949 ml Output Urine Total 460 ml 400 ml # Bowel Movements 2 Laboratory Tests 10/21/18 03:40: White Blood Count 16.0H, Red Blood Count 2.98L, Hemoglobin 8.6L, Hematocrit 25.2L, Mean Corpuscular Volume 85, Mean Corpuscular Hemoglobin 28.9, Mean Corpuscular Hemoglobin Concent 34.2, Red Cell Distribution Width 13.0, Platelet Count 184, Mean Platelet Volume 8.8, Neutrophils (%) (Auto) , Lymphocytes (%) ( Auto) , Monocytes (%) (Auto) , Eosinophils (%) (Auto) , Basophils (%) (Auto) , Differential Total Cells Counted 100, Neutrophils % (Manual) 85H, Lymphocytes % (Manual) 9L, Monocytes % (Manual) 5, Eosinophils % (Manual) 0, Basophils % ( Manual) 0, Band Neutrophils 1, Platelet Estimate Adequate, Platelet Morphology Normal, Hypochromasia 1+, Sodium Level 139, Potassium Level 3.7, Chloride Level 105, Carbon Dioxide Level 21, Anion Gap 13, Blood Urea Nitrogen 42H, Creatinine 2.1H, Estimat Glomerular Filtration Rate 28.2, Glucose Level 131H, Calcium Level 9.0, Total Bilirubin 0.4, Aspartate Amino Transf (AST/SGOT) 660H, Alanine Aminotransferase (ALT/SGPT) 1070H, Alkaline Phosphatase 58, Total Creatine Kinase 123, Total Protein 7.0, Albumin 2.3L, Globulin 4.7, Albumin/Globulin Ratio 0.5L, Hepatitis A IgM Antibody [Pending], Hepatitis B Surface Antigen [ Pending], Hepatitis B Core IgM Antibody [Pending], Hepatitis C Antibody [Pending ] 10/21/18 08:00: White Blood Count 12.6H, Red Blood Count 2.80L, Hemoglobin 7.9L, Hematocrit 23.6L, Mean Corpuscular Volume 84, Mean Corpuscular Hemoglobin 28.2, Mean Corpuscular Hemoglobin Concent 33.4, Red Cell Distribution Width 13.0, Platelet Count 174, Mean Platelet Volume 8.5, Neutrophils (%) (Auto) , Lymphocytes (%) ( Auto) , Monocytes (%) (Auto) , Eosinophils (%) (Auto) , Basophils (%) (Auto) , Differential Total Cells Counted 100, Neutrophils % (Manual) 83H, Lymphocytes % (Manual) 11L, Monocytes % (Manual) 4, Eosinophils % (Manual) 1, Basophils % ( Manual) 0, Band Neutrophils 1, Platelet Estimate Adequate, Platelet Morphology Normal, Hypochromasia 1+, Sodium Level 140, Potassium Level 3.5, Chloride Level 108H, Carbon Dioxide Level 19L, Anion Gap 13, Blood Urea Nitrogen 42H, Creatinine 2.0H, Estimat Glomerular Filtration Rate 29.8, Glucose Level 118H, Calcium Level 8.9, Magnesium Level 1.8, Lipase 64L 10/21/18 09:25: Arterial Blood pH 7.351, Arterial Blood Partial Pressure CO2 32.3L, Arterial Blood Partial Pressure O2 114.2H, Arterial Blood HCO3 17.5*L, Arterial Blood Oxygen Saturation 97.6, Arterial Blood Base Excess -7.3L, Johnie Test Positive Height (Feet): 5 Height (Inches): 10.00 Weight (Pounds): 251 Objective Elderly AA woman NCAT supple CTA RR abd mildly distended no edema Richard Schroeder MD Oct 21, 2018 22:40
[2018-10-22] VITALS (30 sets, daily range): BP systolic 91–163; BP diastolic 44–99
[2018-10-22] MEDS: NovoLOG Insulin Flexpen SUBQ SCH ×4 (06:23→20:44)
[2018-10-22 07:20] LABS: ANION GAP 14 mmol/L (5-15); BLOOD UREA NITROGEN 31 mg/dL (7-18); CALCIUM 9.1 MG/DL (8.5-10.1); CARBON DIOXIDE 19 MMOL/L (21-32); CHLORIDE 111 MMOL/L (98-107); CREATININE 1.6 MG/DL (0.55-1.30); SODIUM 144 MMOL/L (136-145)
[2018-10-22 07:23] LABS: BASOPHILS % (AUTO) 0.5 % (0.0-2.0); EOSINOPHILS % (AUTO) 1.2 % (0.0-3.0); HEMATOCRIT 25.3 % (37.0-47.0); HEMOGLOBIN 8.6 G/DL (12.0-16.0); LYMPHOCYTES % (AUTO) 10.7 % (20.0-45.0); MEAN CORPUSCULAR VOLUME 85 FL (80-99); MONOCYTES % (AUTO) 6.6 % (1.0-10.0); NEUTROPHILS % (AUTO) 81.1 % (45.0-75.0); PLATELET COUNT 155 K/UL (150-450); RED BLOOD COUNT 2.96 M/UL (4.20-5.40); RED CELL DISTRIBUTION WIDTH 12.8 % (11.6-14.8); WHITE BLOOD COUNT 8.1 K/UL (4.8-10.8)
--- NOTE | 2018-10-22 08:17 | Pulmonolgy Critical Care Note ---
Critical Care - Asmt/Plan Problems: (1) DVT (deep venous thrombosis) (2) Retroperitoneal bleed (3) UTI (urinary tract infection) (4) Altered mental status (5) JANE (acute kidney injury) (6) Abdominal pain (7) Acidosis, metabolic (8) Encephalopathy (9) Dyspnea (10) CHF exacerbation (11) Respiratory failure (12) Cardiomyopathy (13) Pacemaker Respiratory: monitor respiratory rate, adjust FIO2 Cardiac: other - Off pressors, gentle IVF Renal: keep IV fluid, check electrolytes Infectious Disease: continue antibiotics - per ID Gastrointestinal: other - PHYSICIAN UNDERWRITER eval, then start PO or place NGT for NGTFs Endocrine: monitor blood sugar, other - F/U endo recs Hematologic: monitor H/H, other - Transfuse PRN Hb < 8. 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, ID, GI Discussed with: nurses, consultants Critical Care - Objective Last 24 Hour Vital Signs Date Time Temp Pulse Resp B/P (MAP) Pulse Ox O2 Delivery O2 Flow Rate FiO2 10/22/18 07:00 94 20 125/63 (83) 100 10/22/18 06:00 85 14 111/70 (84) 100 10/22/18 05:00 102 25 132/71 (91) 100 10/22/18 04:00 98.3 97 18 113/73 (86) 100 10/22/18 04:00 96 10/22/18 04:00 3.0 10/22/18 03:00 95 12 126/52 (76) 100 10/22/18 02:00 92 24 125/78 (94) 100 10/22/18 01:00 86 22 110/54 (72) 100 10/22/18 00:00 3.0 10/22/18 00:00 99.2 92 14 125/67 (86) 100 10/22/18 00:00 82 10/21/18 23:00 108 14 87/49 (62) 99 10/21/18 22:00 93 14 103/56 (72) 99 10/21/18 21:00 96 16 105/45 (65) 99 10/21/18 20:00 3.0 10/21/18 20:00 98.7 101 24 128/68 (88) 99 10/21/18 20:00 92 10/21/18 19:00 116 21 141/78 (99) 99 10/21/18 18:00 101 18 117/79 (92) 99 10/21/18 17:00 97 18 133/76 (95) 99 10/21/18 16:00 103 10/21/18 16:00 98.2 90 16 127/77 (94) 100 10/21/18 15:00 98 11 127/91 (103) 98 10/21/18 14:00 97 17 127/91 (103) 100 10/21/18 13:00 93 20 136/70 (92) 100 10/21/18 12:00 91 10/21/18 12:00 98.6 90 15 117/68 (84) 100 10/21/18 11:00 154/76 10/21/18 11:00 97 20 154/76 (102) 100 10/21/18 10:00 98/70 10/21/18 10:00 99 17 95/70 (78) 100 10/21/18 09:45 128/83 10/21/18 09:00 100 Nasal Cannula 3.0 32 10/21/18 09:00 92 15 95/60 (72) 100 10/21/18 09:00 Nasal Cannula 3.0 32 Status: awake, other - obese Condition: grave HEENT: atraumatic, normocephalic Lungs: clear Heart: HR/BP stable Abdomen: soft, non-tender, active bowel sounds Extremities: no C/C/E, other - R hand TTP, no def, no dis, FROM, no edema Micro: Microbiology Date/Time Source Procedure Growth Status 10/20/18 03:00 Stool Clostridium difficile Toxin Assay - Final Complete Accucheck: 105 Blood Sugars: BS controlled Critical Care - Subjective ROS Limited/Unobtainable: Yes ICU Day: 4 Intubation Day: NA Interval Events: Family declined IVCF yesterday, now amenable AFVSS, stable O2 needs, off pressors + R arm/hand pain Condition: grave IV Access: central - R IJ TLC EKG Rhythm: V-Paced FI02: 32 Fluids: NS@100 Drips: Off DA I&O: Intake and Output 10/21/18 10/22/18 18:59 06:59 Intake Total 1236.234 ml 1660.0 ml Output Total 1900 ml Balance 1236.234 ml -240.0 ml IV Total 986.234 ml 1660.0 ml Blood Product 250 ml Output Urine Total 1900 ml Subjective: + R hand pain No F/C/CP/SOB/cough/wheezing/N/V/D/C Labs: Laboratory Tests Test 10/21/18 09:25 10/22/18 05:30 Arterial Blood pH 7.351 (7.350-7.450) Arterial Blood Partial Pressure CO2 32.3 mmHg (35.0-45.0) L Arterial Blood Partial Pressure O2 114.2 mmHg (75.0-100.0) H Arterial Blood HCO3 17.5 mmol/L (22.0-26.0) *L Arterial Blood Oxygen Saturation 97.6 % (95-100) Arterial Blood Base Excess -7.3 (-2-2) L Johnie Test Positive White Blood Count 8.1 K/UL (4.8-10.8) Red Blood Count 2.96 M/UL (4.20-5.40) L Hemoglobin 8.6 G/DL (12.0-16.0) L Hematocrit 25.3 % (37.0-47.0) L Mean Corpuscular Volume 85 FL (80-99) Mean Corpuscular Hemoglobin 28.9 PG (27.0-31.0) Mean Corpuscular Hemoglobin Concent 33.8 G/DL (32.0-36.0) Red Cell Distribution Width 12.8 % (11.6-14.8) Platelet Count 155 K/UL (150-450) Mean Platelet Volume 8.2 FL (6.5-10.1) Neutrophils (%) (Auto) 81.1 % (45.0-75.0) H Lymphocytes (%) (Auto) 10.7 % (20.0-45.0) L Monocytes (%) (Auto) 6.6 % (1.0-10.0) Eosinophils (%) (Auto) 1.2 % (0.0-3.0) Basophils (%) (Auto) 0.5 % (0.0-2.0) Sodium Level 144 MMOL/L (136-145) Potassium Level 3.0 MMOL/L (3.5-5.1) L Chloride Level 111 MMOL/L (98-107) H Carbon Dioxide Level 19 MMOL/L (21-32) L Anion Gap 14 mmol/L (5-15) Blood Urea Nitrogen 31 mg/dL (7-18) H Creatinine 1.6 MG/DL (0.55-1.30) H Estimat Glomerular Filtration Rate 38.5 mL/min (>60) Glucose Level 75 MG/DL (74-106) Calcium Level 9.1 MG/DL (8.5-10.1) Riley Alatorre MD Oct 22, 2018 08:17
[2018-10-22] MEDS: Pantoprazole Inj IVP SCH (08:57)
[2018-10-22] MEDS: Piperacillin/Tazobactam 3.375 GM in D5W 110 ML IVPB SCH ×2 (08:57→20:42)
[2018-10-22] MEDS: Morphine Sulfate 4mg/ml Inj (IV/IM USE ONLY) IVP PRN ×4 (09:00→20:42)
[2018-10-22] MEDS: LORazepam Inj 2mg/ml 1ml IV PRN (09:54)
[2018-10-22] MEDS ORDERED: Heparin 2000 units/Ns 1000ml INJ SCH (11:45)
[2018-10-22] MEDS ORDERED: Omnipaque-300 100ml vial INJ ONE (11:47)
--- NOTE | 2018-10-22 11:47 | Pre-Procedure Note/Attestation ---
Pre-Procedure Note/Attestation Complete Prior to Procedure Planned Procedure: not applicable Procedure Narrative: IVC filter Indications for Procedure Pre-Operative Diagnosis: DVT, retroperitoneal hematoma contraindicating anticoagulation Attestation I attest that I discussed the nature of the procedure; its benefits; risks and complications; and alternatives (and the risks and benefits of such alternatives ), prior to the procedure, with the patient (or the patient's legal international sales representative). I attest that, if there was a reasonable possibility of needing a blood transfusion, the patient (or the patient's legal international sales representative) was given the [facility] standardized written summary, pursuant to the [place] Blood Safety Act ([place] Health and Safety Code # 1645, as amended). I attest that I re-evaluated the patient just prior to the surgery and that there has been no change in the patient's H&P, except as documented below: Discussed in person with pt's. daughter and sister at approximately [address] Alatorre--will place permanent filter in view of pt's. age and condition Sebastian Augustin MD Oct 22, 2018 11:47
--- NOTE | 2018-10-22 13:25 | Brief Operative Note ---
Immediate Post Operative Note Operative Note Pre-op Diagnosis: DVT, retroperitoneal hematoma contraindicating anticoagulation Procedure: IVC filter Post-op Diagnosis: same as pre-op Surgeon: Sobeida AUGUSTIN Anesthesia: local Specimen: none Complications: none Condition: stable Fluids: none Estimated Blood Loss: minimal Drains: none Implant(s) used?: Yes - VenaTech IVC filter Sebastian Augustin MD Oct 22, 2018 13:25
--- NOTE | 2018-10-22 14:29 | Nephrology Progress Note ---
Assessment/Plan Problem List: (1) Altered mental status (2) DM (diabetes mellitus) (3) HTN (hypertension) (4) ARF (acute renal failure) Assessment: stable (5) Hypertrophic cardiomyopathy (6) Encephalopathy (7) UTI (urinary tract infection) (8) Hypokalemia (9) Hypernatremia (10) DVT (deep venous thrombosis) (11) Retroperitoneal bleed Plan had IVC filter Discussed with radiologist Abxs follow labs Discussed with RN swallowing eval being done Subjective Subjective better today Objective Objective Last 24 Hour Vital Signs Date Time Temp Pulse Resp B/P (MAP) Pulse Ox O2 Delivery O2 Flow Rate FiO2 10/22/18 13:45 Nasal Cannula 2.0 10/22/18 13:35 105 22 144/76 (98) 99 10/22/18 13:30 105 22 143/75 (97) 100 10/22/18 13:25 103 22 163/81 (108) 100 10/22/18 13:20 111 22 155/83 (107) 100 10/22/18 13:15 107 22 152/79 (103) 100 10/22/18 13:10 104 22 143/73 (96) 100 10/22/18 13:05 108 22 140/78 (98) 100 10/22/18 13:00 105 22 137/72 (93) 99 10/22/18 12:55 106 22 149/63 (91) 99 10/22/18 11:46 104 18 6.0 10/22/18 11:00 111 21 153/99 (117) 100 10/22/18 10:00 105 25 160/70 (100) 100 10/22/18 09:32 97.9 10/22/18 09:00 103 21 142/78 (99) 100 10/22/18 08:00 93 10/22/18 08:00 97.9 98 23 116/65 (82) 100 10/22/18 08:00 Nasal Cannula 2.0 10/22/18 07:00 94 20 125/63 (83) 100 10/22/18 06:00 85 14 111/70 (84) 100 10/22/18 05:00 102 25 132/71 (91) 100 10/22/18 04:00 98.3 97 18 113/73 (86) 100 10/22/18 04:00 96 10/22/18 04:00 3.0 10/22/18 03:00 95 12 126/52 (76) 100 10/22/18 02:00 92 24 125/78 (94) 100 10/22/18 01:00 86 22 110/54 (72) 100 10/22/18 00:00 3.0 10/22/18 00:00 99.2 92 14 125/67 (86) 100 10/22/18 00:00 82 10/21/18 23:00 108 14 87/49 (62) 99 10/21/18 22:00 93 14 103/56 (72) 99 10/21/18 21:00 96 16 105/45 (65) 99 10/21/18 20:00 3.0 10/21/18 20:00 98.7 101 24 128/68 (88) 99 10/21/18 20:00 92 10/21/18 19:00 116 21 141/78 (99) 99 10/21/18 18:00 101 18 117/79 (92) 99 10/21/18 17:00 97 18 133/76 (95) 99 10/21/18 16:00 103 10/21/18 16:00 98.2 90 16 127/77 (94) 100 10/21/18 15:00 98 11 127/91 (103) 98 Intake and Output 10/21/18 10/22/18 19:00 07:00 Intake Total 1185.617 ml 1660.0 ml Output Total 300 ml 1600 ml Balance 885.617 ml 60.0 ml IV Total 935.617 ml 1660.0 ml Blood Product 250 ml Output Urine Total 300 ml 1600 ml Laboratory Tests 10/22/18 05:30: White Blood Count 8.1, Red Blood Count 2.96L, Hemoglobin 8.6L, Hematocrit 25.3L , Mean Corpuscular Volume 85, Mean Corpuscular Hemoglobin 28.9, Mean Corpuscular Hemoglobin Concent 33.8, Red Cell Distribution Width 12.8, Platelet Count 155, Mean Platelet Volume 8.2, Neutrophils (%) (Auto) 81.1H, Lymphocytes ( %) (Auto) 10.7L, Monocytes (%) (Auto) 6.6, Eosinophils (%) (Auto) 1.2, Basophils (%) (Auto) 0.5, Sodium Level 144, Potassium Level 3.0L, Chloride Level 111H, Carbon Dioxide Level 19L, Anion Gap 14, Blood Urea Nitrogen 31H, Creatinine 1.6H, Estimat Glomerular Filtration Rate 38.5, Glucose Level 75, Calcium Level 9.1 Height (Feet): 5 Height (Inches): 10.00 Weight (Pounds): 251 Cardiovascular: normal rate Respiratory/Chest: lungs clear Oliverio Yanez MD Oct 22, 2018 14:29
--- NOTE | 2018-10-22 14:54 | Cardiology Report ---
APPROVED REPORT EXAM: Two-dimensional and M-mode echocardiogram with Doppler and color Doppler. INDICATION Congestive Heart Failure M-Mode DIMENSIONS IVSd1.5 (0.7-1.1cm)Left Atrium (MM)3.8 (1.6-4.0cm) LVDd5.8 (3.5-5.6cm)Aortic Root3.5 (2.0-3.7cm) PWd1.4 (0.7-1.1cm)Aortic Cusp Exc.1.8 (1.5-2.0cm) IVSs1.4 cm LVDs4.0 (2.5-4.0cm) PWs1.8 cm Normal left ventricular chamber size, systolic function and wall motion. Left ventricular ejection fraction estimated to be 55-60%. Mild left ventricular hypertrophy by 2-D. No evidence of pericardial effusion. Left atrial size at upper limits of normal. Right cardiac chamber sizes are within normal limits. Focal aortic valve sclerosis with adequate cusp excursion. Mildly Thickened mitral valve leaflets with normal excursion. pulmonic valve not well visualized. Normal tricuspid valve structure. IVC at normal size with physiologic collapse. Pacemaker wire present in the right side chambers. A color flow and spectral Doppler study was performed and revealed: No aortic regurgitation. Mild mitral regurgitation. Mitral diastolic velocities suggest reduced left ventricular relaxation c/w mild LV diastolic dysfunction (Grade I ). Trace tricuspid regurgitation. Tricuspid systolic velocities suggests peak right ventricular systolic pressure of 18mmHg. Trace pulmonic regurgitation present .
[2018-10-22] MEDS ORDERED: Morphine Sulfate 2mg/ml Inj IVP PRN (15:00)
[2018-10-22] MEDS ORDERED: Miralax 17gm pkt ORAL PRN (15:00)
--- NOTE | 2018-10-22 15:37 | General Surgery Progress Note ---
General Surgery-Progress Note Subjective Procedure Performed right internal jugular central venous catheter insertion using ultrasound guidance Additional Comments leukocytosis resolved. labs improved. filter today Objective Last 24 Hour Vital Signs Date Time Temp Pulse Resp B/P (MAP) Pulse Ox O2 Delivery O2 Flow Rate FiO2 10/22/18 13:45 Nasal Cannula 2.0 10/22/18 13:35 105 22 144/76 (98) 99 10/22/18 13:30 105 22 143/75 (97) 100 10/22/18 13:25 103 22 163/81 (108) 100 10/22/18 13:20 111 22 155/83 (107) 100 10/22/18 13:15 107 22 152/79 (103) 100 10/22/18 13:10 104 22 143/73 (96) 100 10/22/18 13:05 108 22 140/78 (98) 100 10/22/18 13:00 105 22 137/72 (93) 99 10/22/18 12:55 106 22 149/63 (91) 99 10/22/18 11:46 104 18 6.0 10/22/18 11:00 111 21 153/99 (117) 100 10/22/18 10:00 105 25 160/70 (100) 100 10/22/18 09:32 97.9 10/22/18 09:00 103 21 142/78 (99) 100 10/22/18 08:00 93 10/22/18 08:00 97.9 98 23 116/65 (82) 100 10/22/18 08:00 Nasal Cannula 2.0 10/22/18 07:00 94 20 125/63 (83) 100 10/22/18 06:00 85 14 111/70 (84) 100 10/22/18 05:00 102 25 132/71 (91) 100 10/22/18 04:00 98.3 97 18 113/73 (86) 100 10/22/18 04:00 96 10/22/18 04:00 3.0 10/22/18 03:00 95 12 126/52 (76) 100 10/22/18 02:00 92 24 125/78 (94) 100 10/22/18 01:00 86 22 110/54 (72) 100 10/22/18 00:00 3.0 10/22/18 00:00 99.2 92 14 125/67 (86) 100 10/22/18 00:00 82 10/21/18 23:00 108 14 87/49 (62) 99 10/21/18 22:00 93 14 103/56 (72) 99 10/21/18 21:00 96 16 105/45 (65) 99 10/21/18 20:00 3.0 10/21/18 20:00 98.7 101 24 128/68 (88) 99 10/21/18 20:00 92 10/21/18 19:00 116 21 141/78 (99) 99 10/21/18 18:00 101 18 117/79 (92) 99 10/21/18 17:00 97 18 133/76 (95) 99 10/21/18 16:00 103 10/21/18 16:00 98.2 90 16 127/77 (94) 100 I&O Intake and Output 10/21/18 10/22/18 19:00 07:00 Intake Total 1185.617 ml 1660.0 ml Output Total 300 ml 1600 ml Balance 885.617 ml 60.0 ml IV Total 935.617 ml 1660.0 ml Blood Product 250 ml Output Urine Total 300 ml 1600 ml Dressing: other Wound: other Drains: other Cardiovascular: RSR Respiratory: clear Abdomen: soft, non-tender, present bowel sounds Extremities: no cyanosis, other Laboratory Tests Test 10/22/18 05:30 White Blood Count 8.1 K/UL (4.8-10.8) Red Blood Count 2.96 M/UL (4.20-5.40) L Hemoglobin 8.6 G/DL (12.0-16.0) L Hematocrit 25.3 % (37.0-47.0) L Mean Corpuscular Volume 85 FL (80-99) Mean Corpuscular Hemoglobin 28.9 PG (27.0-31.0) Mean Corpuscular Hemoglobin Concent 33.8 G/DL (32.0-36.0) Red Cell Distribution Width 12.8 % (11.6-14.8) Platelet Count 155 K/UL (150-450) Mean Platelet Volume 8.2 FL (6.5-10.1) Neutrophils (%) (Auto) 81.1 % (45.0-75.0) H Lymphocytes (%) (Auto) 10.7 % (20.0-45.0) L Monocytes (%) (Auto) 6.6 % (1.0-10.0) Eosinophils (%) (Auto) 1.2 % (0.0-3.0) Basophils (%) (Auto) 0.5 % (0.0-2.0) Sodium Level 144 MMOL/L (136-145) Potassium Level 3.0 MMOL/L (3.5-5.1) L Chloride Level 111 MMOL/L (98-107) H Carbon Dioxide Level 19 MMOL/L (21-32) L Anion Gap 14 mmol/L (5-15) Blood Urea Nitrogen 31 mg/dL (7-18) H Creatinine 1.6 MG/DL (0.55-1.30) H Estimat Glomerular Filtration Rate 38.5 mL/min (>60) Glucose Level 75 MG/DL (74-106) Calcium Level 9.1 MG/DL (8.5-10.1) Plan Problems: (1) Abdominal pain Assessment & Plan: US noted - cholelithiasis. no inflammation CT noted - likely retrop hematoma okay for diet after procedure IV fluids IV abx trend labs (2) Anemia Assessment & Plan: poor peripheral access central line inserted see procedure note transfuse prbc trend labs will monitor hematoma clinically Jared Obrien Oct 22, 2018 15:37
--- NOTE | 2018-10-22 17:11 | Diagnostic Imaging Report ---
Indications: Deep venous thrombosis, contraindication to anticoagulation Technique: Case discussed with referring physician Dr. Alatorre, and it was agreed to place a permanent filter given patient's age and condition. Informed consent obtained prior to commencement of the procedure from patient's daughter and sister. Prior CT scan reviewed, and demonstrates no caval anomalies . Total sterile technique, including sterile probe cover and sterile gel, sterile gloves, hand hygiene, hat, mask,, sterile gown, large sterile drape, and preparation with 2% chlorhexidine utilized. Local anesthesia with 1% lidocaine. Ultrasound reveals patent compressible right internal jugular vein. Under real-time ultrasound guidance, puncture right internal jugular vein, passage of a guidewire, into the inferior vena cava, , over which was passed a pigtail marker catheter to the level of the iliac venous confluence. An inferior venacavogram performed, using machine injection of contrast. The images were reviewed. The position of the renal veins was determined. The catheter was then exchanged for the introducer assembly of the Vena Tech permanent IVC filter. The introducer assembly was advanced further into the inferior vena cava over a guidewire, and the guidewire and dilator were removed. The filter was passed into the into the sheath. It was then positioned into the appropriate position. The filter was then deployed by unsheathing it. The filter introducer was removed, and a followup inferior venacavogram was performed using hand injection of contrast through the sheath. The filter position was deemed acceptable. The sheath was removed. Pressure held on the right neck until hemostasis was achieved. The patient tolerated procedure well, without immediate complication. Total approximately 60 mL of iodinated contrast given Total fluoroscopy time 3.1 minutes Total dose area product 1484 dGycm2 Total number of images-53 Comparison: none. Findings: Inferior venacavogram demonstrates normal caliber inferior vena cava. Single renal veins. No intracaval thrombus. Completion inferior venacavogram demonstrates satisfactory filter position, with no significant tilt. Impression: Successful placement of Vena Tech permanent infrarenal inferior vena cava filter, as above.
--- NOTE | 2018-10-22 17:36 | Neurology Progress Note ---
Interim History Interim History Interim History Ms. Allen feels better. Her right wrist is still painful. She also complins of severe right > left knee pain. Her blood pressures are better. She is awake and more alert. She continues to be cognitively impoverished. She is still significantly disoriented. Her memory is still poor. She continues to be generally weak. She is still oblivious as to why she has been hospitalized. She denies any new neurologic symptoms. Review of Systems Neuro Review of Systems Benign. Objective Physical Exam Last Vital Signs Date Time Temp Pulse Resp B/P (MAP) Pulse Ox O2 Delivery O2 Flow Rate FiO2 10/22/18 16:00 114 10/22/18 16:00 Nasal Cannula 2.0 10/22/18 16:00 98.8 24 109/65 (80) 99 10/21/18 09:00 32 Laboratory Tests Test 10/22/18 05:30 White Blood Count 8.1 K/UL (4.8-10.8) Red Blood Count 2.96 M/UL (4.20-5.40) L Hemoglobin 8.6 G/DL (12.0-16.0) L Hematocrit 25.3 % (37.0-47.0) L Mean Corpuscular Volume 85 FL (80-99) Mean Corpuscular Hemoglobin 28.9 PG (27.0-31.0) Mean Corpuscular Hemoglobin Concent 33.8 G/DL (32.0-36.0) Red Cell Distribution Width 12.8 % (11.6-14.8) Platelet Count 155 K/UL (150-450) Mean Platelet Volume 8.2 FL (6.5-10.1) Neutrophils (%) (Auto) 81.1 % (45.0-75.0) H Lymphocytes (%) (Auto) 10.7 % (20.0-45.0) L Monocytes (%) (Auto) 6.6 % (1.0-10.0) Eosinophils (%) (Auto) 1.2 % (0.0-3.0) Basophils (%) (Auto) 0.5 % (0.0-2.0) Sodium Level 144 MMOL/L (136-145) Potassium Level 3.0 MMOL/L (3.5-5.1) L Chloride Level 111 MMOL/L (98-107) H Carbon Dioxide Level 19 MMOL/L (21-32) L Anion Gap 14 mmol/L (5-15) Blood Urea Nitrogen 31 mg/dL (7-18) H Creatinine 1.6 MG/DL (0.55-1.30) H Estimat Glomerular Filtration Rate 38.5 mL/min (>60) Glucose Level 75 MG/DL (74-106) Calcium Level 9.1 MG/DL (8.5-10.1) Neurologic Exam Objective PHYSICAL EXAMINATION: GENERAL: She is a well-developed, well-nourished, obese, black lady, lying in bed, in no acute distress. HEAD: Normocephalic and atraumatic. EENT: Examination benign except for bilateral chemosis. NECK: No neck rigidity was observed. NEUROLOGICAL EXAMINATION: MENTAL STATUS EXAMINATION: She was awake and more alert. She was oriented to self only. She had no idea of where she was or what the date was. She was able to recall 3/3 words immediately but could only remember 1/3 in 1 and 3 minutes. She was unable to tell me who the present or prior Presidents are. She was unable to cooperate for further mental status testing. SPEECH: She had a mild dysarthria. LANGUAGE: She had a mild anomia. CRANIAL NERVE EXAMINATION: II: She was able to count fingers. III, IV & : The external ocular movements were full but she did have a dysconjugate gaze. The pupils were 3 mm in diameter, equal, round, regular, and reactive sluggishly to light. V & VII: The corneal reflexes were equally brisk. VIII: She did respond to sounds and had no nystagmus. IX & X: The gag reflex was not tested XI: The sternocleidomastoids and trapezii did function. XII: The tongue was in the midline without any fasciculations or atrophy. MOTOR SYSTEM: The tone was normal in all four extremities. Examination of muscle mass revealed no focal wasting. Examination of power was impossible to perform because the effort was poor. She was generally weak - more so in the lower than upper extremities. In addition movements in the right wrist were limited by pain. SENSORY EXAMINATION: She responded appropriately to light touch. Other sensory modalities could not be tested. REFLEXES: 0 at the biceps, triceps, brachioradialis, knees, and ankles. The plantar responses were flexor bilaterally. COORDINATION, STANCE & GAIT: Could not be tested. Impression/Recommendations Diagnostic Impression 1. Ms Rafael Allen is a 68-year-old, right-handed, black lady, with a past history of hypertension, diabetes mellitus, renal failure, and cardiac arrhythmia - for which she has a pacemaker implanted, who was hospitalized for a change in mental state and was found to have urinary tract infection. 2. She feels better. Her right wrist is still painful. She also complins of severe right > left knee pain. Her blood pressures are better. She is awake and more alert. She continues to be cognitively impoverished. She is still significantly disoriented. Her memory is still poor. She continues to be generally weak. She is still oblivious as to why she has been hospitalized. She denies any new neurologic symptoms. 3. On neurological examination, at this time, she is oriented to self only. She has significant problems with recent and remote memory. She also exhibits a mild dysarthria and an anomia, a quadriparesis - involving the lower extremities more than the upper extremities, and globally absent deep tendon reflexes. 4. The CT scan of the brain without contrast reveals atrophy and deep white matter changes, but no acute pathology. 5. Laboratory data on my initial evaluation revealed that she was anemic with a hemoglobin of 10 G. Her chemistry panel revealed that her BUN was elevated to 124, her creatinine was elevated at 2.9, her hemoglobin A1c was elevated at 6.1% , her calcium was elevated at 10.7, her proBNP was elevated at 252, her albumin was low at 3.1, and her TSH was normal at 0.46. Her Urinalysis revealed 3+ leukocyte esterase, 2-4 red blood cells, and too numerous to count white blood cells per high-power field. 6. Further laboratory tests revealed a normal B12, Folate, ESR. 7. The EEG done on 10/15/18 revealed moderate generalized cerebral dysfunction and left > right cerebral dysfunction. 8. The patient's history, neurological examination, and laboratory data are most compatible with an acute encephalopathic process of the toxic metabolic nature. The offending factors were a urinary tract infection, and in addition renal failure. In addition the patient does also have structural brain disease. Recommendations 1. Continue present management. 2. Aggressive treatment of infectious process and hypotension. 3. Increase activity with frequent ROM exercises. 4. Observe closely. Gume Bassett M.D., M.S.P.H. Gume Bassett MD Oct 22, 2018 17:36
--- NOTE | 2018-10-22 18:38 | General Progress Note ---
Assessment/Plan Problem List: (1) Altered mental status ICD Codes: R41.82 - Altered mental status, unspecified SNOMED: 575962171 (2) Primary hyperparathyroidism ICD Codes: E21.0 - Primary hyperparathyroidism SNOMED: 92234356 (3) Cardiomyopathy ICD Codes: I42.9 - Cardiomyopathy, unspecified SNOMED: 29005608 (4) ARF (acute renal failure) ICD Codes: N17.9 - Acute kidney failure, unspecified SNOMED: 98508615 Qualifiers: Qualified Codes: N17.9 - Acute kidney failure, unspecified (5) DM (diabetes mellitus) ICD Codes: E11.9 - Type 2 diabetes mellitus without complications SNOMED: 83810116 (6) Encephalopathy ICD Codes: G93.40 - Encephalopathy, unspecified SNOMED: 49460030, 627834119 (7) UTI (urinary tract infection) ICD Codes: N39.0 - Urinary tract infection, site not specified SNOMED: 23449077 Assessment/Plan serum Ca remained stable BG values well controlled on SSI Subjective ROS Limited/Unobtainable: Yes Allergies: Coded Allergies: SULFA (SULFONAMIDE ANTIBIOTICS) (Verified Allergy, Unknown, 11/28/17) Pt states she is allergic to sulfa Subjective events noted transferred out of ICU Objective Last 24 Hour Vital Signs Date Time Temp Pulse Resp B/P (MAP) Pulse Ox O2 Delivery O2 Flow Rate FiO2 10/22/18 17:42 98.8 10/22/18 16:00 114 10/22/18 16:00 Nasal Cannula 2.0 10/22/18 16:00 98.8 116 24 109/65 (80) 99 10/22/18 13:45 Nasal Cannula 2.0 10/22/18 13:35 105 22 144/76 (98) 99 10/22/18 13:30 105 22 143/75 (97) 100 10/22/18 13:25 103 22 163/81 (108) 100 10/22/18 13:20 111 22 155/83 (107) 100 10/22/18 13:15 107 22 152/79 (103) 100 10/22/18 13:10 104 22 143/73 (96) 100 10/22/18 13:05 108 22 140/78 (98) 100 10/22/18 13:00 105 22 137/72 (93) 99 10/22/18 12:55 106 22 149/63 (91) 99 10/22/18 11:46 104 18 6.0 10/22/18 11:00 111 21 153/99 (117) 100 10/22/18 10:00 105 25 160/70 (100) 100 10/22/18 09:32 97.9 10/22/18 09:00 103 21 142/78 (99) 100 10/22/18 08:00 93 10/22/18 08:00 97.9 98 23 116/65 (82) 100 10/22/18 08:00 Nasal Cannula 2.0 10/22/18 07:00 94 20 125/63 (83) 100 10/22/18 06:00 85 14 111/70 (84) 100 10/22/18 05:00 102 25 132/71 (91) 100 10/22/18 04:00 98.3 97 18 113/73 (86) 100 10/22/18 04:00 96 10/22/18 04:00 3.0 10/22/18 03:00 95 12 126/52 (76) 100 10/22/18 02:00 92 24 125/78 (94) 100 10/22/18 01:00 86 22 110/54 (72) 100 10/22/18 00:00 3.0 10/22/18 00:00 99.2 92 14 125/67 (86) 100 10/22/18 00:00 82 10/21/18 23:00 108 14 87/49 (62) 99 10/21/18 22:00 93 14 103/56 (72) 99 10/21/18 21:00 96 16 105/45 (65) 99 10/21/18 20:00 3.0 10/21/18 20:00 98.7 101 24 128/68 (88) 99 10/21/18 20:00 92 10/21/18 19:00 116 21 141/78 (99) 99 Intake and Output 10/21/18 10/22/18 19:00 07:00 Intake Total 1185.617 ml 1660.0 ml Output Total 300 ml 1600 ml Balance 885.617 ml 60.0 ml IV Total 935.617 ml 1660.0 ml Blood Product 250 ml Output Urine Total 300 ml 1600 ml Laboratory Tests 10/22/18 05:30: White Blood Count 8.1, Red Blood Count 2.96L, Hemoglobin 8.6L, Hematocrit 25.3L , Mean Corpuscular Volume 85, Mean Corpuscular Hemoglobin 28.9, Mean Corpuscular Hemoglobin Concent 33.8, Red Cell Distribution Width 12.8, Platelet Count 155, Mean Platelet Volume 8.2, Neutrophils (%) (Auto) 81.1H, Lymphocytes ( %) (Auto) 10.7L, Monocytes (%) (Auto) 6.6, Eosinophils (%) (Auto) 1.2, Basophils (%) (Auto) 0.5, Sodium Level 144, Potassium Level 3.0L, Chloride Level 111H, Carbon Dioxide Level 19L, Anion Gap 14, Blood Urea Nitrogen 31H, Creatinine 1.6H, Estimat Glomerular Filtration Rate 38.5, Glucose Level 75, Calcium Level 9.1 Height (Feet): 5 Height (Inches): 10.00 Weight (Pounds): 251 General Appearance: no apparent distress Neck: normal alignment Cardiovascular: normal rate Respiratory/Chest: lungs clear Abdomen: normal bowel sounds Objective Current Medications Medications (Trade) Dose Ordered Sig/Barrett Route PRN Reason Start Time Stop Time Status Last Admin Dose Admin Acetaminophen (Tylenol) 650 mg Q4H PRN ORAL Mild Pain (Pain Scale 1-3) 10/22/18 15:00 11/12/18 14:59 Chlorhexidine Gluconate (Marely-Hex 2%) 1 applic DAILY@1999 TOPIC 10/22/18 20:00 11/18/18 19:59 Dextrose (Dextrose 50%) 25 ml Q30M PRN IV Hypoglycemia 10/22/18 14:30 11/18/18 12:29 Dextrose (Dextrose 50%) 50 ml Q30M PRN IV Hypoglycemia 10/22/18 14:45 11/18/18 16:35 Insulin Aspart (NovoLOG) BEFORE MEALS AND HS SUBQ 10/22/18 16:30 11/18/18 16:29 Lorazepam (Ativan 2mg/ml 1ml) 0.25 mg BIDPRN PRN IV For Anxiety 10/22/18 15:00 10/29/18 14:59 Morphine Sulfate (Morphine Sulfate) 2 mg Q3H PRN IVP Moderate Pain (Pain Scale 4-6) 10/22/18 15:00 10/26/18 14:59 Morphine Sulfate (Morphine Sulfate) 4 mg Q3H PRN IVP Severe Pain (Pain Scale 7-10) 10/22/18 15:00 10/26/18 17:53 10/22/18 17:12 Ondansetron HCl (Zofran) 4 mg Q6H PRN IVP Nausea & Vomiting 10/22/18 15:00 11/12/18 14:59 Pantoprazole (Protonix) 40 mg DAILY IVP 10/23/18 09:00 11/19/18 14:44 Piperacillin Sod/ Tazobactam Sod 3.375 gm/Dextrose 110 ml @ 27.5 mls/hr EVERY 12 HOURS IVPB 10/22/18 21:00 10/25/18 13:59 Polyethylene Glycol (Miralax) 17 gm DAILYPRN PRN ORAL Constipation 10/22/18 15:00 11/18/18 14:59 Sodium Chloride 1,000 ml @ 100 mls/hr Q10H IV 10/22/18 14:30 11/19/18 08:44 10/22/18 14:47 Zolpidem Tartrate (Ambien) 5 mg HSPRN PRN ORAL Insomnia 10/22/18 21:00 10/29/18 20:59 Item Value Date Time Bedside Blood Glucose 100 mg/dl 10/22/18 1630 Bedside Blood Glucose 73 mg/dl 10/22/18 1124 Bedside Blood Glucose 105 mg/dl 10/22/18 0623 Bedside Blood Glucose 80 mg/dl 10/21/18 2100 Dejan Villagran MD Oct 22, 2018 18:38
--- NOTE | 2018-10-22 19:17 | General Progress Note ---
Assessment/Plan Assessment/Plan Assessment - OB (+) stool, but brown and pasty (not melena) - Retroperitoneal hematoma - acute hypoention and drop in H&H - Sudden rise in LFT - suspect shocked liver - DVT - anticoagulation - GB sludge on ultrasound - fatty liver, per U/S imaging Recommendations - follow labs - transfuse PRN - PPI - push po - check hepatitis markers - negative - Check CPK --> normal Subjective Allergies: Coded Allergies: SULFA (SULFONAMIDE ANTIBIOTICS) (Verified Allergy, Unknown, 11/28/17) Pt states she is allergic to sulfa Subjective Above noted d/w RN swallow eval noted Objective Last 24 Hour Vital Signs Date Time Temp Pulse Resp B/P (MAP) Pulse Ox O2 Delivery O2 Flow Rate FiO2 10/22/18 17:42 98.8 10/22/18 16:00 114 10/22/18 16:00 Nasal Cannula 2.0 10/22/18 16:00 98.8 116 24 109/65 (80) 99 10/22/18 15:45 98.7 110 18 93/50 (64) 99 10/22/18 15:15 98.6 115 20 98/63 (75) 99 10/22/18 14:45 98.4 105 19 91/44 (60) 99 10/22/18 14:30 98.4 106 20 95/50 (65) 99 10/22/18 14:15 98.5 111 22 105/77 (86) 100 10/22/18 14:00 98.5 116 20 109/74 (86) 99 10/22/18 13:45 Nasal Cannula 2.0 10/22/18 13:35 105 22 144/76 (98) 99 10/22/18 13:30 105 22 143/75 (97) 100 10/22/18 13:25 103 22 163/81 (108) 100 10/22/18 13:20 111 22 155/83 (107) 100 10/22/18 13:15 107 22 152/79 (103) 100 10/22/18 13:10 104 22 143/73 (96) 100 10/22/18 13:05 108 22 140/78 (98) 100 10/22/18 13:00 105 22 137/72 (93) 99 10/22/18 12:55 106 22 149/63 (91) 99 10/22/18 11:46 104 18 6.0 10/22/18 11:00 111 21 153/99 (117) 100 10/22/18 10:00 105 25 160/70 (100) 100 10/22/18 09:32 97.9 10/22/18 09:00 103 21 142/78 (99) 100 10/22/18 08:00 93 10/22/18 08:00 97.9 98 23 116/65 (82) 100 10/22/18 08:00 Nasal Cannula 2.0 10/22/18 07:00 94 20 125/63 (83) 100 10/22/18 06:00 85 14 111/70 (84) 100 10/22/18 05:00 102 25 132/71 (91) 100 10/22/18 04:00 98.3 97 18 113/73 (86) 100 10/22/18 04:00 96 10/22/18 04:00 3.0 10/22/18 03:00 95 12 126/52 (76) 100 10/22/18 02:00 92 24 125/78 (94) 100 10/22/18 01:00 86 22 110/54 (72) 100 10/22/18 00:00 3.0 10/22/18 00:00 99.2 92 14 125/67 (86) 100 10/22/18 00:00 82 10/21/18 23:00 108 14 87/49 (62) 99 10/21/18 22:00 93 14 103/56 (72) 99 10/21/18 21:00 96 16 105/45 (65) 99 10/21/18 20:00 3.0 10/21/18 20:00 98.7 101 24 128/68 (88) 99 10/21/18 20:00 92 Intake and Output 10/21/18 10/22/18 19:00 07:00 Intake Total 1185.617 ml 1660.0 ml Output Total 300 ml 1600 ml Balance 885.617 ml 60.0 ml IV Total 935.617 ml 1660.0 ml Blood Product 250 ml Output Urine Total 300 ml 1600 ml Laboratory Tests 10/22/18 05:30: White Blood Count 8.1, Red Blood Count 2.96L, Hemoglobin 8.6L, Hematocrit 25.3L , Mean Corpuscular Volume 85, Mean Corpuscular Hemoglobin 28.9, Mean Corpuscular Hemoglobin Concent 33.8, Red Cell Distribution Width 12.8, Platelet Count 155, Mean Platelet Volume 8.2, Neutrophils (%) (Auto) 81.1H, Lymphocytes ( %) (Auto) 10.7L, Monocytes (%) (Auto) 6.6, Eosinophils (%) (Auto) 1.2, Basophils (%) (Auto) 0.5, Sodium Level 144, Potassium Level 3.0L, Chloride Level 111H, Carbon Dioxide Level 19L, Anion Gap 14, Blood Urea Nitrogen 31H, Creatinine 1.6H, Estimat Glomerular Filtration Rate 38.5, Glucose Level 75, Calcium Level 9.1 Height (Feet): 5 Height (Inches): 10.00 Weight (Pounds): 251 Objective Elderly AA woman NCAT supple CTA RR abd mildly distended no edema Richard Schroeder MD Oct 22, 2018 19:17
--- NOTE | 2018-10-22 19:54 | Cardiology Progress Note ---
Assessment/Plan Assessment/Plan 1.dehydration 2. Toxic metabolic encephlopathy . 3. History of hypertrophic nonobstructive cardiomyopathy. 4. Family history of sudden cardiac . 5. History of intracardiac defibrillator implantation, [place] MMIS device previously. 6. acute renal failure 7. Abnormal perfusion with normal cardiac catheterization previously. 8. Hypercalcemia. 9. Alteration of mentation. 10. Azotemia 11. afib hx 12. bactermia ? contaminent 13. UTI 14. DVT 15. hypotenison 16. anemia 17. shock liver 18. retroperitoneal bleeding off heparin due to anemia now s/p prbc ivf already tele sinus vpaced pac pvc icd older model unlikely mri compatible s/p iv hydration abx id following watch for hemodynamic changes agin bp is lower again to watch ns bolus venous duplex noted ekg personally reviewed s/p ivc filter tele noted will start on amiod to maintain sinus not a candidate for terminal worker anticoagulation Subjective ROS Limited/Unobtainable: Yes Cardiovascular: Denies: chest pain Respiratory: Reports: shortness of breath Gastrointestinal/Abdominal: Denies: abdomen distended Genitourinary: Denies: burning Subjective variable responces to same question Objective Last 24 Hour Vital Signs Date Time Temp Pulse Resp B/P (MAP) Pulse Ox O2 Delivery O2 Flow Rate FiO2 10/22/18 17:42 98.8 10/22/18 16:00 114 10/22/18 16:00 Nasal Cannula 2.0 10/22/18 16:00 98.8 116 24 109/65 (80) 99 10/22/18 15:45 98.7 110 18 93/50 (64) 99 10/22/18 15:15 98.6 115 20 98/63 (75) 99 10/22/18 14:45 98.4 105 19 91/44 (60) 99 10/22/18 14:30 98.4 106 20 95/50 (65) 99 10/22/18 14:15 98.5 111 22 105/77 (86) 100 10/22/18 14:00 98.5 116 20 109/74 (86) 99 10/22/18 13:45 Nasal Cannula 2.0 10/22/18 13:35 105 22 144/76 (98) 99 10/22/18 13:30 105 22 143/75 (97) 100 10/22/18 13:25 103 22 163/81 (108) 100 10/22/18 13:20 111 22 155/83 (107) 100 10/22/18 13:15 107 22 152/79 (103) 100 10/22/18 13:10 104 22 143/73 (96) 100 10/22/18 13:05 108 22 140/78 (98) 100 10/22/18 13:00 105 22 137/72 (93) 99 10/22/18 12:55 106 22 149/63 (91) 99 10/22/18 11:46 104 18 6.0 10/22/18 11:00 111 21 153/99 (117) 100 10/22/18 10:00 105 25 160/70 (100) 100 10/22/18 09:32 97.9 10/22/18 09:00 103 21 142/78 (99) 100 10/22/18 08:00 93 10/22/18 08:00 97.9 98 23 116/65 (82) 100 10/22/18 08:00 Nasal Cannula 2.0 10/22/18 07:00 94 20 125/63 (83) 100 10/22/18 06:00 85 14 111/70 (84) 100 10/22/18 05:00 102 25 132/71 (91) 100 10/22/18 04:00 98.3 97 18 113/73 (86) 100 10/22/18 04:00 96 10/22/18 04:00 3.0 10/22/18 03:00 95 12 126/52 (76) 100 10/22/18 02:00 92 24 125/78 (94) 100 10/22/18 01:00 86 22 110/54 (72) 100 10/22/18 00:00 3.0 10/22/18 00:00 99.2 92 14 125/67 (86) 100 10/22/18 00:00 82 10/21/18 23:00 108 14 87/49 (62) 99 10/21/18 22:00 93 14 103/56 (72) 99 10/21/18 21:00 96 16 105/45 (65) 99 10/21/18 20:00 3.0 10/21/18 20:00 98.7 101 24 128/68 (88) 99 10/21/18 20:00 92 General Appearance: no apparent distress, other - confused Neck: supple Cardiovascular: normal rate Respiratory/Chest: lungs clear Abdomen: normal bowel sounds, non tender, soft Extremities: no swelling Intake and Output 10/21/18 10/22/18 19:00 07:00 Intake Total 1185.617 ml 1660.0 ml Output Total 300 ml 1600 ml Balance 885.617 ml 60.0 ml IV Total 935.617 ml 1660.0 ml Blood Product 250 ml Output Urine Total 300 ml 1600 ml Laboratory Tests Test 10/22/18 05:30 White Blood Count 8.1 K/UL (4.8-10.8) Red Blood Count 2.96 M/UL (4.20-5.40) L Hemoglobin 8.6 G/DL (12.0-16.0) L Hematocrit 25.3 % (37.0-47.0) L Mean Corpuscular Volume 85 FL (80-99) Mean Corpuscular Hemoglobin 28.9 PG (27.0-31.0) Mean Corpuscular Hemoglobin Concent 33.8 G/DL (32.0-36.0) Red Cell Distribution Width 12.8 % (11.6-14.8) Platelet Count 155 K/UL (150-450) Mean Platelet Volume 8.2 FL (6.5-10.1) Neutrophils (%) (Auto) 81.1 % (45.0-75.0) H Lymphocytes (%) (Auto) 10.7 % (20.0-45.0) L Monocytes (%) (Auto) 6.6 % (1.0-10.0) Eosinophils (%) (Auto) 1.2 % (0.0-3.0) Basophils (%) (Auto) 0.5 % (0.0-2.0) Sodium Level 144 MMOL/L (136-145) Potassium Level 3.0 MMOL/L (3.5-5.1) L Chloride Level 111 MMOL/L (98-107) H Carbon Dioxide Level 19 MMOL/L (21-32) L Anion Gap 14 mmol/L (5-15) Blood Urea Nitrogen 31 mg/dL (7-18) H Creatinine 1.6 MG/DL (0.55-1.30) H Estimat Glomerular Filtration Rate 38.5 mL/min (>60) Glucose Level 75 MG/DL (74-106) Calcium Level 9.1 MG/DL (8.5-10.1) Microbiology Date/Time Source Procedure Growth Status 10/20/18 03:00 Stool Clostridium difficile Toxin Assay - Final Complete Vernon Darden MD Oct 22, 2018 19:53
--- NOTE | 2018-10-22 20:11 | General Progress Note ---
Assessment/Plan Assessment/Plan hypotension retroperitoneal bleed anemia secondary to bleed uti encephalopathy imprved dehydration renbal failure diabetes htn obesity hypercalcemia hypokalemia acute femoral dvt fluids LE dopplers noted IVC filter ct scan noted monitor labs abx treatment of hypercaclemia hypokalemia per Dr Yanez, patient has hyper parathyroidism, endo seeing patient vq scan negative improved encephalopathy monitor accucheck decrease dopmine as tolerated dvt and ulcer proplhylaxis Subjective Allergies: Coded Allergies: SULFA (SULFONAMIDE ANTIBIOTICS) (Verified Allergy, Unknown, 11/28/17) Pt states she is allergic to sulfa Subjective awake no chest painor sob no abdominal pain still on dopamine but lower Objective Last 24 Hour Vital Signs Date Time Temp Pulse Resp B/P (MAP) Pulse Ox O2 Delivery O2 Flow Rate FiO2 10/22/18 17:42 98.8 10/22/18 16:00 114 10/22/18 16:00 Nasal Cannula 2.0 10/22/18 16:00 98.8 116 24 109/65 (80) 99 10/22/18 15:45 98.7 110 18 93/50 (64) 99 10/22/18 15:15 98.6 115 20 98/63 (75) 99 10/22/18 14:45 98.4 105 19 91/44 (60) 99 10/22/18 14:30 98.4 106 20 95/50 (65) 99 10/22/18 14:15 98.5 111 22 105/77 (86) 100 10/22/18 14:00 98.5 116 20 109/74 (86) 99 10/22/18 13:45 Nasal Cannula 2.0 10/22/18 13:35 105 22 144/76 (98) 99 10/22/18 13:30 105 22 143/75 (97) 100 10/22/18 13:25 103 22 163/81 (108) 100 10/22/18 13:20 111 22 155/83 (107) 100 10/22/18 13:15 107 22 152/79 (103) 100 10/22/18 13:10 104 22 143/73 (96) 100 10/22/18 13:05 108 22 140/78 (98) 100 10/22/18 13:00 105 22 137/72 (93) 99 10/22/18 12:55 106 22 149/63 (91) 99 10/22/18 11:46 104 18 6.0 10/22/18 11:00 111 21 153/99 (117) 100 10/22/18 10:00 105 25 160/70 (100) 100 10/22/18 09:32 97.9 10/22/18 09:00 103 21 142/78 (99) 100 10/22/18 08:00 93 10/22/18 08:00 97.9 98 23 116/65 (82) 100 10/22/18 08:00 Nasal Cannula 2.0 10/22/18 07:00 94 20 125/63 (83) 100 10/22/18 06:00 85 14 111/70 (84) 100 10/22/18 05:00 102 25 132/71 (91) 100 10/22/18 04:00 98.3 97 18 113/73 (86) 100 10/22/18 04:00 96 10/22/18 04:00 3.0 10/22/18 03:00 95 12 126/52 (76) 100 10/22/18 02:00 92 24 125/78 (94) 100 10/22/18 01:00 86 22 110/54 (72) 100 10/22/18 00:00 3.0 10/22/18 00:00 99.2 92 14 125/67 (86) 100 10/22/18 00:00 82 10/21/18 23:00 108 14 87/49 (62) 99 10/21/18 22:00 93 14 103/56 (72) 99 10/21/18 21:00 96 16 105/45 (65) 99 Intake and Output 10/21/18 10/22/18 19:00 07:00 Intake Total 1185.617 ml 1660.0 ml Output Total 300 ml 1600 ml Balance 885.617 ml 60.0 ml IV Total 935.617 ml 1660.0 ml Blood Product 250 ml Output Urine Total 300 ml 1600 ml Laboratory Tests 10/22/18 05:30: White Blood Count 8.1, Red Blood Count 2.96L, Hemoglobin 8.6L, Hematocrit 25.3L , Mean Corpuscular Volume 85, Mean Corpuscular Hemoglobin 28.9, Mean Corpuscular Hemoglobin Concent 33.8, Red Cell Distribution Width 12.8, Platelet Count 155, Mean Platelet Volume 8.2, Neutrophils (%) (Auto) 81.1H, Lymphocytes ( %) (Auto) 10.7L, Monocytes (%) (Auto) 6.6, Eosinophils (%) (Auto) 1.2, Basophils (%) (Auto) 0.5, Sodium Level 144, Potassium Level 3.0L, Chloride Level 111H, Carbon Dioxide Level 19L, Anion Gap 14, Blood Urea Nitrogen 31H, Creatinine 1.6H, Estimat Glomerular Filtration Rate 38.5, Glucose Level 75, Calcium Level 9.1 Height (Feet): 5 Height (Inches): 10.00 Weight (Pounds): 251 General Appearance: WD/WN, alert Neck: supple Cardiovascular: normal rate Respiratory/Chest: lungs clear Abdomen: soft Objective trace edema left leg Mario Alberto Aparicio MD Oct 22, 2018 20:11
[2018-10-22] MEDS: Dyna-Hex 2% Top Sol 2oz TOPIC SCH (20:42)
[2018-10-22] MEDS ORDERED: Zolpidem 5mg tab ORAL PRN (21:00)
[2018-10-23] VITALS: BP 167/101
[2018-10-23] MEDS: Morphine Sulfate 4mg/ml Inj (IV/IM USE ONLY) IVP PRN ×6 (03:14→23:39)
[2018-10-23 04:00] VITALS: BP 150/79
[2018-10-23] MEDS: LORazepam Inj 2mg/ml 1ml IV PRN (05:03)
[2018-10-23 05:08] LABS: BASOPHILS % (AUTO) 0.6 % (0.0-2.0); HEMOGLOBIN 8.4 G/DL (12.0-16.0); MEAN CORPUSCULAR VOLUME 86 FL (80-99); MONOCYTES % (AUTO) 11.3 % (1.0-10.0); PLATELET COUNT 209 K/UL (150-450); RED BLOOD COUNT 2.92 M/UL (4.20-5.40); RED CELL DISTRIBUTION WIDTH 13.3 % (11.6-14.8); WHITE BLOOD COUNT 8.3 K/UL (4.8-10.8)
[2018-10-23 05:24] LABS: ALANINE AMINOTRANSFERASE 376 U/L (12-78); ALBUMIN 2.1 G/DL (3.4-5.0); ALBUMIN/GLOBULIN RATIO 0.5 (1.0-2.7); ALKALINE PHOSPHATASE 65 U/L (46-116); ANION GAP 13 mmol/L (5-15); ASPARTATE AMINO TRANSFERASE 93 U/L (15-37); BILIRUBIN,TOTAL 0.5 MG/DL (0.2-1.0); BLOOD UREA NITROGEN 22 mg/dL (7-18); CALCIUM 9.1 MG/DL (8.5-10.1); CARBON DIOXIDE 20 MMOL/L (21-32); CHLORIDE 113 MMOL/L (98-107); CREATININE 1.4 MG/DL (0.55-1.30); POTASSIUM 3.6 MMOL/L (3.5-5.1); SODIUM 146 MMOL/L (136-145)
[2018-10-23] MEDS: NovoLOG Insulin Flexpen SUBQ SCH ×4 (05:30→21:00)
[2018-10-23 08:00] VITALS: BP 151/73
[2018-10-23] MEDS: Piperacillin/Tazobactam 3.375 GM in D5W 110 ML IVPB SCH ×2 (08:28→21:29)
[2018-10-23] MEDS: Pantoprazole Inj IVP SCH (08:28)
--- NOTE | 2018-10-23 10:01 | Infectious Diseases Prog Note ---
Assessment/Plan Assessment/Plan A; 1. Urinary tract infection with E.coli 2. Altered mental status. 3. Acute renal failure.CKD 4. Diabetes mellitus. 5. Hypertension. 6. Obesity. 7. Pressure ulcer. 8. Positive blood culture likely contamination 9.DVT of legs s/p IVC filter 10.Retroperitoneal bleeding 11. Atelectasis, pneumonia 12. Elevated transaminases P; Continue Zosyn X 1 day Subjective ROS Limited/Unobtainable: Yes Neurologic: Reports: confusion Musculoskeletal: Reports: pain Allergies: Coded Allergies: SULFA (SULFONAMIDE ANTIBIOTICS) (Verified Allergy, Unknown, 11/28/17) Pt states she is allergic to sulfa Objective Vital Signs Last 24 Hour Vital Signs Date Time Temp Pulse Resp B/P (MAP) Pulse Ox O2 Delivery O2 Flow Rate FiO2 10/23/18 08:00 109 10/23/18 08:00 99.1 113 19 151/73 (99) 98 10/23/18 08:00 Nasal Cannula 2.0 10/23/18 04:00 95 10/23/18 04:00 Nasal Cannula 2.0 10/23/18 04:00 98.1 108 18 150/79 (102) 100 10/23/18 00:00 119 10/23/18 00:00 98.4 109 19 167/101 (123) 99 10/23/18 00:00 Nasal Cannula 2.0 10/22/18 20:00 Nasal Cannula 2.0 28 10/22/18 20:00 98.2 111 22 117/44 (68) 99 10/22/18 20:00 98 Nasal Cannula 2.0 28 10/22/18 20:00 103 10/22/18 20:00 Nasal Cannula 2.0 10/22/18 17:42 98.8 10/22/18 16:00 114 10/22/18 16:00 Nasal Cannula 2.0 10/22/18 16:00 98.8 116 24 109/65 (80) 99 10/22/18 15:45 98.7 110 18 93/50 (64) 99 10/22/18 15:15 98.6 115 20 98/63 (75) 99 10/22/18 14:45 98.4 105 19 91/44 (60) 99 10/22/18 14:30 98.4 106 20 95/50 (65) 99 10/22/18 14:15 98.5 111 22 105/77 (86) 100 10/22/18 14:00 98.5 116 20 109/74 (86) 99 10/22/18 13:45 Nasal Cannula 2.0 10/22/18 13:35 105 22 144/76 (98) 99 10/22/18 13:30 105 22 143/75 (97) 100 10/22/18 13:25 103 22 163/81 (108) 100 10/22/18 13:20 111 22 155/83 (107) 100 10/22/18 13:15 107 22 152/79 (103) 100 10/22/18 13:10 104 22 143/73 (96) 100 10/22/18 13:05 108 22 140/78 (98) 100 10/22/18 13:00 105 22 137/72 (93) 99 10/22/18 12:55 106 22 149/63 (91) 99 10/22/18 11:46 104 18 6.0 10/22/18 11:00 111 21 153/99 (117) 100 10/22/18 10:00 105 25 160/70 (100) 100 Height (Feet): 5 Height (Inches): 10.00 Weight (Pounds): 254 General Appearance: no acute distress HEENT: mucous membranes moist Respiratory/Chest: lungs clear Cardiovascular: tachycardia Abdomen: soft, non tender Skin: other - edema Neurologic/Psychiatric: disoriented Laboratory Tests Test 10/23/18 03:10 White Blood Count 8.3 K/UL (4.8-10.8) Red Blood Count 2.92 M/UL (4.20-5.40) L Hemoglobin 8.4 G/DL (12.0-16.0) L Hematocrit 25.0 % (37.0-47.0) L Mean Corpuscular Volume 86 FL (80-99) Mean Corpuscular Hemoglobin 28.9 PG (27.0-31.0) Mean Corpuscular Hemoglobin Concent 33.8 G/DL (32.0-36.0) Red Cell Distribution Width 13.3 % (11.6-14.8) Platelet Count 209 K/UL (150-450) Mean Platelet Volume 8.1 FL (6.5-10.1) Neutrophils (%) (Auto) 71.0 % (45.0-75.0) Lymphocytes (%) (Auto) 16.0 % (20.0-45.0) L Monocytes (%) (Auto) 11.3 % (1.0-10.0) H Eosinophils (%) (Auto) 1.0 % (0.0-3.0) Basophils (%) (Auto) 0.6 % (0.0-2.0) Sodium Level 146 MMOL/L (136-145) H Potassium Level 3.6 MMOL/L (3.5-5.1) Chloride Level 113 MMOL/L (98-107) H Carbon Dioxide Level 20 MMOL/L (21-32) L Anion Gap 13 mmol/L (5-15) Blood Urea Nitrogen 22 mg/dL (7-18) H Creatinine 1.4 MG/DL (0.55-1.30) H Estimat Glomerular Filtration Rate 45.1 mL/min (>60) Glucose Level 84 MG/DL (74-106) Calcium Level 9.1 MG/DL (8.5-10.1) Total Bilirubin 0.5 MG/DL (0.2-1.0) Aspartate Amino Transf (AST/SGOT) 93 U/L (15-37) H Alanine Aminotransferase (ALT/SGPT) 376 U/L (12-78) H Alkaline Phosphatase 65 U/L (46-116) Total Protein 6.7 G/DL (6.4-8.2) Albumin 2.1 G/DL (3.4-5.0) L Globulin 4.6 g/dL Albumin/Globulin Ratio 0.5 (1.0-2.7) L Current Medications Medications (Trade) Dose Ordered Sig/Barrett Route PRN Reason Start Time Stop Time Status Last Admin Dose Admin Acetaminophen (Tylenol) 650 mg Q4H PRN ORAL Mild Pain (Pain Scale 1-3) 10/22/18 15:00 11/12/18 14:59 Chlorhexidine Gluconate (Marely-Hex 2%) 1 applic DAILY@1999 TOPIC 10/22/18 20:00 11/18/18 19:59 10/22/18 20:42 Dextrose (Dextrose 50%) 25 ml Q30M PRN IV Hypoglycemia 10/22/18 14:30 11/18/18 12:29 Dextrose (Dextrose 50%) 50 ml Q30M PRN IV Hypoglycemia 10/22/18 14:45 11/18/18 16:35 Insulin Aspart (NovoLOG) BEFORE MEALS AND HS SUBQ 10/22/18 16:30 11/18/18 16:29 Lorazepam (Ativan 2mg/ml 1ml) 0.25 mg BIDPRN PRN IV For Anxiety 10/22/18 15:00 10/29/18 14:59 10/23/18 05:03 Morphine Sulfate (Morphine Sulfate) 2 mg Q3H PRN IVP Moderate Pain (Pain Scale 4-6) 10/22/18 15:00 10/26/18 14:59 Morphine Sulfate (Morphine Sulfate) 4 mg Q3H PRN IVP Severe Pain (Pain Scale 7-10) 10/22/18 15:00 10/26/18 17:53 10/23/18 08:29 Ondansetron HCl (Zofran) 4 mg Q6H PRN IVP Nausea & Vomiting 10/22/18 15:00 11/12/18 14:59 Pantoprazole (Protonix) 40 mg DAILY IVP 10/23/18 09:00 11/19/18 14:44 10/23/18 08:28 Piperacillin Sod/ Tazobactam Sod 3.375 gm/Dextrose 110 ml @ 27.5 mls/hr EVERY 12 HOURS IVPB 10/22/18 21:00 10/25/18 13:59 10/23/18 08:28 Polyethylene Glycol (Miralax) 17 gm DAILYPRN PRN ORAL Constipation 10/22/18 15:00 11/18/18 14:59 Sodium Chloride 1,000 ml @ 100 mls/hr Q10H IV 10/22/18 14:30 11/19/18 08:44 10/23/18 00:21 Zolpidem Tartrate (Ambien) 5 mg HSPRN PRN ORAL Insomnia 10/22/18 21:00 10/29/18 20:59 Julien Yanez MD Oct 23, 2018 10:01
--- NOTE | 2018-10-23 10:08 | Pulmonology Progress Note ---
Assessment/Plan Problems: (1) Altered mental status (2) UTI (urinary tract infection) (3) DVT (deep venous thrombosis) (4) Retroperitoneal bleed (5) JANE (acute kidney injury) (6) Hypernatremia (7) Abdominal pain (8) Acidosis, metabolic (9) Encephalopathy (10) Dyspnea (11) CHF exacerbation (12) Pacemaker (13) DM (diabetes mellitus) Assessment/Plan S/P IVC F Monitor HH, transfuse PRN Monitor volumes and renal function, IVF Abx per ID Diet per [employer]FACE F[employer]ICATOR Aspiration precautions Optimize pulmonary hygiene/mobilize as tolerated Titrate down FiO2 to keep Sao2 > 90% F/U CT chest Subjective Allergies: Coded Allergies: SULFA (SULFONAMIDE ANTIBIOTICS) (Verified Allergy, Unknown, 11/28/17) Pt states she is allergic to sulfa Subjective AFVSS x ST, stable on 2L, keri PO, [employer]FACE F[employer]IC[employer] eval noted, S/P IVCF Continue R hand pain, US not done CT chest pending, TTE reviewed No cough, no SOB, no F/C Objective Last 24 Hour Vital Signs Date Time Temp Pulse Resp B/P (MAP) Pulse Ox O2 Delivery O2 Flow Rate FiO2 10/23/18 08:00 109 10/23/18 08:00 99.1 113 19 151/73 (99) 98 10/23/18 08:00 Nasal Cannula 2.0 10/23/18 04:00 95 10/23/18 04:00 Nasal Cannula 2.0 10/23/18 04:00 98.1 108 18 150/79 (102) 100 10/23/18 00:00 119 10/23/18 00:00 98.4 109 19 167/101 (123) 99 10/23/18 00:00 Nasal Cannula 2.0 10/22/18 20:00 Nasal Cannula 2.0 28 10/22/18 20:00 98.2 111 22 117/44 (68) 99 10/22/18 20:00 98 Nasal Cannula 2.0 28 10/22/18 20:00 103 10/22/18 20:00 Nasal Cannula 2.0 10/22/18 17:42 98.8 10/22/18 16:00 114 10/22/18 16:00 Nasal Cannula 2.0 10/22/18 16:00 98.8 116 24 109/65 (80) 99 10/22/18 15:45 98.7 110 18 93/50 (64) 99 10/22/18 15:15 98.6 115 20 98/63 (75) 99 10/22/18 14:45 98.4 105 19 91/44 (60) 99 10/22/18 14:30 98.4 106 20 95/50 (65) 99 10/22/18 14:15 98.5 111 22 105/77 (86) 100 10/22/18 14:00 98.5 116 20 109/74 (86) 99 10/22/18 13:45 Nasal Cannula 2.0 10/22/18 13:35 105 22 144/76 (98) 99 10/22/18 13:30 105 22 143/75 (97) 100 10/22/18 13:25 103 22 163/81 (108) 100 10/22/18 13:20 111 22 155/83 (107) 100 10/22/18 13:15 107 22 152/79 (103) 100 10/22/18 13:10 104 22 143/73 (96) 100 10/22/18 13:05 108 22 140/78 (98) 100 10/22/18 13:00 105 22 137/72 (93) 99 10/22/18 12:55 106 22 149/63 (91) 99 10/22/18 11:46 104 18 6.0 10/22/18 11:00 111 21 153/99 (117) 100 10/22/18 10:00 105 25 160/70 (100) 100 Intake and Output 10/22/18 10/23/18 18:59 06:59 Intake Total 1326.667 ml 100 ml Output Total 1375 ml 1250 ml Balance -48.333 ml -1150 ml Intake Oral 320 ml IV Total 1006.667 ml 100 ml Output Urine Total 1375 ml 1250 ml General Appearance: no acute distress, cachetic, other - obese HEENT: normocephalic, atraumatic, anicteric, mucous membranes moist Respiratory/Chest: chest wall non-tender, rhonchi Cardiovascular: normal peripheral pulses, normal rate, regular rhythm Abdomen: normal bowel sounds, soft, non tender, no organomegaly, non distended , no mass Extremities: no cyanosis, no clubbing, no edema Laboratory Tests 10/23/18 03:10: White Blood Count 8.3, Red Blood Count 2.92L, Hemoglobin 8.4L, Hematocrit 25.0L , Mean Corpuscular Volume 86, Mean Corpuscular Hemoglobin 28.9, Mean Corpuscular Hemoglobin Concent 33.8, Red Cell Distribution Width 13.3, Platelet Count 209, Mean Platelet Volume 8.1, Neutrophils (%) (Auto) 71.0, Lymphocytes (% ) (Auto) 16.0L, Monocytes (%) (Auto) 11.3H, Eosinophils (%) (Auto) 1.0, Basophils (%) (Auto) 0.6, Sodium Level 146H, Potassium Level 3.6, Chloride Level 113H, Carbon Dioxide Level 20L, Anion Gap 13, Blood Urea Nitrogen 22H, Creatinine 1.4H, Estimat Glomerular Filtration Rate 45.1, Glucose Level 84, Calcium Level 9.1, Total Bilirubin 0.5, Aspartate Amino Transf (AST/SGOT) 93H, Alanine Aminotransferase (ALT/SGPT) 376H, Alkaline Phosphatase 65, Total Protein 6.7, Albumin 2.1L, Globulin 4.6, Albumin/Globulin Ratio 0.5L Current Medications Medications (Trade) Dose Ordered Sig/Barrett Route PRN Reason Start Time Stop Time Status Last Admin Dose Admin Acetaminophen (Tylenol) 650 mg Q4H PRN ORAL Mild Pain (Pain Scale 1-3) 10/22/18 15:00 11/12/18 14:59 Chlorhexidine Gluconate (Marely-Hex 2%) 1 applic DAILY@2000 TOPIC 10/22/18 20:00 11/18/18 19:59 10/22/18 20:42 Dextrose (Dextrose 50%) 25 ml Q30M PRN IV Hypoglycemia 10/22/18 14:30 11/18/18 12:29 Dextrose (Dextrose 50%) 50 ml Q30M PRN IV Hypoglycemia 10/22/18 14:45 11/18/18 16:35 Insulin Aspart (NovoLOG) BEFORE MEALS AND HS SUBQ 10/22/18 16:30 11/18/18 16:29 Lorazepam (Ativan 2mg/ml 1ml) 0.25 mg BIDPRN PRN IV For Anxiety 10/22/18 15:00 10/29/18 14:59 10/23/18 05:03 Morphine Sulfate (Morphine Sulfate) 2 mg Q3H PRN IVP Moderate Pain (Pain Scale 4-6) 10/22/18 15:00 10/26/18 14:59 Morphine Sulfate (Morphine Sulfate) 4 mg Q3H PRN IVP Severe Pain (Pain Scale 7-10) 10/22/18 15:00 10/26/18 17:53 10/23/18 08:29 Ondansetron HCl (Zofran) 4 mg Q6H PRN IVP Nausea & Vomiting 10/22/18 15:00 11/12/18 14:59 Pantoprazole (Protonix) 40 mg DAILY IVP 10/23/18 09:00 11/19/18 14:44 10/23/18 08:28 Piperacillin Sod/ Tazobactam Sod 3.375 gm/Dextrose 110 ml @ 27.5 mls/hr EVERY 12 HOURS IVPB 10/22/18 21:00 10/25/18 13:59 10/23/18 08:28 Polyethylene Glycol (Miralax) 17 gm DAILYPRN PRN ORAL Constipation 10/22/18 15:00 11/18/18 14:59 Sodium Chloride 1,000 ml @ 100 mls/hr Q10H IV 10/22/18 14:30 11/19/18 08:44 10/23/18 00:21 Zolpidem Tartrate (Ambien) 5 mg HSPRN PRN ORAL Insomnia 10/22/18 21:00 10/29/18 20:59 Riley Alatorre MD Oct 23, 2018 10:08
--- NOTE | 2018-10-23 10:23 | Diagnostic Imaging Report ---
APPROVED REPORT CPT Code: 68720 Symptoms Other : Pain BILATERAL UPPER EXTREMITY: Imaging of the subclavian, axillary, brachial, radial and ulnar arteries is within normal limits. There is no evidence of stenosis or occlusions within these segments. The Doppler waveforms of both upper extremities are multiphasic, consistent with normal inflow to both upper extremities.
--- NOTE | 2018-10-23 10:23 | Diagnostic Imaging Report ---
APPROVED REPORT CPT Code: 78167 Present Symptoms Comments: Pain Hx of a Line( right Internal jugular vein) BILATERAL UPPER EXTREMITY: Imaging reveals patency of the internal jugular, subclavian, axillary and brachial veins. Doppler indicates normal spontaneous flow within these venous segments, bilaterally. The cephalic and basilic veins (both arms) not well visualized.
--- NOTE | 2018-10-23 10:24 | Diagnostic Imaging Report ---
APPROVED REPORT CPT Code: 97215 Present Symptoms Right Comments: RT ARM PAIN. RIGHT UPPER EXTREMITY: Venous imaging reveals patency of the subclavian, axillary and brachial veins. The basilic veins are also patent. Doppler indicates normal spontaneous flow within these venous segments.The internal jugular vein not visulaized due to bandage. Cephalic vein also not visulized due to patient's body habitus.
[2018-10-23] MEDS ORDERED: Lidocaine 1% Plain 30 ml INJ PRN (11:30)
[2018-10-23 12:00] VITALS: BP 148/89
--- NOTE | 2018-10-23 13:41 | General Surgery Progress Note ---
General Surgery-Progress Note Subjective Procedure Performed right internal jugular central venous catheter insertion using ultrasound guidance Additional Comments no acute events. improving. labs okay Objective Last 24 Hour Vital Signs Date Time Temp Pulse Resp B/P (MAP) Pulse Ox O2 Delivery O2 Flow Rate FiO2 10/23/18 12:00 Nasal Cannula 2.0 10/23/18 12:00 102 10/23/18 12:00 99.5 108 22 148/89 (108) 98 10/23/18 08:00 109 10/23/18 08:00 99.1 113 19 151/73 (99) 98 10/23/18 08:00 Nasal Cannula 2.0 10/23/18 04:00 95 10/23/18 04:00 Nasal Cannula 2.0 10/23/18 04:00 98.1 108 18 150/79 (102) 100 10/23/18 00:00 119 10/23/18 00:00 98.4 109 19 167/101 (123) 99 10/23/18 00:00 Nasal Cannula 2.0 10/22/18 20:00 Nasal Cannula 2.0 28 10/22/18 20:00 98.2 111 22 117/44 (68) 99 10/22/18 20:00 98 Nasal Cannula 2.0 28 10/22/18 20:00 103 10/22/18 20:00 Nasal Cannula 2.0 10/22/18 17:42 98.8 10/22/18 16:00 114 10/22/18 16:00 Nasal Cannula 2.0 10/22/18 16:00 98.8 116 24 109/65 (80) 99 10/22/18 15:45 98.7 110 18 93/50 (64) 99 10/22/18 15:15 98.6 115 20 98/63 (75) 99 10/22/18 14:45 98.4 105 19 91/44 (60) 99 10/22/18 14:30 98.4 106 20 95/50 (65) 99 10/22/18 14:15 98.5 111 22 105/77 (86) 100 10/22/18 14:00 98.5 116 20 109/74 (86) 99 10/22/18 13:45 Nasal Cannula 2.0 I&O Intake and Output 10/22/18 10/23/18 19:00 07:00 Intake Total 1326.667 ml Output Total 1375 ml 1250 ml Balance -48.333 ml -1250 ml Intake Oral 320 ml IV Total 1006.667 ml Output Urine Total 1375 ml 1250 ml Dressing: other Wound: other Drains: other Cardiovascular: RSR Respiratory: clear Abdomen: soft, flat, non-tender, present bowel sounds Extremities: no cyanosis Laboratory Tests Test 10/23/18 03:10 White Blood Count 8.3 K/UL (4.8-10.8) Red Blood Count 2.92 M/UL (4.20-5.40) L Hemoglobin 8.4 G/DL (12.0-16.0) L Hematocrit 25.0 % (37.0-47.0) L Mean Corpuscular Volume 86 FL (80-99) Mean Corpuscular Hemoglobin 28.9 PG (27.0-31.0) Mean Corpuscular Hemoglobin Concent 33.8 G/DL (32.0-36.0) Red Cell Distribution Width 13.3 % (11.6-14.8) Platelet Count 209 K/UL (150-450) Mean Platelet Volume 8.1 FL (6.5-10.1) Neutrophils (%) (Auto) 71.0 % (45.0-75.0) Lymphocytes (%) (Auto) 16.0 % (20.0-45.0) L Monocytes (%) (Auto) 11.3 % (1.0-10.0) H Eosinophils (%) (Auto) 1.0 % (0.0-3.0) Basophils (%) (Auto) 0.6 % (0.0-2.0) Sodium Level 146 MMOL/L (136-145) H Potassium Level 3.6 MMOL/L (3.5-5.1) Chloride Level 113 MMOL/L (98-107) H Carbon Dioxide Level 20 MMOL/L (21-32) L Anion Gap 13 mmol/L (5-15) Blood Urea Nitrogen 22 mg/dL (7-18) H Creatinine 1.4 MG/DL (0.55-1.30) H Estimat Glomerular Filtration Rate 45.1 mL/min (>60) Glucose Level 84 MG/DL (74-106) Calcium Level 9.1 MG/DL (8.5-10.1) Total Bilirubin 0.5 MG/DL (0.2-1.0) Aspartate Amino Transf (AST/SGOT) 93 U/L (15-37) H Alanine Aminotransferase (ALT/SGPT) 376 U/L (12-78) H Alkaline Phosphatase 65 U/L (46-116) Total Protein 6.7 G/DL (6.4-8.2) Albumin 2.1 G/DL (3.4-5.0) L Globulin 4.6 g/dL Albumin/Globulin Ratio 0.5 (1.0-2.7) L Plan Problems: (1) Abdominal pain Assessment & Plan: US noted - cholelithiasis. no inflammation CT noted - likely retrop hematoma IV filter as bleed on anticoag prior and has acute dvt okay for diet IV fluids IV abx trend labs (2) Anemia Assessment & Plan: poor peripheral access central line inserted see procedure note transfuse prbc trend labs will monitor hematoma clinically Jared Obrien Oct 23, 2018 13:41
--- NOTE | 2018-10-23 14:48 | Nephrology Progress Note ---
Assessment/Plan Problem List: (1) Altered mental status (2) DM (diabetes mellitus) (3) HTN (hypertension) (4) ARF (acute renal failure) Assessment: better (5) Hypertrophic cardiomyopathy (6) Encephalopathy (7) UTI (urinary tract infection) (8) Hypokalemia Assessment: ok (9) Hypernatremia (10) DVT (deep venous thrombosis) (11) Retroperitoneal bleed Assessment: HCT stable (12) Primary hyperparathyroidism Assessment: Ca is Ok Plan S/P IVC filter Abxs follow labs Discussed with RN Subjective Subjective somewhat confused Objective Objective Last 24 Hour Vital Signs Date Time Temp Pulse Resp B/P (MAP) Pulse Ox O2 Delivery O2 Flow Rate FiO2 10/23/18 12:00 Nasal Cannula 2.0 10/23/18 12:00 102 10/23/18 12:00 99.5 108 22 148/89 (108) 98 10/23/18 08:00 109 10/23/18 08:00 99.1 113 19 151/73 (99) 98 10/23/18 08:00 Nasal Cannula 2.0 10/23/18 04:00 95 10/23/18 04:00 Nasal Cannula 2.0 10/23/18 04:00 98.1 108 18 150/79 (102) 100 10/23/18 00:00 119 10/23/18 00:00 98.4 109 19 167/101 (123) 99 10/23/18 00:00 Nasal Cannula 2.0 10/22/18 20:00 Nasal Cannula 2.0 28 10/22/18 20:00 98.2 111 22 117/44 (68) 99 10/22/18 20:00 98 Nasal Cannula 2.0 28 10/22/18 20:00 103 10/22/18 20:00 Nasal Cannula 2.0 10/22/18 17:42 98.8 10/22/18 16:00 114 10/22/18 16:00 Nasal Cannula 2.0 10/22/18 16:00 98.8 116 24 109/65 (80) 99 10/22/18 15:45 98.7 110 18 93/50 (64) 99 10/22/18 15:15 98.6 115 20 98/63 (75) 99 10/22/18 14:45 98.4 105 19 91/44 (60) 99 Intake and Output 10/22/18 10/23/18 19:00 07:00 Intake Total 1326.667 ml Output Total 1375 ml 1250 ml Balance -48.333 ml -1250 ml Intake Oral 320 ml IV Total 1006.667 ml Output Urine Total 1375 ml 1250 ml Laboratory Tests 10/23/18 03:10: White Blood Count 8.3, Red Blood Count 2.92L, Hemoglobin 8.4L, Hematocrit 25.0L , Mean Corpuscular Volume 86, Mean Corpuscular Hemoglobin 28.9, Mean Corpuscular Hemoglobin Concent 33.8, Red Cell Distribution Width 13.3, Platelet Count 209, Mean Platelet Volume 8.1, Neutrophils (%) (Auto) 71.0, Lymphocytes (% ) (Auto) 16.0L, Monocytes (%) (Auto) 11.3H, Eosinophils (%) (Auto) 1.0, Basophils (%) (Auto) 0.6, Sodium Level 146H, Potassium Level 3.6, Chloride Level 113H, Carbon Dioxide Level 20L, Anion Gap 13, Blood Urea Nitrogen 22H, Creatinine 1.4H, Estimat Glomerular Filtration Rate 45.1, Glucose Level 84, Calcium Level 9.1, Total Bilirubin 0.5, Aspartate Amino Transf (AST/SGOT) 93H, Alanine Aminotransferase (ALT/SGPT) 376H, Alkaline Phosphatase 65, Total Protein 6.7, Albumin 2.1L, Globulin 4.6, Albumin/Globulin Ratio 0.5L Height (Feet): 5 Height (Inches): 10.00 Weight (Pounds): 254 Cardiovascular: normal rate Respiratory/Chest: lungs clear Extremities: other - no edema Oliverio Yanez MD Oct 23, 2018 14:48
[2018-10-23] MEDS ORDERED: D5W 275ml ONE (15:49)
[2018-10-23] MEDS ORDERED: NS 275ml ONE (15:49)
[2018-10-23] MEDS ORDERED: Tubing Blood Filter IV ONE (15:49)
[2018-10-23 16:00] VITALS: BP 158/98
--- NOTE | 2018-10-23 17:09 | Neurology Progress Note ---
Interim History Interim History Interim History Ms. Allen feels "OK." She was talking to "my niece" when I went into her room - no one was in her room. Her right wrist is still painful. She also complains of severe right > left knee pain. Her blood pressures are better. She is awake and more alert. She continues to be cognitively impoverished. She is still significantly disoriented. Her memory is poor. She continues to be generally weak. She is still oblivious as to why she has been hospitalized. She denies any new neurologic symptoms. Review of Systems Neuro Review of Systems Benign. Objective Physical Exam Last Vital Signs Date Time Temp Pulse Resp B/P (MAP) Pulse Ox O2 Delivery O2 Flow Rate FiO2 10/23/18 16:00 Nasal Cannula 2.0 10/23/18 16:00 99.7 110 23 158/98 (118) 100 10/22/18 20:00 28 Laboratory Tests Test 10/23/18 03:10 White Blood Count 8.3 K/UL (4.8-10.8) Red Blood Count 2.92 M/UL (4.20-5.40) L Hemoglobin 8.4 G/DL (12.0-16.0) L Hematocrit 25.0 % (37.0-47.0) L Mean Corpuscular Volume 86 FL (80-99) Mean Corpuscular Hemoglobin 28.9 PG (27.0-31.0) Mean Corpuscular Hemoglobin Concent 33.8 G/DL (32.0-36.0) Red Cell Distribution Width 13.3 % (11.6-14.8) Platelet Count 209 K/UL (150-450) Mean Platelet Volume 8.1 FL (6.5-10.1) Neutrophils (%) (Auto) 71.0 % (45.0-75.0) Lymphocytes (%) (Auto) 16.0 % (20.0-45.0) L Monocytes (%) (Auto) 11.3 % (1.0-10.0) H Eosinophils (%) (Auto) 1.0 % (0.0-3.0) Basophils (%) (Auto) 0.6 % (0.0-2.0) Sodium Level 146 MMOL/L (136-145) H Potassium Level 3.6 MMOL/L (3.5-5.1) Chloride Level 113 MMOL/L (98-107) H Carbon Dioxide Level 20 MMOL/L (21-32) L Anion Gap 13 mmol/L (5-15) Blood Urea Nitrogen 22 mg/dL (7-18) H Creatinine 1.4 MG/DL (0.55-1.30) H Estimat Glomerular Filtration Rate 45.1 mL/min (>60) Glucose Level 84 MG/DL (74-106) Calcium Level 9.1 MG/DL (8.5-10.1) Total Bilirubin 0.5 MG/DL (0.2-1.0) Aspartate Amino Transf (AST/SGOT) 93 U/L (15-37) H Alanine Aminotransferase (ALT/SGPT) 376 U/L (12-78) H Alkaline Phosphatase 65 U/L (46-116) Total Protein 6.7 G/DL (6.4-8.2) Albumin 2.1 G/DL (3.4-5.0) L Globulin 4.6 g/dL Albumin/Globulin Ratio 0.5 (1.0-2.7) L Neurologic Exam Objective PHYSICAL EXAMINATION: GENERAL: She is a well-developed, well-nourished, obese, black lady, lying in bed, in no acute distress. HEAD: Normocephalic and atraumatic. EENT: Examination benign except for bilateral chemosis. NECK: No neck rigidity was observed. NEUROLOGICAL EXAMINATION: MENTAL STATUS EXAMINATION: She was awake and more alert. She was oriented to self only. She had no idea of where she was or what the date was. She was able to recall 3/3 words immediately but could only remember 1/3 in 1 and 3 minutes. She was unable to tell me who the present or prior Presidents are. She was unable to cooperate for further mental status testing. SPEECH: She had a mild dysarthria. LANGUAGE: She had a mild anomia. CRANIAL NERVE EXAMINATION: II: She was able to count fingers. III, IV & : The external ocular movements were full but she did have a dysconjugate gaze. The pupils were 3 mm in diameter, equal, round, regular, and reactive sluggishly to light. V & VII: The corneal reflexes were equally brisk. VIII: She did respond to sounds and had no nystagmus. IX & X: The gag reflex was not tested XI: The sternocleidomastoids and trapezii did function. XII: The tongue was in the midline without any fasciculations or atrophy. MOTOR SYSTEM: The tone was normal in all four extremities. Examination of muscle mass revealed no focal wasting. Examination of power was impossible to perform because the effort was poor. She was generally weak - more so in the lower than upper extremities. In addition movements in the right wrist were limited by pain. SENSORY EXAMINATION: She responded appropriately to light touch. Other sensory modalities could not be tested. REFLEXES: 0 at the biceps, triceps, brachioradialis, knees, and ankles. The plantar responses were flexor bilaterally. COORDINATION, STANCE & GAIT: Could not be tested. Impression/Recommendations Diagnostic Impression 1. Ms Rafael Allen is a 68-year-old, right-handed, black lady, with a past history of hypertension, diabetes mellitus, renal failure, and cardiac arrhythmia - for which she has a pacemaker implanted, who was hospitalized for a change in mental state and was found to have urinary tract infection. 2. She feels feels "OK." She was talking to "my niece" when I went into her room - no one was in her room. Her right wrist is still painful. She also complains of severe right > left knee pain. Her blood pressures are better. She is awake and more alert. She continues to be cognitively impoverished. She is still significantly disoriented. Her memory is poor. She continues to be generally weak. She is still oblivious as to why she has been hospitalized. She denies any new neurologic symptoms. 3. On neurological examination, at this time, she is oriented to self only. She has significant problems with recent and remote memory. She also exhibits a mild dysarthria and an anomia, a quadriparesis - involving the lower extremities more than the upper extremities, and globally absent deep tendon reflexes. She was also delusional and conversing with her "niece" who was not in her room. 4. The CT scan of the brain without contrast reveals atrophy and deep white matter changes, but no acute pathology. 5. Laboratory data on my initial evaluation revealed that she was anemic with a hemoglobin of 10 G. Her chemistry panel revealed that her BUN was elevated to 124, her creatinine was elevated at 2.9, her hemoglobin A1c was elevated at 6.1% , her calcium was elevated at 10.7, her proBNP was elevated at 252, her albumin was low at 3.1, and her TSH was normal at 0.46. Her Urinalysis revealed 3+ leukocyte esterase, 2-4 red blood cells, and too numerous to count white blood cells per high-power field. 6. Further laboratory tests revealed a normal B12, Folate, ESR. 7. The EEG done on 10/15/18 revealed moderate generalized cerebral dysfunction and left > right cerebral dysfunction. 8. The patient's history, neurological examination, and laboratory data are most compatible with an acute encephalopathic process of the toxic metabolic nature. The offending factors were a urinary tract infection, and in addition renal failure. In addition the patient does also have structural brain disease. Recommendations 1. Continue present management. 2. Aggressive treatment of infectious process and hypotension. 3. Increase activity with frequent ROM exercises. 4. Observe. Gume Bassett M.D., M.S.P.H. Gume Bassett MD Oct 23, 2018 17:09
[2018-10-23 20:00] VITALS: BP 180/83
--- NOTE | 2018-10-23 20:32 | General Progress Note ---
Assessment/Plan Assessment/Plan Assessment - OB (+) stool, but brown and pasty (not melena) - Retroperitoneal hematoma - acute hypotention and drop in H&H - due to RP hematoma - Sudden rise in LFT - suspect shocked liver - DVT - anticoagulation held - GB sludge on ultrasound - fatty liver, per U/S imaging Recommendations - follow labs - transfuse PRN - PPI - push po - check hepatitis markers - negative - Check CPK --> normal Subjective Allergies: Coded Allergies: SULFA (SULFONAMIDE ANTIBIOTICS) (Verified Allergy, Unknown, 11/28/17) Pt states she is allergic to sulfa Subjective Above noted d/w RN eating OK dislikes hospital food Objective Last 24 Hour Vital Signs Date Time Temp Pulse Resp B/P (MAP) Pulse Ox O2 Delivery O2 Flow Rate FiO2 10/23/18 16:00 111 10/23/18 16:00 Nasal Cannula 2.0 10/23/18 16:00 99.7 110 23 158/98 (118) 100 10/23/18 12:00 Nasal Cannula 2.0 10/23/18 12:00 102 10/23/18 12:00 99.5 108 22 148/89 (108) 98 10/23/18 08:00 109 10/23/18 08:00 99.1 113 19 151/73 (99) 98 10/23/18 08:00 Nasal Cannula 2.0 10/23/18 04:00 95 10/23/18 04:00 Nasal Cannula 2.0 10/23/18 04:00 98.1 108 18 150/79 (102) 100 10/23/18 00:00 119 10/23/18 00:00 98.4 109 19 167/101 (123) 99 10/23/18 00:00 Nasal Cannula 2.0 Intake and Output 10/22/18 10/23/18 19:00 07:00 Intake Total 1326.667 ml Output Total 1375 ml 1250 ml Balance -48.333 ml -1250 ml Intake Oral 320 ml IV Total 1006.667 ml Output Urine Total 1375 ml 1250 ml Laboratory Tests 10/23/18 03:10: White Blood Count 8.3, Red Blood Count 2.92L, Hemoglobin 8.4L, Hematocrit 25.0L , Mean Corpuscular Volume 86, Mean Corpuscular Hemoglobin 28.9, Mean Corpuscular Hemoglobin Concent 33.8, Red Cell Distribution Width 13.3, Platelet Count 209, Mean Platelet Volume 8.1, Neutrophils (%) (Auto) 71.0, Lymphocytes (% ) (Auto) 16.0L, Monocytes (%) (Auto) 11.3H, Eosinophils (%) (Auto) 1.0, Basophils (%) (Auto) 0.6, Sodium Level 146H, Potassium Level 3.6, Chloride Level 113H, Carbon Dioxide Level 20L, Anion Gap 13, Blood Urea Nitrogen 22H, Creatinine 1.4H, Estimat Glomerular Filtration Rate 45.1, Glucose Level 84, Calcium Level 9.1, Total Bilirubin 0.5, Aspartate Amino Transf (AST/SGOT) 93H, Alanine Aminotransferase (ALT/SGPT) 376H, Alkaline Phosphatase 65, Total Protein 6.7, Albumin 2.1L, Globulin 4.6, Albumin/Globulin Ratio 0.5L Height (Feet): 5 Height (Inches): 10.00 Weight (Pounds): 254 Objective Elderly AA woman NCAT supple CTA RR abd mildly distended no edema Richard Schroeder MD Oct 23, 2018 20:32
--- NOTE | 2018-10-23 20:56 | General Progress Note ---
Assessment/Plan Assessment/Plan hypotension retroperitoneal bleed anemia secondary to bleed uti encephalopathy imprved dehydration renbal failure diabetes htn obesity hypercalcemia hypokalemia acute femoral dvt fluids LE dopplers noted IVC filter ct scan noted monitor labs abx treatment of hypercaclemia hypokalemia per Dr Yanez, patient has hyper parathyroidism, endo seeing patient vq scan negative improved encephalopathy monitor accucheck oob PT dvt and ulcer proplhylaxis Subjective Allergies: Coded Allergies: SULFA (SULFONAMIDE ANTIBIOTICS) (Verified Allergy, Unknown, 11/28/17) Pt states she is allergic to sulfa Subjective transferex to monitored bed sp ivc filter done yestrday, no sob sleepy Objective Last 24 Hour Vital Signs Date Time Temp Pulse Resp B/P (MAP) Pulse Ox O2 Delivery O2 Flow Rate FiO2 10/23/18 20:00 106 10/23/18 20:00 99.7 125 20 180/83 (115) 98 10/23/18 16:00 111 10/23/18 16:00 Nasal Cannula 2.0 10/23/18 16:00 99.7 110 23 158/98 (118) 100 10/23/18 12:00 Nasal Cannula 2.0 10/23/18 12:00 102 10/23/18 12:00 99.5 108 22 148/89 (108) 98 10/23/18 08:00 109 10/23/18 08:00 99.1 113 19 151/73 (99) 98 10/23/18 08:00 Nasal Cannula 2.0 10/23/18 04:00 95 10/23/18 04:00 Nasal Cannula 2.0 10/23/18 04:00 98.1 108 18 150/79 (102) 100 10/23/18 00:00 119 10/23/18 00:00 98.4 109 19 167/101 (123) 99 10/23/18 00:00 Nasal Cannula 2.0 Intake and Output 10/22/18 10/23/18 19:00 07:00 Intake Total 1326.667 ml Output Total 1375 ml 1250 ml Balance -48.333 ml -1250 ml Intake Oral 320 ml IV Total 1006.667 ml Output Urine Total 1375 ml 1250 ml Laboratory Tests 10/23/18 03:10: White Blood Count 8.3, Red Blood Count 2.92L, Hemoglobin 8.4L, Hematocrit 25.0L , Mean Corpuscular Volume 86, Mean Corpuscular Hemoglobin 28.9, Mean Corpuscular Hemoglobin Concent 33.8, Red Cell Distribution Width 13.3, Platelet Count 209, Mean Platelet Volume 8.1, Neutrophils (%) (Auto) 71.0, Lymphocytes (% ) (Auto) 16.0L, Monocytes (%) (Auto) 11.3H, Eosinophils (%) (Auto) 1.0, Basophils (%) (Auto) 0.6, Sodium Level 146H, Potassium Level 3.6, Chloride Level 113H, Carbon Dioxide Level 20L, Anion Gap 13, Blood Urea Nitrogen 22H, Creatinine 1.4H, Estimat Glomerular Filtration Rate 45.1, Glucose Level 84, Calcium Level 9.1, Total Bilirubin 0.5, Aspartate Amino Transf (AST/SGOT) 93H, Alanine Aminotransferase (ALT/SGPT) 376H, Alkaline Phosphatase 65, Total Protein 6.7, Albumin 2.1L, Globulin 4.6, Albumin/Globulin Ratio 0.5L Height (Feet): 5 Height (Inches): 10.00 Weight (Pounds): 254 General Appearance: WD/WN, no apparent distress Cardiovascular: normal rate Respiratory/Chest: lungs clear Abdomen: soft Objective trace edema left leg Mario Alberto Aparicio MD Oct 23, 2018 20:56
[2018-10-23] MEDS: Dyna-Hex 2% Top Sol 2oz TOPIC SCH (21:29)
--- NOTE | 2018-10-23 21:47 | Cardiology Progress Note ---
Assessment/Plan Assessment/Plan 1.dehydration 2. Toxic metabolic encephlopathy . 3. History of hypertrophic nonobstructive cardiomyopathy. 4. Family history of sudden cardiac . 5. History of intracardiac defibrillator implantation, [employer] device previously. 6. acute renal failure 7. Abnormal perfusion with normal cardiac catheterization previously. 8. Hypercalcemia. 9. Alteration of mentation. 10. Azotemia 11. afib hx 12. bactermia ? contaminent 13. UTI 14. DVT 15. hypotenison 16. anemia 17. shock liver 18. retroperitoneal bleeding off heparin due to anemia now s/p prbc ivf already tele sinus vpaced pac pvc icd older model unlikely mri compatible s/p iv hydration abx s/p ivc filter tele noted lt improving not a candidate for terminal gauger anticoagulation Subjective ROS Limited/Unobtainable: Yes Subjective confused Objective Last 24 Hour Vital Signs Date Time Temp Pulse Resp B/P (MAP) Pulse Ox O2 Delivery O2 Flow Rate FiO2 10/23/18 20:00 106 10/23/18 20:00 99.7 125 20 180/83 (115) 98 10/23/18 16:00 111 10/23/18 16:00 Nasal Cannula 2.0 10/23/18 16:00 99.7 110 23 158/98 (118) 100 10/23/18 12:00 Nasal Cannula 2.0 10/23/18 12:00 102 10/23/18 12:00 99.5 108 22 148/89 (108) 98 10/23/18 08:00 109 10/23/18 08:00 99.1 113 19 151/73 (99) 98 10/23/18 08:00 Nasal Cannula 2.0 10/23/18 04:00 95 10/23/18 04:00 Nasal Cannula 2.0 10/23/18 04:00 98.1 108 18 150/79 (102) 100 10/23/18 00:00 119 10/23/18 00:00 98.4 109 19 167/101 (123) 99 10/23/18 00:00 Nasal Cannula 2.0 General Appearance: no apparent distress Neck: supple Cardiovascular: normal rate Respiratory/Chest: lungs clear, normal breath sounds Abdomen: normal bowel sounds, non tender, soft Extremities: no swelling Intake and Output 10/22/18 10/23/18 18:59 06:59 Intake Total 1326.667 ml 100 ml Output Total 1375 ml 1250 ml Balance -48.333 ml -1150 ml Intake Oral 320 ml IV Total 1006.667 ml 100 ml Output Urine Total 1375 ml 1250 ml Laboratory Tests Test 10/23/18 03:10 White Blood Count 8.3 K/UL (4.8-10.8) Red Blood Count 2.92 M/UL (4.20-5.40) L Hemoglobin 8.4 G/DL (12.0-16.0) L Hematocrit 25.0 % (37.0-47.0) L Mean Corpuscular Volume 86 FL (80-99) Mean Corpuscular Hemoglobin 28.9 PG (27.0-31.0) Mean Corpuscular Hemoglobin Concent 33.8 G/DL (32.0-36.0) Red Cell Distribution Width 13.3 % (11.6-14.8) Platelet Count 209 K/UL (150-450) Mean Platelet Volume 8.1 FL (6.5-10.1) Neutrophils (%) (Auto) 71.0 % (45.0-75.0) Lymphocytes (%) (Auto) 16.0 % (20.0-45.0) L Monocytes (%) (Auto) 11.3 % (1.0-10.0) H Eosinophils (%) (Auto) 1.0 % (0.0-3.0) Basophils (%) (Auto) 0.6 % (0.0-2.0) Sodium Level 146 MMOL/L (136-145) H Potassium Level 3.6 MMOL/L (3.5-5.1) Chloride Level 113 MMOL/L (98-107) H Carbon Dioxide Level 20 MMOL/L (21-32) L Anion Gap 13 mmol/L (5-15) Blood Urea Nitrogen 22 mg/dL (7-18) H Creatinine 1.4 MG/DL (0.55-1.30) H Estimat Glomerular Filtration Rate 45.1 mL/min (>60) Glucose Level 84 MG/DL (74-106) Calcium Level 9.1 MG/DL (8.5-10.1) Total Bilirubin 0.5 MG/DL (0.2-1.0) Aspartate Amino Transf (AST/SGOT) 93 U/L (15-37) H Alanine Aminotransferase (ALT/SGPT) 376 U/L (12-78) H Alkaline Phosphatase 65 U/L (46-116) Total Protein 6.7 G/DL (6.4-8.2) Albumin 2.1 G/DL (3.4-5.0) L Globulin 4.6 g/dL Albumin/Globulin Ratio 0.5 (1.0-2.7) L Vernon Darden MD Oct 23, 2018 21:47
[2018-10-24] VITALS: BP 160/95
[2018-10-24 04:00] VITALS: BP 163/93
[2018-10-24] MEDS: Morphine Sulfate 4mg/ml Inj (IV/IM USE ONLY) IVP PRN ×2 (05:00→20:17)
[2018-10-24] MEDS: NovoLOG Insulin Flexpen SUBQ SCH ×4 (06:30→20:49)
[2018-10-24 08:00] VITALS: BP 123/53
[2018-10-24] MEDS: Pantoprazole Inj IVP SCH (09:17)
[2018-10-24] MEDS: Piperacillin/Tazobactam 3.375 GM in D5W 110 ML IVPB SCH (09:18)
--- NOTE | 2018-10-24 10:48 | Infectious Diseases Prog Note ---
Assessment/Plan Assessment/Plan A; 1. Urinary tract infection with E.coli treated 2. Altered mental status. 3. Acute renal failure.CKD 4. Diabetes mellitus. 5. Hypertension. 6. Obesity. 7. Pressure ulcer. 8. Positive blood culture likely contamination 9.DVT of legs s/p IVC filter 10.Retroperitoneal bleeding 11. Atelectasis, pneumonia treated 12. Elevated transaminases P; Discontinue Zosyn Observe off antibiotic Subjective ROS Limited/Unobtainable: Yes Constitutional: Reports: no symptoms Neurologic: Reports: confusion Allergies: Coded Allergies: SULFA (SULFONAMIDE ANTIBIOTICS) (Verified Allergy, Unknown, 11/28/17) Pt states she is allergic to sulfa Objective Vital Signs Last 24 Hour Vital Signs Date Time Temp Pulse Resp B/P (MAP) Pulse Ox O2 Delivery O2 Flow Rate FiO2 10/24/18 08:00 113 10/24/18 08:00 Nasal Cannula 2.0 10/24/18 08:00 99.7 122 19 123/53 (76) 100 10/24/18 04:00 98.1 117 18 163/93 (116) 100 10/24/18 04:00 Nasal Cannula 2.0 10/24/18 04:00 103 10/24/18 00:00 Nasal Cannula 2.0 10/24/18 00:00 109 10/24/18 00:00 99.3 114 16 160/95 (116) 97 10/23/18 20:00 Nasal Cannula 2.0 10/23/18 20:00 106 10/23/18 20:00 Nasal Cannula 2.0 28 10/23/18 20:00 99 Nasal Cannula 2.0 28 10/23/18 20:00 99.7 125 20 180/83 (115) 98 10/23/18 16:00 111 10/23/18 16:00 Nasal Cannula 2.0 10/23/18 16:00 99.7 110 23 158/98 (118) 100 10/23/18 12:00 Nasal Cannula 2.0 10/23/18 12:00 102 10/23/18 12:00 99.5 108 22 148/89 (108) 98 Height (Feet): 5 Height (Inches): 10.00 Weight (Pounds): 254 General Appearance: no acute distress HEENT: mucous membranes moist Respiratory/Chest: lungs clear Cardiovascular: normal rate Abdomen: soft, non tender Extremities: no edema Neurologic/Psychiatric: alert, disoriented Current Medications Medications (Trade) Dose Ordered Sig/Barrett Route PRN Reason Start Time Stop Time Status Last Admin Dose Admin Acetaminophen (Tylenol) 650 mg Q4H PRN ORAL Mild Pain (Pain Scale 1-3) 10/22/18 15:00 11/12/18 14:59 Chlorhexidine Gluconate (Marely-Hex 2%) 1 applic DAILY@2000 TOPIC 10/22/18 20:00 11/18/18 19:59 10/23/18 21:29 Dextrose (Dextrose 50%) 25 ml Q30M PRN IV Hypoglycemia 10/22/18 14:30 11/18/18 12:29 Dextrose (Dextrose 50%) 50 ml Q30M PRN IV Hypoglycemia 10/22/18 14:45 11/18/18 16:35 Insulin Aspart (NovoLOG) BEFORE MEALS AND HS SUBQ 10/22/18 16:30 11/18/18 16:29 Lorazepam (Ativan 2mg/ml 1ml) 0.25 mg BIDPRN PRN IV For Anxiety 10/22/18 15:00 10/29/18 14:59 10/23/18 05:03 Morphine Sulfate (Morphine Sulfate) 2 mg Q3H PRN IVP Moderate Pain (Pain Scale 4-6) 10/22/18 15:00 10/26/18 14:59 Morphine Sulfate (Morphine Sulfate) 4 mg Q3H PRN IVP Severe Pain (Pain Scale 7-10) 10/22/18 15:00 10/26/18 17:53 10/24/18 05:00 Ondansetron HCl (Zofran) 4 mg Q6H PRN IVP Nausea & Vomiting 10/22/18 15:00 11/12/18 14:59 Pantoprazole (Protonix) 40 mg DAILY IVP 10/23/18 09:00 11/19/18 14:44 10/24/18 09:17 Piperacillin Sod/ Tazobactam Sod 3.375 gm/Dextrose 110 ml @ 27.5 mls/hr EVERY 12 HOURS IVPB 10/22/18 21:00 10/25/18 13:59 10/24/18 09:18 Polyethylene Glycol (Miralax) 17 gm DAILYPRN PRN ORAL Constipation 10/22/18 15:00 11/18/18 14:59 Sodium Chloride 1,000 ml @ 100 mls/hr Q10H IV 10/22/18 14:30 11/19/18 08:44 10/24/18 07:30 Zolpidem Tartrate (Ambien) 5 mg HSPRN PRN ORAL Insomnia 10/22/18 21:00 10/29/18 20:59 Julien Yanez MD Oct 24, 2018 10:48
--- NOTE | 2018-10-24 11:37 | Nephrology Progress Note ---
Assessment/Plan Problem List: (1) Altered mental status (2) DM (diabetes mellitus) (3) HTN (hypertension) (4) ARF (acute renal failure) Assessment: better (5) Hypertrophic cardiomyopathy (6) Encephalopathy (7) UTI (urinary tract infection) (8) Hypokalemia Assessment: ok (9) Hypernatremia (10) DVT (deep venous thrombosis) (11) Retroperitoneal bleed Assessment: HCT stable (12) Primary hyperparathyroidism Assessment: Ca is Ok Plan S/P IVC filter Off Abxs follow labs Discussed with RN DC IVF DC planning Subjective Subjective somewhat confused going for CT chest Objective Objective Last 24 Hour Vital Signs Date Time Temp Pulse Resp B/P (MAP) Pulse Ox O2 Delivery O2 Flow Rate FiO2 10/24/18 08:00 113 10/24/18 08:00 Nasal Cannula 2.0 10/24/18 08:00 99.7 122 19 123/53 (76) 100 10/24/18 04:00 98.1 117 18 163/93 (116) 100 10/24/18 04:00 Nasal Cannula 2.0 10/24/18 04:00 103 10/24/18 00:00 Nasal Cannula 2.0 10/24/18 00:00 109 10/24/18 00:00 99.3 114 16 160/95 (116) 97 10/23/18 20:00 Nasal Cannula 2.0 10/23/18 20:00 106 10/23/18 20:00 Nasal Cannula 2.0 28 10/23/18 20:00 99 Nasal Cannula 2.0 28 10/23/18 20:00 99.7 125 20 180/83 (115) 98 10/23/18 16:00 111 10/23/18 16:00 Nasal Cannula 2.0 10/23/18 16:00 99.7 110 23 158/98 (118) 100 10/23/18 12:00 Nasal Cannula 2.0 10/23/18 12:00 102 10/23/18 12:00 99.5 108 22 148/89 (108) 98 Intake and Output 10/23/18 10/24/18 18:59 06:59 Intake Total 1110.0 ml 1210.0 ml Output Total 550 ml 750 ml Balance 560.0 ml 460.0 ml Intake Oral 200 ml IV Total 910.0 ml 1210.0 ml Output Urine Total 550 ml 750 ml # Bowel Movements 2 Height (Feet): 5 Height (Inches): 10.00 Weight (Pounds): 254 Cardiovascular: normal rate Respiratory/Chest: lungs clear Extremities: other - no edema Oliverio Yanez MD Oct 24, 2018 11:37
[2018-10-24 12:00] VITALS: BP 143/72
--- NOTE | 2018-10-24 13:10 | Pulmonology Progress Note ---
Assessment/Plan Problems: (1) Altered mental status (2) UTI (urinary tract infection) (3) DVT (deep venous thrombosis) (4) Retroperitoneal bleed (5) JANE (acute kidney injury) (6) Hypernatremia (7) Abdominal pain (8) Acidosis, metabolic (9) Encephalopathy (10) Dyspnea (11) CHF exacerbation (12) Pacemaker (13) DM (diabetes mellitus) Assessment/Plan S/P IVC F Monitor HH, transfuse PRN Monitor volumes and renal function Observe off Abx per ID Diet per [employer] Aspiration precautions Optimize pulmonary hygiene/mobilize as tolerated Titrate down FiO2 to keep Sao2 > 90% F/U CT chest Subjective Allergies: Coded Allergies: SULFA (SULFONAMIDE ANTIBIOTICS) (Verified Allergy, Unknown, 11/28/17) Pt states she is allergic to sulfa Subjective AFVSS x ST, stable on 2L, keri PO, S/P CT chest - not loaded on PACS yet No cough, no SOB, no F/C Objective Last 24 Hour Vital Signs Date Time Temp Pulse Resp B/P (MAP) Pulse Ox O2 Delivery O2 Flow Rate FiO2 10/24/18 12:00 Nasal Cannula 2.0 10/24/18 12:00 99.1 119 18 143/72 (95) 100 10/24/18 08:00 113 10/24/18 08:00 Nasal Cannula 2.0 10/24/18 08:00 99.7 122 19 123/53 (76) 100 10/24/18 04:00 98.1 117 18 163/93 (116) 100 10/24/18 04:00 Nasal Cannula 2.0 10/24/18 04:00 103 10/24/18 00:00 Nasal Cannula 2.0 10/24/18 00:00 109 10/24/18 00:00 99.3 114 16 160/95 (116) 97 10/23/18 20:00 Nasal Cannula 2.0 10/23/18 20:00 106 10/23/18 20:00 Nasal Cannula 2.0 28 10/23/18 20:00 99 Nasal Cannula 2.0 28 10/23/18 20:00 99.7 125 20 180/83 (115) 98 10/23/18 16:00 111 10/23/18 16:00 Nasal Cannula 2.0 10/23/18 16:00 99.7 110 23 158/98 (118) 100 Intake and Output 10/23/18 10/24/18 18:59 06:59 Intake Total 1110.0 ml 1210.0 ml Output Total 550 ml 750 ml Balance 560.0 ml 460.0 ml Intake Oral 200 ml IV Total 910.0 ml 1210.0 ml Output Urine Total 550 ml 750 ml # Bowel Movements 2 General Appearance: cachetic HEENT: normocephalic, atraumatic, anicteric, other - R IJ Respiratory/Chest: chest wall non-tender, lungs clear, normal breath sounds, no respiratory distress, no accessory muscle use Cardiovascular: normal peripheral pulses, regular rhythm, tachycardia Abdomen: normal bowel sounds, soft, non tender, no organomegaly, non distended Extremities: no cyanosis, no clubbing, no edema Current Medications Medications (Trade) Dose Ordered Sig/Barrett Route PRN Reason Start Time Stop Time Status Last Admin Dose Admin Acetaminophen (Tylenol) 650 mg Q4H PRN ORAL Mild Pain (Pain Scale 1-3) 10/22/18 15:00 11/12/18 14:59 Chlorhexidine Gluconate (Marely-Hex 2%) 1 applic DAILY@1999 TOPIC 10/22/18 20:00 11/18/18 19:59 10/23/18 21:29 Dextrose (Dextrose 50%) 25 ml Q30M PRN IV Hypoglycemia 10/22/18 14:30 11/18/18 12:29 Dextrose (Dextrose 50%) 50 ml Q30M PRN IV Hypoglycemia 10/22/18 14:45 11/18/18 16:35 Insulin Aspart (NovoLOG) BEFORE MEALS AND HS SUBQ 10/22/18 16:30 11/18/18 16:29 10/24/18 11:27 Lorazepam (Ativan 2mg/ml 1ml) 0.25 mg BIDPRN PRN IV For Anxiety 10/22/18 15:00 10/29/18 14:59 10/23/18 05:03 Morphine Sulfate (Morphine Sulfate) 2 mg Q3H PRN IVP Moderate Pain (Pain Scale 4-6) 10/22/18 15:00 10/26/18 14:59 Morphine Sulfate (Morphine Sulfate) 4 mg Q3H PRN IVP Severe Pain (Pain Scale 7-10) 10/22/18 15:00 10/26/18 17:53 10/24/18 05:00 Ondansetron HCl (Zofran) 4 mg Q6H PRN IVP Nausea & Vomiting 10/22/18 15:00 11/12/18 14:59 Pantoprazole (Protonix) 40 mg DAILY IVP 10/23/18 09:00 11/19/18 14:44 10/24/18 09:17 Polyethylene Glycol (Miralax) 17 gm DAILYPRN PRN ORAL Constipation 10/22/18 15:00 11/18/18 14:59 Zolpidem Tartrate (Ambien) 5 mg HSPRN PRN ORAL Insomnia 10/22/18 21:00 10/29/18 20:59 Riley Alatorre MD Oct 24, 2018 13:10
--- NOTE | 2018-10-24 14:57 | Diagnostic Imaging Report ---
Clinical Indication: Shortness of breath Technique: Spiral acquisitions obtained through the chest. No IV contrast utilized, . Multiplanar reconstructions generated. Total dose length product 946.66 mGycm. CTDIvol(s) 26.81,35.71,37.78,37.38,38.57,37.78 mGy. Dose reduction achieved using automated exposure control Comparison: None. Reference made to recent chest radiograph dated 10/21/2018 Findings: Dependent and compressive atelectatic changes are seen posteriorly at both lung bases. The lungs are otherwise clear. No definite pleural effusions. The heart is markedly enlarged. Pacemaker wires are seen in the right atrium and right ventricle and power pack is seen in the left chest wall. No pericardial effusion. No mediastinal or hilar mass or adenopathy. Main pulmonary artery is somewhat ectatic, measuring 36 mm diameter. The included thyroid is unremarkable. No axillary or chest wall mass or adenopathy demonstrated. The bones are unremarkable. Right arm central venous catheter has its tip in the superior vena cava. The bones are unremarkable except for degenerative spondylosis changes. The included upper abdominal anatomy is unremarkable. Impression: Dependent and compressive atelectatic changes at both lung bases. Otherwise clear lungs Marked cardiomegaly. Ectatic main pulmonary artery, suggestive of but not diagnostic for pulmonary tail hypertension Pacemaker and central venous catheter incidentally noted The CT scanner at [facility] is accredited by the [employer] and the scans are performed using protocols designed to limit radiation exposure to as low as reasonably achievable to attain images of sufficient resolution adequate for diagnostic evaluation.
[2018-10-24 16:00] VITALS: BP 156/75
--- NOTE | 2018-10-24 17:40 | General Surgery Progress Note ---
General Surgery-Progress Note Subjective Procedure Performed right internal jugular central venous catheter insertion using ultrasound guidance Symptoms: improved Additional Comments much improved. downgraded from ICU. comfortable. discussed with family Objective Last 24 Hour Vital Signs Date Time Temp Pulse Resp B/P (MAP) Pulse Ox O2 Delivery O2 Flow Rate FiO2 10/24/18 16:00 Nasal Cannula 2.0 10/24/18 16:00 98.4 126 19 156/75 (102) 99 10/24/18 12:00 Nasal Cannula 2.0 10/24/18 12:00 106 10/24/18 12:00 99.1 119 18 143/72 (95) 100 10/24/18 08:00 113 10/24/18 08:00 Nasal Cannula 2.0 10/24/18 08:00 99.7 122 19 123/53 (76) 100 10/24/18 04:00 98.1 117 18 163/93 (116) 100 10/24/18 04:00 Nasal Cannula 2.0 10/24/18 04:00 103 10/24/18 00:00 Nasal Cannula 2.0 10/24/18 00:00 109 10/24/18 00:00 99.3 114 16 160/95 (116) 97 10/23/18 20:00 Nasal Cannula 2.0 10/23/18 20:00 106 10/23/18 20:00 Nasal Cannula 2.0 28 10/23/18 20:00 99 Nasal Cannula 2.0 28 10/23/18 20:00 99.7 125 20 180/83 (115) 98 I&O Intake and Output 10/23/18 10/24/18 19:00 07:00 Intake Total 1110.0 ml 1210.0 ml Output Total 550 ml 750 ml Balance 560.0 ml 460.0 ml Intake Oral 200 ml IV Total 910.0 ml 1210.0 ml Output Urine Total 550 ml 750 ml # Bowel Movements 2 Dressing: other Wound: other Drains: other Cardiovascular: RSR Respiratory: decreased breath sounds Abdomen: soft, flat, non-tender, present bowel sounds Extremities: edema, tenderness, no cyanosis Plan Problems: (1) Abdominal pain Assessment & Plan: US noted - cholelithiasis. no inflammation CT noted - likely retrop hematoma IV filter as bleed on anticoag prior and has acute dvt okay for diet IV fluids IV abx CT chest noted trend labs (2) Anemia Assessment & Plan: poor peripheral access central line inserted see procedure note transfuse prbc trend labs will monitor hematoma clinically Jared Obrien Oct 24, 2018 17:40
--- NOTE | 2018-10-24 19:23 | General Progress Note ---
Assessment/Plan Assessment/Plan Assessment - OB (+) stool, but brown and pasty (not melena) - outpatient EGD/Colon - Retroperitoneal hematoma - acute hypotention and drop in H&H - due to RP hematoma - Sudden rise in LFT - suspect shocked liver - DVT - anticoagulation held - GB sludge on ultrasound - fatty liver, per U/S imaging Recommendations - follow labs - transfuse PRN - PPI - push po - check hepatitis markers - negative - Check CPK --> normal - f/u with GI as outpt for EGD/Colon Subjective Allergies: Coded Allergies: SULFA (SULFONAMIDE ANTIBIOTICS) (Verified Allergy, Unknown, 11/28/17) Pt states she is allergic to sulfa Subjective Above noted calm , NAD no new complaints Objective Last 24 Hour Vital Signs Date Time Temp Pulse Resp B/P (MAP) Pulse Ox O2 Delivery O2 Flow Rate FiO2 10/24/18 16:00 112 10/24/18 16:00 Nasal Cannula 2.0 10/24/18 16:00 98.4 126 19 156/75 (102) 99 10/24/18 12:00 Nasal Cannula 2.0 10/24/18 12:00 106 10/24/18 12:00 99.1 119 18 143/72 (95) 100 10/24/18 08:00 113 10/24/18 08:00 Nasal Cannula 2.0 10/24/18 08:00 99.7 122 19 123/53 (76) 100 10/24/18 04:00 98.1 117 18 163/93 (116) 100 10/24/18 04:00 Nasal Cannula 2.0 10/24/18 04:00 103 10/24/18 00:00 Nasal Cannula 2.0 10/24/18 00:00 109 10/24/18 00:00 99.3 114 16 160/95 (116) 97 10/23/18 20:00 Nasal Cannula 2.0 10/23/18 20:00 106 10/23/18 20:00 Nasal Cannula 2.0 28 10/23/18 20:00 99 Nasal Cannula 2.0 28 10/23/18 20:00 99.7 125 20 180/83 (115) 98 Intake and Output 10/23/18 10/24/18 19:00 07:00 Intake Total 1110.0 ml 1210.0 ml Output Total 550 ml 750 ml Balance 560.0 ml 460.0 ml Intake Oral 200 ml IV Total 910.0 ml 1210.0 ml Output Urine Total 550 ml 750 ml # Bowel Movements 2 Height (Feet): 5 Height (Inches): 10.00 Weight (Pounds): 254 Objective Elderly AA woman NCAT supple CTA RR abd mildly distended no edema Richard Schroeder MD Oct 24, 2018 19:23
[2018-10-24 20:00] VITALS: BP 166/84
[2018-10-24] MEDS: LORazepam Inj 2mg/ml 1ml IV PRN (20:17)
--- NOTE | 2018-10-24 21:26 | General Progress Note ---
Assessment/Plan Assessment/Plan hypotension retroperitoneal bleed anemia secondary to bleed uti encephalopathy imprved dehydration renbal failure diabetes htn obesity hypercalcemia hypokalemia acute femoral dvt fluids LE dopplers noted IVC filter ct scan noted monitor labs abx treatment of hypercaclemia hypokalemia per Dr Sainz, patient has hyper parathyroidism, endo seeing patient vq scan negative improved encephalopathy monitor accucheck oob PT dvt and ulcer proplhylaxis dc plans per Dr sainz will need monitor of cbc closely Subjective Allergies: Coded Allergies: SULFA (SULFONAMIDE ANTIBIOTICS) (Verified Allergy, Unknown, 11/28/17) Pt states she is allergic to sulfa Subjective more alert today deneis sob no chest pain or back pain Objective Last 24 Hour Vital Signs Date Time Temp Pulse Resp B/P (MAP) Pulse Ox O2 Delivery O2 Flow Rate FiO2 10/24/18 20:00 99.8 120 20 166/84 (111) 98 10/24/18 20:00 Nasal Cannula 2.0 10/24/18 19:58 115 10/24/18 16:00 112 10/24/18 16:00 Nasal Cannula 2.0 10/24/18 16:00 98.4 126 19 156/75 (102) 99 10/24/18 12:00 Nasal Cannula 2.0 10/24/18 12:00 106 10/24/18 12:00 99.1 119 18 143/72 (95) 100 10/24/18 08:00 113 10/24/18 08:00 Nasal Cannula 2.0 10/24/18 08:00 99.7 122 19 123/53 (76) 100 10/24/18 04:00 98.1 117 18 163/93 (116) 100 10/24/18 04:00 Nasal Cannula 2.0 10/24/18 04:00 103 10/24/18 00:00 Nasal Cannula 2.0 10/24/18 00:00 109 10/24/18 00:00 99.3 114 16 160/95 (116) 97 Intake and Output 10/23/18 10/24/18 19:00 07:00 Intake Total 1110.0 ml 1210.0 ml Output Total 550 ml 750 ml Balance 560.0 ml 460.0 ml Intake Oral 200 ml IV Total 910.0 ml 1210.0 ml Output Urine Total 550 ml 750 ml # Bowel Movements 2 Height (Feet): 5 Height (Inches): 10.00 Weight (Pounds): 254 General Appearance: WD/WN, no apparent distress Neck: supple Cardiovascular: normal rate Respiratory/Chest: lungs clear Abdomen: soft Objective trace edema left leg Mario Alberto Aparicio MD Oct 24, 2018 21:26
--- NOTE | 2018-10-24 21:46 | Cardiology Progress Note ---
Assessment/Plan Assessment/Plan 1.dehydration 2. Toxic metabolic encephlopathy . 3. History of hypertrophic nonobstructive cardiomyopathy. 4. Family history of sudden cardiac . 5. History of intracardiac defibrillator implantation, [employer] device previously. 6. acute renal failure 7. Abnormal perfusion with normal cardiac catheterization previously. 8. Hypercalcemia. 9. Alteration of mentation. 10. Azotemia 11. afib hx 12. bactermia ? contaminent 13. UTI 14. DVT 15. hypotenison 16. anemia 17. shock liver 18. retroperitoneal bleeding tele sinus vpaced pac pvc icd older model unlikely mri compatible s/p iv hydration abx s/p ivc filter tele noted lt improving not a candidate for penitentiary anticoagulation will need to start on some bb as tahcy sinus Subjective ROS Limited/Unobtainable: Yes Subjective confused Objective Last 24 Hour Vital Signs Date Time Temp Pulse Resp B/P (MAP) Pulse Ox O2 Delivery O2 Flow Rate FiO2 10/24/18 20:00 99.8 120 20 166/84 (111) 98 10/24/18 20:00 Nasal Cannula 2.0 10/24/18 19:58 115 10/24/18 16:00 112 10/24/18 16:00 Nasal Cannula 2.0 10/24/18 16:00 98.4 126 19 156/75 (102) 99 10/24/18 12:00 Nasal Cannula 2.0 10/24/18 12:00 106 10/24/18 12:00 99.1 119 18 143/72 (95) 100 10/24/18 08:00 113 10/24/18 08:00 Nasal Cannula 2.0 10/24/18 08:00 99.7 122 19 123/53 (76) 100 10/24/18 04:00 98.1 117 18 163/93 (116) 100 10/24/18 04:00 Nasal Cannula 2.0 10/24/18 04:00 103 10/24/18 00:00 Nasal Cannula 2.0 10/24/18 00:00 109 10/24/18 00:00 99.3 114 16 160/95 (116) 97 General Appearance: no apparent distress, alert, obese Neck: no JVD Cardiovascular: normal rate, tachycardia Respiratory/Chest: lungs clear Abdomen: normal bowel sounds, non tender, soft Extremities: no swelling Intake and Output 10/23/18 10/24/18 19:00 07:00 Intake Total 1110.0 ml 1210.0 ml Output Total 550 ml 750 ml Balance 560.0 ml 460.0 ml Intake Oral 200 ml IV Total 910.0 ml 1210.0 ml Output Urine Total 550 ml 750 ml # Bowel Movements 2 Vernon Darden MD Oct 24, 2018 21:46
[2018-10-24] MEDS: Metoprolol 25mg tab ORAL SCH (22:46)
[2018-10-25] VITALS: BP 154/93
[2018-10-25] MEDS: Morphine Sulfate 4mg/ml Inj (IV/IM USE ONLY) IVP PRN ×3 (03:44→21:14)
[2018-10-25 04:00] VITALS: BP 182/99
[2018-10-25 05:23] LABS: BASOPHILS % (AUTO) 0.6 % (0.0-2.0); EOSINOPHILS % (AUTO) 1.1 % (0.0-3.0); HEMATOCRIT 26.2 % (37.0-47.0); HEMOGLOBIN 8.8 G/DL (12.0-16.0); LYMPHOCYTES % (AUTO) 13.7 % (20.0-45.0); MEAN CORPUSCULAR VOLUME 86 FL (80-99); MONOCYTES % (AUTO) 12.9 % (1.0-10.0); NEUTROPHILS % (AUTO) 71.7 % (45.0-75.0); PLATELET COUNT 276 K/UL (150-450); RED BLOOD COUNT 3.04 M/UL (4.20-5.40); RED CELL DISTRIBUTION WIDTH 13.8 % (11.6-14.8); WHITE BLOOD COUNT 10.2 K/UL (4.8-10.8)
[2018-10-25 05:47] LABS: ALANINE AMINOTRANSFERASE 167 U/L (12-78); ALBUMIN/GLOBULIN RATIO 0.4 (1.0-2.7); ALKALINE PHOSPHATASE 65 U/L (46-116); ANION GAP 12 mmol/L (5-15); ASPARTATE AMINO TRANSFERASE 33 U/L (15-37); BILIRUBIN,TOTAL 0.4 MG/DL (0.2-1.0); BLOOD UREA NITROGEN 13 mg/dL (7-18); CALCIUM 9.4 MG/DL (8.5-10.1); CARBON DIOXIDE 21 MMOL/L (21-32); CHLORIDE 115 MMOL/L (98-107); POTASSIUM 3.6 MMOL/L (3.5-5.1); SODIUM 148 MMOL/L (136-145)
[2018-10-25] MEDS: NovoLOG Insulin Flexpen SUBQ SCH ×4 (06:30→21:00)
[2018-10-25 08:00] VITALS: BP 153/94
[2018-10-25] MEDS: Pantoprazole Inj IVP SCH (09:00)
[2018-10-25] MEDS ORDERED: dilTIAZem HCl CD 120mg cap ORAL SCH (09:00)
[2018-10-25] MEDS: Metoprolol 25mg tab ORAL SCH (09:00)
--- NOTE | 2018-10-25 11:45 | Nephrology Progress Note ---
Assessment/Plan Problem List: (1) Altered mental status (2) DM (diabetes mellitus) (3) HTN (hypertension) (4) ARF (acute renal failure) Assessment: better (5) Hypertrophic cardiomyopathy (6) Encephalopathy (7) UTI (urinary tract infection) (8) Hypokalemia Assessment: ok (9) Hypernatremia (10) DVT (deep venous thrombosis) (11) Retroperitoneal bleed Assessment: HCT stable (12) Primary hyperparathyroidism Assessment: Ca is Ok Plan S/P IVC filter Off Abxs follow labs Discussed with Dr Darden Subjective Subjective neck is bent to one side Objective Objective Last 24 Hour Vital Signs Date Time Temp Pulse Resp B/P (MAP) Pulse Ox O2 Delivery O2 Flow Rate FiO2 10/25/18 09:00 101 153/94 10/25/18 09:00 101 153/94 10/25/18 08:00 93 10/25/18 08:00 Nasal Cannula 2.0 10/25/18 08:00 98.5 101 20 153/94 (113) 99 10/25/18 04:00 97.9 93 20 182/99 (126) 99 10/25/18 04:00 Nasal Cannula 2.0 10/25/18 03:57 94 10/25/18 00:00 Nasal Cannula 2.0 10/25/18 00:00 100.1 116 20 154/93 (113) 100 10/24/18 23:44 97 10/24/18 22:46 98 153/86 10/24/18 20:00 99.8 120 20 166/84 (111) 98 10/24/18 20:00 Nasal Cannula 2.0 10/24/18 19:58 115 10/24/18 19:00 98 Nasal Cannula 2.0 28 10/24/18 19:00 Nasal Cannula 2.0 28 10/24/18 16:00 112 10/24/18 16:00 Nasal Cannula 2.0 10/24/18 16:00 98.4 126 19 156/75 (102) 99 10/24/18 12:00 Nasal Cannula 2.0 10/24/18 12:00 106 10/24/18 12:00 99.1 119 18 143/72 (95) 100 Intake and Output 10/24/18 10/25/18 19:00 07:00 Intake Total 948.21487 ml Output Total 850 ml 500 ml Balance 98.23769 ml -500 ml Intake Oral 360 ml IV Total 588.50540 ml Output Urine Total 850 ml 500 ml # Bowel Movements 1 2 Laboratory Tests 10/25/18 03:05: White Blood Count 10.2, Red Blood Count 3.04L, Hemoglobin 8.8L, Hematocrit 26.2L , Mean Corpuscular Volume 86, Mean Corpuscular Hemoglobin 28.9, Mean Corpuscular Hemoglobin Concent 33.6, Red Cell Distribution Width 13.8, Platelet Count 276, Mean Platelet Volume 7.3, Neutrophils (%) (Auto) 71.7, Lymphocytes (% ) (Auto) 13.7L, Monocytes (%) (Auto) 12.9H, Eosinophils (%) (Auto) 1.1, Basophils (%) (Auto) 0.6, Sodium Level 148H, Potassium Level 3.6, Chloride Level 115H, Carbon Dioxide Level 21, Anion Gap 12, Blood Urea Nitrogen 13, Creatinine 1.0, Estimat Glomerular Filtration Rate > 60, Glucose Level 94, Calcium Level 9.4, Total Bilirubin 0.4, Aspartate Amino Transf (AST/SGOT) 33, Alanine Aminotransferase (ALT/SGPT) 167H, Alkaline Phosphatase 65, Total Protein 6.9, Albumin 2.0L, Globulin 4.9, Albumin/Globulin Ratio 0.4L Height (Feet): 5 Height (Inches): 10.00 Weight (Pounds): 254 Cardiovascular: normal rate Respiratory/Chest: lungs clear Extremities: other - no edema Oliverio Yanez MD Oct 25, 2018 11:45
[2018-10-25 12:00] VITALS: BP 160/92
[2018-10-25 16:00] VITALS: BP 168/98
--- NOTE | 2018-10-25 16:01 | Pulmonology Progress Note ---
Assessment/Plan Problems: (1) Altered mental status (2) UTI (urinary tract infection) (3) DVT (deep venous thrombosis) (4) Retroperitoneal bleed (5) JANE (acute kidney injury) (6) Hypernatremia (7) Abdominal pain (8) Acidosis, metabolic (9) Encephalopathy (10) Dyspnea (11) CHF exacerbation (12) Pacemaker (13) DM (diabetes mellitus) Assessment/Plan S/P IVC F Monitor HH, transfuse PRN Monitor volumes and renal function Observe off Abx per ID Diet per [employer] Aspiration precautions Optimize pulmonary hygiene/mobilize as tolerated Titrate down FiO2 to keep Sao2 > 90% Subjective Allergies: Coded Allergies: SULFA (SULFONAMIDE ANTIBIOTICS) (Verified Allergy, Unknown, 11/28/17) Pt states she is allergic to sulfa Subjective AFVSS x O2 needs stable, keri PO, CT chest with BiB atx No cough, no SOB, no F/C Objective Last 24 Hour Vital Signs Date Time Temp Pulse Resp B/P (MAP) Pulse Ox O2 Delivery O2 Flow Rate FiO2 10/25/18 12:00 Nasal Cannula 2.0 10/25/18 12:00 90 10/25/18 12:00 98.9 93 20 160/92 (114) 98 10/25/18 09:00 101 153/94 10/25/18 09:00 101 153/94 10/25/18 08:00 93 10/25/18 08:00 Nasal Cannula 2.0 10/25/18 08:00 98.5 101 20 153/94 (113) 99 10/25/18 04:00 97.9 93 20 182/99 (126) 99 10/25/18 04:00 Nasal Cannula 2.0 10/25/18 03:57 94 10/25/18 00:00 Nasal Cannula 2.0 10/25/18 00:00 100.1 116 20 154/93 (113) 100 10/24/18 23:44 97 10/24/18 22:46 98 153/86 10/24/18 20:00 99.8 120 20 166/84 (111) 98 10/24/18 20:00 Nasal Cannula 2.0 10/24/18 19:58 115 10/24/18 19:00 98 Nasal Cannula 2.0 28 10/24/18 19:00 Nasal Cannula 2.0 28 Intake and Output 10/24/18 10/25/18 18:59 06:59 Intake Total 948.12889 ml Output Total 850 ml 500 ml Balance 98.18772 ml -500 ml Intake Oral 360 ml IV Total 588.63909 ml Output Urine Total 850 ml 500 ml # Bowel Movements 1 2 General Appearance: cachetic HEENT: normocephalic, atraumatic, anicteric, mucous membranes moist Respiratory/Chest: rhonchi Cardiovascular: normal peripheral pulses, normal rate, regular rhythm Abdomen: normal bowel sounds, soft, non tender, no organomegaly, non distended , no mass Extremities: no cyanosis, no clubbing, no edema Laboratory Tests 10/25/18 03:05: White Blood Count 10.2, Red Blood Count 3.04L, Hemoglobin 8.8L, Hematocrit 26.2L , Mean Corpuscular Volume 86, Mean Corpuscular Hemoglobin 28.9, Mean Corpuscular Hemoglobin Concent 33.6, Red Cell Distribution Width 13.8, Platelet Count 276, Mean Platelet Volume 7.3, Neutrophils (%) (Auto) 71.7, Lymphocytes (% ) (Auto) 13.7L, Monocytes (%) (Auto) 12.9H, Eosinophils (%) (Auto) 1.1, Basophils (%) (Auto) 0.6, Sodium Level 148H, Potassium Level 3.6, Chloride Level 115H, Carbon Dioxide Level 21, Anion Gap 12, Blood Urea Nitrogen 13, Creatinine 1.0, Estimat Glomerular Filtration Rate > 60, Glucose Level 94, Calcium Level 9.4, Total Bilirubin 0.4, Aspartate Amino Transf (AST/SGOT) 33, Alanine Aminotransferase (ALT/SGPT) 167H, Alkaline Phosphatase 65, Total Protein 6.9, Albumin 2.0L, Globulin 4.9, Albumin/Globulin Ratio 0.4L Current Medications Medications (Trade) Dose Ordered Sig/Barrett Route PRN Reason Start Time Stop Time Status Last Admin Dose Admin Acetaminophen (Tylenol) 650 mg Q4H PRN ORAL Mild Pain (Pain Scale 1-3) 10/22/18 15:00 11/12/18 14:59 Dextrose (Dextrose 50%) 25 ml Q30M PRN IV Hypoglycemia 10/22/18 14:30 11/18/18 12:29 Dextrose (Dextrose 50%) 50 ml Q30M PRN IV Hypoglycemia 10/22/18 14:45 11/18/18 16:35 Diltiazem HCl (Cardizem CD) 120 mg DAILY ORAL 10/25/18 09:00 11/24/18 08:59 10/25/18 09:00 Insulin Aspart (NovoLOG) BEFORE MEALS AND HS SUBQ 10/22/18 16:30 11/18/18 16:29 10/24/18 17:10 Lorazepam (Ativan 2mg/ml 1ml) 0.25 mg BIDPRN PRN IV For Anxiety 10/22/18 15:00 10/29/18 14:59 10/24/18 20:17 Metoprolol Tartrate (Lopressor) 25 mg Q12HR ORAL 10/24/18 21:45 11/23/18 21:44 10/25/18 09:00 Morphine Sulfate (Morphine Sulfate) 2 mg Q3H PRN IVP Moderate Pain (Pain Scale 4-6) 10/22/18 15:00 10/26/18 14:59 Morphine Sulfate (Morphine Sulfate) 4 mg Q3H PRN IVP Severe Pain (Pain Scale 7-10) 10/22/18 15:00 10/26/18 17:53 10/25/18 15:42 Ondansetron HCl (Zofran) 4 mg Q6H PRN IVP Nausea & Vomiting 10/22/18 15:00 11/12/18 14:59 Pantoprazole (Protonix) 40 mg DAILY IVP 10/23/18 09:00 11/19/18 14:44 10/25/18 09:00 Polyethylene Glycol (Miralax) 17 gm DAILYPRN PRN ORAL Constipation 10/22/18 15:00 11/18/18 14:59 Zolpidem Tartrate (Ambien) 5 mg HSPRN PRN ORAL Insomnia 10/22/18 21:00 10/29/18 20:59 10/24/18 20:17 Riley Alatorre MD Oct 25, 2018 16:01
--- NOTE | 2018-10-25 16:19 | Infectious Diseases Prog Note ---
Assessment/Plan Assessment/Plan A; 1. Urinary tract infection with E.coli treated 2. Altered mental status. 3. Acute renal failure.CKD 4. Diabetes mellitus. 5. Hypertension. 6. Obesity. 7. Pressure ulcer. 8. Positive blood culture likely contamination 9.DVT of legs s/p IVC filter 10.Retroperitoneal bleeding 11. Atelectasis, pneumonia treated 12. Elevated transaminases P; Observe off antibiotic Subjective ROS Limited/Unobtainable: Yes Constitutional: Reports: fever, other - low grade Neurologic: Reports: confusion Musculoskeletal: Reports: pain Allergies: Coded Allergies: SULFA (SULFONAMIDE ANTIBIOTICS) (Verified Allergy, Unknown, 11/28/17) Pt states she is allergic to sulfa Objective Vital Signs Last 24 Hour Vital Signs Date Time Temp Pulse Resp B/P (MAP) Pulse Ox O2 Delivery O2 Flow Rate FiO2 10/25/18 16:00 97 10/25/18 12:00 Nasal Cannula 2.0 10/25/18 12:00 90 10/25/18 12:00 98.9 93 20 160/92 (114) 98 10/25/18 09:00 101 153/94 10/25/18 09:00 101 153/94 10/25/18 08:00 93 10/25/18 08:00 Nasal Cannula 2.0 10/25/18 08:00 98.5 101 20 153/94 (113) 99 10/25/18 04:00 97.9 93 20 182/99 (126) 99 10/25/18 04:00 Nasal Cannula 2.0 10/25/18 03:57 94 10/25/18 00:00 Nasal Cannula 2.0 10/25/18 00:00 100.1 116 20 154/93 (113) 100 10/24/18 23:44 97 10/24/18 22:46 98 153/86 10/24/18 20:00 99.8 120 20 166/84 (111) 98 10/24/18 20:00 Nasal Cannula 2.0 10/24/18 19:58 115 10/24/18 19:00 98 Nasal Cannula 2.0 28 10/24/18 19:00 Nasal Cannula 2.0 28 Height (Feet): 5 Height (Inches): 10.00 Weight (Pounds): 254 HEENT: mucous membranes moist Respiratory/Chest: lungs clear Cardiovascular: normal rate Abdomen: soft, non tender Extremities: other - edema of hands Neurologic/Psychiatric: disoriented Laboratory Tests Test 10/25/18 03:05 White Blood Count 10.2 K/UL (4.8-10.8) Red Blood Count 3.04 M/UL (4.20-5.40) L Hemoglobin 8.8 G/DL (12.0-16.0) L Hematocrit 26.2 % (37.0-47.0) L Mean Corpuscular Volume 86 FL (80-99) Mean Corpuscular Hemoglobin 28.9 PG (27.0-31.0) Mean Corpuscular Hemoglobin Concent 33.6 G/DL (32.0-36.0) Red Cell Distribution Width 13.8 % (11.6-14.8) Platelet Count 276 K/UL (150-450) Mean Platelet Volume 7.3 FL (6.5-10.1) Neutrophils (%) (Auto) 71.7 % (45.0-75.0) Lymphocytes (%) (Auto) 13.7 % (20.0-45.0) L Monocytes (%) (Auto) 12.9 % (1.0-10.0) H Eosinophils (%) (Auto) 1.1 % (0.0-3.0) Basophils (%) (Auto) 0.6 % (0.0-2.0) Sodium Level 148 MMOL/L (136-145) H Potassium Level 3.6 MMOL/L (3.5-5.1) Chloride Level 115 MMOL/L (98-107) H Carbon Dioxide Level 21 MMOL/L (21-32) Anion Gap 12 mmol/L (5-15) Blood Urea Nitrogen 13 mg/dL (7-18) Creatinine 1.0 MG/DL (0.55-1.30) Estimat Glomerular Filtration Rate > 60 mL/min (>60) Glucose Level 94 MG/DL (74-106) Calcium Level 9.4 MG/DL (8.5-10.1) Total Bilirubin 0.4 MG/DL (0.2-1.0) Aspartate Amino Transf (AST/SGOT) 33 U/L (15-37) Alanine Aminotransferase (ALT/SGPT) 167 U/L (12-78) H Alkaline Phosphatase 65 U/L (46-116) Total Protein 6.9 G/DL (6.4-8.2) Albumin 2.0 G/DL (3.4-5.0) L Globulin 4.9 g/dL Albumin/Globulin Ratio 0.4 (1.0-2.7) L Current Medications Medications (Trade) Dose Ordered Sig/Barrett Route PRN Reason Start Time Stop Time Status Last Admin Dose Admin Acetaminophen (Tylenol) 650 mg Q4H PRN ORAL Mild Pain (Pain Scale 1-3) 10/22/18 15:00 11/12/18 14:59 Dextrose (Dextrose 50%) 25 ml Q30M PRN IV Hypoglycemia 10/22/18 14:30 11/18/18 12:29 Dextrose (Dextrose 50%) 50 ml Q30M PRN IV Hypoglycemia 10/22/18 14:45 11/18/18 16:35 Diltiazem HCl (Cardizem CD) 120 mg DAILY ORAL 10/25/18 09:00 11/24/18 08:59 10/25/18 09:00 Insulin Aspart (NovoLOG) BEFORE MEALS AND HS SUBQ 10/22/18 16:30 11/18/18 16:29 10/24/18 17:10 Lorazepam (Ativan 2mg/ml 1ml) 0.25 mg BIDPRN PRN IV For Anxiety 10/22/18 15:00 10/29/18 14:59 10/24/18 20:17 Metoprolol Tartrate (Lopressor) 25 mg Q12HR ORAL 10/24/18 21:45 11/23/18 21:44 10/25/18 09:00 Morphine Sulfate (Morphine Sulfate) 2 mg Q3H PRN IVP Moderate Pain (Pain Scale 4-6) 10/22/18 15:00 10/26/18 14:59 Morphine Sulfate (Morphine Sulfate) 4 mg Q3H PRN IVP Severe Pain (Pain Scale 7-10) 10/22/18 15:00 10/26/18 17:53 10/25/18 15:42 Ondansetron HCl (Zofran) 4 mg Q6H PRN IVP Nausea & Vomiting 10/22/18 15:00 11/12/18 14:59 Pantoprazole (Protonix) 40 mg DAILY IVP 10/23/18 09:00 11/19/18 14:44 10/25/18 09:00 Polyethylene Glycol (Miralax) 17 gm DAILYPRN PRN ORAL Constipation 10/22/18 15:00 11/18/18 14:59 Zolpidem Tartrate (Ambien) 5 mg HSPRN PRN ORAL Insomnia 10/22/18 21:00 10/29/18 20:59 10/24/18 20:17 Julien Yanez MD Oct 25, 2018 16:19
--- NOTE | 2018-10-25 16:37 | General Surgery Progress Note ---
General Surgery-Progress Note Subjective Procedure Performed right internal jugular central venous catheter insertion using ultrasound guidance Additional Comments no acute events. labs improved. Objective Last 24 Hour Vital Signs Date Time Temp Pulse Resp B/P (MAP) Pulse Ox O2 Delivery O2 Flow Rate FiO2 10/25/18 16:00 97 10/25/18 12:00 Nasal Cannula 2.0 10/25/18 12:00 90 10/25/18 12:00 98.9 93 20 160/92 (114) 98 10/25/18 09:00 101 153/94 10/25/18 09:00 101 153/94 10/25/18 08:00 93 10/25/18 08:00 Nasal Cannula 2.0 10/25/18 08:00 98.5 101 20 153/94 (113) 99 10/25/18 04:00 97.9 93 20 182/99 (126) 99 10/25/18 04:00 Nasal Cannula 2.0 10/25/18 03:57 94 10/25/18 00:00 Nasal Cannula 2.0 10/25/18 00:00 100.1 116 20 154/93 (113) 100 10/24/18 23:44 97 10/24/18 22:46 98 153/86 10/24/18 20:00 99.8 120 20 166/84 (111) 98 10/24/18 20:00 Nasal Cannula 2.0 10/24/18 19:58 115 10/24/18 19:00 98 Nasal Cannula 2.0 28 10/24/18 19:00 Nasal Cannula 2.0 28 I&O Intake and Output 10/24/18 10/25/18 18:59 06:59 Intake Total 948.16351 ml Output Total 850 ml 500 ml Balance 98.47765 ml -500 ml Intake Oral 360 ml IV Total 588.92409 ml Output Urine Total 850 ml 500 ml # Bowel Movements 1 2 Dressing: other Wound: other Drains: other Cardiovascular: RSR, other Respiratory: decreased breath sounds Abdomen: soft, flat, non-tender, present bowel sounds Extremities: no cyanosis Laboratory Tests Test 10/25/18 03:05 White Blood Count 10.2 K/UL (4.8-10.8) Red Blood Count 3.04 M/UL (4.20-5.40) L Hemoglobin 8.8 G/DL (12.0-16.0) L Hematocrit 26.2 % (37.0-47.0) L Mean Corpuscular Volume 86 FL (80-99) Mean Corpuscular Hemoglobin 28.9 PG (27.0-31.0) Mean Corpuscular Hemoglobin Concent 33.6 G/DL (32.0-36.0) Red Cell Distribution Width 13.8 % (11.6-14.8) Platelet Count 276 K/UL (150-450) Mean Platelet Volume 7.3 FL (6.5-10.1) Neutrophils (%) (Auto) 71.7 % (45.0-75.0) Lymphocytes (%) (Auto) 13.7 % (20.0-45.0) L Monocytes (%) (Auto) 12.9 % (1.0-10.0) H Eosinophils (%) (Auto) 1.1 % (0.0-3.0) Basophils (%) (Auto) 0.6 % (0.0-2.0) Sodium Level 148 MMOL/L (136-145) H Potassium Level 3.6 MMOL/L (3.5-5.1) Chloride Level 115 MMOL/L (98-107) H Carbon Dioxide Level 21 MMOL/L (21-32) Anion Gap 12 mmol/L (5-15) Blood Urea Nitrogen 13 mg/dL (7-18) Creatinine 1.0 MG/DL (0.55-1.30) Estimat Glomerular Filtration Rate > 60 mL/min (>60) Glucose Level 94 MG/DL (74-106) Calcium Level 9.4 MG/DL (8.5-10.1) Total Bilirubin 0.4 MG/DL (0.2-1.0) Aspartate Amino Transf (AST/SGOT) 33 U/L (15-37) Alanine Aminotransferase (ALT/SGPT) 167 U/L (12-78) H Alkaline Phosphatase 65 U/L (46-116) Total Protein 6.9 G/DL (6.4-8.2) Albumin 2.0 G/DL (3.4-5.0) L Globulin 4.9 g/dL Albumin/Globulin Ratio 0.4 (1.0-2.7) L Plan Problems: (1) Abdominal pain Assessment & Plan: US noted - cholelithiasis. no inflammation CT noted - likely retrop hematoma IV filter as bleed on anticoag prior and has acute dvt okay for diet IV fluids off abx CT chest noted trend labs okay from surgical standpoint (2) Anemia Assessment & Plan: poor peripheral access central line inserted see procedure note transfuse prbc trend labs will monitor hematoma clinically Jared Obrien Oct 25, 2018 16:37
--- NOTE | 2018-10-25 18:15 | General Progress Note ---
Assessment/Plan Assessment/Plan Assessment - OB (+) stool, but brown and pasty (not melena) - outpatient EGD/Colon - Retroperitoneal hematoma - acute hypotention and drop in H&H - due to RP hematoma - Sudden rise in LFT - suspect shocked liver - DVT - anticoagulation held - GB sludge on ultrasound - fatty liver, per U/S imaging Recommendations - follow labs - transfuse PRN - PPI - push po - check hepatitis markers - negative - Check CPK --> normal - f/u with GI as outpt for EGD/Colon Subjective Allergies: Coded Allergies: SULFA (SULFONAMIDE ANTIBIOTICS) (Verified Allergy, Unknown, 11/28/17) Pt states she is allergic to sulfa Subjective Above noted calm , NAD no new complaints Objective Last 24 Hour Vital Signs Date Time Temp Pulse Resp B/P (MAP) Pulse Ox O2 Delivery O2 Flow Rate FiO2 10/25/18 16:12 98.9 10/25/18 16:00 97 10/25/18 16:00 98.8 111 20 168/98 (121) 97 10/25/18 16:00 Nasal Cannula 2.0 10/25/18 12:00 Nasal Cannula 2.0 10/25/18 12:00 90 10/25/18 12:00 98.9 93 20 160/92 (114) 98 10/25/18 09:00 101 153/94 10/25/18 09:00 101 153/94 10/25/18 08:00 93 10/25/18 08:00 Nasal Cannula 2.0 10/25/18 08:00 98.5 101 20 153/94 (113) 99 10/25/18 04:00 97.9 93 20 182/99 (126) 99 10/25/18 04:00 Nasal Cannula 2.0 10/25/18 03:57 94 10/25/18 00:00 Nasal Cannula 2.0 10/25/18 00:00 100.1 116 20 154/93 (113) 100 10/24/18 23:44 97 10/24/18 22:46 98 153/86 10/24/18 20:00 99.8 120 20 166/84 (111) 98 10/24/18 20:00 Nasal Cannula 2.0 10/24/18 19:58 115 10/24/18 19:00 98 Nasal Cannula 2.0 28 10/24/18 19:00 Nasal Cannula 2.0 28 Intake and Output 10/24/18 10/25/18 18:59 06:59 Intake Total 948.31663 ml Output Total 850 ml 500 ml Balance 98.91545 ml -500 ml Intake Oral 360 ml IV Total 588.03363 ml Output Urine Total 850 ml 500 ml # Bowel Movements 1 2 Laboratory Tests 10/25/18 03:05: White Blood Count 10.2, Red Blood Count 3.04L, Hemoglobin 8.8L, Hematocrit 26.2L , Mean Corpuscular Volume 86, Mean Corpuscular Hemoglobin 28.9, Mean Corpuscular Hemoglobin Concent 33.6, Red Cell Distribution Width 13.8, Platelet Count 276, Mean Platelet Volume 7.3, Neutrophils (%) (Auto) 71.7, Lymphocytes (% ) (Auto) 13.7L, Monocytes (%) (Auto) 12.9H, Eosinophils (%) (Auto) 1.1, Basophils (%) (Auto) 0.6, Sodium Level 148H, Potassium Level 3.6, Chloride Level 115H, Carbon Dioxide Level 21, Anion Gap 12, Blood Urea Nitrogen 13, Creatinine 1.0, Estimat Glomerular Filtration Rate > 60, Glucose Level 94, Calcium Level 9.4, Total Bilirubin 0.4, Aspartate Amino Transf (AST/SGOT) 33, Alanine Aminotransferase (ALT/SGPT) 167H, Alkaline Phosphatase 65, Total Protein 6.9, Albumin 2.0L, Globulin 4.9, Albumin/Globulin Ratio 0.4L Height (Feet): 5 Height (Inches): 10.00 Weight (Pounds): 254 Objective Elderly AA woman NCAT supple CTA RR abd mildly distended no edema Richard Schroeder MD Oct 25, 2018 18:15
--- NOTE | 2018-10-25 19:09 | Cardiology Progress Note ---
Assessment/Plan Assessment/Plan 1.dehydration 2. Toxic metabolic encephlopathy . 3. History of hypertrophic nonobstructive cardiomyopathy. 4. Family history of sudden cardiac . 5. History of intracardiac defibrillator implantation, [employer] device previously. 6. acute renal failure 7. Abnormal perfusion with normal cardiac catheterization previously. 8. Hypercalcemia. 9. Alteration of mentation. 10. Azotemia 11. afib hx 12. bactermia ? contaminent 13. UTI 14. DVT 15. hypotenison 16. anemia 17. shock liver 18. 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 increase bb adn ccb Subjective ROS Limited/Unobtainable: Yes Subjective confused Objective Last 24 Hour Vital Signs Date Time Temp Pulse Resp B/P (MAP) Pulse Ox O2 Delivery O2 Flow Rate FiO2 10/25/18 16:12 98.9 10/25/18 16:00 97 10/25/18 16:00 98.8 111 20 168/98 (121) 97 10/25/18 16:00 Nasal Cannula 2.0 10/25/18 12:00 Nasal Cannula 2.0 10/25/18 12:00 90 10/25/18 12:00 98.9 93 20 160/92 (114) 98 10/25/18 09:00 101 153/94 10/25/18 09:00 101 153/94 10/25/18 08:00 93 10/25/18 08:00 Nasal Cannula 2.0 10/25/18 08:00 98.5 101 20 153/94 (113) 99 10/25/18 04:00 97.9 93 20 182/99 (126) 99 10/25/18 04:00 Nasal Cannula 2.0 10/25/18 03:57 94 10/25/18 00:00 Nasal Cannula 2.0 10/25/18 00:00 100.1 116 20 154/93 (113) 100 10/24/18 23:44 97 10/24/18 22:46 98 153/86 10/24/18 20:00 99.8 120 20 166/84 (111) 98 10/24/18 20:00 Nasal Cannula 2.0 10/24/18 19:58 115 General Appearance: no apparent distress, alert Cardiovascular: regular rhythm Respiratory/Chest: lungs clear Abdomen: normal bowel sounds, non tender, soft Extremities: moderate edema Intake and Output 10/24/18 10/25/18 19:00 07:00 Intake Total 948.53092 ml Output Total 850 ml 500 ml Balance 98.05904 ml -500 ml Intake Oral 360 ml IV Total 588.56921 ml Output Urine Total 850 ml 500 ml # Bowel Movements 1 2 Laboratory Tests Test 10/25/18 03:05 White Blood Count 10.2 K/UL (4.8-10.8) Red Blood Count 3.04 M/UL (4.20-5.40) L Hemoglobin 8.8 G/DL (12.0-16.0) L Hematocrit 26.2 % (37.0-47.0) L Mean Corpuscular Volume 86 FL (80-99) Mean Corpuscular Hemoglobin 28.9 PG (27.0-31.0) Mean Corpuscular Hemoglobin Concent 33.6 G/DL (32.0-36.0) Red Cell Distribution Width 13.8 % (11.6-14.8) Platelet Count 276 K/UL (150-450) Mean Platelet Volume 7.3 FL (6.5-10.1) Neutrophils (%) (Auto) 71.7 % (45.0-75.0) Lymphocytes (%) (Auto) 13.7 % (20.0-45.0) L Monocytes (%) (Auto) 12.9 % (1.0-10.0) H Eosinophils (%) (Auto) 1.1 % (0.0-3.0) Basophils (%) (Auto) 0.6 % (0.0-2.0) Sodium Level 148 MMOL/L (136-145) H Potassium Level 3.6 MMOL/L (3.5-5.1) Chloride Level 115 MMOL/L (98-107) H Carbon Dioxide Level 21 MMOL/L (21-32) Anion Gap 12 mmol/L (5-15) Blood Urea Nitrogen 13 mg/dL (7-18) Creatinine 1.0 MG/DL (0.55-1.30) Estimat Glomerular Filtration Rate > 60 mL/min (>60) Glucose Level 94 MG/DL (74-106) Calcium Level 9.4 MG/DL (8.5-10.1) Total Bilirubin 0.4 MG/DL (0.2-1.0) Aspartate Amino Transf (AST/SGOT) 33 U/L (15-37) Alanine Aminotransferase (ALT/SGPT) 167 U/L (12-78) H Alkaline Phosphatase 65 U/L (46-116) Total Protein 6.9 G/DL (6.4-8.2) Albumin 2.0 G/DL (3.4-5.0) L Globulin 4.9 g/dL Albumin/Globulin Ratio 0.4 (1.0-2.7) L Vernon Darden MD Oct 25, 2018 19:09
[2018-10-25 20:00] VITALS: BP 160/100
[2018-10-25] MEDS: Metoprolol Tartrate 50mg tab ORAL SCH (21:12)
--- NOTE | 2018-10-25 23:07 | General Progress Note ---
Assessment/Plan Assessment/Plan hypotension retroperitoneal bleed anemia secondary to bleed uti encephalopathy imprved dehydration renbal failure diabetes htn obesity hypercalcemia hypokalemia acute femoral dvt fluids LE dopplers noted IVC filter ct scan noted monitor labs abx treatment of hypercaclemia hypokalemia per Dr Sainz, patient has hyper parathyroidism, endo seeing patient vq scan negative improved encephalopathy monitor accucheck oob PT dvt and ulcer proplhylaxis dc plans per Dr sainz will need monitor of cbc closely Subjective Allergies: Coded Allergies: SULFA (SULFONAMIDE ANTIBIOTICS) (Verified Allergy, Unknown, 11/28/17) Pt states she is allergic to sulfa Subjective more alert today deneis sob no chest pain or back pain Objective Last 24 Hour Vital Signs Date Time Temp Pulse Resp B/P (MAP) Pulse Ox O2 Delivery O2 Flow Rate FiO2 10/25/18 21:45 99 Nasal Cannula 2.0 28 10/25/18 21:45 Nasal Cannula 2.0 28 10/25/18 21:12 107 160/100 10/25/18 20:00 99.0 107 24 160/100 (120) 98 10/25/18 20:00 Nasal Cannula 2.0 10/25/18 19:31 111 10/25/18 16:12 98.9 10/25/18 16:00 97 10/25/18 16:00 98.8 111 20 168/98 (121) 97 10/25/18 16:00 Nasal Cannula 2.0 10/25/18 12:00 Nasal Cannula 2.0 10/25/18 12:00 90 10/25/18 12:00 98.9 93 20 160/92 (114) 98 10/25/18 09:00 101 153/94 10/25/18 09:00 101 153/94 10/25/18 08:00 93 10/25/18 08:00 Nasal Cannula 2.0 10/25/18 08:00 98.5 101 20 153/94 (113) 99 10/25/18 04:00 97.9 93 20 182/99 (126) 99 10/25/18 04:00 Nasal Cannula 2.0 10/25/18 03:57 94 10/25/18 00:00 Nasal Cannula 2.0 10/25/18 00:00 100.1 116 20 154/93 (113) 100 10/24/18 23:44 97 Intake and Output 10/24/18 10/25/18 19:00 07:00 Intake Total 948.14551 ml Output Total 850 ml 500 ml Balance 98.77123 ml -500 ml Intake Oral 360 ml IV Total 588.27345 ml Output Urine Total 850 ml 500 ml # Bowel Movements 1 2 Laboratory Tests 10/25/18 03:05: White Blood Count 10.2, Red Blood Count 3.04L, Hemoglobin 8.8L, Hematocrit 26.2L , Mean Corpuscular Volume 86, Mean Corpuscular Hemoglobin 28.9, Mean Corpuscular Hemoglobin Concent 33.6, Red Cell Distribution Width 13.8, Platelet Count 276, Mean Platelet Volume 7.3, Neutrophils (%) (Auto) 71.7, Lymphocytes (% ) (Auto) 13.7L, Monocytes (%) (Auto) 12.9H, Eosinophils (%) (Auto) 1.1, Basophils (%) (Auto) 0.6, Sodium Level 148H, Potassium Level 3.6, Chloride Level 115H, Carbon Dioxide Level 21, Anion Gap 12, Blood Urea Nitrogen 13, Creatinine 1.0, Estimat Glomerular Filtration Rate > 60, Glucose Level 94, Calcium Level 9.4, Total Bilirubin 0.4, Aspartate Amino Transf (AST/SGOT) 33, Alanine Aminotransferase (ALT/SGPT) 167H, Alkaline Phosphatase 65, Total Protein 6.9, Albumin 2.0L, Globulin 4.9, Albumin/Globulin Ratio 0.4L Height (Feet): 5 Height (Inches): 10.00 Weight (Pounds): 254 General Appearance: WD/WN, no apparent distress Neck: supple Cardiovascular: normal rate Respiratory/Chest: lungs clear Abdomen: normal bowel sounds, soft Objective trace edema left leg Mario Alberto Aparicio MD Oct 25, 2018 23:07
[2018-10-26] VITALS: BP 134/79
[2018-10-26] MEDS: Morphine Sulfate 4mg/ml Inj (IV/IM USE ONLY) IVP PRN ×3 (02:22→14:31)
[2018-10-26 04:00] VITALS: BP 152/86
[2018-10-26 05:15] LABS: ANION GAP 10 mmol/L (5-15); BLOOD UREA NITROGEN 12 mg/dL (7-18); CALCIUM 9.4 MG/DL (8.5-10.1); CARBON DIOXIDE 23 MMOL/L (21-32); CHLORIDE 114 MMOL/L (98-107); CREATININE 0.9 MG/DL (0.55-1.30); POTASSIUM 3.3 MMOL/L (3.5-5.1); SODIUM 147 MMOL/L (136-145)
[2018-10-26] MEDS: NovoLOG Insulin Flexpen SUBQ SCH ×4 (06:21→20:39)
--- NOTE | 2018-10-26 06:59 | General Progress Note ---
Assessment/Plan Problem List: (1) Altered mental status ICD Codes: R41.82 - Altered mental status, unspecified SNOMED: 917133417 (2) Primary hyperparathyroidism ICD Codes: E21.0 - Primary hyperparathyroidism SNOMED: 42055601 (3) Cardiomyopathy ICD Codes: I42.9 - Cardiomyopathy, unspecified SNOMED: 17389464 (4) ARF (acute renal failure) ICD Codes: N17.9 - Acute kidney failure, unspecified SNOMED: 98891576 Qualifiers: Qualified Codes: N17.9 - Acute kidney failure, unspecified (5) DM (diabetes mellitus) ICD Codes: E11.9 - Type 2 diabetes mellitus without complications SNOMED: 27421738 (6) Encephalopathy ICD Codes: G93.40 - Encephalopathy, unspecified SNOMED: 08981280, 291043881 (7) UTI (urinary tract infection) ICD Codes: N39.0 - Urinary tract infection, site not specified SNOMED: 77231646 Assessment/Plan serum Ca remained stable and normal BG values well controlled on SSI Subjective Allergies: Coded Allergies: SULFA (SULFONAMIDE ANTIBIOTICS) (Verified Allergy, Unknown, 11/28/17) Pt states she is allergic to sulfa All Systems: reviewed and negative except above Subjective events noted glucose values are stable Objective Last 24 Hour Vital Signs Date Time Temp Pulse Resp B/P (MAP) Pulse Ox O2 Delivery O2 Flow Rate FiO2 10/26/18 04:00 87 10/26/18 04:00 99.0 87 20 152/86 (108) 100 10/26/18 04:00 Nasal Cannula 2.0 10/26/18 00:00 98.8 83 24 134/79 (97) 100 10/26/18 00:00 85 10/26/18 00:00 Nasal Cannula 2.0 10/25/18 21:45 99 Nasal Cannula 2.0 28 10/25/18 21:45 Nasal Cannula 2.0 28 10/25/18 21:12 107 160/100 10/25/18 20:00 99.0 107 24 160/100 (120) 98 10/25/18 20:00 Nasal Cannula 2.0 10/25/18 19:31 111 10/25/18 16:12 98.9 10/25/18 16:00 97 10/25/18 16:00 98.8 111 20 168/98 (121) 97 10/25/18 16:00 Nasal Cannula 2.0 10/25/18 12:00 Nasal Cannula 2.0 10/25/18 12:00 90 10/25/18 12:00 98.9 93 20 160/92 (114) 98 10/25/18 09:00 101 153/94 10/25/18 09:00 101 153/94 10/25/18 08:00 93 10/25/18 08:00 Nasal Cannula 2.0 10/25/18 08:00 98.5 101 20 153/94 (113) 99 Intake and Output 10/25/18 10/26/18 19:00 07:00 Intake Total 480 ml Output Total 600 ml 200 ml Balance -120 ml -200 ml Intake Oral 480 ml Output Urine Total 600 ml 200 ml # Bowel Movements 2 Laboratory Tests 10/26/18 03:35: Sodium Level 147H, Potassium Level 3.3L, Chloride Level 114H, Carbon Dioxide Level 23, Anion Gap 10, Blood Urea Nitrogen 12, Creatinine 0.9, Estimat Glomerular Filtration Rate > 60, Glucose Level 91, Calcium Level 9.4 Height (Feet): 5 Height (Inches): 10.00 Weight (Pounds): 254 General Appearance: no apparent distress Neck: normal alignment Cardiovascular: normal rate Respiratory/Chest: lungs clear Abdomen: normal bowel sounds Pelvis: normal external exam Objective Current Medications Medications (Trade) Dose Ordered Sig/Barrett Route PRN Reason Start Time Stop Time Status Last Admin Dose Admin Acetaminophen (Tylenol) 650 mg Q4H PRN ORAL Mild Pain (Pain Scale 1-3) 10/22/18 15:00 11/12/18 14:59 Dextrose (Dextrose 50%) 25 ml Q30M PRN IV Hypoglycemia 10/22/18 14:30 11/18/18 12:29 Dextrose (Dextrose 50%) 50 ml Q30M PRN IV Hypoglycemia 10/22/18 14:45 11/18/18 16:35 Diltiazem HCl (Cardizem CD) 240 mg DAILY ORAL 10/26/18 09:00 11/25/18 08:59 Insulin Aspart (NovoLOG) BEFORE MEALS AND HS SUBQ 10/22/18 16:30 11/18/18 16:29 10/25/18 16:56 Lorazepam (Ativan 2mg/ml 1ml) 0.25 mg BIDPRN PRN IV For Anxiety 10/22/18 15:00 10/29/18 14:59 10/24/18 20:17 Metoprolol Tartrate (Lopressor) 50 mg Q12HR ORAL 10/25/18 21:00 11/24/18 20:59 10/25/18 21:12 Morphine Sulfate (Morphine Sulfate) 2 mg Q3H PRN IVP Moderate Pain (Pain Scale 4-6) 10/22/18 15:00 10/26/18 14:59 Morphine Sulfate (Morphine Sulfate) 4 mg Q3H PRN IVP Severe Pain (Pain Scale 7-10) 10/22/18 15:00 10/26/18 17:53 10/26/18 02:22 Ondansetron HCl (Zofran) 4 mg Q6H PRN IVP Nausea & Vomiting 10/22/18 15:00 11/12/18 14:59 Pantoprazole (Protonix) 40 mg DAILY IVP 10/23/18 09:00 11/19/18 14:44 10/25/18 09:00 Polyethylene Glycol (Miralax) 17 gm DAILYPRN PRN ORAL Constipation 10/22/18 15:00 11/18/18 14:59 Zolpidem Tartrate (Ambien) 5 mg HSPRN PRN ORAL Insomnia 10/22/18 21:00 10/29/18 20:59 10/24/18 20:17 Item Value Date Time Bedside Blood Glucose 97 mg/dl 10/26/18 0630 Bedside Blood Glucose 105 mg/dl 10/25/18 2100 Bedside Blood Glucose 154 mg/dl H 10/25/18 1656 Bedside Blood Glucose 108 mg/dl 10/25/18 1133 Dejan Villagran MD Oct 26, 2018 06:59
--- NOTE | 2018-10-26 07:29 | General Progress Note ---
Assessment/Plan Assessment/Plan Assessment - OB (+) stool, but brown and pasty (not melena) - outpatient EGD/[facility] - Retroperitoneal hematoma - acute hypotention and drop in H&H - due to RP hematoma - Sudden rise in LFT - suspect shocked liver - DVT - anticoagulation held - GB sludge on ultrasound - fatty liver, per U/S imaging Recommendations - follow labs - transfuse PRN - PPI - push po - check hepatitis markers - negative - Check CPK --> normal - f/u with GI as outpt for EGD/[place] Subjective Allergies: Coded Allergies: SULFA (SULFONAMIDE ANTIBIOTICS) (Verified Allergy, Unknown, 11/28/17) Pt states she is allergic to sulfa Objective Last 24 Hour Vital Signs Date Time Temp Pulse Resp B/P (MAP) Pulse Ox O2 Delivery O2 Flow Rate FiO2 10/26/18 04:00 87 10/26/18 04:00 99.0 87 20 152/86 (108) 100 10/26/18 04:00 Nasal Cannula 2.0 10/26/18 00:00 98.8 83 24 134/79 (97) 100 10/26/18 00:00 85 10/26/18 00:00 Nasal Cannula 2.0 10/25/18 21:45 99 Nasal Cannula 2.0 28 10/25/18 21:45 Nasal Cannula 2.0 28 10/25/18 21:12 107 160/100 10/25/18 20:00 99.0 107 24 160/100 (120) 98 10/25/18 20:00 Nasal Cannula 2.0 10/25/18 19:31 111 10/25/18 16:12 98.9 10/25/18 16:00 97 10/25/18 16:00 98.8 111 20 168/98 (121) 97 10/25/18 16:00 Nasal Cannula 2.0 10/25/18 12:00 Nasal Cannula 2.0 10/25/18 12:00 90 10/25/18 12:00 98.9 93 20 160/92 (114) 98 10/25/18 09:00 101 153/94 10/25/18 09:00 101 153/94 10/25/18 08:00 93 10/25/18 08:00 Nasal Cannula 2.0 10/25/18 08:00 98.5 101 20 153/94 (113) 99 Intake and Output 10/25/18 10/26/18 19:00 07:00 Intake Total 480 ml Output Total 600 ml 200 ml Balance -120 ml -200 ml Intake Oral 480 ml Output Urine Total 600 ml 200 ml # Bowel Movements 2 Laboratory Tests 10/26/18 03:35: Sodium Level 147H, Potassium Level 3.3L, Chloride Level 114H, Carbon Dioxide Level 23, Anion Gap 10, Blood Urea Nitrogen 12, Creatinine 0.9, Estimat Glomerular Filtration Rate > 60, Glucose Level 91, Calcium Level 9.4 Height (Feet): 5 Height (Inches): 10.00 Weight (Pounds): 254 General Appearance: no apparent distress EENT: normal ENT inspection Cardiovascular: normal rate Respiratory/Chest: decreased breath sounds Abdomen: normal bowel sounds, non tender, soft Extremities: non-tender Martin Garg MD Oct 26, 2018 07:29
[2018-10-26 08:00] VITALS: BP 154/92
[2018-10-26] MEDS ORDERED: dilTIAZem HCl CD 240mg cap ORAL SCH (09:00)
--- NOTE | 2018-10-26 09:50 | Pulmonology Progress Note ---
Assessment/Plan Problems: (1) Altered mental status (2) UTI (urinary tract infection) (3) DVT (deep venous thrombosis) (4) Retroperitoneal bleed (5) JANE (acute kidney injury) (6) Hypernatremia (7) Abdominal pain (8) Acidosis, metabolic (9) Encephalopathy (10) Dyspnea (11) CHF exacerbation (12) Pacemaker (13) DM (diabetes mellitus) Assessment/Plan S/P IVC F Monitor HH, transfuse PRN F/u GI recs --> plan for outpatient EGD/[place] Monitor volumes and renal function Observe off Abx per ID Diet per [facility] Aspiration precautions Optimize pulmonary hygiene/mobilize as tolerated Titrate down FiO2 to keep Sao2 > 90% Subjective Allergies: Coded Allergies: SULFA (SULFONAMIDE ANTIBIOTICS) (Verified Allergy, Unknown, 11/28/17) Pt states she is allergic to sulfa Subjective AFVSS x O2 needs stable, keri PO No cough, no SOB, no F/C Objective Last 24 Hour Vital Signs Date Time Temp Pulse Resp B/P (MAP) Pulse Ox O2 Delivery O2 Flow Rate FiO2 10/26/18 04:00 87 10/26/18 04:00 99.0 87 20 152/86 (108) 100 10/26/18 04:00 Nasal Cannula 2.0 10/26/18 00:00 98.8 83 24 134/79 (97) 100 10/26/18 00:00 85 10/26/18 00:00 Nasal Cannula 2.0 10/25/18 21:45 99 Nasal Cannula 2.0 28 10/25/18 21:45 Nasal Cannula 2.0 28 10/25/18 21:12 107 160/100 10/25/18 20:00 99.0 107 24 160/100 (120) 98 10/25/18 20:00 Nasal Cannula 2.0 10/25/18 19:31 111 10/25/18 16:12 98.9 10/25/18 16:00 97 10/25/18 16:00 98.8 111 20 168/98 (121) 97 10/25/18 16:00 Nasal Cannula 2.0 10/25/18 12:00 Nasal Cannula 2.0 10/25/18 12:00 90 10/25/18 12:00 98.9 93 20 160/92 (114) 98 Intake and Output 10/25/18 10/26/18 19:00 07:00 Intake Total 480 ml Output Total 600 ml 200 ml Balance -120 ml -200 ml Intake Oral 480 ml Output Urine Total 600 ml 200 ml # Bowel Movements 2 General Appearance: no acute distress HEENT: normocephalic, atraumatic Respiratory/Chest: chest wall non-tender, lungs clear, normal breath sounds, no respiratory distress, no accessory muscle use Cardiovascular: normal peripheral pulses, normal rate, regular rhythm Abdomen: normal bowel sounds, soft, non tender, no organomegaly, non distended Extremities: no cyanosis, no clubbing, other - trace edema Laboratory Tests 10/26/18 03:35: Sodium Level 147H, Potassium Level 3.3L, Chloride Level 114H, Carbon Dioxide Level 23, Anion Gap 10, Blood Urea Nitrogen 12, Creatinine 0.9, Estimat Glomerular Filtration Rate > 60, Glucose Level 91, Calcium Level 9.4 Current Medications Medications (Trade) Dose Ordered Sig/Barrett Route PRN Reason Start Time Stop Time Status Last Admin Dose Admin Acetaminophen (Tylenol) 650 mg Q4H PRN ORAL Mild Pain (Pain Scale 1-3) 10/22/18 15:00 11/12/18 14:59 Dextrose (Dextrose 50%) 25 ml Q30M PRN IV Hypoglycemia 10/22/18 14:30 11/18/18 12:29 Dextrose (Dextrose 50%) 50 ml Q30M PRN IV Hypoglycemia 10/22/18 14:45 11/18/18 16:35 Diltiazem HCl (Cardizem CD) 240 mg DAILY ORAL 10/26/18 09:00 11/25/18 08:59 Insulin Aspart (NovoLOG) BEFORE MEALS AND HS SUBQ 10/22/18 16:30 11/18/18 16:29 10/25/18 16:56 Lorazepam (Ativan 2mg/ml 1ml) 0.25 mg BIDPRN PRN IV For Anxiety 10/22/18 15:00 10/29/18 14:59 10/24/18 20:17 Metoprolol Tartrate (Lopressor) 50 mg Q12HR ORAL 10/25/18 21:00 11/24/18 20:59 10/25/18 21:12 Morphine Sulfate (Morphine Sulfate) 2 mg Q3H PRN IVP Moderate Pain (Pain Scale 4-6) 10/22/18 15:00 10/26/18 14:59 Morphine Sulfate (Morphine Sulfate) 4 mg Q3H PRN IVP Severe Pain (Pain Scale 7-10) 10/22/18 15:00 10/26/18 17:53 10/26/18 02:22 Ondansetron HCl (Zofran) 4 mg Q6H PRN IVP Nausea & Vomiting 10/22/18 15:00 11/12/18 14:59 Pantoprazole (Protonix) 40 mg DAILY IVP 10/23/18 09:00 11/19/18 14:44 10/25/18 09:00 Polyethylene Glycol (Miralax) 17 gm DAILYPRN PRN ORAL Constipation 10/22/18 15:00 11/18/18 14:59 Zolpidem Tartrate (Ambien) 5 mg HSPRN PRN ORAL Insomnia 10/22/18 21:00 10/29/18 20:59 10/24/18 20:17 Riley Alatorre MD Oct 26, 2018 09:50
[2018-10-26] MEDS: Pantoprazole Inj IVP SCH (10:21)
[2018-10-26] MEDS: Metoprolol Tartrate 50mg tab ORAL SCH ×2 (10:22→20:39)
[2018-10-26 12:00] VITALS: BP 147/88
[2018-10-26] MEDS ORDERED: LORazepam Inj 2mg/ml 1ml IV PRN (14:57)
[2018-10-26] MEDS ORDERED: Morphine Sulfate 2mg/ml Inj IVP PRN (14:57)
--- NOTE | 2018-10-26 14:57 | General Surgery Progress Note ---
General Surgery-Progress Note Subjective Procedure Performed right internal jugular central venous catheter insertion using ultrasound guidance Symptoms: improved Additional Comments doing much better. no acute events. downgraded Objective Last 24 Hour Vital Signs Date Time Temp Pulse Resp B/P (MAP) Pulse Ox O2 Delivery O2 Flow Rate FiO2 10/26/18 12:00 97.6 92 20 147/88 (107) 99 10/26/18 12:00 Nasal Cannula 2.0 10/26/18 12:00 55 10/26/18 10:52 98.1 10/26/18 10:23 96 154/92 10/26/18 10:22 96 154/92 10/26/18 08:00 81 10/26/18 08:00 98.1 96 18 154/92 (112) 99 10/26/18 08:00 Nasal Cannula 2.0 10/26/18 04:00 87 10/26/18 04:00 99.0 87 20 152/86 (108) 100 10/26/18 04:00 Nasal Cannula 2.0 10/26/18 00:00 98.8 83 24 134/79 (97) 100 10/26/18 00:00 85 10/26/18 00:00 Nasal Cannula 2.0 10/25/18 21:45 99 Nasal Cannula 2.0 28 10/25/18 21:45 Nasal Cannula 2.0 28 10/25/18 21:12 107 160/100 10/25/18 20:00 99.0 107 24 160/100 (120) 98 10/25/18 20:00 Nasal Cannula 2.0 10/25/18 19:31 111 10/25/18 16:00 97 10/25/18 16:00 98.8 111 20 168/98 (121) 97 10/25/18 16:00 Nasal Cannula 2.0 I&O Intake and Output 10/25/18 10/26/18 19:00 07:00 Intake Total 480 ml Output Total 600 ml 200 ml Balance -120 ml -200 ml Intake Oral 480 ml Output Urine Total 600 ml 200 ml # Bowel Movements 2 Drains: other Cardiovascular: RSR Respiratory: decreased breath sounds Abdomen: soft, flat, non-tender, present bowel sounds Extremities: other Laboratory Tests Test 10/26/18 03:35 Sodium Level 147 MMOL/L (136-145) H Potassium Level 3.3 MMOL/L (3.5-5.1) L Chloride Level 114 MMOL/L (98-107) H Carbon Dioxide Level 23 MMOL/L (21-32) Anion Gap 10 mmol/L (5-15) Blood Urea Nitrogen 12 mg/dL (7-18) Creatinine 0.9 MG/DL (0.55-1.30) Estimat Glomerular Filtration Rate > 60 mL/min (>60) Glucose Level 91 MG/DL (74-106) Calcium Level 9.4 MG/DL (8.5-10.1) Plan Problems: (1) Abdominal pain Assessment & Plan: US noted - cholelithiasis. no inflammation CT noted - likely retrop hematoma IV filter as bleed on anticoag prior and has acute dvt okay for diet IV fluids off abx CT chest noted trend labs okay from surgical standpoint (2) Anemia Assessment & Plan: poor peripheral access central line inserted see procedure note transfuse prbc trend labs will monitor hematoma clinically Jared Obrien Oct 26, 2018 14:57
[2018-10-26] MEDS ORDERED: Morphine Sulfate 4mg/ml Inj (IV/IM USE ONLY) IVP PRN (15:00)
[2018-10-26] MEDS ORDERED: Miralax 17gm pkt ORAL PRN (15:00)
[2018-10-26 16:30] VITALS: BP 159/90
--- NOTE | 2018-10-26 17:20 | Nephrology Progress Note ---
Assessment/Plan Problem List: (1) Altered mental status (2) DM (diabetes mellitus) (3) HTN (hypertension) (4) ARF (acute renal failure) Assessment: better (5) Hypertrophic cardiomyopathy (6) Encephalopathy (7) UTI (urinary tract infection) (8) Hypokalemia Assessment: worse (9) Hypernatremia Assessment: better (10) DVT (deep venous thrombosis) (11) Retroperitoneal bleed Assessment: HCT stable (12) Primary hyperparathyroidism Assessment: Ca is Ok Plan S/P IVC filter replete K follow labs will discuss with Dr Darden Subjective Subjective neck is bent to one side awake Objective Objective Last 24 Hour Vital Signs Date Time Temp Pulse Resp B/P (MAP) Pulse Ox O2 Delivery O2 Flow Rate FiO2 10/26/18 16:00 84 10/26/18 12:00 97.6 92 20 147/88 (107) 99 10/26/18 12:00 Nasal Cannula 2.0 10/26/18 12:00 55 10/26/18 10:52 98.1 10/26/18 10:23 96 154/92 10/26/18 10:22 96 154/92 10/26/18 08:00 81 10/26/18 08:00 98.1 96 18 154/92 (112) 99 10/26/18 08:00 Nasal Cannula 2.0 10/26/18 04:00 87 10/26/18 04:00 99.0 87 20 152/86 (108) 100 10/26/18 04:00 Nasal Cannula 2.0 10/26/18 00:00 98.8 83 24 134/79 (97) 100 10/26/18 00:00 85 10/26/18 00:00 Nasal Cannula 2.0 10/25/18 21:45 99 Nasal Cannula 2.0 28 10/25/18 21:45 Nasal Cannula 2.0 28 10/25/18 21:12 107 160/100 10/25/18 20:00 99.0 107 24 160/100 (120) 98 10/25/18 20:00 Nasal Cannula 2.0 10/25/18 19:31 111 Intake and Output 10/25/18 10/26/18 18:59 06:59 Intake Total 480 ml Output Total 600 ml 200 ml Balance -120 ml -200 ml Intake Oral 480 ml Output Urine Total 600 ml 200 ml # Bowel Movements 2 Laboratory Tests 10/26/18 03:35: Sodium Level 147H, Potassium Level 3.3L, Chloride Level 114H, Carbon Dioxide Level 23, Anion Gap 10, Blood Urea Nitrogen 12, Creatinine 0.9, Estimat Glomerular Filtration Rate > 60, Glucose Level 91, Calcium Level 9.4 Height (Feet): 5 Height (Inches): 10.00 Weight (Pounds): 254 Neck: limited range of motion Cardiovascular: normal rate Respiratory/Chest: lungs clear Extremities: moderate edema Oliverio Yanez MD Oct 26, 2018 17:20
--- NOTE | 2018-10-26 17:40 | Cardiology Progress Note ---
Assessment/Plan Assessment/Plan hemodynamically stable, a fib, ventricular paced, rate is controlled Subjective Subjective eatinig dinner, comfortable, not agitated Objective Last 24 Hour Vital Signs Date Time Temp Pulse Resp B/P (MAP) Pulse Ox O2 Delivery O2 Flow Rate FiO2 10/26/18 16:30 99.5 89 20 159/90 (113) 100 10/26/18 16:00 84 10/26/18 16:00 Nasal Cannula 2.0 10/26/18 12:00 97.6 92 20 147/88 (107) 99 10/26/18 12:00 Nasal Cannula 2.0 10/26/18 12:00 55 10/26/18 10:52 98.1 10/26/18 10:23 96 154/92 10/26/18 10:22 96 154/92 10/26/18 08:00 81 10/26/18 08:00 98.1 96 18 154/92 (112) 99 10/26/18 08:00 Nasal Cannula 2.0 10/26/18 04:00 87 10/26/18 04:00 99.0 87 20 152/86 (108) 100 10/26/18 04:00 Nasal Cannula 2.0 10/26/18 00:00 98.8 83 24 134/79 (97) 100 10/26/18 00:00 85 10/26/18 00:00 Nasal Cannula 2.0 10/25/18 21:45 99 Nasal Cannula 2.0 28 10/25/18 21:45 Nasal Cannula 2.0 28 10/25/18 21:12 107 160/100 10/25/18 20:00 99.0 107 24 160/100 (120) 98 10/25/18 20:00 Nasal Cannula 2.0 10/25/18 19:31 111 General Appearance: lethargic EENT: PERRL/EOMI Neck: no JVD Rhythm: Afib Cardiovascular: normal rate Respiratory/Chest: crackles/rales Abdomen: soft, distended Intake and Output 10/25/18 10/26/18 18:59 06:59 Intake Total 480 ml Output Total 600 ml 200 ml Balance -120 ml -200 ml Intake Oral 480 ml Output Urine Total 600 ml 200 ml # Bowel Movements 2 Laboratory Tests Test 10/26/18 03:35 Sodium Level 147 MMOL/L (136-145) H Potassium Level 3.3 MMOL/L (3.5-5.1) L Chloride Level 114 MMOL/L (98-107) H Carbon Dioxide Level 23 MMOL/L (21-32) Anion Gap 10 mmol/L (5-15) Blood Urea Nitrogen 12 mg/dL (7-18) Creatinine 0.9 MG/DL (0.55-1.30) Estimat Glomerular Filtration Rate > 60 mL/min (>60) Glucose Level 91 MG/DL (74-106) Calcium Level 9.4 MG/DL (8.5-10.1) Pebbles Fong MD Oct 26, 2018 17:40
--- NOTE | 2018-10-26 18:07 | General Progress Note ---
Assessment/Plan Assessment/Plan hypotension retroperitoneal bleed anemia secondary to bleed uti encephalopathy imprved dehydration renbal failure diabetes htn obesity hypercalcemia hypokalemia acute femoral dvt fluids LE dopplers noted IVC filter ct scan noted monitor labs abx treatment of hypercaclemia hypokalemia per Dr Sainz, patient has hyper parathyroidism, endo seeing patient vq scan negative improved encephalopathy monitor accucheck oob PT dvt and ulcer proplhylaxis dc plans per Dr sainz will need monitor of cbc closely Subjective Allergies: Coded Allergies: SULFA (SULFONAMIDE ANTIBIOTICS) (Verified Allergy, Unknown, 11/28/17) Pt states she is allergic to sulfa Subjective more alert today deneis sob no chest pain or back pain Objective Last 24 Hour Vital Signs Date Time Temp Pulse Resp B/P (MAP) Pulse Ox O2 Delivery O2 Flow Rate FiO2 10/26/18 16:30 99.5 89 20 159/90 (113) 100 10/26/18 16:00 84 10/26/18 16:00 Nasal Cannula 2.0 10/26/18 12:00 97.6 92 20 147/88 (107) 99 10/26/18 12:00 Nasal Cannula 2.0 10/26/18 12:00 55 10/26/18 10:52 98.1 10/26/18 10:23 96 154/92 10/26/18 10:22 96 154/92 10/26/18 08:00 81 10/26/18 08:00 98.1 96 18 154/92 (112) 99 10/26/18 08:00 Nasal Cannula 2.0 10/26/18 04:00 87 10/26/18 04:00 99.0 87 20 152/86 (108) 100 10/26/18 04:00 Nasal Cannula 2.0 10/26/18 00:00 98.8 83 24 134/79 (97) 100 10/26/18 00:00 85 10/26/18 00:00 Nasal Cannula 2.0 10/25/18 21:45 99 Nasal Cannula 2.0 28 10/25/18 21:45 Nasal Cannula 2.0 28 10/25/18 21:12 107 160/100 10/25/18 20:00 99.0 107 24 160/100 (120) 98 10/25/18 20:00 Nasal Cannula 2.0 10/25/18 19:31 111 Intake and Output 10/25/18 10/26/18 18:59 06:59 Intake Total 480 ml Output Total 600 ml 200 ml Balance -120 ml -200 ml Intake Oral 480 ml Output Urine Total 600 ml 200 ml # Bowel Movements 2 Laboratory Tests 10/26/18 03:35: Sodium Level 147H, Potassium Level 3.3L, Chloride Level 114H, Carbon Dioxide Level 23, Anion Gap 10, Blood Urea Nitrogen 12, Creatinine 0.9, Estimat Glomerular Filtration Rate > 60, Glucose Level 91, Calcium Level 9.4 Height (Feet): 5 Height (Inches): 10.00 Weight (Pounds): 254 General Appearance: WD/WN, no apparent distress Neck: supple Cardiovascular: normal rate Respiratory/Chest: lungs clear Abdomen: soft Objective trace edema left leg Mario Alberto Aparicio MD Oct 26, 2018 18:07
[2018-10-26 20:00] VITALS: BP 107/67
[2018-10-26] MEDS ORDERED: Zolpidem 5mg tab ORAL PRN (21:00)
[2018-10-27] VITALS: BP 127/76
[2018-10-27 04:00] VITALS: BP 106/53
[2018-10-27] MEDS: NovoLOG Insulin Flexpen SUBQ SCH ×4 (06:04→20:13)
--- NOTE | 2018-10-27 07:00 | General Progress Note ---
Assessment/Plan Problem List: (1) Altered mental status ICD Codes: R41.82 - Altered mental status, unspecified SNOMED: 669253406 (2) Primary hyperparathyroidism ICD Codes: E21.0 - Primary hyperparathyroidism SNOMED: 34470599 (3) Cardiomyopathy ICD Codes: I42.9 - Cardiomyopathy, unspecified SNOMED: 68829677 (4) ARF (acute renal failure) ICD Codes: N17.9 - Acute kidney failure, unspecified SNOMED: 27278533 Qualifiers: Qualified Codes: N17.9 - Acute kidney failure, unspecified (5) DM (diabetes mellitus) ICD Codes: E11.9 - Type 2 diabetes mellitus without complications SNOMED: 71996953 (6) Encephalopathy ICD Codes: G93.40 - Encephalopathy, unspecified SNOMED: 19939667, 869584801 (7) UTI (urinary tract infection) ICD Codes: N39.0 - Urinary tract infection, site not specified SNOMED: 72855595 Assessment/Plan serum Ca remained stable and normal BG values well controlled on SSI Subjective Allergies: Coded Allergies: SULFA (SULFONAMIDE ANTIBIOTICS) (Verified Allergy, Unknown, 11/28/17) Pt states she is allergic to sulfa All Systems: reviewed and negative except above Subjective events noted glucose values are stable Objective Last 24 Hour Vital Signs Date Time Temp Pulse Resp B/P (MAP) Pulse Ox O2 Delivery O2 Flow Rate FiO2 10/27/18 04:00 Nasal Cannula 2.0 10/27/18 04:00 98.8 92 17 106/53 (70) 100 10/27/18 03:37 90 10/27/18 00:00 98.8 85 17 127/76 (93) 100 10/27/18 00:00 Nasal Cannula 2.0 10/26/18 23:37 75 10/26/18 22:53 98.9 10/26/18 21:42 Nasal Cannula 2.0 28 10/26/18 21:42 100 Nasal Cannula 2.0 28 10/26/18 20:39 106 107/67 10/26/18 20:00 100.6 106 20 107/67 (80) 100 10/26/18 20:00 Nasal Cannula 2.0 10/26/18 19:00 100 10/26/18 16:30 99.5 89 20 159/90 (113) 100 10/26/18 16:00 84 10/26/18 16:00 Nasal Cannula 2.0 10/26/18 12:00 97.6 92 20 147/88 (107) 99 10/26/18 12:00 Nasal Cannula 2.0 10/26/18 12:00 55 10/26/18 10:52 98.1 10/26/18 10:23 96 154/92 10/26/18 10:22 96 154/92 10/26/18 08:00 81 10/26/18 08:00 98.1 96 18 154/92 (112) 99 10/26/18 08:00 Nasal Cannula 2.0 Intake and Output 10/26/18 10/27/18 19:00 07:00 Intake Total 120 ml 240 ml Output Total 300 ml Balance 120 ml -60 ml Intake Oral 120 ml 240 ml Output Urine Total 300 ml # Voids 1 # Bowel Movements 5 Height (Feet): 5 Height (Inches): 10.00 Weight (Pounds): 254 General Appearance: no apparent distress Neck: normal alignment Cardiovascular: normal rate Respiratory/Chest: lungs clear Abdomen: normal bowel sounds Objective Current Medications Medications (Trade) Dose Ordered Sig/Barrett Route PRN Reason Start Time Stop Time Status Last Admin Dose Admin Acetaminophen (Tylenol) 650 mg Q4H PRN ORAL Mild Pain (Pain Scale 1-3) 10/26/18 14:56 11/12/18 14:55 10/26/18 22:23 Dextrose (Dextrose 50%) 25 ml Q30M PRN IV Hypoglycemia 10/26/18 15:00 11/18/18 12:29 Dextrose (Dextrose 50%) 50 ml Q30M PRN IV Hypoglycemia 10/26/18 15:15 11/18/18 16:35 Diltiazem HCl (Cardizem CD) 240 mg DAILY ORAL 10/27/18 09:00 11/25/18 08:59 Insulin Aspart (NovoLOG) BEFORE MEALS AND HS SUBQ 10/26/18 16:30 11/18/18 16:29 10/27/18 06:04 Lorazepam (Ativan 2mg/ml 1ml) 0.25 mg BIDPRN PRN IV For Anxiety 10/26/18 14:57 10/29/18 14:56 Metoprolol Tartrate (Lopressor) 50 mg Q12HR ORAL 10/26/18 21:00 11/24/18 20:59 10/26/18 20:39 Morphine Sulfate (Morphine Sulfate) 2 mg Q3H PRN IVP Moderate Pain (Pain Scale 4-6) 10/26/18 14:57 11/02/18 14:56 Ondansetron HCl (Zofran) 4 mg Q6H PRN IVP Nausea & Vomiting 10/26/18 15:00 11/12/18 14:59 Pantoprazole (Protonix) 40 mg DAILY IVP 10/27/18 09:00 11/19/18 14:44 Polyethylene Glycol (Miralax) 17 gm DAILYPRN PRN ORAL Constipation 10/26/18 15:00 11/18/18 14:59 Zolpidem Tartrate (Ambien) 5 mg HSPRN PRN ORAL Insomnia 10/26/18 21:00 10/29/18 20:59 Item Value Date Time Bedside Blood Glucose 117 mg/dl 10/27/18 0630 Bedside Blood Glucose 102 mg/dl 10/26/18 1130 Bedside Blood Glucose 97 mg/dl 10/26/18 0630 Dejan Villagran MD Oct 27, 2018 07:00
[2018-10-27 08:00] VITALS: BP 156/87
[2018-10-27 08:16] LABS: BASOPHILS % (AUTO) 0.4 % (0.0-2.0); EOSINOPHILS % (AUTO) 0.8 % (0.0-3.0); HEMATOCRIT 31.1 % (37.0-47.0); HEMOGLOBIN 10.4 G/DL (12.0-16.0); LYMPHOCYTES % (AUTO) 11.3 % (20.0-45.0); MEAN CORPUSCULAR VOLUME 86 FL (80-99); MONOCYTES % (AUTO) 5.7 % (1.0-10.0); NEUTROPHILS % (AUTO) 81.8 % (45.0-75.0); PLATELET COUNT 319 K/UL (150-450); RED BLOOD COUNT 3.61 M/UL (4.20-5.40); RED CELL DISTRIBUTION WIDTH 13.6 % (11.6-14.8); WHITE BLOOD COUNT 10.6 K/UL (4.8-10.8)
--- NOTE | 2018-10-27 08:49 | General Progress Note ---
Assessment/Plan Assessment/Plan Assessment - OB (+) stool, but brown and pasty (not melena) - outpatient EGD/Colon - Retroperitoneal hematoma - acute hypotention and drop in H&H - due to RP hematoma - Sudden rise in LFT - suspect shocked liver - DVT - anticoagulation held - GB sludge on ultrasound - fatty liver, per U/S imaging Recommendations - follow labs - transfuse PRN - PPI - push po - check hepatitis markers - negative - Check CPK --> normal - f/u with GI as outpt for EGD/Reading Subjective ROS Limited/Unobtainable: Yes Allergies: Coded Allergies: SULFA (SULFONAMIDE ANTIBIOTICS) (Verified Allergy, Unknown, 11/28/17) Pt states she is allergic to sulfa Objective Last 24 Hour Vital Signs Date Time Temp Pulse Resp B/P (MAP) Pulse Ox O2 Delivery O2 Flow Rate FiO2 10/27/18 07:51 Nasal Cannula 2.0 28 10/27/18 07:51 98 Nasal Cannula 2.0 28 10/27/18 04:00 Nasal Cannula 2.0 10/27/18 04:00 98.8 92 17 106/53 (70) 100 10/27/18 03:37 90 10/27/18 00:00 98.8 85 17 127/76 (93) 100 10/27/18 00:00 Nasal Cannula 2.0 10/26/18 23:37 75 10/26/18 22:53 98.9 10/26/18 21:42 Nasal Cannula 2.0 28 10/26/18 21:42 100 Nasal Cannula 2.0 28 10/26/18 20:39 106 107/67 10/26/18 20:00 100.6 106 20 107/67 (80) 100 10/26/18 20:00 Nasal Cannula 2.0 10/26/18 19:00 100 10/26/18 16:30 99.5 89 20 159/90 (113) 100 10/26/18 16:00 84 10/26/18 16:00 Nasal Cannula 2.0 10/26/18 12:00 97.6 92 20 147/88 (107) 99 10/26/18 12:00 Nasal Cannula 2.0 10/26/18 12:00 55 10/26/18 10:52 98.1 10/26/18 10:23 96 154/92 10/26/18 10:22 96 154/92 Intake and Output 10/26/18 10/27/18 19:00 07:00 Intake Total 120 ml 240 ml Output Total 300 ml Balance 120 ml -60 ml Intake Oral 120 ml 240 ml Output Urine Total 300 ml # Voids 1 # Bowel Movements 5 Laboratory Tests 10/27/18 06:47: White Blood Count 10.6, Red Blood Count 3.61L, Hemoglobin 10.4L, Hematocrit 31.1L, Mean Corpuscular Volume 86, Mean Corpuscular Hemoglobin 28.9, Mean Corpuscular Hemoglobin Concent 33.5, Red Cell Distribution Width 13.6, Platelet Count 319, Mean Platelet Volume 7.1, Neutrophils (%) (Auto) 81.8H, Lymphocytes ( %) (Auto) 11.3L, Monocytes (%) (Auto) 5.7, Eosinophils (%) (Auto) 0.8, Basophils (%) (Auto) 0.4, Sodium Level [Pending], Potassium Level [Pending], Chloride Level [Pending], Carbon Dioxide Level [Pending], Blood Urea Nitrogen [ Pending], Creatinine [Pending], Estimat Glomerular Filtration Rate [Pending], Glucose Level [Pending], Calcium Level [Pending] Height (Feet): 5 Height (Inches): 10.00 Weight (Pounds): 254 General Appearance: alert EENT: normal ENT inspection Neck: supple Cardiovascular: normal rate Respiratory/Chest: decreased breath sounds Abdomen: normal bowel sounds, non tender, soft Extremities: non-tender Martin Garg MD Oct 27, 2018 08:49
[2018-10-27 09:04] LABS: ANION GAP 12 mmol/L (5-15); BLOOD UREA NITROGEN 14 mg/dL (7-18); CALCIUM 9.8 MG/DL (8.5-10.1); CARBON DIOXIDE 23 MMOL/L (21-32); CHLORIDE 112 MMOL/L (98-107); CREATININE 0.9 MG/DL (0.55-1.30); POTASSIUM 3.7 MMOL/L (3.5-5.1); SODIUM 147 MMOL/L (136-145)
[2018-10-27] MEDS: Metoprolol Tartrate 50mg tab ORAL SCH ×2 (09:06→20:07)
[2018-10-27] MEDS: dilTIAZem HCl CD 240mg cap ORAL SCH (09:06)
[2018-10-27] MEDS: Pantoprazole Inj IVP SCH (09:06)
--- NOTE | 2018-10-27 10:44 | Pulmonology Progress Note ---
Assessment/Plan Problems: (1) Altered mental status (2) UTI (urinary tract infection) (3) DVT (deep venous thrombosis) (4) Retroperitoneal bleed (5) JANE (acute kidney injury) (6) Hypernatremia (7) Abdominal pain (8) Acidosis, metabolic (9) Encephalopathy (10) Dyspnea (11) CHF exacerbation (12) Pacemaker (13) DM (diabetes mellitus) Assessment/Plan S/P IVC F F/u GI recs --> plan for outpatient EGD/colo Monitor volumes and renal function Observe off Abx per ID Diet per DELI MA[employer]GER Aspiration precautions Optimize pulmonary hygiene/mobilize as tolerated Titrate down FiO2 to keep Sao2 > 90% Subjective Allergies: Coded Allergies: SULFA (SULFONAMIDE ANTIBIOTICS) (Verified Allergy, Unknown, 11/28/17) Pt states she is allergic to sulfa Subjective Tx to tele AFVSS x O2 needs stable, keri PO No cough, no SOB, no F/C Objective Last 24 Hour Vital Signs Date Time Temp Pulse Resp B/P (MAP) Pulse Ox O2 Delivery O2 Flow Rate FiO2 10/27/18 09:06 100 156/87 10/27/18 09:06 100 156/87 10/27/18 08:00 98.7 100 22 156/87 (110) 100 10/27/18 08:00 95 10/27/18 08:00 Nasal Cannula 2.0 10/27/18 07:51 Nasal Cannula 2.0 28 10/27/18 07:51 98 Nasal Cannula 2.0 28 10/27/18 04:00 Nasal Cannula 2.0 10/27/18 04:00 98.8 92 17 106/53 (70) 100 10/27/18 03:37 90 10/27/18 00:00 98.8 85 17 127/76 (93) 100 10/27/18 00:00 Nasal Cannula 2.0 10/26/18 23:37 75 10/26/18 22:53 98.9 10/26/18 21:42 Nasal Cannula 2.0 28 10/26/18 21:42 100 Nasal Cannula 2.0 28 10/26/18 20:39 106 107/67 10/26/18 20:00 100.6 106 20 107/67 (80) 100 10/26/18 20:00 Nasal Cannula 2.0 10/26/18 19:00 100 10/26/18 16:30 99.5 89 20 159/90 (113) 100 10/26/18 16:00 84 10/26/18 16:00 Nasal Cannula 2.0 10/26/18 12:00 97.6 92 20 147/88 (107) 99 10/26/18 12:00 Nasal Cannula 2.0 10/26/18 12:00 55 10/26/18 10:52 98.1 Intake and Output 10/26/18 10/27/18 19:00 07:00 Intake Total 120 ml 240 ml Output Total 300 ml Balance 120 ml -60 ml Intake Oral 120 ml 240 ml Output Urine Total 300 ml # Voids 1 # Bowel Movements 5 General Appearance: no acute distress, cachetic HEENT: normocephalic, atraumatic, anicteric, mucous membranes moist Respiratory/Chest: chest wall non-tender, lungs clear, normal breath sounds, no respiratory distress Cardiovascular: normal peripheral pulses, normal rate, regular rhythm Abdomen: normal bowel sounds, soft, non tender, no organomegaly, non distended , no mass Extremities: no cyanosis, no clubbing, no edema Laboratory Tests 10/27/18 06:47: White Blood Count 10.6, Red Blood Count 3.61L, Hemoglobin 10.4L, Hematocrit 31.1L, Mean Corpuscular Volume 86, Mean Corpuscular Hemoglobin 28.9, Mean Corpuscular Hemoglobin Concent 33.5, Red Cell Distribution Width 13.6, Platelet Count 319, Mean Platelet Volume 7.1, Neutrophils (%) (Auto) 81.8H, Lymphocytes ( %) (Auto) 11.3L, Monocytes (%) (Auto) 5.7, Eosinophils (%) (Auto) 0.8, Basophils (%) (Auto) 0.4, Sodium Level 147H, Potassium Level 3.7, Chloride Level 112H, Carbon Dioxide Level 23, Anion Gap 12, Blood Urea Nitrogen 14, Creatinine 0.9, Estimat Glomerular Filtration Rate > 60, Glucose Level 106, Calcium Level 9.8 Current Medications Medications (Trade) Dose Ordered Sig/Barrett Route PRN Reason Start Time Stop Time Status Last Admin Dose Admin Acetaminophen (Tylenol) 650 mg Q4H PRN ORAL Mild Pain (Pain Scale 1-3) 10/26/18 14:56 11/12/18 14:55 10/26/18 22:23 Dextrose (Dextrose 50%) 25 ml Q30M PRN IV Hypoglycemia 10/26/18 15:00 11/18/18 12:29 Dextrose (Dextrose 50%) 50 ml Q30M PRN IV Hypoglycemia 10/26/18 15:15 11/18/18 16:35 Diltiazem HCl (Cardizem CD) 240 mg DAILY ORAL 10/27/18 09:00 11/25/18 08:59 10/27/18 09:06 Insulin Aspart (NovoLOG) BEFORE MEALS AND HS SUBQ 10/26/18 16:30 11/18/18 16:29 10/27/18 06:04 Lorazepam (Ativan 2mg/ml 1ml) 0.25 mg BIDPRN PRN IV For Anxiety 10/26/18 14:57 10/29/18 14:56 Metoprolol Tartrate (Lopressor) 50 mg Q12HR ORAL 10/26/18 21:00 11/24/18 20:59 10/27/18 09:06 Morphine Sulfate (Morphine Sulfate) 2 mg Q3H PRN IVP Moderate Pain (Pain Scale 4-6) 10/26/18 14:57 11/02/18 14:56 Ondansetron HCl (Zofran) 4 mg Q6H PRN IVP Nausea & Vomiting 10/26/18 15:00 11/12/18 14:59 Pantoprazole (Protonix) 40 mg DAILY IVP 10/27/18 09:00 11/19/18 14:44 10/27/18 09:06 Polyethylene Glycol (Miralax) 17 gm DAILYPRN PRN ORAL Constipation 10/26/18 15:00 11/18/18 14:59 Zolpidem Tartrate (Ambien) 5 mg HSPRN PRN ORAL Insomnia 10/26/18 21:00 10/29/18 20:59 Riley Alatorre MD Oct 27, 2018 10:44
--- NOTE | 2018-10-27 11:45 | Nephrology Progress Note ---
Assessment/Plan Problem List: (1) Altered mental status (2) DM (diabetes mellitus) (3) HTN (hypertension) (4) ARF (acute renal failure) Assessment: better (5) Hypertrophic cardiomyopathy (6) Encephalopathy (7) UTI (urinary tract infection) (8) Hypokalemia Assessment: ok (9) Hypernatremia (10) DVT (deep venous thrombosis) (11) Retroperitoneal bleed Assessment: HCT better (12) Primary hyperparathyroidism Assessment: Ca is Ok Plan S/P IVC filter follow labs will discuss with Dr Markus PEÑALOZA tomorrow Subjective Subjective In NAD Objective Objective Last 24 Hour Vital Signs Date Time Temp Pulse Resp B/P (MAP) Pulse Ox O2 Delivery O2 Flow Rate FiO2 10/27/18 09:06 100 156/87 10/27/18 09:06 100 156/87 10/27/18 08:00 98.7 100 22 156/87 (110) 100 10/27/18 08:00 95 10/27/18 08:00 Nasal Cannula 2.0 10/27/18 07:51 Nasal Cannula 2.0 28 10/27/18 07:51 98 Nasal Cannula 2.0 28 10/27/18 04:00 Nasal Cannula 2.0 10/27/18 04:00 98.8 92 17 106/53 (70) 100 10/27/18 03:37 90 10/27/18 00:00 98.8 85 17 127/76 (93) 100 10/27/18 00:00 Nasal Cannula 2.0 10/26/18 23:37 75 10/26/18 22:53 98.9 10/26/18 21:42 Nasal Cannula 2.0 28 10/26/18 21:42 100 Nasal Cannula 2.0 28 10/26/18 20:39 106 107/67 10/26/18 20:00 100.6 106 20 107/67 (80) 100 10/26/18 20:00 Nasal Cannula 2.0 10/26/18 19:00 100 10/26/18 16:30 99.5 89 20 159/90 (113) 100 10/26/18 16:00 84 10/26/18 16:00 Nasal Cannula 2.0 10/26/18 12:00 97.6 92 20 147/88 (107) 99 10/26/18 12:00 Nasal Cannula 2.0 10/26/18 12:00 55 Intake and Output 10/26/18 10/27/18 19:00 07:00 Intake Total 120 ml 240 ml Output Total 300 ml Balance 120 ml -60 ml Intake Oral 120 ml 240 ml Output Urine Total 300 ml # Voids 1 # Bowel Movements 5 Laboratory Tests 10/27/18 06:47: White Blood Count 10.6, Red Blood Count 3.61L, Hemoglobin 10.4L, Hematocrit 31.1L, Mean Corpuscular Volume 86, Mean Corpuscular Hemoglobin 28.9, Mean Corpuscular Hemoglobin Concent 33.5, Red Cell Distribution Width 13.6, Platelet Count 319, Mean Platelet Volume 7.1, Neutrophils (%) (Auto) 81.8H, Lymphocytes ( %) (Auto) 11.3L, Monocytes (%) (Auto) 5.7, Eosinophils (%) (Auto) 0.8, Basophils (%) (Auto) 0.4, Sodium Level 147H, Potassium Level 3.7, Chloride Level 112H, Carbon Dioxide Level 23, Anion Gap 12, Blood Urea Nitrogen 14, Creatinine 0.9, Estimat Glomerular Filtration Rate > 60, Glucose Level 106, Calcium Level 9.8 Height (Feet): 5 Height (Inches): 10.00 Weight (Pounds): 254 Neck: muscle spasm, stiff neck Cardiovascular: normal rate Respiratory/Chest: lungs clear Extremities: trace edema Oliverio Yanez MD Oct 27, 2018 11:45
[2018-10-27 12:00] VITALS: BP 129/83
--- NOTE | 2018-10-27 12:52 | Infectious Diseases Prog Note ---
Assessment/Plan Assessment/Plan A; 1. Urinary tract infection with E.coli treated 2. Altered mental status. 3. Acute renal failure.CKD 4. Diabetes mellitus. 5. Hypertension. 6. Obesity. 7. Pressure ulcer. 8. Positive blood culture likely contamination 9.DVT of legs s/p IVC filter 10.Retroperitoneal bleeding 11. Atelectasis, pneumonia treated 12. Elevated transaminases P; Observe off antibiotic Subjective ROS Limited/Unobtainable: Yes Constitutional: Reports: no symptoms Respiratory: Reports: no symptoms Neurologic: Reports: other - more alert Musculoskeletal: Reports: no symptoms Allergies: Coded Allergies: SULFA (SULFONAMIDE ANTIBIOTICS) (Verified Allergy, Unknown, 11/28/17) Pt states she is allergic to sulfa Objective Vital Signs Last 24 Hour Vital Signs Date Time Temp Pulse Resp B/P (MAP) Pulse Ox O2 Delivery O2 Flow Rate FiO2 10/27/18 12:00 98.2 84 21 129/83 (98) 100 10/27/18 09:06 100 156/87 10/27/18 09:06 100 156/87 10/27/18 08:00 98.7 100 22 156/87 (110) 100 10/27/18 08:00 95 10/27/18 08:00 Nasal Cannula 2.0 10/27/18 07:51 Nasal Cannula 2.0 28 10/27/18 07:51 98 Nasal Cannula 2.0 28 10/27/18 04:00 Nasal Cannula 2.0 10/27/18 04:00 98.8 92 17 106/53 (70) 100 10/27/18 03:37 90 10/27/18 00:00 98.8 85 17 127/76 (93) 100 10/27/18 00:00 Nasal Cannula 2.0 10/26/18 23:37 75 10/26/18 22:53 98.9 10/26/18 21:42 Nasal Cannula 2.0 28 10/26/18 21:42 100 Nasal Cannula 2.0 28 10/26/18 20:39 106 107/67 10/26/18 20:00 100.6 106 20 107/67 (80) 100 10/26/18 20:00 Nasal Cannula 2.0 10/26/18 19:00 100 10/26/18 16:30 99.5 89 20 159/90 (113) 100 10/26/18 16:00 84 10/26/18 16:00 Nasal Cannula 2.0 Height (Feet): 5 Height (Inches): 10.00 Weight (Pounds): 254 General Appearance: no acute distress HEENT: mucous membranes moist Respiratory/Chest: normal breath sounds Cardiovascular: normal rate Abdomen: soft, non tender Extremities: no edema Neurologic/Psychiatric: alert, responsive Laboratory Tests Test 10/27/18 06:47 White Blood Count 10.6 K/UL (4.8-10.8) Red Blood Count 3.61 M/UL (4.20-5.40) L Hemoglobin 10.4 G/DL (12.0-16.0) L Hematocrit 31.1 % (37.0-47.0) L Mean Corpuscular Volume 86 FL (80-99) Mean Corpuscular Hemoglobin 28.9 PG (27.0-31.0) Mean Corpuscular Hemoglobin Concent 33.5 G/DL (32.0-36.0) Red Cell Distribution Width 13.6 % (11.6-14.8) Platelet Count 319 K/UL (150-450) Mean Platelet Volume 7.1 FL (6.5-10.1) Neutrophils (%) (Auto) 81.8 % (45.0-75.0) H Lymphocytes (%) (Auto) 11.3 % (20.0-45.0) L Monocytes (%) (Auto) 5.7 % (1.0-10.0) Eosinophils (%) (Auto) 0.8 % (0.0-3.0) Basophils (%) (Auto) 0.4 % (0.0-2.0) Sodium Level 147 MMOL/L (136-145) H Potassium Level 3.7 MMOL/L (3.5-5.1) Chloride Level 112 MMOL/L (98-107) H Carbon Dioxide Level 23 MMOL/L (21-32) Anion Gap 12 mmol/L (5-15) Blood Urea Nitrogen 14 mg/dL (7-18) Creatinine 0.9 MG/DL (0.55-1.30) Estimat Glomerular Filtration Rate > 60 mL/min (>60) Glucose Level 106 MG/DL (74-106) Calcium Level 9.8 MG/DL (8.5-10.1) Current Medications Medications (Trade) Dose Ordered Sig/Barrett Route PRN Reason Start Time Stop Time Status Last Admin Dose Admin Acetaminophen (Tylenol) 650 mg Q4H PRN ORAL Mild Pain (Pain Scale 1-3) 10/26/18 14:56 11/12/18 14:55 10/26/18 22:23 Dextrose (Dextrose 50%) 25 ml Q30M PRN IV Hypoglycemia 10/26/18 15:00 11/18/18 12:29 Dextrose (Dextrose 50%) 50 ml Q30M PRN IV Hypoglycemia 10/26/18 15:15 11/18/18 16:35 Diltiazem HCl (Cardizem CD) 240 mg DAILY ORAL 10/27/18 09:00 11/25/18 08:59 10/27/18 09:06 Insulin Aspart (NovoLOG) BEFORE MEALS AND HS SUBQ 10/26/18 16:30 11/18/18 16:29 10/27/18 06:04 Lorazepam (Ativan 2mg/ml 1ml) 0.25 mg BIDPRN PRN IV For Anxiety 10/26/18 14:57 10/29/18 14:56 Metoprolol Tartrate (Lopressor) 50 mg Q12HR ORAL 10/26/18 21:00 11/24/18 20:59 10/27/18 09:06 Morphine Sulfate (Morphine Sulfate) 2 mg Q3H PRN IVP Moderate Pain (Pain Scale 4-6) 10/26/18 14:57 11/02/18 14:56 Ondansetron HCl (Zofran) 4 mg Q6H PRN IVP Nausea & Vomiting 10/26/18 15:00 11/12/18 14:59 Pantoprazole (Protonix) 40 mg DAILY IVP 10/27/18 09:00 11/19/18 14:44 10/27/18 09:06 Polyethylene Glycol (Miralax) 17 gm DAILYPRN PRN ORAL Constipation 10/26/18 15:00 11/18/18 14:59 Zolpidem Tartrate (Ambien) 5 mg HSPRN PRN ORAL Insomnia 10/26/18 21:00 10/29/18 20:59 Julien Yanez MD Oct 27, 2018 12:51
--- NOTE | 2018-10-27 13:07 | General Surgery Progress Note ---
General Surgery-Progress Note Subjective Procedure Performed right internal jugular central venous catheter insertion using ultrasound guidance Additional Comments overall much improved Objective Last 24 Hour Vital Signs Date Time Temp Pulse Resp B/P (MAP) Pulse Ox O2 Delivery O2 Flow Rate FiO2 10/27/18 12:00 98.2 84 21 129/83 (98) 100 10/27/18 09:06 100 156/87 10/27/18 09:06 100 156/87 10/27/18 08:00 98.7 100 22 156/87 (110) 100 10/27/18 08:00 95 10/27/18 08:00 Nasal Cannula 2.0 10/27/18 07:51 Nasal Cannula 2.0 28 10/27/18 07:51 98 Nasal Cannula 2.0 28 10/27/18 04:00 Nasal Cannula 2.0 10/27/18 04:00 98.8 92 17 106/53 (70) 100 10/27/18 03:37 90 10/27/18 00:00 98.8 85 17 127/76 (93) 100 10/27/18 00:00 Nasal Cannula 2.0 10/26/18 23:37 75 10/26/18 22:53 98.9 10/26/18 21:42 Nasal Cannula 2.0 28 10/26/18 21:42 100 Nasal Cannula 2.0 28 10/26/18 20:39 106 107/67 10/26/18 20:00 100.6 106 20 107/67 (80) 100 10/26/18 20:00 Nasal Cannula 2.0 10/26/18 19:00 100 10/26/18 16:30 99.5 89 20 159/90 (113) 100 10/26/18 16:00 84 10/26/18 16:00 Nasal Cannula 2.0 I&O Intake and Output 10/26/18 10/27/18 19:00 07:00 Intake Total 120 ml 240 ml Output Total 300 ml Balance 120 ml -60 ml Intake Oral 120 ml 240 ml Output Urine Total 300 ml # Voids 1 # Bowel Movements 5 Dressing: other Wound: other Drains: other Cardiovascular: RSR Respiratory: clear Abdomen: soft, non-tender, present bowel sounds Extremities: other Laboratory Tests Test 10/27/18 06:47 White Blood Count 10.6 K/UL (4.8-10.8) Red Blood Count 3.61 M/UL (4.20-5.40) L Hemoglobin 10.4 G/DL (12.0-16.0) L Hematocrit 31.1 % (37.0-47.0) L Mean Corpuscular Volume 86 FL (80-99) Mean Corpuscular Hemoglobin 28.9 PG (27.0-31.0) Mean Corpuscular Hemoglobin Concent 33.5 G/DL (32.0-36.0) Red Cell Distribution Width 13.6 % (11.6-14.8) Platelet Count 319 K/UL (150-450) Mean Platelet Volume 7.1 FL (6.5-10.1) Neutrophils (%) (Auto) 81.8 % (45.0-75.0) H Lymphocytes (%) (Auto) 11.3 % (20.0-45.0) L Monocytes (%) (Auto) 5.7 % (1.0-10.0) Eosinophils (%) (Auto) 0.8 % (0.0-3.0) Basophils (%) (Auto) 0.4 % (0.0-2.0) Sodium Level 147 MMOL/L (136-145) H Potassium Level 3.7 MMOL/L (3.5-5.1) Chloride Level 112 MMOL/L (98-107) H Carbon Dioxide Level 23 MMOL/L (21-32) Anion Gap 12 mmol/L (5-15) Blood Urea Nitrogen 14 mg/dL (7-18) Creatinine 0.9 MG/DL (0.55-1.30) Estimat Glomerular Filtration Rate > 60 mL/min (>60) Glucose Level 106 MG/DL (74-106) Calcium Level 9.8 MG/DL (8.5-10.1) Plan Problems: (1) Abdominal pain Assessment & Plan: US noted - cholelithiasis. no inflammation CT noted - likely retrop hematoma IV filter as bleed on anticoag prior and has acute dvt okay for diet IV fluids off abx CT chest noted trend labs okay from surgical standpoint d/c planning for tomorrow (2) Anemia Assessment & Plan: poor peripheral access central line inserted see procedure note transfuse prbc trend labs will monitor hematoma clinically Jared Obrien Oct 27, 2018 13:07
--- NOTE | 2018-10-27 14:05 | Cardiology Progress Note ---
Assessment/Plan Assessment/Plan hemodynamically stable, a fib, ventricular paced, rate is controlled Subjective Subjective the patient is resting in bed, she does not complain on dyspnea, reports feeling better Objective Last 24 Hour Vital Signs Date Time Temp Pulse Resp B/P (MAP) Pulse Ox O2 Delivery O2 Flow Rate FiO2 10/27/18 12:00 98.2 84 21 129/83 (98) 100 10/27/18 09:06 100 156/87 10/27/18 09:06 100 156/87 10/27/18 08:00 98.7 100 22 156/87 (110) 100 10/27/18 08:00 95 10/27/18 08:00 Nasal Cannula 2.0 10/27/18 07:51 Nasal Cannula 2.0 28 10/27/18 07:51 98 Nasal Cannula 2.0 28 10/27/18 04:00 Nasal Cannula 2.0 10/27/18 04:00 98.8 92 17 106/53 (70) 100 10/27/18 03:37 90 10/27/18 00:00 98.8 85 17 127/76 (93) 100 10/27/18 00:00 Nasal Cannula 2.0 10/26/18 23:37 75 10/26/18 22:53 98.9 10/26/18 21:42 Nasal Cannula 2.0 28 10/26/18 21:42 100 Nasal Cannula 2.0 28 10/26/18 20:39 106 107/67 10/26/18 20:00 100.6 106 20 107/67 (80) 100 10/26/18 20:00 Nasal Cannula 2.0 10/26/18 19:00 100 10/26/18 16:30 99.5 89 20 159/90 (113) 100 10/26/18 16:00 84 10/26/18 16:00 Nasal Cannula 2.0 General Appearance: alert EENT: PERRL/EOMI Neck: JVD Rhythm: Afib Cardiovascular: tachycardia, systolic murmur Respiratory/Chest: crackles/rales - at bases Abdomen: distended Extremities: trace edema Intake and Output 10/26/18 10/27/18 19:00 07:00 Intake Total 120 ml 240 ml Output Total 300 ml Balance 120 ml -60 ml Intake Oral 120 ml 240 ml Output Urine Total 300 ml # Voids 1 # Bowel Movements 5 Laboratory Tests Test 10/27/18 06:47 White Blood Count 10.6 K/UL (4.8-10.8) Red Blood Count 3.61 M/UL (4.20-5.40) L Hemoglobin 10.4 G/DL (12.0-16.0) L Hematocrit 31.1 % (37.0-47.0) L Mean Corpuscular Volume 86 FL (80-99) Mean Corpuscular Hemoglobin 28.9 PG (27.0-31.0) Mean Corpuscular Hemoglobin Concent 33.5 G/DL (32.0-36.0) Red Cell Distribution Width 13.6 % (11.6-14.8) Platelet Count 319 K/UL (150-450) Mean Platelet Volume 7.1 FL (6.5-10.1) Neutrophils (%) (Auto) 81.8 % (45.0-75.0) H Lymphocytes (%) (Auto) 11.3 % (20.0-45.0) L Monocytes (%) (Auto) 5.7 % (1.0-10.0) Eosinophils (%) (Auto) 0.8 % (0.0-3.0) Basophils (%) (Auto) 0.4 % (0.0-2.0) Sodium Level 147 MMOL/L (136-145) H Potassium Level 3.7 MMOL/L (3.5-5.1) Chloride Level 112 MMOL/L (98-107) H Carbon Dioxide Level 23 MMOL/L (21-32) Anion Gap 12 mmol/L (5-15) Blood Urea Nitrogen 14 mg/dL (7-18) Creatinine 0.9 MG/DL (0.55-1.30) Estimat Glomerular Filtration Rate > 60 mL/min (>60) Glucose Level 106 MG/DL (74-106) Calcium Level 9.8 MG/DL (8.5-10.1) Pebbles Fong MD Oct 27, 2018 14:05
[2018-10-27 15:43] VITALS: BP 150/78
[2018-10-27 20:00] VITALS: BP 161/74
--- NOTE | 2018-10-27 20:54 | General Progress Note ---
Assessment/Plan Assessment/Plan hypotension retroperitoneal bleed anemia secondary to bleed uti encephalopathy imprved dehydration renbal failure diabetes htn obesity hypercalcemia hypokalemia acute femoral dvt fluids LE dopplers noted IVC filter ct scan noted monitor labs abx treatment of hypercaclemia hypokalemia per Dr Sainz, patient has hyper parathyroidism, endo seeing patient vq scan negative improved encephalopathy monitor accucheck oob PT dvt and ulcer proplhylaxis dc plans per Dr sainz will need monitor of cbc closely Subjective Allergies: Coded Allergies: SULFA (SULFONAMIDE ANTIBIOTICS) (Verified Allergy, Unknown, 11/28/17) Pt states she is allergic to sulfa Subjective more alert today deneis sob no chest pain or back pain Objective Last 24 Hour Vital Signs Date Time Temp Pulse Resp B/P (MAP) Pulse Ox O2 Delivery O2 Flow Rate FiO2 10/27/18 20:28 Nasal Cannula 2.0 28 10/27/18 20:27 99 Nasal Cannula 2.0 28 10/27/18 20:07 94 10/27/18 16:00 84 10/27/18 15:43 98.3 91 19 150/78 (102) 98 10/27/18 12:00 83 10/27/18 12:00 98.2 84 21 129/83 (98) 100 10/27/18 09:06 100 156/87 10/27/18 09:06 100 156/87 10/27/18 08:00 98.7 100 22 156/87 (110) 100 10/27/18 08:00 95 10/27/18 08:00 Nasal Cannula 2.0 10/27/18 07:51 Nasal Cannula 2.0 10/27/18 07:51 98 Nasal Cannula 2.0 28 10/27/18 04:00 Nasal Cannula 2.0 10/27/18 04:00 98.8 92 17 106/53 (70) 100 10/27/18 03:37 90 10/27/18 00:00 98.8 85 17 127/76 (93) 100 10/27/18 00:00 Nasal Cannula 2.0 10/26/18 23:37 75 10/26/18 22:53 98.9 10/26/18 21:42 Nasal Cannula 2.0 28 10/26/18 21:42 100 Nasal Cannula 2.0 28 Intake and Output 10/26/18 10/27/18 18:59 06:59 Intake Total 120 ml 240 ml Output Total 300 ml Balance 120 ml -60 ml Intake Oral 120 ml 240 ml Output Urine Total 300 ml # Voids 1 # Bowel Movements 5 Laboratory Tests 10/27/18 06:47: White Blood Count 10.6, Red Blood Count 3.61L, Hemoglobin 10.4L, Hematocrit 31.1L, Mean Corpuscular Volume 86, Mean Corpuscular Hemoglobin 28.9, Mean Corpuscular Hemoglobin Concent 33.5, Red Cell Distribution Width 13.6, Platelet Count 319, Mean Platelet Volume 7.1, Neutrophils (%) (Auto) 81.8H, Lymphocytes ( %) (Auto) 11.3L, Monocytes (%) (Auto) 5.7, Eosinophils (%) (Auto) 0.8, Basophils (%) (Auto) 0.4, Sodium Level 147H, Potassium Level 3.7, Chloride Level 112H, Carbon Dioxide Level 23, Anion Gap 12, Blood Urea Nitrogen 14, Creatinine 0.9, Estimat Glomerular Filtration Rate > 60, Glucose Level 106, Calcium Level 9.8 Height (Feet): 5 Height (Inches): 10.00 Weight (Pounds): 254 General Appearance: WD/WN, no apparent distress Neck: supple Cardiovascular: normal rate Respiratory/Chest: lungs clear Abdomen: soft Objective trace edema left leg Mario Alberto Aparicio MD Oct 27, 2018 20:54
[2018-10-28] VITALS (8 sets, daily range): BP systolic 126–165; BP diastolic 61–100
[2018-10-28] MEDS: NovoLOG Insulin Flexpen SUBQ SCH ×4 (06:30→20:11)
--- NOTE | 2018-10-28 07:15 | General Progress Note ---
Assessment/Plan Problem List: (1) Altered mental status ICD Codes: R41.82 - Altered mental status, unspecified SNOMED: 102549997 (2) Primary hyperparathyroidism ICD Codes: E21.0 - Primary hyperparathyroidism SNOMED: 96940106 (3) Cardiomyopathy ICD Codes: I42.9 - Cardiomyopathy, unspecified SNOMED: 96284053 (4) ARF (acute renal failure) ICD Codes: N17.9 - Acute kidney failure, unspecified SNOMED: 27961457 Qualifiers: Qualified Codes: N17.9 - Acute kidney failure, unspecified (5) DM (diabetes mellitus) ICD Codes: E11.9 - Type 2 diabetes mellitus without complications SNOMED: 55923131 (6) Encephalopathy ICD Codes: G93.40 - Encephalopathy, unspecified SNOMED: 60541340, 813012559 (7) UTI (urinary tract infection) ICD Codes: N39.0 - Urinary tract infection, site not specified SNOMED: 10392236 Assessment/Plan continue Novolog insulin sliding scale no need for basal insulin Subjective ROS Limited/Unobtainable: Yes Allergies: Coded Allergies: SULFA (SULFONAMIDE ANTIBIOTICS) (Verified Allergy, Unknown, 11/28/17) Pt states she is allergic to sulfa Subjective events noted Objective Last 24 Hour Vital Signs Date Time Temp Pulse Resp B/P (MAP) Pulse Ox O2 Delivery O2 Flow Rate FiO2 10/28/18 04:00 98.4 90 18 137/79 (98) 98 10/28/18 03:26 91 10/28/18 00:00 99.3 89 18 135/78 (97) 100 10/27/18 23:49 98.8 10/27/18 23:26 90 10/27/18 21:00 Nasal Cannula 2.0 10/27/18 20:28 Nasal Cannula 2.0 28 10/27/18 20:27 99 Nasal Cannula 2.0 28 10/27/18 20:07 94 10/27/18 20:00 99.9 104 18 161/74 (103) 97 10/27/18 19:38 99 10/27/18 16:00 84 10/27/18 15:43 98.3 91 19 150/78 (102) 98 10/27/18 12:00 83 10/27/18 12:00 98.2 84 21 129/83 (98) 100 10/27/18 09:06 100 156/87 10/27/18 09:06 100 156/87 10/27/18 08:00 98.7 100 22 156/87 (110) 100 10/27/18 08:00 95 10/27/18 08:00 Nasal Cannula 2.0 10/27/18 07:51 Nasal Cannula 2.0 28 10/27/18 07:51 98 Nasal Cannula 2.0 28 Intake and Output 10/27/18 10/28/18 19:00 07:00 Intake Total 490 ml Output Total 303 ml 750 ml Balance 187 ml -750 ml Intake Oral 240 ml Blood Product 250 ml Output Urine Total 300 ml 750 ml Stool Total 3 ml # Voids 1 # Bowel Movements 2 1 Height (Feet): 5 Height (Inches): 10.00 Weight (Pounds): 254 General Appearance: no apparent distress Neck: normal alignment Cardiovascular: normal rate Respiratory/Chest: lungs clear Abdomen: normal bowel sounds Pelvis: normal external exam Objective Current Medications Medications (Trade) Dose Ordered Sig/Barrett Route PRN Reason Start Time Stop Time Status Last Admin Dose Admin Acetaminophen (Tylenol) 650 mg Q4H PRN ORAL Mild Pain (Pain Scale 1-3) 10/26/18 14:56 11/12/18 14:55 10/27/18 23:19 Dextrose (Dextrose 50%) 25 ml Q30M PRN IV Hypoglycemia 10/26/18 15:00 11/18/18 12:29 Dextrose (Dextrose 50%) 50 ml Q30M PRN IV Hypoglycemia 10/26/18 15:15 11/18/18 16:35 Diltiazem HCl (Cardizem CD) 240 mg DAILY ORAL 10/27/18 09:00 11/25/18 08:59 10/27/18 09:06 Insulin Aspart (NovoLOG) BEFORE MEALS AND HS SUBQ 10/26/18 16:30 11/18/18 16:29 10/27/18 20:13 Lorazepam (Ativan 2mg/ml 1ml) 0.25 mg BIDPRN PRN IV For Anxiety 10/26/18 14:57 10/29/18 14:56 Metoprolol Tartrate (Lopressor) 50 mg Q12HR ORAL 10/26/18 21:00 11/24/18 20:59 10/27/18 20:07 Morphine Sulfate (Morphine Sulfate) 2 mg Q3H PRN IVP Moderate Pain (Pain Scale 4-6) 10/26/18 14:57 11/02/18 14:56 Ondansetron HCl (Zofran) 4 mg Q6H PRN IVP Nausea & Vomiting 10/26/18 15:00 11/12/18 14:59 Pantoprazole (Protonix) 40 mg DAILY IVP 10/27/18 09:00 11/19/18 14:44 10/27/18 09:06 Polyethylene Glycol (Miralax) 17 gm DAILYPRN PRN ORAL Constipation 10/26/18 15:00 11/18/18 14:59 Zolpidem Tartrate (Ambien) 5 mg HSPRN PRN ORAL Insomnia 10/26/18 21:00 10/29/18 20:59 Item Value Date Time Bedside Blood Glucose 106 mg/dl 10/28/18 0630 Bedside Blood Glucose 123 mg/dl H 10/27/18 2100 Bedside Blood Glucose 110 mg/dl 10/27/18 1630 Bedside Blood Glucose 109 mg/dl 10/27/18 1130 Bedside Blood Glucose 117 mg/dl 10/27/18 0630 Dejan Villagran MD Oct 28, 2018 07:15
[2018-10-28] MEDS ORDERED: Zolpidem 5mg tab ORAL PRN (08:30)
[2018-10-28] MEDS ORDERED: LORazepam Inj 2mg/ml 1ml IV PRN (08:30)
[2018-10-28] MEDS: dilTIAZem HCl CD 240mg cap ORAL SCH (09:09)
[2018-10-28] MEDS: Metoprolol Tartrate 50mg tab ORAL SCH ×2 (09:10→20:04)
[2018-10-28] MEDS: Pantoprazole Inj IVP SCH (09:10)
--- NOTE | 2018-10-28 09:25 | Neurology Progress Note ---
Interim History Interim History Interim History Ms. Allen feels "good." The mind is clearer. Her right wrist is less painful. The right > left knee pain is also better. Her blood pressures are better. She is awake and more alert. She continues to be cognitively impoverished. She is better oriented. Her memory is still poor. She continues to be generally weak. She denies any new neurologic symptoms. Review of Systems Neuro Review of Systems Benign. Objective Physical Exam Last Vital Signs Date Time Temp Pulse Resp B/P (MAP) Pulse Ox O2 Delivery O2 Flow Rate FiO2 10/28/18 09:10 90 148/77 10/28/18 04:00 98.4 18 98 10/27/18 21:00 Nasal Cannula 2.0 10/27/18 20:28 28 Neurologic Exam Objective PHYSICAL EXAMINATION: GENERAL: She is a well-developed, well-nourished, obese, black lady, lying in bed, in no acute distress. HEAD: Normocephalic and atraumatic. EENT: Examination benign except for bilateral chemosis. NECK: No neck rigidity was observed. NEUROLOGICAL EXAMINATION: MENTAL STATUS EXAMINATION: She was awake and alert. She was oriented to self and [facility] only. She had no idea of what the date was. She was able to recall 3/3 words immediately but could only remember 1/3 in 1 and 3 minutes. She was was able to recall that Torey was president but could not remember prior presidents. She was unable to cooperate for further mental status testing. SPEECH: She had a mild dysarthria. LANGUAGE: She had a mild anomia. CRANIAL NERVE EXAMINATION: II: She was able to count fingers. III, IV & : The external ocular movements were full but she did have a dysconjugate gaze. The pupils were 3 mm in diameter, equal, round, regular, and reactive sluggishly to light. V & VII: The corneal reflexes were equally brisk. VIII: She did respond to sounds and had no nystagmus. IX & X: The gag reflex was not tested XI: The sternocleidomastoids and trapezii did function. XII: The tongue was in the midline without any fasciculations or atrophy. MOTOR SYSTEM: The tone was normal in all four extremities. Examination of muscle mass revealed no focal wasting. Examination of power was impossible to perform because the effort was poor. She was generally weak - more so in the lower than upper extremities. SENSORY EXAMINATION: She responded appropriately to light touch. Other sensory modalities could not be tested. REFLEXES: 0 at the biceps, triceps, brachioradialis, knees, and ankles. The plantar responses were flexor bilaterally. COORDINATION, STANCE & GAIT: Could not be tested. Impression/Recommendations Diagnostic Impression 1. Ms Rafael Allen is a 68-year-old, right-handed, black lady, with a past history of hypertension, diabetes mellitus, renal failure, and cardiac arrhythmia - for which she has a pacemaker implanted, who was hospitalized for a change in mental state and was found to have urinary tract infection. 2. She feels "good." The mind is clearer. Her right wrist is less painful. The right > left knee pain is also better. Her blood pressures are better. She is awake and more alert. She continues to be cognitively impoverished. She is better oriented. Her memory is still poor. She continues to be generally weak. She denies any new neurologic symptoms. 3. On neurological examination, at this time, she is oriented to self and hospital only. She has significant problems with recent and remote memory. She also exhibits a mild dysarthria and an anomia, a quadriparesis - involving the lower extremities more than the upper extremities, and globally absent deep tendon reflexes. 4. The CT scan of the brain without contrast reveals atrophy and deep white matter changes, but no acute pathology. 5. Laboratory data on my initial evaluation revealed that she was anemic with a hemoglobin of 10 G. Her chemistry panel revealed that her BUN was elevated to 124, her creatinine was elevated at 2.9, her hemoglobin A1c was elevated at 6.1% , her calcium was elevated at 10.7, her proBNP was elevated at 252, her albumin was low at 3.1, and her TSH was normal at 0.46. Her Urinalysis revealed 3+ leukocyte esterase, 2-4 red blood cells, and too numerous to count white blood cells per high-power field. 6. Further laboratory tests revealed a normal B12, Folate, ESR. 7. The EEG done on 10/15/18 revealed moderate generalized cerebral dysfunction and left > right cerebral dysfunction. 8. The patient's history, neurological examination, and laboratory data are most compatible with an acute encephalopathic process of the toxic metabolic nature. The offending factors were a urinary tract infection, and in addition renal failure. In addition the patient does also have structural brain disease. Her encephalopathy is better. She however is still severely weak generally. Recommendations 1. Continue present management. 2. Aggressive treatment of infectious process and hypotension. 3. Increase activity with frequent ROM exercises. 4. Mobilize with PT/OT. 5. Observe. Gume Bassett M.D., M.S.P.H. Gume Bassett MD Oct 28, 2018 09:25
--- NOTE | 2018-10-28 09:32 | Pulmonology Progress Note ---
Assessment/Plan Problems: (1) Altered mental status (2) UTI (urinary tract infection) (3) DVT (deep venous thrombosis) (4) Retroperitoneal bleed (5) JANE (acute kidney injury) (6) Hypernatremia (7) Abdominal pain (8) Acidosis, metabolic (9) Encephalopathy (10) Dyspnea (11) CHF exacerbation (12) Pacemaker (13) DM (diabetes mellitus) Assessment/Plan S/P IVC F F/u GI recs --> plan for outpatient EGD/colo Monitor volumes and renal function Observe off Abx per ID Diet per ED PHYSICIANS Aspiration precautions Optimize pulmonary hygiene/mobilize as tolerated Titrate down FiO2 to keep Sao2 > 90% Subjective Allergies: Coded Allergies: SULFA (SULFONAMIDE ANTIBIOTICS) (Verified Allergy, Unknown, 11/28/17) Pt states she is allergic to sulfa Subjective GENO AFVSS x O2 needs better, keri PO No cough, no SOB, no F/C Objective Last 24 Hour Vital Signs Date Time Temp Pulse Resp B/P (MAP) Pulse Ox O2 Delivery O2 Flow Rate FiO2 10/28/18 09:10 90 148/77 10/28/18 09:09 90 148/77 10/28/18 04:00 98.4 90 18 137/79 (98) 98 10/28/18 03:26 91 10/28/18 00:00 99.3 89 18 135/78 (97) 100 10/27/18 23:49 98.8 10/27/18 23:26 90 10/27/18 21:00 Nasal Cannula 2.0 10/27/18 20:28 Nasal Cannula 2.0 28 10/27/18 20:27 99 Nasal Cannula 2.0 28 10/27/18 20:07 94 10/27/18 20:00 99.9 104 18 161/74 (103) 97 10/27/18 19:38 99 10/27/18 16:00 84 10/27/18 15:43 98.3 91 19 150/78 (102) 98 10/27/18 12:00 83 10/27/18 12:00 98.2 84 21 129/83 (98) 100 Intake and Output 10/27/18 10/28/18 19:00 07:00 Intake Total 490 ml Output Total 303 ml 750 ml Balance 187 ml -750 ml Intake Oral 240 ml Blood Product 250 ml Output Urine Total 300 ml 750 ml Stool Total 3 ml # Voids 1 # Bowel Movements 2 2 General Appearance: no acute distress HEENT: normocephalic, atraumatic, anicteric, mucous membranes moist Respiratory/Chest: chest wall non-tender, lungs clear, normal breath sounds, no respiratory distress, no accessory muscle use Cardiovascular: normal peripheral pulses, normal rate, regular rhythm Abdomen: normal bowel sounds, soft, non tender, no organomegaly, non distended , no mass Extremities: no cyanosis, no clubbing, no edema Current Medications Medications (Trade) Dose Ordered Sig/Barrett Route PRN Reason Start Time Stop Time Status Last Admin Dose Admin Acetaminophen (Tylenol) 650 mg Q4H PRN ORAL Mild Pain (Pain Scale 1-3) 10/26/18 14:56 11/12/18 14:55 10/27/18 23:19 Dextrose (Dextrose 50%) 25 ml Q30M PRN IV Hypoglycemia 10/26/18 15:00 11/18/18 12:29 Dextrose (Dextrose 50%) 50 ml Q30M PRN IV Hypoglycemia 10/26/18 15:15 11/18/18 16:35 Diltiazem HCl (Cardizem CD) 240 mg DAILY ORAL 10/27/18 09:00 11/25/18 08:59 10/28/18 09:09 Insulin Aspart (NovoLOG) BEFORE MEALS AND HS SUBQ 10/26/18 16:30 11/18/18 16:29 10/27/18 20:13 Lorazepam (Ativan 2mg/ml 1ml) 0.25 mg BIDPRN PRN IV For Anxiety 10/28/18 08:30 11/04/18 08:29 Metoprolol Tartrate (Lopressor) 50 mg Q12HR ORAL 10/26/18 21:00 11/24/18 20:59 10/28/18 09:10 Morphine Sulfate (Morphine Sulfate) 2 mg Q3H PRN IVP Moderate Pain (Pain Scale 4-6) 10/26/18 14:57 11/02/18 14:56 Ondansetron HCl (Zofran) 4 mg Q6H PRN IVP Nausea & Vomiting 10/26/18 15:00 11/12/18 14:59 Pantoprazole (Protonix) 40 mg DAILY IVP 10/27/18 09:00 11/19/18 14:44 12/3/18 09:10 Polyethylene Glycol (Miralax) 17 gm DAILYPRN PRN ORAL Constipation 10/26/18 15:00 11/18/18 14:59 Zolpidem Tartrate (Ambien) 5 mg HSPRN PRN ORAL Insomnia 10/28/18 08:30 11/04/18 08:29 Riley Alatorre MD Oct 28, 2018 09:32
--- NOTE | 2018-10-28 11:07 | Infectious Diseases Prog Note ---
Assessment/Plan Assessment/Plan A; 1. Urinary tract infection with E.coli treated 2. Altered mental status. 3. Acute renal failure.CKD 4. Diabetes mellitus. 5. Hypertension. 6. Obesity. 7. Pressure ulcer. 8. Positive blood culture likely contamination 9.DVT of legs s/p IVC filter 10.Retroperitoneal bleeding 11. Atelectasis, pneumonia treated 12. Elevated transaminases improving P; Observe off antibiotic Subjective ROS Limited/Unobtainable: Yes Constitutional: Reports: fever, other - T yst=227.6 Respiratory: Reports: no symptoms Cardiovascular: Reports: no symptoms Gastrointestinal/Abdominal: Reports: no symptoms Genitourinary: Reports: no symptoms Allergies: Coded Allergies: SULFA (SULFONAMIDE ANTIBIOTICS) (Verified Allergy, Unknown, 11/28/17) Pt states she is allergic to sulfa Objective Vital Signs Last 24 Hour Vital Signs Date Time Temp Pulse Resp B/P (MAP) Pulse Ox O2 Delivery O2 Flow Rate FiO2 10/28/18 09:10 90 148/77 10/28/18 09:09 90 148/77 10/28/18 09:00 Nasal Cannula 2.0 10/28/18 08:00 101 10/28/18 08:00 98.1 101 20 148/77 (100) 99 10/28/18 04:00 98.4 90 18 137/79 (98) 98 10/28/18 03:26 91 10/28/18 00:00 99.3 89 18 135/78 (97) 100 10/27/18 23:49 98.8 10/27/18 23:26 90 10/27/18 21:00 Nasal Cannula 2.0 10/27/18 20:28 Nasal Cannula 2.0 28 10/27/18 20:27 99 Nasal Cannula 2.0 28 10/27/18 20:07 94 10/27/18 20:00 99.9 104 18 161/74 (103) 97 10/27/18 19:38 99 10/27/18 16:00 84 10/27/18 15:43 98.3 91 19 150/78 (102) 98 10/27/18 12:00 83 10/27/18 12:00 98.2 84 21 129/83 (98) 100 Height (Feet): 5 Height (Inches): 10.00 Weight (Pounds): 254 General Appearance: no acute distress HEENT: mucous membranes moist Respiratory/Chest: lungs clear Cardiovascular: normal rate Abdomen: soft, non tender Extremities: other - mild esdema Neurologic/Psychiatric: alert, responsive Current Medications Medications (Trade) Dose Ordered Sig/Barrett Route PRN Reason Start Time Stop Time Status Last Admin Dose Admin Acetaminophen (Tylenol) 650 mg Q4H PRN ORAL Mild Pain (Pain Scale 1-3) 10/26/18 14:56 11/12/18 14:55 10/27/18 23:19 Dextrose (Dextrose 50%) 25 ml Q30M PRN IV Hypoglycemia 10/26/18 15:00 11/18/18 12:29 Dextrose (Dextrose 50%) 50 ml Q30M PRN IV Hypoglycemia 10/26/18 15:15 11/18/18 16:35 Diltiazem HCl (Cardizem CD) 240 mg DAILY ORAL 10/27/18 09:00 11/25/18 08:59 10/28/18 09:09 Insulin Aspart (NovoLOG) BEFORE MEALS AND HS SUBQ 10/26/18 16:30 11/18/18 16:29 10/27/18 20:13 Lorazepam (Ativan 2mg/ml 1ml) 0.25 mg BIDPRN PRN IV For Anxiety 10/28/18 08:30 11/04/18 08:29 Metoprolol Tartrate (Lopressor) 50 mg Q12HR ORAL 10/26/18 21:00 11/24/18 20:59 10/28/18 09:10 Morphine Sulfate (Morphine Sulfate) 2 mg Q3H PRN IVP Moderate Pain (Pain Scale 4-6) 10/26/18 14:57 11/02/18 14:56 Ondansetron HCl (Zofran) 4 mg Q6H PRN IVP Nausea & Vomiting 10/26/18 15:00 11/12/18 14:59 Pantoprazole (Protonix) 40 mg DAILY IVP 10/27/18 09:00 11/19/18 14:44 10/28/18 09:10 Polyethylene Glycol (Miralax) 17 gm DAILYPRN PRN ORAL Constipation 10/26/18 15:00 11/18/18 14:59 Zolpidem Tartrate (Ambien) 5 mg HSPRN PRN ORAL Insomnia 10/28/18 08:30 11/04/18 08:29 Julien Yanez MD Oct 28, 2018 11:07
--- NOTE | 2018-10-28 11:37 | Nephrology Progress Note ---
Assessment/Plan Problem List: (1) Altered mental status (2) DM (diabetes mellitus) (3) HTN (hypertension) (4) ARF (acute renal failure) Assessment: better (5) Hypertrophic cardiomyopathy (6) Encephalopathy (7) UTI (urinary tract infection) (8) Hypokalemia Assessment: ok (9) Hypernatremia (10) DVT (deep venous thrombosis) (11) Retroperitoneal bleed Assessment: HCT better (12) Primary hyperparathyroidism Assessment: Ca is Ok Plan cont as is Dc today Subjective Subjective In NAD Objective Objective Last 24 Hour Vital Signs Date Time Temp Pulse Resp B/P (MAP) Pulse Ox O2 Delivery O2 Flow Rate FiO2 10/28/18 09:10 90 148/77 10/28/18 09:09 90 148/77 10/28/18 09:00 Nasal Cannula 2.0 10/28/18 08:00 101 10/28/18 08:00 98.1 101 20 148/77 (100) 99 10/28/18 04:00 98.4 90 18 137/79 (98) 98 10/28/18 03:26 91 10/28/18 00:00 99.3 89 18 135/78 (97) 100 10/27/18 23:49 98.8 10/27/18 23:26 90 10/27/18 21:00 Nasal Cannula 2.0 10/27/18 20:28 Nasal Cannula 2.0 28 10/27/18 20:27 99 Nasal Cannula 2.0 28 10/27/18 20:07 94 10/27/18 20:00 99.9 104 18 161/74 (103) 97 10/27/18 19:38 99 10/27/18 16:00 84 10/27/18 15:43 98.3 91 19 150/78 (102) 98 10/27/18 12:00 83 10/27/18 12:00 98.2 84 21 129/83 (98) 100 Intake and Output 10/27/18 10/28/18 19:00 07:00 Intake Total 490 ml Output Total 303 ml 750 ml Balance 187 ml -750 ml Intake Oral 240 ml Blood Product 250 ml Output Urine Total 300 ml 750 ml Stool Total 3 ml # Voids 1 # Bowel Movements 2 2 Height (Feet): 5 Height (Inches): 10.00 Weight (Pounds): 254 Cardiovascular: normal rate Respiratory/Chest: lungs clear Rahban,Oliverio MD Oct 28, 2018 11:37
[2018-10-28] MEDS ORDERED: CARDIZEM CD240 MG ORAL (11:41)
[2018-10-28] MEDS ORDERED: METOPROLOL TART50 MG ORAL (11:49)
--- NOTE | 2018-10-28 13:55 | General Surgery Progress Note ---
General Surgery-Progress Note Subjective Procedure Performed right internal jugular central venous catheter insertion using ultrasound guidance Symptoms: improved, pain absent Objective Last 24 Hour Vital Signs Date Time Temp Pulse Resp B/P (MAP) Pulse Ox O2 Delivery O2 Flow Rate FiO2 10/28/18 12:00 97.0 78 20 126/77 (93) 98 10/28/18 12:00 78 10/28/18 09:10 90 148/77 10/28/18 09:09 90 148/77 10/28/18 09:00 Nasal Cannula 2.0 10/28/18 08:00 101 10/28/18 08:00 98.1 101 20 148/77 (100) 99 10/28/18 04:00 98.4 90 18 137/79 (98) 98 10/28/18 03:26 91 10/28/18 00:00 99.3 89 18 135/78 (97) 100 10/27/18 23:49 98.8 10/27/18 23:26 90 10/27/18 21:00 Nasal Cannula 2.0 10/27/18 20:28 Nasal Cannula 2.0 28 10/27/18 20:27 99 Nasal Cannula 2.0 28 10/27/18 20:07 94 10/27/18 20:00 99.9 104 18 161/74 (103) 97 10/27/18 19:38 99 10/27/18 16:00 84 10/27/18 15:43 98.3 91 19 150/78 (102) 98 I&O Intake and Output 10/27/18 10/28/18 19:00 07:00 Intake Total 490 ml Output Total 303 ml 750 ml Balance 187 ml -750 ml Intake Oral 240 ml Blood Product 250 ml Output Urine Total 300 ml 750 ml Stool Total 3 ml # Voids 1 # Bowel Movements 2 2 Dressing: other Wound: other Drains: other Cardiovascular: RSR Respiratory: clear Abdomen: soft, flat, non-tender, present bowel sounds Extremities: no cyanosis Plan Problems: (1) Abdominal pain Assessment & Plan: US noted - cholelithiasis. no inflammation CT noted - likely retrop hematoma IV filter as bleed on anticoag prior and has acute dvt okay for diet IV fluids off abx CT chest noted trend labs okay from surgical standpoint d/c planning for tomorrow (2) Anemia Assessment & Plan: poor peripheral access central line inserted see procedure note transfuse prbc trend labs will monitor hematoma clinically Jared Obrien Oct 28, 2018 13:55
--- NOTE | 2018-10-28 19:38 | Cardiology Progress Note ---
Assessment/Plan Assessment/Plan 1.dehydration 2. Toxic metabolic encephlopathy . 3. History of hypertrophic nonobstructive cardiomyopathy. 4. Family history of sudden cardiac . 5. History of intracardiac defibrillator implantation, [employer] device previously. 6. acute renal failure 7. Abnormal perfusion with normal cardiac catheterization previously. 8. Hypercalcemia. 9. Alteration of mentation. 10. Azotemia 11. afib hx 12. bactermia ? contaminent 13. UTI 14. DVT 15. hypotenison 16. anemia 17. shock liver 18. retroperitoneal bleeding icd older model unlikely mri compatible abx s/p ivc filter tele noted sinsu v pacing not a candidate for nursing home anticoagulation increase bb adn ccb d/w dr sainz Subjective Cardiovascular: Denies: chest pain, lightheadedness Respiratory: Denies: shortness of breath Gastrointestinal/Abdominal: Denies: abdominal pain Subjective confused Objective Last 24 Hour Vital Signs Date Time Temp Pulse Resp B/P (MAP) Pulse Ox O2 Delivery O2 Flow Rate FiO2 10/28/18 16:00 98.2 91 20 138/75 (96) 98 10/28/18 12:00 97.0 78 20 126/77 (93) 98 10/28/18 12:00 78 10/28/18 09:10 90 148/77 10/28/18 09:09 90 148/77 10/28/18 09:00 Nasal Cannula 2.0 10/28/18 08:00 101 10/28/18 08:00 98.1 101 20 148/77 (100) 99 10/28/18 04:00 98.4 90 18 137/79 (98) 98 10/28/18 03:26 91 10/28/18 00:00 99.3 89 18 135/78 (97) 100 10/27/18 23:49 98.8 10/27/18 23:26 90 10/27/18 21:00 Nasal Cannula 2.0 10/27/18 20:28 Nasal Cannula 2.0 28 10/27/18 20:27 99 Nasal Cannula 2.0 28 10/27/18 20:07 94 10/27/18 20:00 99.9 104 18 161/74 (103) 97 10/27/18 19:38 99 General Appearance: alert Neck: supple Cardiovascular: normal rate Respiratory/Chest: lungs clear Abdomen: normal bowel sounds, non tender, soft Extremities: no swelling Intake and Output 10/27/18 10/28/18 19:00 07:00 Intake Total 490 ml Output Total 303 ml 750 ml Balance 187 ml -750 ml Intake Oral 240 ml Blood Product 250 ml Output Urine Total 300 ml 750 ml Stool Total 3 ml # Voids 1 # Bowel Movements 2 2 Vernon Darden MD Oct 28, 2018 19:38
--- NOTE | 2018-10-28 22:16 | General Progress Note ---
Assessment/Plan Assessment/Plan Assessment - OB (+) stool, but brown and pasty (not melena) - needs to return for EGD/Colon - Retroperitoneal hematoma - acute hypotention and drop in H&H - due to RP hematoma - Sudden rise in LFT - suspect shocked liver - DVT - anticoagulation held - GB sludge on ultrasound - fatty liver, per U/S imaging Recommendations - follow labs - transfuse PRN - PPI - push po - check hepatitis markers - negative - Check CPK --> normal - f/u with GI for EGD/Colon at later date Subjective Allergies: Coded Allergies: SULFA (SULFONAMIDE ANTIBIOTICS) (Verified Allergy, Unknown, 11/28/17) Pt states she is allergic to sulfa Subjective Above noted calm , NAD no new complaints have not received a call back from family Objective Last 24 Hour Vital Signs Date Time Temp Pulse Resp B/P (MAP) Pulse Ox O2 Delivery O2 Flow Rate FiO2 10/28/18 21:45 150/81 (104) 10/28/18 21:21 153/61 (91) 10/28/18 20:04 91 166/75 10/28/18 20:00 100 165/100 (121) 10/28/18 16:00 98.2 91 20 138/75 (96) 98 10/28/18 12:00 97.0 78 20 126/77 (93) 98 10/28/18 12:00 78 10/28/18 09:10 90 148/77 10/28/18 09:09 90 148/77 10/28/18 09:00 Nasal Cannula 2.0 10/28/18 08:00 101 10/28/18 08:00 98.1 101 20 148/77 (100) 99 10/28/18 04:00 98.4 90 18 137/79 (98) 98 10/28/18 03:26 91 10/28/18 00:00 99.3 89 18 135/78 (97) 100 10/27/18 23:49 98.8 10/27/18 23:26 90 Intake and Output 10/27/18 10/28/18 18:59 06:59 Intake Total 490 ml Output Total 303 ml 750 ml Balance 187 ml -750 ml Intake Oral 240 ml Blood Product 250 ml Output Urine Total 300 ml 750 ml Stool Total 3 ml # Voids 1 # Bowel Movements 2 2 Height (Feet): 5 Height (Inches): 10.00 Weight (Pounds): 254 Objective Elderly AA woman NCAT supple CTA RR abd mildly distended no edema Richard Schroeder MD Oct 28, 2018 22:16
--- NOTE | 2018-10-31 10:07 | Discharge Summary ---
Discharge Summary Discharge Summary _ DATE OF ADMISSION: 10/13/2018 DATE OF DISCHARGE: 10/28/2018 REASON FOR ADMISSION: 68 years old female with past medical history of hypertension, diabetes, hypertrophic cardiomyopathy, automatic implantable cardio-defibrillator, hypercholesterolemia, congestive heart failure, anxiety, history of recurrent UTI, was brought by paramedics due to altered mental status. No chest pain or shortness of breath. No fever no chills. Patient presented hypotensive Laboratory workup revealed no leukocytosis , hemoglobin 10.0 ,hematocrit 31.1. Chemistry showed BUN 124 , creatinine 2.9. Calcium 10.7. Troponin negative. EKG revealed no acute ischemic changes. Urinalysis revealed evidence of UTI. CT of the head revealed no acute intracranial bleeding or mass effect. Age- related volume loss noted. Chest x-ray revealed cardiomegaly with interstitial edema.. Patient admitted with altered mental status, urinary tract infection, acute renal failure, AICD. CONSULTANTS: customs investigator Dr. Darden neurologist Dr. Bassett pulmonary Dr. Alatorre ID specialist Dr. Jesus Yanez GI specialist copier technician Dr. Yanez surgery Dr. Obrien lumber [facility]: Patient admitted to telemetry floor. Patient started on the IV fluids with close monitoring of hemodynamic status, mental status , renal parameters and electrolytes. Patient started on empiric antibiotics. Stamping Die Try Out Worker closely followed. Patient demonstrated V pacing on telemetry. Patient initially was dehydrated, hypotensive and required IV fluids. Echocardiogram revealed preserved ejection fraction 55-60%. Mild left ventricular hypertrophy . No evidence of pericardial effusion. No wall motion abnormality. Right ventricular systolic pressure of 18. Antihypertensive medications intially were held due to hypotension. After hypotension resolved, antihypertensive regimen was titrated to keep blood pressure under control and to avoid hypotension. Statin continued. Engineering Technical Specialist followed. Supplemental oxygen provided as needed to keep pulse oximetry above 92%. Pulmonary toilet provided as needed. Venous duplex of bilateral lower extremity revealed right superficial femoral vein DVT. VQ scan revealed low probability of PE. Patient was not a candidate for anticoagulation given anemia and evidence off retroperitoneal bleeding on on CT scan of abdomen Patient subsequently undergone IVC filter placement. Venous duplex bilateral upper extremity ( was done due to right arm pain) revealed no evidence of DVT. X ray right arm revealed no acute bony trauma. CT of the chest revealed dependent and compressive atelectatic changes in both legs bases. Otherwise clear lungs. Marked cardiomegaly noted. Bedside swallow evaluation revealed evidence of dysphagia and aspiration risk. Diet provided as per speech therapist recommendation with strict aspiration/ reflux precautions . Boat Crew Deck Hand closely followed. Patient presented with acute renal failure/acute kidney injury , likely prerenal azotemia due to dehydration. . Renal parameters and electrolytes were closely monitored. Electrolytes were corrected as needed. Nephrotoxics were avoided. Prior to discharge BUN 14, creatinine 0.9. Abdominal ultrasound revealed normal kidneys echogenicity nd normal cortical thickness ,no visible stones, no hydronephrosis. 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 PTH showed primary hyperparathyroidism. Patient noted to have hypercalcemia. Patient undergone treatm,ent with alejandra Lopez. Calcium down to normal prior tod sicharge. Hypokalemia was corrected, and due to hypernatremia IV fluids were changed to dextrose.. Prior to discharge calcium 9.8. Potassium 3.7. Sodium 147. GI specialist closely followed. Abdominal ultrasound revealed gallbladder sludge. No gallbladder wall thickening or pericholecystic fluid. Normal caliber common bile duct. Diffusely echogenic liver suggesting fatty infiltration. CT scan of abdomen and pelvis revealed 12 x 11.2 x 11.2 complex fluid collection in the left lower retroperitoneum ,concerning for retroperitoneal hematoma. Colonic diverticulosis without wall thickening. Cardiomegaly. Gallbladder sludge versus tiny stone. No gallbladder wall thickening or ductal dilatation. Patchy opacification in the left lung base with air bronchograms , possibly representing atelectasis versus pneumonia. Per GI specialist , acute hypotension and drop in hemoglobin and hematocrit were likely due to retroperitoneal hematoma. Patient also noted sudden rise in LFT with highest AST 1397. AST trending down and prior to discharge returned to normal . GI suspected shock liver. GI prophylaxis with PPI provided. Hepatitis panel was negative. CPK was within normal limits. Stool for occult blood was positive, but stool in appearance brown and pasty , not melena -like appearance. GI recommended EGD and colonoscopy as outpatient. Hemoglobin and hematocrit were closely monitored with goal to keep hemoglobin above 7. Prior to discharge hemoglobin 10.4 hematocrit 31.1. Neurologist seen and evaluated patient. CT scan of the brain without contrast revealed atrophy and deep white matter changes, but no acute pathology. Lab B12 ,folate within normal limits. EEG revealed moderate generalized cerebral dysfunction and left more than right cerebral dysfunction. Per neurologist, the patient's history ,neurological examination laboratory data were most compatible with acute encephalopathic process of the toxic metabolic nature. The offending factors f were urinary tract infection and renal failure. In addition patient also had structural brain disease. Mental status was slowly improving to baseline. Antibiotics were continued. Blood pressure was closely monitored and managed. Patient was mobilized and out of bed with physical and occupational therapists. Neurologist recommended to increase frequent range of motion exercises. ID specialist followed. Urine culture revealed Escherichia coli. Blood culture 1 out of 4. revealed Staph coagulase-negative , likely contaminant as per ID conclusion. Antibiotic regimen optimized as per ID recommendations. Patient had leukocytosis of 19.7 on subsequent days ,which was trending down , and resolved prior to discharge. Patient status post treatment for urinary tract infection. Stool for C. difficile was negative. Infectious disease doctor recommended to observe patient off antibiotics. Surgeon closely followed. Patient required initially central line placement for possible pressor due to acute hypotension,. Patient undergone placement of right internal jugular central venous catheter insertion under ultrasound guidance, which was discontinued prior to discharge. Wireline Field Operator followed for o management of n diabetes. Blood sugar was managed with sliding scale of insulin. No need for basal insulin. Hemoglobin A1c -6.1, at goal. Patient also had evidence of primary hyperparathyroidism. Patient clinically stabilized and was ready for discharge home with home health services. Outpatient follow up with primary care provide, copier technician and GI specialist recommended. FINAL DIAGNOSES: Acute toxic metabolic encephalopathy, secondary to infection and acute renal failure Escherichia coli UTI, status post treatment Hypotension -resolved Acute renal failure/acute kidney injury likely due to dehydration/prerenal azotemia -resolved Retroperitoneal hematoma History of hypertrophic nonobstructive cardiomyopathy Diabetes mellitus History of hypertension DVT right lower extremity ,status post IVC filter History of intracardiac defibrillator implantation. Electrolyte abnormalities (hypokalemia, hyponatremia) Hypercalcemia Primary hyperparathyroidism Elevated transaminates, likely shock liver Anemia DISCHARGE MEDICATIONS: See Medication Reconciliation list. DISCHARGE INSTRUCTIONS: Patient was discharged home with home health services. Follow up with primary care provider in one week. I have been assigned to dictate discharge summary for this account. I was not involved in the patient's management. Mary Hubbard NP Oct 31, 2018 10:06
== END 2018-10-28 22:00 | disposition home or self-care (01) | DRG 673 ==
LOC: EDBD 13:48 → EMR 14:26 → 2E 14:30 → EDBEDREQ 15:15 → 2E 15:41 → ICU 10-19 14:18 → 2W 10-22 14:27 → 2E 10-26 14:26
DX: N17.9 Acute kidney failure, unspecified (principal); G92 Toxic encephalopathy; K72.00 Acute and subacute hepatic failure without coma; K66.1 Hemoperitoneum; J18.9 Pneumonia, unspecified organism; N39.0 Urinary tract infection, site not specified; G93.40 Encephalopathy, unspecified; R71.0 Precipitous drop in hematocrit; I82.411 Acute embolism and thrombosis of right femoral vein; J98.11 Atelectasis; J44.0 Chronic obstructive pulmonary disease with (acute) lower respiratory infection; E87.1 Hypo-osmolality and hyponatremia; E87.0 Hyperosmolality and hypernatremia; B96.20 Unspecified Escherichia coli [E. coli] as the cause of diseases classified elsewhere; I12.9 Hypertensive chronic kidney disease with stage 1 through stage 4 chronic kidney disease, or unspecified chronic kidney disease; N18.9 Chronic kidney disease, unspecified; E11.22 Type 2 diabetes mellitus with diabetic chronic kidney disease; E11.65 Type 2 diabetes mellitus with hyperglycemia; D64.9 Anemia, unspecified; R47.1 Dysarthria and anarthria; Z74.01 Bed confinement status; L89.159 Pressure ulcer of sacral region, unspecified stage; I95.9 Hypotension, unspecified; E83.52 Hypercalcemia; E21.3 Hyperparathyroidism, unspecified; R13.10 Dysphagia, unspecified; E87.6 Hypokalemia; E86.0 Dehydration; Z95.810 Presence of automatic (implantable) cardiac defibrillator; F41.9 Anxiety disorder, unspecified
CPT/HCPCS: 36415; 36600; 70450; 71045; 71250; 74176; 76700; 76937; 78579; 78580; 80048; 80053; 80061; 81003; 82140; 82270; 82306; 82330; 82550; 82553; 82607; 82746; 82784; 82803; 82962; 83036; 83605; 83690; 83735; 83880; 83970; 84100; 84165; 84443; 84484; 85007; 85025; 85610; 85651; 85730; 86334; 86592; 86705; 86709; 86803; 86850; 86900; 86901; 86920; 87040; 87086; 87181; 87324; 87340; 93005; 93306; 93930; 93970; 94760; 95819; 96361; 96365; 99285; A9503; J1815; J2405; J2430; J8499